=== PATIENT | female | born 1945 | race Caucasian/White ===

== ENCOUNTER 2017-03-02 08:45 | Outpatient (POV) | payer MEDICARE, SELFPAY | END 2017-03-02 11:23 | disposition home or self-care (01) | PROVIDERS: Family Provider Family Medicine; PCP Family Medicine; Visit Provider Podiatrist | DX: M19.072 Primary osteoarthritis, left ankle and foot (principal); M20.12 Hallux valgus (acquired), left foot; M20.11 Hallux valgus (acquired), right foot; M19.071 Primary osteoarthritis, right ankle and foot | CPT/HCPCS: 20600; 99212; J1100; J3301 ==

== ENCOUNTER → 2017-07-03 09:56 | Outpatient (CLI) | payer MEDICARE, SELFPAY ==
--- NOTE | 2017-07-03 10:00 | MR_ITS ---
MR lumbar spine wo con COMPARISON: None HISTORY: Low back pain with sciatica TECHNIQUE: Standard sagittal and axial sequences were performed along with a myelogram sequence. FINDINGS: There is normal curvature and alignment. The marrow signal is normal in all lumbar vertebrae except for prominent type II endplate changes at the L3-4 disc space. The spinal canal is normal size throughout. There is a focal left paracentral disc protrusion at L1 to causing mild neural foraminal narrowing on the left side at this level and a focal extradural defect at this level on the myelogram sequence. The L2-3 disc appears normal. There is a small left paracentral and foraminal disc protrusion L-3-4 definitely narrowing the left neuroforamen at this level. The L4-5 disc is normal.. There is a broad-based central and left paracentral disc protrusion L5-S1 which combined with hypertrophic facet changes at this level results in mild neural foraminal narrowing on the left side at this level. There are hypertrophic facet changes at the L 45 level as well. The myelogram sequence shows no significant extradural defect other than that already mentioned at the L1-2 level. The conus appears normal. IMPRESSION: Multilevel changes as described above, most prominent at the L1-2 and L3-4 levels.
== END ==
PROVIDERS: Family Provider Family Medicine; PCP Family Medicine; Visit Provider Family Medicine
DX: M51.36 Other intervertebral disc degeneration, lumbar region (principal); M54.41 Lumbago with sciatica, right side; M46.96 Unspecified inflammatory spondylopathy, lumbar region
CPT/HCPCS: 72148; 76376

== ENCOUNTER → 2017-10-02 14:45 | Outpatient (CLI) | payer MEDICARE, SELFPAY ==
--- NOTE | 2017-10-02 14:46 | US_ITS ---
US transvaginal Ordering Physician: Jacobo Canchola MD Patient Age: 72 years: Female HISTORY: ITS.REASON: US T/V postmenopausal bleeding. One year. 9-year-old TECHNIQUE: Transvaginal pelvic ultrasound. COMPARISON :No recent relevant studies. Only CT abdomen pelvis and 2013 available -----FINDINGS ------ Uterus. Small postmenopausal uterus measuring 5.6 cm length x 2.6 cm AP x 4.1 cm wide. Thin hyperechoic Endometrial stripe measuring 2.8 mm APNear the fundus. . Slight hypoechoic margin flanking this thin endometrial stripe measures up to 6.6 mm AP Nabothian cyst at upper cervical canal measuring 4 mm Another more posterior cervical now measuring up to 1.2 cm length and another measuring 5 mm Right ovary 2.3 is x 1.2 x 1.8 cm. Small cyst at the right ovary measures up to 1.8 cm x 1.2 x 0.7 cm cm. Left ovary 1.4 x 0.6 x 1.3 cm-- Right ovary 2.25 x 1.2 cm X 1.8 cm . No fluid in cul-de-sac --------IMPRESSION uterus normal in size.- . Nabothian cysts Thin hyperechoic endometrial stripe, Ovaries appear normal in size Right ovary contains a cyst 1.2 cm length maximally
== END ==
PROVIDERS: Family Provider Family Medicine; PCP Family Medicine; Visit Provider Nurse Practitioner Obstetrics & Gynecology
DX: N95.0 Postmenopausal bleeding (principal); N83.201 Unspecified ovarian cyst, right side
CPT/HCPCS: 76830

== ENCOUNTER → 2018-04-15 09:41 | Outpatient (CLI) | payer MEDICARE, SELFPAY ==
--- NOTE | 2018-04-15 09:47 | XR_ITS ---
XR knee LT 3V HISTORY: Left knee pain ITS.REASON: BILAT KNEE PAIN ORDERING PHYSICIAN: Bossman Davison MD PATIENT AGE: 72 years COMPARISON: 01/21/2007 FINDINGS: There are mild osteoarthritic changes of the medial compartment and patellofemoral joint. Small osteophytes are present at the lateral tibial spine and intercondylar region of the femur as well as the medial aspect of the knee joint and patellofemoral joint. No fracture or dislocation. No lytic or blastic change. Ununited ossification center noted at the tibial tuberosity IMPRESSION: Mild osteoarthritis of the left knee which has progressed since the previous exam
--- NOTE | 2018-04-15 09:47 | XR_ITS ---
XR knee RT 3V HISTORY: Right knee pain ITS.REASON: BILAT KNEE PAIN ORDERING PHYSICIAN: Bossman Davison MD PATIENT AGE: 72 years COMPARISON: None FINDINGS: No fracture or dislocation. No lytic or blastic change. Normal mineralization. There are minimal osteoarthritic changes of the medial compartment and patellofemoral joint. No lytic or blastic change evident. IMPRESSION: Minimal osteoarthritis of the right knee
== END ==
PROVIDERS: PCP Family Medicine; Visit Provider Family Medicine
DX: M25.561 Pain in right knee (principal); M25.562 Pain in left knee
CPT/HCPCS: 73562

== ENCOUNTER → 2018-04-20 08:36 | Outpatient (CLI) | payer MEDICARE, SELFPAY ==
--- NOTE | 2018-04-20 09:00 | MM_ITS ---
MM Dig screening mamm BI w/CAD CAD Screening COMPARISON: Digital mammograms with CAD 11/10/2016 and 11/07/2015 INDICATION: There is a history of breast cancer in patient's sister diagnosed at age 77 TECHNIQUE: Standard CC and MLO images were obtained. R2 CAD reviewed. FINDINGS: The breasts are composed primarily of fat with minimal scattered fibroglandular densities in each breast. There is a stable small asymmetric density lower outer quadrant right breast. There is faint arterial calcification in each breast and there are a few scattered benign-appearing microcalcifications in the subareolar regions of each breast. There is no suspicious lesion and there are no suspicious microcalcifications. IMPRESSION: Fatty type breast parenchyma with no suspicious lesion seen BI-RADS Category: 2 Benign Finding(s) RECOMMENDED FOLLOW-UP: 1YR - 1 YEAR FOLLOW-UP (A letter has been sent to the patient regarding results of the study.)
== END ==
PROVIDERS: PCP Family Medicine; Visit Provider Family Medicine
DX: Z12.31 Encounter for screening mammogram for malignant neoplasm of breast (principal)
CPT/HCPCS: 77067

== ENCOUNTER → 2019-05-24 09:55 | Outpatient (CLI) | payer MEDICARE, SELFPAY ==
--- NOTE | 2019-05-24 10:00 | MM_ITS ---
PROCEDURE: MM DIG SCREENING MAMM BI W/CAD BILATERAL DIGITAL BREAST TOMOSYNTHESIS INCLUDED Patient Age:73Y CLINICAL INDICATION: SCREENING 73-year-old. No hormones. No new complaints. Family history. Sister with breast cancer age 77 COMPARISON: DIGMAMMS MAMMOGRAM SCREEN-EXECUTIVE RELATIONS SPECIALIST N/C from 08/15/2008 DIGMAMMS MAMMOGRAM SCREEN-EXECUTIVE RELATIONS SPECIALIST N/C from 08/17/2009 D[facility] DIGITAL MAMM-SCREEN BILATERAL from 09/09/2010 [facility] DIGITAL MAMM-SCREEN BILATERAL from 10/08/2011 D[facility] DIG MAMM-SCREEN SANDRA from 10/19/2012 D[facility]B DIG MAMM-SCREEN SANDRA from 10/26/2013 [id number] DIG MAMM-DX UNI ADD VIEWS-LT from 11/03/2013 DMDXUL DIG MAMM-DX UNI-LT from 05/09/2014 [facility] DIG MAMM-SCREEN SANDRA from 11/07/2015 D[facility]B DIG MAMM-SCREEN SANDRA W/CAD from 11/10/2016 [facility] MM Dig screening mamm BI w/CAD from 04/20/2018 TECHNIQUE: Standard CC and MLO images were obtained. R2 CAD reviewed. Bilateral digital breast tomosynthesis included FINDINGS: Low-density breast with generalized fatty replacement and minimal residual fibroglandular elements Minimal benign vascular calcifications bilaterally. No suspicious calcifications. No suspicious new densities and no dominant mass Right breast. Small a 7 mm density, far lateral right breast CC view and inferior breast MLO view. It has been present and seen on on multiple studies dating even as far back [id number] and appears overall fairly stable., however it is slight more evident some of on today's views, including new cc tomosynthesis it is appearance (cc image 20) and because of its slight variable margins would suggest follow-up in 6-8 months at this juncture at our facility during this particular time in this age patient is suggested; merely to be cautious and confirm stability. Although again strongly favors a benign feature merely which is more clearly imaged on today's today's projection and with the additional of tomosynthesis Left breast: Stable with no areas of concern. Follow-up 1 year on left. IMPRESSION: Right breast.. Small longstanding density lateral inferior right breast has been seen multiple previous studies-and appears fairly stable but is slightly more apparent on some of today's images including the new cc luma synthesis image set. Most likely stable benign feature but I would suggest follow-up right mammogram study in 6-8 months to confirm stability here in this age patient at our facility at the current time. Left breast appear stable. Follow-up 1 year on left BI-RAD Category: 3 Probably Benign Finding Short Term Follow-up FOLLOW-UP: 6M-8 Month Follow-up right breast (A letter has been sent to the patient regarding results of the study.) Dictated by: Terence Michael MD 06/01/2019 08:52 Electronically signed by Terence Michael MD in [place] 06/01/2019 08:52
== END ==
PROVIDERS: PCP Family Medicine; Visit Provider Family Medicine
DX: Z12.31 Encounter for screening mammogram for malignant neoplasm of breast (principal)
CPT/HCPCS: 77063; 77067

== ENCOUNTER → 2019-11-14 09:45 | Outpatient (CLI) | payer MEDICARE, SELFPAY ==
--- NOTE | 2019-11-14 | XR_ITS ---
PROCEDURE: XR KNEE RT 3V CLINICAL INDICATION: RT KNEE PAIN COMPARISON: CR [id number] XR knee RT 3V from 04/15/2018 CR [id number] XR knee LT 3V from 04/15/2018 FINDINGS: No fracture or dislocation. No lytic or blastic change. There is normal mineralization. There is only minimal decrease in the joint space medially. No fracture or dislocation. No lytic or blastic change. Other findings:None. IMPRESSION: Minimal osteoarthritic change medial compartment not significantly changed otherwise negative Dictated by: Jerod Berman MD 11/14/2019 10:49 Jerod Berman MD in [place] 11/14/2019 10:49
--- NOTE | 2019-11-14 | XR_ITS ---
PROCEDURE: XR KNEE LT 3V CLINICAL INDICATION: LT KNEE PAIN COMPARISON: CR [id number] XR knee RT 3V from 04/15/2018 CR [id number] XR knee LT 3V from 04/15/2018 FINDINGS: No fracture or dislocation. No lytic or blastic change. There is normal mineralization. There are mild osteoarthritic changes involving all 3 compartments overall not significantly changed. Accessory ossification center noted at the tibial tuberosity Other findings:None. IMPRESSION: Mild osteoarthritis not significantly changed Dictated by: Jerod Berman MD 11/14/2019 10:57 Jerod Berman MD in [place] 11/14/2019 10:57
== END ==
PROVIDERS: PCP Family Medicine; Visit Provider Family Medicine
DX: M25.561 Pain in right knee (principal); M25.562 Pain in left knee
CPT/HCPCS: 73562

== ENCOUNTER → 2019-11-25 12:55 | Outpatient (CLI) | payer MEDICARE, SELFPAY ==
--- NOTE | 2019-11-25 12:57 | MM_ITS ---
PROCEDURE: MM DIG MAMM DX UNILAT RT CAD Digital Breast Tomosynthesis Included CLINICAL INDICATION: ABN MAMM COMPARISON: MG DMSB DIG MAMM-SCREEN SANDRA W/CAD from 11/10/2016 MG [facility] MM Dig screening mamm BI w/CAD from 04/20/2018 MG MM DIG SCREENING MAMM BI W/CAD from 05/24/2019 TECHNIQUE: Standard CC and MLO images and 3D Tomosynthesis was obtained. R2 CAD reviewed. FINDINGS: The small irregular density outer quadrant again noted and actually appears slightly smaller than the previous exam on luma images. It shows no suspicious characteristics on the luma images. Possibly this represents an old posttraumatic scar. Again noted is faint arterial calcification. IMPRESSION: Stable six-month follow-up exam BI-RAD Category: 2 Benign Finding(s) FOLLOW-UP: 6M 6Month Follow-up to return to normal yearly screening schedule (A letter has been sent to the patient regarding results of the study.) Dictated by: Dr. Omar Niño MD 11/25/2019 13:27 Dr. Omar Niño MD in [place] 11/25/2019 13:27
== END ==
PROVIDERS: PCP Family Medicine; Visit Provider Family Medicine
DX: R92.8 Other abnormal and inconclusive findings on diagnostic imaging of breast (principal)
CPT/HCPCS: 77061; 77065; G0279

== ENCOUNTER → 2019-12-05 09:01 | Outpatient (CLI) | payer MEDICARE, SELFPAY ==
--- NOTE | 2019-12-05 09:05 | XR_ITS ---
PROCEDURE: XR KNEE LT 4V CLINICAL INDICATION: bilateral knee pain COMPARISON: CR [id number] XR knee RT 3V from 04/15/2018 CR [id number] XR knee LT 3V from 04/15/2018 CR XR KNEE LT 3V from 11/14/2019 CR XR KNEE RT 3V from 11/14/2019 FINDINGS: No fracture or dislocation. No lytic or blastic change. There is normal mineralization. There are mild osteoarthritic changes of the medial compartment and patellofemoral joint Ununited ossification center at the tibial tuberosity unchanged IMPRESSION: No change mild osteoarthritis of the left knee Dictated by: Jerod Berman MD 12/05/2019 14:10 Jerod Berman MD in [place] 12/05/2019 14:10
--- NOTE | 2019-12-05 09:05 | XR_ITS ---
PROCEDURE: XR KNEE RT 4V CLINICAL INDICATION: bilateral knee pain COMPARISON: CR [id number] XR knee RT 3V from 04/15/2018 CR [id number] XR knee LT 3V from 04/15/2018 CR XR KNEE LT 3V from 11/14/2019 CR XR KNEE RT 3V from 11/14/2019 FINDINGS: No fracture or dislocation. No lytic or blastic change. There is normal mineralization. Mild osteoarthritic changes are present at the medial lateral compartment not significantly changed Other findings:None. IMPRESSION: No change mild osteoarthritis Dictated by: Jerod Berman MD 12/05/2019 14:08 Jerod Berman MD in [place] 12/05/2019 14:08
== END ==
PROVIDERS: PCP Family Medicine; Visit Provider Orthopaedic Surgery
DX: M25.562 Pain in left knee (principal); M25.561 Pain in right knee
CPT/HCPCS: 73564

== ENCOUNTER → 2020-08-10 11:54 | Outpatient (CLI) | payer MEDICARE, SELFPAY | PROVIDERS: Visit Provider Internal Medicine Gastroenterology | DX: Z01.812 Encounter for preprocedural laboratory examination (principal); Z11.52 Encounter for screening for COVID-19; Z12.11 Encounter for screening for malignant neoplasm of colon | CPT/HCPCS: U0003 ==

== ENCOUNTER 2020-08-13 10:55 | Day surgery (SDC) | payer MEDICARE, SELFPAY ==
[2020-08-07 10:38] VITALS: BMI 42.3
[2020-08-13 11:45] VITALS: BP 136/70; PULSE 61; RESP 18; TEMP 36.2; O2SAT 96
--- NOTE | 2020-08-13 12:10 | P.PN_ITS ---
[facility] Anesthesia Checklist - Patient Identification Patient Identification: Arm Band - Structural Data Admitted From: Home Planned Operative Procedure/s: Colonoscopy Consent for Planned Operative Procedure(s) Verified: Yes - NPO Status Verified Time NPO: 00:00 - Airway Assessment C-Spine Mobility Assessed: Yes TMJ Mobility Assessed: Yes Dentition: Dentures-good fit - Neurological Assessment Level of Consciousness: Awake Hx Seizures: No Numbness or tingling in extremities: No - Anesthesia Plan Anesthesia Risk discussed: Yes Anesthesia Plan: Verified ASA Class: III Anesthesia Type: MAC [facility] History I have reviewed the patient's past medical history: Yes Medical History: Reports:: Anxiety, Depression, Hyperlipidemia, Hypertension Denies:: Cancer, Diabetes Mellitus Type 1, Diabetes Mellitus Type 2, Internal Pacemaker, MRSA, Seizures *Have you ever received a pneumonia vaccine?: Yes *Have you received a flu vaccine this season?: Yes Other Medical History: Reports: Arthritis, Hypothyroidism, Thyroid Disease Anesthesia experience/problems:: None Other Surgeries: Yes: Cholecystectomy, Colonoscopy, , Tubal Ligation. No: Pacemaker Amputation: No Fractures: No - *Social History Last grade of school completed: GED Smoking Status: Never smoker Alcohol Intake: never Substance Use Type: denies use *Occupational Status:: retired Housing: house Household Members: spouse *Travel in the last 8 weeks: None - Psychiatric History Pschychiatric History:: Reports:: Anxiety, Depression Family Hx:: Cancer
--- NOTE | 2020-08-13 12:50 | P.PCN_ITS ---
[facility] Procedure Note Procedure Note:: Colonoscopy Procedure Report: Colonoscopy with cold snare polypectomy Endoscopist: Stefan Lucas II, MD Referring physician: Bossman Davison MD Date of Procedure: August 13, 2020 Equipment: Olympus 190 variable stiffness pediatric colonoscope Sedation: MAC sedation Indication: Mrs. Schmitz is a 75-year-old female who is here for follow-up screening/surveillance colonoscopy secondary to a personal history of adenomatous colon polyps. The patient did have a normal colonoscopy 17 years ago. Her last colonoscopy in August 2014 revealed 2 polyps (serrated adenomas x2) which were removed. She reports no abdominal pain, weight loss, change in her bowel habits or rectal bleeding. She reports no family history of colon cancer. Procedure: Prior to the procedure, a history and physical exam was performed, and patient's medications and allergies were reviewed. The risks, benefits and alternatives of the sedation and procedure were discussed with the patient. All questions were answered and informed consent was obtained. The patient was brought to the procedure room. Patient identification and proposed procedure were verified by the physician and the nurse. The patient was placed in a left lateral decubitus position and the scope was passed under direct vision. Throughout the procedure, the patient's blood pressure, pulse, and oxygen saturations were monitored continuously. The colonoscopy was accomplished without difficulty. The patient tolerated the procedure well. Findings: On digital rectal examination there was normal rectal tone. There were no external hemorrhoids. The colonoscope was introduced through the anal canal to the rectum and advanced to the cecum. The ileocecal valve and appendiceal orifice were identified. The scope was advanced a short distance into the ileum which appeared grossly normal. The scope was then withdrawn into the colon. There were 5 colon polyps (cecum x2 (4 and 4 mm), ascending x1 (5 mm), descending x1 (4 mm) and sigmoid x1 (14 to 15 mm)) which were all removed via cold snare polypectomy. There were extensive scattered diverticuli throughout the descending and sigmoid colon (LEFT colon). The rectum itself was normal. Upon retroflexion within the rectum there were grade 2 internal hemorrhoids. The preparation was excellent throughout with [place] Preparation Score of 9. The cecal time was 16 minutes. Impression: 1. Colonic polyps x5 2. Extensive left-sided diverticulosis 3. Grade 2 internal hemorrhoids Plan: Based upon the size and number of adenomatous polyps, I would recommend repeat screening/surveillance colonoscopy again in 3 years based upon the histology/pathology. I would encourage a fiber bowel regimen on a long-term daily maintenance basis.
[2020-08-13 12:52] VITALS: BP 134/64; PULSE 67; RESP 12; TEMP 37.1; O2SAT 93
[2020-08-13 13:02] VITALS: BP 128/67; PULSE 60; RESP 16; O2SAT 94
[2020-08-13 13:12] VITALS: BP 135/86; PULSE 60; RESP 16; O2SAT 95
[2020-08-13 13:22] VITALS: BP 143/74; PULSE 55; RESP 16; TEMP 37.1; O2SAT 97
[2020-08-13 13:36] VITALS: O2SAT 97
== END 2020-08-13 13:24 | disposition home or self-care (01) ==
LOC: OUTP 10:59
PROVIDERS: PCP Family Medicine; Visit Provider Internal Medicine Gastroenterology
PROC: 0DJD8ZZ Inspection of Lower Intestinal Tract, Via Natural or Artificial Opening Endoscopic (ICD-10-PCS; CPT 45378; principal; 2020-08-13 12:00)
DX: Z12.11 Encounter for screening for malignant neoplasm of colon (principal); Z86.010 Personal history of colon polyps; K63.5 Polyp of colon; K57.30 Diverticulosis of large intestine without perforation or abscess without bleeding; K64.1 Second degree hemorrhoids; F41.9 Anxiety disorder, unspecified; F32.9 Major depressive disorder, single episode, unspecified; E78.5 Hyperlipidemia, unspecified; I10 Essential (primary) hypertension; M19.90 Unspecified osteoarthritis, unspecified site; E03.9 Hypothyroidism, unspecified; Z90.49 Acquired absence of other specified parts of digestive tract
CPT/HCPCS: 45385; 88305

== ENCOUNTER → 2020-09-28 08:59 | Outpatient (CLI) | payer MEDICARE, SELFPAY ==
--- NOTE | 2020-09-28 09:04 | XR_ITS ---
PROCEDURE: XR KNEE LT 4V CLINICAL INDICATION: BL knee pain Injury with pain COMPARISON: CR XR KNEE RT 3V from 11/14/2019 CR XR KNEE LT 3V from 11/14/2019 CR XR KNEE LT 4V from 12/05/2019 CR XR KNEE RT 4V from 12/05/2019 FINDINGS: No fracture or dislocation. No lytic or blastic change. There is normal mineralization. Moderate osteoarthritic changes involve the medial compartment and patellofemoral joint. Lucency is present at the base of an enthesophyte at the tibial tuberosity unchanged Other findings:None. IMPRESSION: Osteoarthritis, no acute fracture Dictated by: Jerod Berman MD 09/28/2020 09:38 Jerod Berman MD in [place] 09/28/2020 09:38
--- NOTE | 2020-09-28 09:04 | XR_ITS ---
PROCEDURE: XR HIP RT 2-3V W/PELVIS CLINICAL INDICATION: BL knee pain Bilateral hip pain COMPARISON: CR [id number] HIP RT 2-3V W/PELVIS IF PERFOR from 10/13/2016 CR XR HIP LT 2-3V W/PELVIS from 09/28/2020 FINDINGS: Mild osteoarthritic changes are present involving both hips. No fracture or dislocation. No lytic or blastic change. IMPRESSION: No acute findings. Dictated by: Jerod Berman MD 09/28/2020 09:40 Jerod Berman MD in [place] 09/28/2020 09:40
--- NOTE | 2020-09-28 09:04 | XR_ITS ---
PROCEDURE: XR ELBOW LT MIN 3V CLINICAL INDICATION: left elbow pain COMPARISON: No exams were available for comparison FINDINGS: No fracture or dislocation. No lytic or blastic change. There is normal mineralization. The joint spaces are well-preserved. No significant degenerative/arthritic changes. No erosive changes evident. Other findings:None. IMPRESSION: No acute findings. Dictated by: Jerod Berman MD 09/28/2020 09:35 Jerod Berman MD in [place] 09/28/2020 09:35
--- NOTE | 2020-09-28 09:04 | XR_ITS ---
PROCEDURE: XR KNEE RT 4V CLINICAL INDICATION: BL knee Pain after a fall COMPARISON: CR XR KNEE RT 3V from 11/14/2019 CR XR KNEE LT 3V from 11/14/2019 CR XR KNEE LT 4V from 12/05/2019 CR XR KNEE RT 4V from 12/05/2019 FINDINGS: No fracture or dislocation. No lytic or blastic change. There is normal mineralization. Mild osteoarthritic change of the medial compartment and patellofemoral joint Other findings:None. IMPRESSION: Mild osteoarthritis, no acute finding Dictated by: Jerod Berman MD 09/28/2020 09:37 Jerod Berman MD in [place] 09/28/2020 09:37
--- NOTE | 2020-09-28 09:04 | XR_ITS ---
PROCEDURE: XR HIP RT 2-3V W/PELVIS CLINICAL INDICATION: BL knee pain Bilateral hip pain COMPARISON: CR [id number] HIP RT 2-3V W/PELVIS IF PERFOR from 10/13/2016 CR XR HIP LT 2-3V W/PELVIS from 09/28/2020 FINDINGS: Mild osteoarthritic changes are present involving both hips. No fracture or dislocation. No lytic or blastic change. IMPRESSION: No acute findings. Dictated by: Jerod Berman MD 09/28/2020 09:40 Jerod Berman MD in [place] 09/28/2020 09:40
== END ==
PROVIDERS: PCP Family Medicine; Visit Provider Orthopaedic Surgery
DX: M25.561 Pain in right knee (principal); M25.562 Pain in left knee; M25.522 Pain in left elbow; M17.11 Unilateral primary osteoarthritis, right knee; M17.12 Unilateral primary osteoarthritis, left knee
CPT/HCPCS: 73080; 73502; 73564

== ENCOUNTER → 2021-04-03 09:11 | Outpatient (CLI) | payer MEDICARE, SELFPAY | PROVIDERS: Visit Provider Nurse Practitioner | DX: Z20.822 Contact with and (suspected) exposure to COVID-19 (principal) | CPT/HCPCS: C9803; U0003; U0005 ==

== ENCOUNTER → 2021-04-18 11:51 | Outpatient (CLI) | payer MEDICARE, SELFPAY ==
[2021-04-19 13:27] LABS: Covid-19 Nasal PCR Sendout Lex POSITIVE
== END ==
PROVIDERS: Visit Provider Nurse Practitioner
DX: U07.1 COVID-19 (principal)
CPT/HCPCS: C9803; U0004; U0005

== ENCOUNTER → 2021-05-17 10:15 | Outpatient (CLI) | payer MEDICARE, SELFPAY ==
--- NOTE | 2021-05-17 10:22 | XR_ITS ---
FINAL REPORT CLINICAL HISTORY: knee pain COMPARISON: September 28, 2020 FINDINGS: 4 views of the left knee were obtained. There is no acute fracture or dislocation. There is moderate narrowing of the medial compartment and patellofemoral joint spaces. There are osteophytes along the medial joint and along the undersurface of the patella. IMPRESSION: Moderate osteoarthritis. Reviewed, Interpreted and Dictated by Art Gallegos MD Transcribed by Noe Mendez Authenticated by Art Gallegos MD on 05/17/2021 11:57:44 AM [facility]
--- NOTE | 2021-05-17 10:22 | XR_ITS ---
FINAL REPORT CLINICAL HISTORY: knee pain COMPARISON: September 28, 2020 FINDINGS: 4 weight-bearing views of the right knee were obtained. There is no acute fracture or dislocation. There is mild narrowing of the medial compartment joint space. The soft tissues are unremarkable. IMPRESSION: Mild narrowing of the medial compartment joint space. Reviewed, Interpreted and Dictated by Art Gallegos MD Transcribed by Noe Mendez Authenticated by Art Gallegos MD on 05/17/2021 11:57:45 AM [facility]
--- NOTE | 2021-05-17 10:22 | XR_ITS ---
FINAL REPORT CLINICAL HISTORY: foot pain FINDINGS: 3 simulated weight-bearing views of the right foot were obtained. There is no acute fracture or dislocation. There is mild hallux valgus deformity. There is an accessory navicular. The soft tissues are unremarkable. IMPRESSION: Mild hallux valgus deformity. Reviewed, Interpreted and Dictated by Art Gallegos MD Transcribed by Noe Mendez Authenticated by Art Gallegos MD on 05/17/2021 11:57:[address] [facility]
--- NOTE | 2021-05-17 10:22 | XR_ITS ---
FINAL REPORT CLINICAL HISTORY: foot pain FINDINGS: 3 simulated weight-bearing views of the left foot were obtained. There is no acute fracture or dislocation. There is moderate hallux valgus deformity. There are mild hypertrophic changes involving the TMT joints. There is an accessory navicular. The soft tissues are unremarkable. IMPRESSION: Mild hypertrophic change involving the TMT joints with moderate hallux valgus deformity. Reviewed, Interpreted and Dictated by Art Gallegos MD Transcribed by Noe Mendez Authenticated by Art Gallegos MD on 05/17/2021 11:57:47 AM [facility]
== END ==
LOC: RAD 10:17
PROVIDERS: PCP Family Medicine; Visit Provider Orthopaedic Surgery
DX: M79.671 Pain in right foot; M79.672 Pain in left foot; M25.562 Pain in left knee; M25.561 Pain in right knee
CPT/HCPCS: 73564; 73630

== ENCOUNTER → 2021-05-27 10:18 | Outpatient (CLI) | payer MEDICARE, SELFPAY ==
--- NOTE | 2021-05-27 10:29 | XR_ITS ---
FINAL REPORT CLINICAL HISTORY: 2ND DIGIT FINGER PAIN..no trauma FINDINGS: RIGHT HAND: 3 views of the right hand were obtained. There is no acute fracture or dislocation. There is severe degenerative change at the 1st CMC joint. There is mild degenerative change elsewhere in the hand. Soft tissues are unremarkable. IMPRESSION: Mild and severe degenerative changes, greatest at the 1st CMC joint. Reviewed, Interpreted and Dictated by John Hong III, MD Transcribed by Noe Mendez Authenticated by John Hong III, MD on 05/27/2021 12:20:33 PM [facility]
== END ==
LOC: RAD 10:19
PROVIDERS: PCP Family Medicine; Visit Provider Family Medicine
DX: M79.644 Pain in right finger(s) (principal)
CPT/HCPCS: 73130

== ENCOUNTER → 2021-08-22 10:00 | Outpatient (CLI) | payer MEDICARE, SELFPAY ==
--- NOTE | 2021-08-22 10:07 | MM_ITS ---
PROCEDURE INFORMATION: Exam: MG Bilateral Screening 3D Mammography Exam date and time: 08/22/2021 10:15 AM Age: 76 years old Clinical indication: Screening examination. Her sister had breast cancer at age 77. TECHNIQUE: Imaging protocol: Bilateral Screening tomosynthesis and 2D mammography including computer-aided detection (CAD) when performed. COMPARISON: 1. MG MM DIG MAMM DX UNILAT RT CAD 11/25/2019 1:02 PM 2. MG MM DIG SCREENING MAMM BI W/CAD 05/24/2019 10:45 AM 3. MG [facility] MM Dig screening mamm BI w/CAD 04/20/2018 9:04 AM 4. MG DMSB DIG MAMM-SCREEN SANDRA W/CAD 11/10/2016 8:14 AM FINDINGS: MAMMOGRAPHY: Breast composition: The breasts are almost entirely fatty. Mass: No suspicious mass. Architectural distortion: None. Calcifications: No suspicious calcifications. Asymmetric density: None. Skin thickening: None. Axillary adenopathy: None. IMPRESSION: No mammographic evidence of malignancy. Annual screening is recommended unless otherwise clinically indicated. ASSESSMENT: BI-RADS Category 1: Negative
== END ==
PROVIDERS: PCP Family Medicine; Visit Provider Family Medicine
DX: Z12.31 Encounter for screening mammogram for malignant neoplasm of breast (principal)
CPT/HCPCS: 77063; 77067

== ENCOUNTER → 2021-09-02 08:48 | Outpatient (POV) | payer MEDICARE, SELFPAY ==
[2021-09-02 10:34] VITALS: BP 118/53; PULSE 57; RESP 18; TEMP 36.5; O2SAT 98; BMI 40.7
--- NOTE | 2021-09-02 11:10 | HMH.PMCON ---
Assessment and Plan (1) Chronic low back pain Status: Acute Category: Medical Code(s): M54.50 - Low back pain, unspecified; G89.29 - Other chronic pain (2) Sacroiliitis Status: Acute Category: Medical Code(s): M46.1 - Sacroiliitis, not elsewhere classified (3) Bilateral knee pain Status: Acute Category: Medical Code(s): M25.561 - Pain in right knee; M25.562 - Pain in left knee - Assessment and plan all Dx Assessment and Plan for all problems:: Patient presents today with worsening LBP that radiates to BLE. She cannot tolerate any prolonged activity such as sitting, standing, and walking. She has an extreme point of tenderness on bilateral SI joints. SI exam is positive. We will schedule the pt for a bilateral SI injection. Risks and benefits of the procedure have been explained to the patient. Patient would like to proceed with the procedure. Patient has not had any updated lumbar imaging. We will order a lumbar MRI without contrast. I will also refer the patient to physical therapy for further evaluation and treatment. She says that her son goes to [place] 3 times a week for dialysis. She wants to schedule her physical therapy at the same time when her son is in dialysis. Patient has been instructed to contact the clinic with any concerns before the next appointment. Dr. Lozano has reviewed this note and agrees with this plan of care. This note was dictated using voice recognition software and make contain errors or omissions. HPI - Data of Consult Patient: new to practice Consult date: 09/02/21 Requesting Physician: MIAH Nichols - Consult Narrative Reason for consult: LBP History of present illness: Ms. Schmitz is a 76 year old female who presents today as a new patient. Patient is referred by Dr. Goncalves. Thank you for the referral. Patient presents with worsening low back pain that radiates to BLE. She has a medical history of chronic bilateral knee pain from a torn meniscus several years ago. This is being followed by orthopedics and she's had multiple intraarticular knee injections, more recently -- monovisc injections on 05/17/21. For her LBP, this has been going on for several months now, denies any precipitating factors such as fall or traumas. She states that she cannot tolerate any prolonged activities such as sitting, standing, and walking. She has pain when getting up from a sitting position. She does home exercises that provides minimal relief. She does take care of her son who is in dialysis three times a week. She's never had any lumbar imaging. For pain, she takes advil and aleve. Rates pain today as 9/10. She is not on any scheduled medications and is not interested in taking any opiates. CC: MIAH Nichols [facility] History I have reviewed the patient's past medical history: Yes Medical History: Reports:: Anxiety, Depression, Hyperlipidemia, Hypertension Denies:: Cancer, Diabetes Mellitus Type 1, Diabetes Mellitus Type 2, Internal Pacemaker, MRSA, Seizures *Have you ever received a pneumonia vaccine?: Yes *Have you received a flu vaccine this season?: Yes Other Medical History: Reports: Arthritis, Hypothyroidism, Thyroid Disease Laterality Cases: Bilateral: Arthroscopy Knee Other Surgeries: Yes: Cholecystectomy, Colonoscopy, , Tubal Ligation. No: Pacemaker Amputation: No Fractures: No - *Social History Smoking Status: Never smoker Alcohol Intake: never Substance Use Type: denies use *Occupational Status:: other Housing: house Household Members: spouse *Travel in the last 8 weeks: None - Psychiatric History Pschychiatric History:: Reports:: Anxiety, Depression Family Hx:: Cancer Review of Systems - Review of Systems Review of Systems: General: No recent weight changes, no fever, no sleep disturbances Respiratory: No cough, no shortness of air, no recurring pulmonary infections Cardiovascular/peripheral vascular: No chest pain, no palpitations, no edema, no shortness of
== END ==
PROVIDERS: Visit Provider Student in an Organized Health Care Education/Training Program
DX: M54.50 Low back pain, unspecified (principal); G89.29 Other chronic pain; M46.1 Sacroiliitis, not elsewhere classified; M25.561 Pain in right knee; M25.562 Pain in left knee
CPT/HCPCS: 99202; G0463

== ENCOUNTER → 2021-09-04 14:13 | Outpatient (CLI) | payer MEDICARE, SELFPAY ==
--- NOTE | 2021-09-04 14:15 | MR_ITS ---
FINAL REPORT CLINICAL HISTORY: BACK AND LEG PAIN. UNABLE TO STAND FOR LONG PERIODS. BILATERAL LBP. LEFT SIDED GROIN PAIN. BILATERAL LEG TINGLING AND PAIN [id number]. COMPARISON: 07/03/2017 FINDINGS: Multiplanar MR imaging of the lumbar spine was performed without contrast. On the sagittal T2-weighted images, disc degeneration is seen throughout with endplate changes at multiple levels. Note is made of several hemangiomas. There is leftward curvature. The vertebral alignment is normal. There is no evidence of fracture. The conus has an unremarkable appearance. T11-12: No significant canal stenosis or neural foraminal narrowing. T12-L1: An annular bulge is present. There is no significant canal stenosis or neural foraminal narrowing. L1-2: Annular bulge and osteophytes are present. There is mild bilateral neural foraminal narrowing. L2-3: An annular bulge is present. Facet arthropathy and osteophytes are present. There is mild bilateral neural foraminal narrowing. L3-4: An annular bulge is present. Facet arthropathy and osteophytes are present. There is moderate bilateral neural foraminal narrowing. L4-5: An annular bulge is present. There is moderate right and mild left neural foraminal narrowing. L5-S1: An annular bulge and facet arthropathy are present. There is a small central disc protrusion. There is no significant canal stenosis or foraminal narrowing. IMPRESSION: Multilevel degenerative disc disease and spondylosis, similar to previous. Small central disc protrusion at L5-S1. Reviewed, Interpreted and Dictated by John Hong III, MD Transcribed by Santa Ballard Authenticated and [facility]
== END ==
LOC: RAD 14:13
PROVIDERS: PCP Family Medicine; Visit Provider Student in an Organized Health Care Education/Training Program
DX: M54.50 Low back pain, unspecified (principal); M79.604 Pain in right leg; M79.605 Pain in left leg
CPT/HCPCS: 72148; 76376

== ENCOUNTER → 2021-09-09 15:05 | Outpatient (POV) | payer MEDICARE, SELFPAY ==
[2021-09-09 15:18] VITALS: BP 127/78; PULSE 77; RESP 20; TEMP 37.1; O2SAT 97; BMI 40.7
--- NOTE | 2021-09-09 15:41 | HMH.PAINSOAP ---
[facility] Pain Management SOAP Note Subjective:: Patient is a pleasant 76-year-old female who presents today for follow-up. Patient is current being treated for degenerative disc disease of the lumbar spine, bilateral knee pain, sacroiliitis. Patient recently established with us and she was complaining of low back pain, bilateral knee pain and bilateral hip pain. I scheduled her for a bilateral SI injections and this is scheduled for this Thursday. She is being followed by orthopedics for bilateral knee pain and had a monovisc injections. She does not want to move forward with any surgical intervention at this time since she cannot be off for a long time. I also ordered an updated Lumbar MRI since she was saying that she has LBP that radiates to BLE. She is here today to discuss her MRI. Lumbar MRI shows multilevel DDD and spondylosis. Small central disc protrusion at L5-S1. She takes OTC meds for pain. She does not like any scheduled meds. She continues to do Physical Therapy while her son is in dialysis. She has seen some benefit after her PT sessions. Pain is 8/10 today. Review of Systems: General: No recent weight changes, no fever, no sleep disturbances Respiratory: No cough, no shortness of air, no recurring pulmonary infections Cardiovascular/peripheral vascular: No chest pain, no palpitations, no edema, no shortness of breath Gastrointestinal: No new onset incontinence, normal bowel movements reported Genitourinary: No new onset incontinence Musculoskeletal: Low back pain, bilateral hip pain, bilateral knee pain Psychiatric: [Normal mood/affect] Neurological: [Denies weakness in extremities], [denies balance issues] Objective:: Physical Exam: General: Alert and oriented x3, no acute distress, pleasant and cooperative Lungs: Respirations even and unlabored, symmetrical chest expansion Eyes: PERRL Musculoskeletal: Flexion and extension of lumbar [spine] somewhat guarded secondary to pain, [antalgic gait noted]; limited range of motion of bilateral lower knees secondary to pain. Bilateral SI are tender to palpation. Neurological: Speech clear, no gross sensory deficit Assessment:: Sacroiliitis, low back pain, bilateral knee pain Plan:: Imaging: Ordering Physician: Dennis Szymanski Date of Service: 09/04/21 Procedure(s): MR lumbar spine wo con Accession Number(s): [id number] cc: John Hong MD; Bossman Davison MD~ FINAL REPORT CLINICAL HISTORY: BACK AND LEG PAIN. UNABLE TO STAND FOR LONG PERIODS. BILATERAL LBP. LEFT SIDED GROIN PAIN. BILATERAL LEG TINGLING AND PAIN [id number]. COMPARISON: 07/03/2017 FINDINGS: Multiplanar MR imaging of the lumbar spine was performed without contrast. On the sagittal T2-weighted images, disc degeneration is seen throughout with endplate changes at multiple levels. Note is made of several hemangiomas. There is leftward curvature. The vertebral alignment is normal. There is no evidence of fracture. The conus has an unremarkable appearance. T11-12: No significant canal stenosis or neural foraminal narrowing. T12-L1: An annular bulge is present. There is no significant canal stenosis or neural foraminal narrowing. L1-2: Annular bulge and osteophytes are present. There is mild bilateral neural foraminal narrowing. L2-3: An annular bulge is present. Facet arthropathy and osteophytes are present. There is mild bilateral neural foraminal narrowing. L3-4: An annular bulge is present. Facet arthropathy and osteophytes are present. There is moderate bilateral neural foraminal narrowing. L4-5: An annular bulge is present. There is moderate right and mild left neural foraminal narrowing. L5-S1: An annular bulge and facet arthropathy are present. There is a small central disc protrusion. There is no significant canal stenosis or foraminal narrowing. IMPRESSION: Multilevel degenerative disc disease and spondylosis, similar to previous. Small central disc protrusion at L5-S1.
== END ==
PROVIDERS: Visit Provider Student in an Organized Health Care Education/Training Program
DX: M46.1 Sacroiliitis, not elsewhere classified (principal); M54.50 Low back pain, unspecified; M25.561 Pain in right knee; M25.562 Pain in left knee
CPT/HCPCS: 99212; G0463

== ENCOUNTER 2021-09-27 08:29 | Day surgery (SDC) | payer MEDICARE, SELFPAY ==
[2021-09-27 08:38] VITALS: BP 110/48; PULSE 70; RESP 18; TEMP 36.5; O2SAT 96; BMI 40.8
--- NOTE | 2021-09-27 08:50 | P.PCN_ITS ---
- Procedure Date: 09/27/21 Time: 08:50 Anesthesiologist:: Conrad Ordonez CRNA Complications:: None Pre-procedure Diagnosis:: Bilateral sacroiliitis Post-procedure Diagnosis:: Same Indications for Procedure:: This patient is a pleasant 76-year-old female that comes our injection clinic today for bilateral SI joint injections. Her pain is across the lumbar spine. She rates pain 7/10. Procedure Details:: Procedure: Bilateral sacroiliac joint injections under fluoroscopy Informed consent was obtained and the risks and benefits of the procedure were explained to the patient.~ The patient was taken to the procedure room and noninvasive monitors were placed including a noninvasive blood pressure cuff and pulse oximeter.~ The patient was placed prone on the procedure table. Both hips were cleansed using Betadine as a cleansing solution. C-arm fluoroscopy was used to view the right sacroiliac joint.~ The skin and subcutaneous tissues were anesthetized using lidocaine 1.5% and a 25-gauge needle.~ After this, a 22-gauge spinal needle was inserted under fluoroscopic guidance into the inferior aspect of the right sacroiliac joint.~ Omnipaque dye was injected and good spread was seen throughout the joint.~ After this, approximately 5 mL of bupivacaine, 0.25% and Depo-Medrol, 40 mg was incrementally injected into the right sacroiliac joint. We then moved to the left sacroiliac joint.~ The skin and subcutaneous tissues were anesthetized using lidocaine 1.5% and a 25-gauge needle.~ After this, a 22- gauge spinal needle was inserted under fluoroscopic guidance into the inferior aspect of the left sacroiliac joint.~ Omnipaque dye was injected and good spread was seen throughout the joint. After this, approximately 5 mL of bupivacaine, 0.25% and Depo-Medrol, 40 mg was incrementally injected into the left sacroiliac joint.~ The patient tolerated the procedure well with no complications. The patient was observed in the Pain Clinic and then was discharged home neurologically intact. Plan and Disposition:: Patient was discharged with essentially no lumbar back pain. No posterior hip pain.
[2021-09-27 08:53] VITALS: BP 110/48; PULSE 70; RESP 20; O2SAT 95
[2021-09-27 09:08] VITALS: BP 140/70; PULSE 60; RESP 20; O2SAT 95
== END 2021-09-27 09:10 | disposition home or self-care (01) ==
LOC: SC.PAINP 08:30
PROVIDERS: PCP Family Medicine; Visit Provider Nurse Anesthetist, Certified Registered
DX: M46.1 Sacroiliitis, not elsewhere classified (principal)
CPT/HCPCS: 27096; G0260; J1040

== ENCOUNTER → 2021-10-14 10:00 | Outpatient (POV) | payer MEDICARE, SELFPAY ==
[2021-10-14 11:52] VITALS: BP 142/69; PULSE 65; RESP 20; TEMP 36.4; O2SAT 95; BMI 41.0
--- NOTE | 2021-10-14 13:20 | HMH.PAINSOAP ---
[facility] Pain Management SOAP Note Subjective:: Patient is a pleasant 76-year-old female who presents today for follow-up. Patient is current being treated for degenerative disc disease of the lumbar spine, bilateral knee pain, sacroiliitis. We have been managing this patient with injective therapy. She had bilateral SI injection recently that provided 90 to 100% relief. She is mainly complaining of pain on her knees today. She states that she used to get Monovisc injections that were done by Dr. Goncalves. She has not gone back to him recently for repeat injections. She has been busy with taking care of her son who goes to dialysis 2-3 times a week in [place]. Rates her pain today as 6 out of 10. She takes OTC medications for pain and she is not on any scheduled medications. [facility] [phone]. Review of Systems: General: No recent weight changes, no fever, no sleep disturbances Respiratory: No cough, no shortness of air, no recurring pulmonary infections Cardiovascular/peripheral vascular: No chest pain, no palpitations, no edema, no shortness of breath Gastrointestinal: No new onset incontinence, normal bowel movements reported Genitourinary: No new onset incontinence Musculoskeletal: Low back pain, hip pain, bilateral knee pain Psychiatric: [Normal mood/affect] Neurological: [Denies weakness in extremities], [denies balance issues] Objective:: Physical Exam: General: Alert and oriented x3, no acute distress, pleasant and cooperative Lungs: Respirations even and unlabored, symmetrical chest expansion Eyes: PERRL Musculoskeletal: Flexion and extension of lumbar limited range of motion of bilateral knees secondary to pain [spine] somewhat guarded secondary to pain, [antalgic gait noted]; Neurological: Speech clear, no gross sensory deficit Assessment:: Osteoarthritis of bilateral knees, degenerative disc disease of the lumbar spine, sacroiliitis Plan:: Patient continues to have significant relief after the bilateral SI injections. She is mainly complaining of pain on her bilateral knees, left worse than the right. She previously had Monovisc injections that were done by Dr. Goncalves. Monovisc injections helped significantly. Since she goes to [place] 2-3 times a week for her son's dialysis, we will refer the pt to Dr. Encarnacion for possible monovisc injections. In the interim, we will schedule this patient for L intraarticular steroid injection. I will also start this patient on a compounding cream. Patient has been instructed to contact the clinic with any concerns before the next appointment. Dr. Lozano has reviewed this note and agrees with this plan of care. This note was dictated using voice recognition software and make contain errors or omissions. [facility] History Medical History: Reports:: Anxiety, Depression, Hyperlipidemia, Hypertension Denies:: Cancer, Diabetes Mellitus Type 1, Diabetes Mellitus Type 2, Internal Pacemaker, MRSA, Seizures *Have you ever received a pneumonia vaccine?: Yes *Have you received a flu vaccine this season?: Yes Other Medical History: Reports: Arthritis, Hypothyroidism, Thyroid Disease Laterality Cases: Bilateral: Arthroscopy Knee Other Surgeries: Yes: Cholecystectomy, Colonoscopy, , Tubal Ligation. No: Pacemaker Amputation: No Fractures: No - *Social History Smoking Status: Never smoker Alcohol Intake: never Substance Use Type: denies use *Occupational Status:: other Housing: house Household Members: spouse *Travel in the last 8 weeks: None - Psychiatric History Pschychiatric History:: Reports:: Anxiety, Depression Family Hx:: No significant family history
== END ==
PROVIDERS: PCP Family Medicine; Visit Provider Student in an Organized Health Care Education/Training Program
DX: M51.36 Other intervertebral disc degeneration, lumbar region (principal); M46.1 Sacroiliitis, not elsewhere classified; M17.0 Bilateral primary osteoarthritis of knee
CPT/HCPCS: 99212; G0463

== ENCOUNTER 2021-11-01 13:54 | Day surgery (SDC) | payer MEDICARE, SELFPAY ==
[2021-11-01 14:08] VITALS: BP 140/77; PULSE 69; TEMP 36.5; O2SAT 94; BMI 40.6
[2021-11-01 14:19] VITALS: BP 114/47; PULSE 56; RESP 20; O2SAT 96
--- NOTE | 2021-11-01 14:21 | P.PCN_ITS ---
- Procedure Date: 11/01/21 Time: 14:21 Anesthesiologist:: Conrad Ordonez CRNA Complications:: None Pre-procedure Diagnosis:: Osteoarthritis of bilateral knees, degenerative disc disease of lumbar spine, sacroiliitis Post-procedure Diagnosis:: Same Indications for Procedure:: Patient is a pleasant 76-year-old female who presents today for left intra- articular knee steroid injection. We are currently treating the patient for degenerative disc disease of lumbar spine, osteoarthritis of bilateral knees and sacroiliitis. Today she rates her pain a 6 out of 10. She states she does have pain in bilateral knees however her left knee is worse than her right. Patient denies any new trauma or change to the location or type of pain she experiences. Procedure Details:: Informed consent and risk and benefits of the procedure were explained to the patient. The patient was seen in the preoperative area. Noninvasive monitoring such as a noninvasive blood pressure cuff and pulse oximeter were placed on the patient. Patient's left knee was prepped with ChloraPrep as a cleansing solution. A 25-gauge needle was used to laterally inject 8 mL's of bupivacaine 0.25% and Depo-Medrol 40 mg. The needle was removed and a bandage was placed over injection site. The patient tolerated the procedure well with no complications. Plan and Disposition:: Patient will follow-up in clinic in 2 weeks for reevaluation of symptoms. She has been instructed to contact the clinic with any concerns before her next appointment. Dr. Lozano has reviewed this note and agrees with this plan of care. The note was dictated using voice recognition software and may contain errors or omissions.
== END 2021-11-01 14:20 | disposition home or self-care (01) ==
LOC: SC.PAINP 13:55
PROVIDERS: PCP Family Medicine; Visit Provider Nurse Anesthetist, Certified Registered
DX: M51.36 Other intervertebral disc degeneration, lumbar region (principal); M17.0 Bilateral primary osteoarthritis of knee; M46.1 Sacroiliitis, not elsewhere classified
CPT/HCPCS: 20610; J1040

== ENCOUNTER → 2021-11-21 13:02 | Outpatient (POV) | payer MEDICARE, SELFPAY ==
[2021-11-21 13:08] VITALS: BP 131/70; PULSE 64; RESP 20; BMI 41.9
--- NOTE | 2021-11-21 13:21 | EXP.PAIN.SOA ---
[facility] Pain Management SOAP Note Subjective:: Patient is a pleasant 76-year-old female who presents today for follow-up of intra-articular left knee injection on 11/01/2021. We are currently treating the patient for degenerative disc disease of lumbar spine, osteoarthritis bilateral knees, sacroiliitis. Patient states that she got minimal to no relief from this last injection. Today the patient rates her pain a 7 out of 10. She states it is primarily in her left knee but has extensive pain in her right as well. Patient describes this as a achy throbbing sensation that is worse with increased activity. Patient states she feels like her knees are unstable. Patient states she did have a fall years ago that resulted in bilateral meniscus tears. 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 Patient has been seen Dr. Goncalves who has referred her to Dr. Abel Tee for possible knee replacement. She is scheduled on December [address] Tee. Patient has tried oral medications such as Tylenol and ibuprofen with minimal improvement of her symptoms. She has also used [id number] creams including prescription compounding cream which she states does help some however does not provide long-term relief. Patient has had physical therapy in the past however it aggravated her pain and made it worse. Patient does home exercise and stretching for longer than 6 weeks with minimal improvement. Patient's Michi is [phone]. Its been reviewed and appropriate. Review of Systems: General: No recent weight changes, no fever, no sleep disturbances Respiratory: No cough, no shortness of air, no recurring pulmonary infections Cardiovascular/peripheral vascular: No chest pain, no palpitations, no edema, no shortness of breath Gastrointestinal: No new onset incontinence, normal bowel movements reported Genitourinary: No new onset incontinence Musculoskeletal: [bilateral knee pain] Psychiatric: [Normal mood/affect] Neurological: [Denies weakness in extremities], [denies balance issues] Objective:: Physical Exam: General: Alert and oriented x3, no acute distress, pleasant and cooperative Lungs: Respirations even and unlabored, symmetrical chest expansion Eyes: PERRL Musculoskeletal: Flexion and extension of bilateral knees somewhat guarded secondary to pain, [antalgic gait noted] Neurological: Speech clear, no gross sensory deficit Assessment:: Degenerative disc disease of lumbar spine, osteoarthritis bilateral knees, sacroiliitis Plan:: Patient continues to have significant pain in her bilateral knees. I have discussed with the patient regarding a genicular nerve block. Risk and benefits were discussed with the patient. She would like to proceed forward with this injection. I will schedule the patient for a left genicular nerve block at today's visit. Patient has been instructed to contact the clinic with any concerns before the next appointment. Dr. Lozano has reviewed this note and agrees with this plan of care. This note was dictated using voice recognition software and make contain errors or omissions. PFSH PFS Medical History (Updated 11/15/21 @ 09:22 by Wyatt Goncalves JR, MD) Anxiety Depression HLD (hyperlipidemia) HTN (hypertension), benign Surgical History (Updated 11/15/21 @ 08:51 by Dahiana Shay CMA) H/O arthroscopy of knee Family History (Updated 11/15/21 @ 08:52 by Dahiana Shay CMA) Other Cancer Social History (Updated 11/15/21 @ 09:23 by Wyatt Goncalves JR, MD) Smoking Status: Never smoker second hand exposure: No alcohol intake: never substance use type: denies use current occupational status: retired Travel in the last 8 weeks: None household members: spouse housing: house current occupational exposures/hazards: No caffeine: Yes
== END ==
PROVIDERS: PCP Family Medicine; Visit Provider Nurse Practitioner Family
DX: M51.36 Other intervertebral disc degeneration, lumbar region (principal); M46.1 Sacroiliitis, not elsewhere classified; M17.0 Bilateral primary osteoarthritis of knee
CPT/HCPCS: 99212; G0463

== ENCOUNTER → 2021-12-11 13:03 | Outpatient (CLI) | payer MEDICARE, SELFPAY ==
--- NOTE | 2021-12-11 13:08 | XR_ITS ---
FINAL REPORT CLINICAL HISTORY: knee pain COMPARISON: May 17, 2021 FINDINGS: 4 views of the left knee were obtained. There is no acute fracture or dislocation. There is moderate narrowing of the medial compartment joint space. There are small osteophytes along the medial joint and along the undersurface of the patella. The soft tissues are unremarkable. IMPRESSION: Mild to moderate osteoarthritis. Reviewed, Interpreted and Dictated by Art Gallegos MD Transcribed by Noe Mendez Authenticated and [facility]
--- NOTE | 2021-12-11 13:08 | XR_ITS ---
FINAL REPORT CLINICAL HISTORY: knee pain COMPARISON: May 17, 2021 FINDINGS: 4 views of the right knee were obtained. There is no acute fracture or dislocation. There is moderate narrowing of the medial compartment joint space. The soft tissues are unremarkable. IMPRESSION: Moderate medial compartment narrowing. Reviewed, Interpreted and Dictated by Art Gallegos MD Transcribed by Noe Mendez Authenticated and [facility]
== END ==
PROVIDERS: PCP Family Medicine; Visit Provider Orthopaedic Surgery
DX: M25.561 Pain in right knee (principal); M25.562 Pain in left knee; M17.11 Unilateral primary osteoarthritis, right knee
CPT/HCPCS: 73564

== ENCOUNTER 2022-01-24 12:08 | Day surgery (SDC) | payer MEDICARE, SELFPAY ==
[2022-01-24 12:46] VITALS: BP 132/50; PULSE 64; RESP 18; TEMP 36.3; O2SAT 96; BMI 42.9
[2022-01-24 13:33] VITALS: BP 113/95; PULSE 65; RESP 18
[2022-01-24 13:35] VITALS: BP 113/95; PULSE 65; RESP 18; O2SAT 98
--- NOTE | 2022-01-24 13:42 | EXP.PAIN.PRO ---
Procedure Date: 01/24/22 Time: 13:42 Anesthesiologist:: Italo Lozano MD Complications:: None Pre-procedure Diagnosis:: Right knee degenerative osteoarthritis with chronic right knee pain Post-procedure Diagnosis:: Same Indications for Procedure:: Patient is a pleasant 76-year-old white female who we are treating for right knee pain with chronic degenerative osteoarthritis and right knee pain. She has been evaluated for total knee replacement however it was suggested by the surgeon to try genicular blocks and RF first to see if this helps alleviate her pain symptoms. We will do a right knee genicular nerve block today. This will be diagnostic block 1. Procedure Details:: Right knee genicular block diagnostic #1 Informed consent was obtained and the risk and benefits of the procedure was explained to the patient. The patient was taken to the procedure room. The left knee was prepped using ChloraPrep. I placed 22-gauge needles into the area of the right superior medial genicular nerve, right superior lateral genicular nerve and right inferior medial genicular nerve. Needle placement was confirmed in AP and lateral views with dye. We then injected bupivacaine 0.25% 3 mL's and Depo-Medrol 25 mg into each area of the right superior medial genicular nerve, right superior lateral genicular nerve and right inferior medial genicular nerve. Patient tolerated the procedure well with no complications. Plan and Disposition:: We will follow-up with her in 2 weeks. Will reevaluate symptoms at that time. If this block is successful we will plan on diagnostic block #2 right knee genicular block followed by RF ablation if needed.
[2022-01-24 13:44] VITALS: BP 135/56; PULSE 60; RESP 18; O2SAT 97
== END 2022-01-24 13:45 | disposition home or self-care (01) ==
PROVIDERS: PCP Family Medicine; Visit Provider Anesthesiology
DX: M17.12 Unilateral primary osteoarthritis, left knee (principal)
CPT/HCPCS: 64454; J1040

== ENCOUNTER → 2022-02-10 11:15 | Outpatient (POV) | payer MEDICARE, SELFPAY ==
[2022-02-10 11:33] VITALS: BP 103/56; PULSE 74; RESP 18; O2SAT 97; BMI 40.7
--- NOTE | 2022-02-10 11:39 | EXP.PAIN.SOA ---
[facility] Pain Management SOAP Note Subjective:: Patient is a pleasant 76-year-old female who presents today for follow-up of right knee genicular nerve block #1. We are currently treating the patient for degenerative disc disease of lumbar spine, osteoarthritis bilateral knees, sacroiliitis. Today the patient states she has had at least 90% relief in her right knee and it continues to provide significant improvement. Today she rates her pain a 8 out of 10 in the left knee. Patient denies any new trauma or injury. Patient denies any change in location or type of pain she experiences. We were previously scheduled to do the left knee initially however her right knee was causing so much problems that she needed to do it first. Patient has been prescribed compounding cream however she states she did not notice significant improvement. Patient does continue to describe the pain in her left knee as a achy, throbbing sensation that is worse with increased activity. 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 Patient has been to see Dr. Goncalves who referred her to Dr. Tee for possible knee replacement. Patient does take [id number] Tylenol and ibuprofen as needed for some additional improvement. Patient's Michi is [id number]. It has been reviewed and appropriate. Review of Systems: General: No recent weight changes, no fever, no sleep disturbances Respiratory: No cough, no shortness of air, no recurring pulmonary infections Cardiovascular/peripheral vascular: No chest pain, no palpitations, no edema, no shortness of breath Gastrointestinal: No new onset incontinence, normal bowel movements reported Genitourinary: No new onset incontinence Musculoskeletal: Left knee pain Psychiatric: [Normal mood/affect] Neurological: [Denies weakness in extremities], [denies balance issues] Objective:: Physical Exam: General: Alert and oriented x3, no acute distress, pleasant and cooperative Lungs: Respirations even and unlabored, symmetrical chest expansion Eyes: PERRL Musculoskeletal: Flexion and extension of left knee somewhat guarded secondary to pain, [antalgic gait noted] Neurological: Speech clear, no gross sensory deficit Assessment:: Degenerative disc disease of lumbar spine, osteoarthritis bilateral knees, sacroiliitis Plan:: Patient is experiencing significant pain in her left knee during today's visit. Patient has had significant improvement from her right knee genicular nerve block which is continuing to provide relief. I have discussed with the patient that she may benefit from a diagnostic left genicular nerve block. Risk and benefits were discussed with the patient. She would like to proceed forward with this plan of care. I have counseled the patient that we will continue to monitor her right knee pain with the plan to do a second genicular nerve block once she is experiencing worsening pain. We will schedule her for a diagnostic left genicular nerve block #1. Patient has been instructed to contact the clinic with any concerns before the next appointment. Dr. Lozano has reviewed this note and agrees with this plan of care. This note was dictated using voice recognition software and make contain errors or omissions. [facility] Medical History (Updated 01/24/22 @ 13:05 by Yelena Castro RN) Anxiety Depression HLD (hyperlipidemia) HTN (hypertension), benign Hypothyroidism Surgical History H/O arthroscopy of knee Family History Other Cancer Social History Smoking Status: Never smoker second hand exposure: No alcohol intake: never substance use type: denies use current occupational status: retired Travel in the last 8 weeks: None household members: spouse housing: [place]
== END ==
PROVIDERS: PCP Family Medicine; Visit Provider Nurse Practitioner Family
DX: M51.36 Other intervertebral disc degeneration, lumbar region (principal); M17.0 Bilateral primary osteoarthritis of knee; M46.1 Sacroiliitis, not elsewhere classified
CPT/HCPCS: 99212; G0463

== ENCOUNTER 2022-02-18 14:15 | Day surgery (SDC) | payer MEDICARE, SELFPAY ==
[2022-02-18 14:29] VITALS: BP 146/78; PULSE 83; RESP 18; TEMP 36.8; O2SAT 95; BMI 41.0
[2022-02-18 14:39] VITALS: BP 130/98; PULSE 78; RESP 19; O2SAT 97
[2022-02-18 14:40] VITALS: BP 130/98; PULSE 78; RESP 19; O2SAT 97
[2022-02-18 14:51] VITALS: BP 112/60; PULSE 78; RESP 20
--- NOTE | 2022-03-11 14:16 | EXP.PAIN.PRO ---
Procedure Date: 02/18/22 Time: 13:00 Anesthesiologist:: Conrad Ordonez CRNA Complications:: None Pre-procedure Diagnosis:: Chronic left knee pain. Post-procedure Diagnosis:: Same. Indications for Procedure:: Very pleasant 76-year-old female comes our clinic today for left genicular nerve block. Patient describes left knee pain is constant, dull, aching. She rates the pain 8/10. Procedure Details:: Left knee genicular block Informed consent was obtained and the risk and benefits of the procedure was explained to the patient. The patient was taken to the procedure room. The left knee was prepped using ChloraPrep. I placed 22-gauge needles into the area of the left superior medial genicular nerve, left superior lateral genicular nerve and left inferior medial genicular nerve. Needle placement was confirmed in AP and lateral views with dye. We then injected bupivacaine 0.25% 3 mL's and Depo-Medrol 25 mg into each area of the left superior medial genicular nerve, left superior lateral genicular nerve and left inferior medial genicular nerve. Patient tolerated the procedure well with no complications. Plan and Disposition:: Patient was discharged without incident.
== END 2022-02-18 14:52 | disposition home or self-care (01) ==
LOC: SC.PAINP 14:16
PROVIDERS: PCP Family Medicine; Visit Provider Nurse Anesthetist, Certified Registered
DX: M17.0 Bilateral primary osteoarthritis of knee (principal); M46.1 Sacroiliitis, not elsewhere classified; M51.36 Other intervertebral disc degeneration, lumbar region
CPT/HCPCS: 64454; J1040

== ENCOUNTER → 2022-03-10 11:28 | Outpatient (POV) | payer MEDICARE, SELFPAY ==
[2022-03-10 12:15] VITALS: BP 122/56; PULSE 66; RESP 18; O2SAT 96; BMI 40.8
--- NOTE | 2022-03-10 14:45 | EXP.PAIN.SOA ---
[facility] Pain Management SOAP Note Subjective:: Patient is a pleasant 76-year-old female who presents today for follow-up. Patient is currently being treated for degenerative disc disease of lumbar spine, osteoarthritis of bilateral knees, sacroiliitis. Patient has had bilateral genicular nerve block that provided significant relief of 90 to 100%. She rates her pain a 0 out of 10. She continues to do well with these genicular nerve blocks. She has no other complaints today. Injection history: 01/24/2022: Right genicular block #1, 90-100% relief 02/18/2022: Left genicular block #1, 90-100% relief Review of Systems: General: No recent weight changes, no fever, no sleep disturbances Respiratory: No cough, no shortness of air, no recurring pulmonary infections Cardiovascular/peripheral vascular: No chest pain, no palpitations, no edema, no shortness of breath Gastrointestinal: No new onset incontinence, normal bowel movements reported Genitourinary: No new onset incontinence Musculoskeletal: Improving knee pain Psychiatric: [Normal mood/affect] Neurological: [Denies weakness in extremities], [denies balance issues] Objective:: Physical Exam: General: Alert and oriented x3, no acute distress, pleasant and cooperative Lungs: Respirations even and unlabored, symmetrical chest expansion Eyes: PERRL Musculoskeletal: Flexion and extension of lumbar [spine] somewhat guarded secondary to pain, [antalgic gait noted]; increased range of motion of bilateral knees Neurological: Speech clear, no gross sensory deficit Assessment:: Osteoarthritis bilateral knees, degenerative disc disease of lumbar spine with lumbar radiculopathy symptoms Plan:: Patient continues to do significantly well with her genicular nerve blocks. We will follow-up with the patient in 3 months. In the past, patient has been referred to Dr. Tee for possible knee replacements. Pt wants to hold off on this for now. Patient has been instructed to contact the clinic with any concerns before the next appointment. Dr. Lozano has reviewed this note and agrees with this plan of care. This note was dictated using voice recognition software and make contain errors or omissions. [facility] Disclaimer: The information contained in this section may have been updated after the patient was seen, as this information can be updated by other users. Medical History Anxiety Depression HLD (hyperlipidemia) HTN (hypertension), benign Hypothyroidism Surgical History H/O arthroscopy of knee Family History Other Cancer Social History Smoking Status: Never smoker second hand exposure: No alcohol intake: never substance use type: denies use current occupational status: retired Travel in the last 8 weeks: None household members: spouse housing: house current occupational exposures/hazards: No caffeine: Yes
== END ==
PROVIDERS: PCP Family Medicine; Visit Provider Student in an Organized Health Care Education/Training Program
DX: M51.16 Intervertebral disc disorders with radiculopathy, lumbar region (principal); M17.0 Bilateral primary osteoarthritis of knee
CPT/HCPCS: 99212; G0463

== ENCOUNTER 2022-04-03 16:01 | Emergency (ER) | payer MEDICARE, SELFPAY ==
[2022-04-03 16:22] VITALS: RESP 14; TEMP 36.7; O2SAT 95; BMI 41.9
--- NOTE | 2022-04-03 16:57 | CT_ITS ---
PROCEDURE INFORMATION: Exam: CT Neck With Contrast Exam date and time: 04/03/2022 6:00 PM Age: 76 years old Clinical indication: Mass, lump, or swelling in neck; Right; Additional info: Concern for thyroid vs laryngeal mass TECHNIQUE: Imaging protocol: Computed tomography of the neck with contrast. Radiation optimization: All CT scans at this facility use at least one of these dose optimization techniques: automated exposure control; mA and/or kV adjustment per patient size (includes targeted exams where dose is matched to clinical indication); or iterative reconstruction. Contrast material: ISOVUE; Contrast volume: 75 ml; Contrast route: IV; COMPARISON: LDCTLCAS LDCT FOR LUNG CA SCREEN 10/03/2016 1:01 PM FINDINGS: Pharynx: Unremarkable. No significant tonsillar enlargement. Larynx: Unremarkable. Epiglottis is normal. Prevertebral and retropharyngeal spaces: Unremarkable. Salivary glands: Normal. Glands are normal in size. Thyroid: Normal. No enlarged or calcified nodules. Lymph nodes: Unremarkable. No lymphadenopathy. Trachea: Visualized trachea is unremarkable. Lungs: Unremarkable as visualized. Bones/joints: Unremarkable. No acute fracture. Soft tissues: Unremarkable. No significant soft tissue swelling. IMPRESSION: No acute findings. Specifically the larynx is normal. There is no thyroid mass.
--- NOTE | 2022-04-03 16:57 | HMH.EDGENADL ---
Discharge Plan Disposition Patient Disposition: Home, Self-Care Condition: Good Prescriptions Prescriptions: New azithromycin 500 mg tablet 500 mg PO DAILY 3 Days Qty: 3 0RF No Action cholecalciferol (vitamin D3) 4,000 unit capsule 4,000 unit PO DAILY sertraline 100 mg tablet 200 mg PO DAILY losartan 50 mg tablet 50 mg PO ONCE levothyroxine 150 mcg tablet 150 mcg PO DAILY atorvastatin 10 mg tablet 10 mg PO DAILY Referrals Follow up/Referrals: Henrik Kenney MD [Primary Care Provider] - See instructions Clinical Impressions Clinical Impression: Atypical pneumonia Discharge ED Provider: Dennis Mitchell General Adult HPI General Chief complaint: Dental/Oral Stated complaint: cough,r side of neck Time Seen by Provider: 04/03/22 16:19 Mode of Arrival: Ambulatory Source of Information: Patient Limitations: No Limitations Description of Symptoms (Recalled from ER Triage Doc. by RN): Pt c/o cough x 3 days, and right lower gum ondontic pain radiating to submandibular region versus cervical chain, NAD, denies sputum, fever or other concerning symptoms History of Present Illness HPI narrative: This is a 76-year-old female with history of likely undiagnosed COPD presenting with cough and dysphagia. Patient states that she has had cough for approximately 2 weeks and it is worsening slowly. Nonproductive and not associate with shortness of breath, fevers, chills, recent contact with sick people, chest pain, nausea, vomiting, or any other concerns. Patient also has auxiliary concern of submental/peritracheal nodule on the right side. She states that for the past few months, she has been swallowing and noticing that when she swallows it feels like it gets stuck right there. Denies changes in voice, difficulty or pain with range of motion of neck, elevation of tongue, difficulty breathing, stridor, or any other concerning history. Related Data Home Medications Medication Instructions Recorded Confirmed cholecalciferol (vitamin D3) 100 4,000 unit PO DAILY Supplement 09/29/17 03/10/22 mcg (4,000 unit) capsule losartan 50 mg tablet 50 mg PO ONCE bp 09/29/17 03/10/22 sertraline 100 mg tablet 200 mg PO DAILY Anxiety 09/29/17 03/10/22 atorvastatin 10 mg tablet 10 mg PO DAILY hld 11/15/21 03/10/22 levothyroxine 150 mcg tablet 150 mcg PO DAILY hypothyroid 11/15/21 03/10/22 Previous Rx's Medication Instructions Recorded azithromycin 500 mg tablet 500 mg PO DAILY 3 days #3 tabs 04/03/22 Allergies Allergy/AdvReac Type Severity Reaction Status Date / Time cefaclor [From CECLOR] Allergy Mild Verified 02/18/22 14:29 penicillin G [PENICILLIN G] Allergy Mild Verified 02/18/22 14:29 [facility] Disclaimer: The information contained in this section may have been updated after the patient was seen, as this information can be updated by other users. Medical History (Updated 04/03/22 @ 19:14 by Dennis Mitchell MD) Anxiety Depression HLD (hyperlipidemia) HTN (hypertension), benign Hypothyroidism Surgical History H/O arthroscopy of knee Family History Other Cancer Social History Smoking Status: Never smoker second hand exposure: No alcohol intake: never substance use type: denies use current occupational status: retired Travel in the last 8 weeks: None household members: spouse housing: house current occupational exposures/hazards: No caffeine: Yes ROS Obtained: Yes All systems reviewed & no additional complaints except as documented Physical Exam General General appearance: alert, in no apparent distress and obese Head Head exam: atraumatic, normocephalic and normal inspection Eye Eye exam: Present normal appearance, PERRL and EOMI ENT ENT exam: Present normal exa
--- NOTE | 2022-04-03 16:59 | XR_ITS ---
PROCEDURE INFORMATION: Exam: XR Chest Exam date and time: 04/03/2022 6:24 PM Age: 76 years old Clinical indication: Cough; Additional info: Cough, wheezing TECHNIQUE: Imaging protocol: Radiologic exam of the chest. Views: 1 view. COMPARISON: LDCTLCAS LDCT FOR LUNG CA SCREEN 10/03/2016 1:01 PM FINDINGS: Lungs: Moderate interstitial haziness could reflect interstitial pneumonia. No consolidation. Pleural spaces: Unremarkable. No pleural effusion. No pneumothorax. Heart/Mediastinum: Unremarkable. No cardiomegaly. Bones/joints: Unremarkable. IMPRESSION: Moderate interstitial haziness could reflect interstitial pneumonia.
[2022-04-03 17:29] LABS: Basophils # 0.1 K/mm3 (0-0.2); Basophils % 1.4 % (0.1-2.0); Eosinophils # 0.4 K/mm3 (0.0-0.4); Hematocrit 37.1 % (37.0-47.0); Hemoglobin 11.9 g/dL (12.2-16.2); Lymphocytes # 2.1 K/mm3 (0.7-4.5); Lymphocytes % 30.1 % (10-50); Mean Corpuscular HGB Conc 31.9 g/dL (31.8-35.4); Mean Corpuscular Hemoglobin 33.9 pg (27.0-31.2); Mean Platelet Volume 8.2 fl (7.4-10.4); Monocytes # 0.4 K/mm3 (0.1-1.0); Monocytes % 5.4 % (1.7-9.3); Neutrophils # 4.1 K/mm3 (1.8-7.8); Neutrophils % 58.2 % (37.0-80.0); Platelet Count 187 K/mm3 (142-424); Red Cell Distribution Width 14.1 % (11.5-17.5); White Blood Count 7.1 K/mm3 (4.8-10.8)
[2022-04-03 17:37] LABS: Anion Gap 8.9 mEq/L (5-15); Blood Urea Nitrogen 13 mg/dl (7-17); Calcium 9.4 mg/dl (8.4-10.2); Carbon Dioxide 28 mmol/L (22.0-30.0); Chloride 109 mmol/L (98-107); Creatinine Clearance Estimated 46 mL/min (50-200); Estimated Glomerular Filt Rate 70 ml/min (>60); GFR (African American) 85 ML/MIN (>60); Glucose 126 mg/dl (74-100); Potassium 3.9 mmoL/L (3.5-5.1); Sodium 142 mmol/L (136-145)
[2022-04-03 17:55] LABS: T4 (Thyroxine) 7.2 ug/dl (5.53-11.0)
[2022-04-03 19:32] VITALS: BP 136/84; PULSE 77; RESP 16; TEMP 37.1
== END 2022-04-03 19:34 | disposition home or self-care (01) ==
PROVIDERS: Emergency Provider Emergency Medicine; PCP Family Medicine
DX: J18.9 Pneumonia, unspecified organism (principal); F41.9 Anxiety disorder, unspecified; E78.5 Hyperlipidemia, unspecified; I10 Essential (primary) hypertension; E03.9 Hypothyroidism, unspecified; Z80.9 Family history of malignant neoplasm, unspecified
CPT/HCPCS: 70491; 71045; 80048; 84436; 84443; 85025; 96374; 99285; Q9967

== ENCOUNTER 2022-04-23 04:41 | Emergency (ER) | payer MEDICARE, SELFPAY ==
[2022-04-23 04:41] VITALS: BP 109/56; PULSE 69; RESP 18; TEMP 36.8; O2SAT 99; BMI 41.3
[2022-04-23 04:43] VITALS: BMI 44.9
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
--- NOTE | 2022-04-23 04:46 | PC.NURSE ---
Dr. Khan at BS speaking with pt
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
--- NOTE | 2022-04-23 04:55 | HMH.EDGENADL ---
Discharge Plan Disposition Patient Disposition: Home, Self-Care Chief Complaint: PAIN Prescriptions Prescriptions: No Action cholecalciferol (vitamin D3) 4,000 unit capsule 4,000 unit PO DAILY sertraline 100 mg tablet 200 mg PO DAILY losartan 50 mg tablet 50 mg PO ONCE levothyroxine 150 mcg tablet 150 mcg PO DAILY atorvastatin 10 mg tablet 10 mg PO DAILY azithromycin 500 mg tablet 500 mg PO DAILY 3 Days Qty: 3 0RF Clinical Impressions Clinical Impression: Contusion of rib on right side Instructions Patient Instructions: DI for Rib Contusion Discharge ED Provider: Bill (ED)Rohan General Adult HPI General Chief complaint: PAIN Stated complaint: Right Side Pain Time Seen by Provider: 04/23/22 04:55 Mode of Arrival: EMS Source of Information: Patient, EMS and Medical Record Limitations: No Limitations Description of Symptoms (Recalled from ER Triage Doc. by RN): pt states that she fell thursday and has was unable to deal with the pain until her scheduled xrays later this date. the pt states her pain is 9/10. pt reports she is having trouble breathing because of the pain in her ribs History of Present Illness HPI narrative: pt with recent fall and has assoc rt rib pain - no other c/o Onset (ago): day(s) Location: chest Severity: moderate Consistency: intermittent Associated symptoms: denies other symptoms Related Data Home Medications Medication Instructions Recorded Confirmed cholecalciferol (vitamin D3) 100 4,000 unit PO DAILY Supplement 09/29/17 03/10/22 mcg (4,000 unit) capsule losartan 50 mg tablet 50 mg PO ONCE bp 09/29/17 03/10/22 sertraline 100 mg tablet 200 mg PO DAILY Anxiety 09/29/17 03/10/22 atorvastatin 10 mg tablet 10 mg PO DAILY hld 11/15/21 03/10/22 levothyroxine 150 mcg tablet 150 mcg PO DAILY hypothyroid 11/15/21 03/10/22 Previous Rx's Medication Instructions Recorded azithromycin 500 mg tablet 500 mg PO DAILY 3 days #3 tabs 04/03/22 Allergies Allergy/AdvReac Type Severity Reaction Status Date / Time cefaclor [From CECLOR] Allergy Mild Verified 02/18/22 14:29 penicillin G [PENICILLIN G] Allergy Mild Verified 02/18/22 14:29 [facility] Disclaimer: The information contained in this section may have been updated after the patient was seen, as this information can be updated by other users. Medical History (Updated 04/23/22 @ 07:14 by Rohan SPANGLER)MD) Anxiety Depression HLD (hyperlipidemia) HTN (hypertension), benign Hypothyroidism Surgical History H/O arthroscopy of knee Family History Other Cancer Social History Smoking Status: Never smoker second hand exposure: No alcohol intake: never substance use type: denies use current occupational status: retired Travel in the last 8 weeks: None household members: spouse housing: house current occupational exposures/hazards: No caffeine: Yes ROS Obtained: Yes All systems reviewed & no additional complaints except as documented Physical Exam General General appearance: alert Head Head exam: normocephalic Eye Eye exam: Present PERRL and EOMI ENT ENT exam: Present mucous membranes moist Neck Neck exam: Present trachea midline Chest Chest inspection: Present normal inspection and tenderness Respiratory Respiratory exam: Present normal lung sounds bilaterally; Absent respiratory distress Cardiovascular Cardiovascular exam: Present regular rate and systolic murmur Abdominal Exam Abdominal exam: Present soft and tenderness; Absent guarding, rebound or rigidity Extremities Exam Extremities exam: Present full ROM Back Exam Back exam: Absent CVA tenderness (R) Neurological Exam Neurological exam: Present alert, oriented X3 and CN II-XII intact; Absent motor sen
[2022-04-23 05:01] LABS: Basophils # 0.1 K/mm3 (0-0.2); Basophils % 0.8 % (0.1-2.0); Eosinophils # 0.4 K/mm3 (0.0-0.4); Eosinophils % 4.7 % (0.1-12.0); Hematocrit 38.9 % (37.0-47.0); Hemoglobin 12.6 g/dL (12.2-16.2); Lymphocytes # 2.1 K/mm3 (0.7-4.5); Lymphocytes % 24.2 % (10-50); Mean Corpuscular HGB Conc 32.4 g/dL (31.8-35.4); Mean Corpuscular Hemoglobin 33.4 pg (27.0-31.2); Mean Corpuscular Volume 103.2 fl (81-99); Mean Platelet Volume 8.1 fl (7.4-10.4); Monocytes # 0.4 K/mm3 (0.1-1.0); Neutrophils # 5.7 K/mm3 (1.8-7.8); Neutrophils % 66.3 % (37.0-80.0); Platelet Count 229 K/mm3 (142-424); Red Blood Count 3.77 M/mm3 (4.20-5.40); Red Cell Distribution Width 13.8 % (11.5-17.5); White Blood Count 8.6 K/mm3 (4.8-10.8)
[2022-04-23 05:12] LABS: Alanine Aminotransferase 25 U/L (12-78); Albumin Level 3.9 g/dl (3.5-5.0); Alkaline Phosphatase 107 U/L (38-126); Anion Gap 7.5 mEq/L (5-15); Aspartate Amino Transferase 32 U/L (14-36); Bilirubin,Direct 0.2 mg/dl (0.0-0.4); Bilirubin,Indirect 0.4 mg/dL (0.0-0.9); Bilirubin,Total 0.6 mg/dl (0.2-1.3); Bilirubin,Unconjugated 0.4 mg/dL (0.0-1.1); Blood Urea Nitrogen 13 mg/dl (7-17); Calcium 9.6 mg/dl (8.4-10.2); Carbon Dioxide 29 mmol/L (22.0-30.0); Chloride 108 mmol/L (98-107); Creatinine Clearance Estimated 44 mL/min (50-200); Estimated Glomerular Filt Rate 70 ml/min (>60); GFR (African American) 85 ML/MIN (>60); Glucose 117 mg/dl (74-100); Lipase 119 U/L (23-300); Potassium 4.5 mmoL/L (3.5-5.1); Sodium 140 mmol/L (136-145); Total Protein,Serum 7.4 g/dl (6.3-8.2)
--- NOTE | 2022-04-23 05:32 | PC.NURSE ---
Pt gone to RAD
--- NOTE | 2022-04-23 05:57 | PC.NURSE ---
Pt back from RAD
[2022-04-23 06:01] VITALS: BP 136/72; PULSE 60; RESP 20; O2SAT 98
[2022-04-23 06:31] VITALS: BP 94/76; PULSE 63; O2SAT 99
--- NOTE | 2022-04-23 06:35 | PC.NURSE ---
Pt readjusted in bed for comfort
[2022-04-23 08:00] VITALS: BP 105/53; PULSE 60; RESP 18; TEMP 36.7; O2SAT 98
== END 2022-04-23 08:00 | disposition home or self-care (01) ==
PROVIDERS: Emergency Provider Emergency Medicine; PCP Family Medicine
DX: S20.211A Contusion of right front wall of thorax, initial encounter (principal); W19.XXXA Unspecified fall, initial encounter; F41.9 Anxiety disorder, unspecified; E78.5 Hyperlipidemia, unspecified; I10 Essential (primary) hypertension; E03.9 Hypothyroidism, unspecified; Z80.9 Family history of malignant neoplasm, unspecified
CPT/HCPCS: 71045; 71250; 72170; 74177; 80048; 80076; 83690; 85025; 96374; 99285; Q9967

== ENCOUNTER 2022-05-01 15:46 | Emergency (ER) | payer MEDICARE, SELFPAY ==
[2022-05-01] VITALS (7 sets, daily range): BP systolic 115–140; BP diastolic 61–74; PULSE 60–73; RESP 18–22; TEMP 36.4–36.8; O2SAT 94–97; BMI 43.0
--- NOTE | 2022-05-01 15:44 | ECG_ITS ---
APPROVED REPORT Exam: Resting ECG HR:71 bpm ECG Measurements Heart Rate 71 AXES RI 167 P 19 QRSd 93 QRS -29 QT 418 T 23 QTc 440 Conclusion SINUS RHYTHM LOW QRS VOLTAGE IN PRECORDIAL LEADS [QRS DEFLECTION < 1.0 mV IN CHEST LEADS] MINIMAL VOLTAGE CRITERIA FOR LVH, CONSIDER NORMAL VARIANT [MEETS CRITERIA IN ONE OF: R(aVL), S(V1), R(V5), R(V5/V6)+S(V1)] POSSIBLE ANTERIOR MYOCARDIAL INFARCTION , PROBABLY OLD [30 ms Q WAVE IN V3/V4, OR R < 0.2 mV IN V4] BORDERLINE ECG UNCONFIRMED REPORT Electronically signed by : Cuauhtemoc Tobin MD 05/01/2022 17:26:14
--- NOTE | 2022-05-01 15:58 | XR_ITS ---
FINAL REPORT CLINICAL HISTORY: Chest pain, increased w inspiration/cough COMPARISON: 04/23/2022 FINDINGS: PORTABLE CHEST The heart is normal in size. The mediastinum is unremarkable. There are mild chronic changes at the lung bases. There is no pneumothorax. IMPRESSION: No acute process. Reviewed, Interpreted and Dictated by Art Gallegos MD Transcribed by Khushbu Rachel Authenticated and [facility]
[2022-05-01 16:16] LABS: Basophils # 0.1 K/mm3 (0-0.2); Basophils % 0.9 % (0.1-2.0); Eosinophils # 0.5 K/mm3 (0.0-0.4); Eosinophils % 4.6 % (0.1-12.0); Hematocrit 37.7 % (37.0-47.0); Hemoglobin 12.5 g/dL (12.2-16.2); Lymphocytes # 2.5 K/mm3 (0.7-4.5); Lymphocytes % 24.4 % (10-50); Mean Corpuscular HGB Conc 33.1 g/dL (31.8-35.4); Mean Corpuscular Hemoglobin 33.1 pg (27.0-31.2); Mean Corpuscular Volume 100.1 fl (81-99); Mean Platelet Volume 8.1 fl (7.4-10.4); Monocytes # 0.5 K/mm3 (0.1-1.0); Monocytes % 4.8 % (1.7-9.3); Neutrophils # 6.7 K/mm3 (1.8-7.8); Neutrophils % 65.3 % (37.0-80.0); Platelet Count 266 K/mm3 (142-424); Red Blood Count 3.77 M/mm3 (4.20-5.40); Red Cell Distribution Width 13.6 % (11.5-17.5); White Blood Count 10.3 K/mm3 (4.8-10.8)
[2022-05-01 16:17] LABS: Alanine Aminotransferase 25 U/L (12-78); Albumin Level 4.2 g/dl (3.5-5.0); Albumin/Globulin Ratio 1.1 (1.1-1.8); Alkaline Phosphatase 125 U/L (38-126); Anion Gap 10.1 mEq/L (5-15); Aspartate Amino Transferase 37 U/L (14-36); Bilirubin,Total 0.6 mg/dl (0.2-1.3); Blood Urea Nitrogen 9 mg/dl (7-17); Calcium 9.9 mg/dl (8.4-10.2); Carbon Dioxide 26 mmol/L (22.0-30.0); Chloride 108 mmol/L (98-107); Creatinine Clearance Estimated 46 mL/min (50-200); Estimated Glomerular Filt Rate 54 ml/min (>60); GFR (African American) 66 ML/MIN (>60); Globulin 3.7 g/dL (1.3-3.2); Glucose 126 mg/dl (74-100); Potassium 4.1 mmoL/L (3.5-5.1); Sodium 140 mmol/L (136-145); Total Protein,Serum 7.9 g/dl (6.3-8.2)
[2022-05-01 16:36] LABS: Troponin I < 0.01 ng/ml (0.00-0.034)
--- NOTE | 2022-05-01 17:09 | HMH.EDGENADL ---
Discharge Plan Disposition Patient Disposition: Home, Self-Care Condition: Good Prescriptions Prescriptions: New acetaminophen-codeine 300-30 mg tablet 1 tab PO Q6H PRN (Reason: moderate pain ) Qty: 20 0RF No Action cholecalciferol (vitamin D3) 4,000 unit capsule 4,000 unit PO DAILY sertraline 100 mg tablet 200 mg PO DAILY losartan 50 mg tablet 50 mg PO ONCE levothyroxine 150 mcg tablet 150 mcg PO DAILY atorvastatin 10 mg tablet 10 mg PO DAILY azithromycin 500 mg tablet 500 mg PO DAILY 3 Days Qty: 3 0RF Referrals Follow up/Referrals: Provider,Referral, MD [Primary Care Provider] - See instructions Activity Restrictions/Add. Instructions Additional Instructions/Restrictions: Tylenol 3 as needed for pain. Additional instructions for CHEST PAIN: See your physician as soon as possible for further evaluation. Return immediately if worsening chest pain, vomiting, shortness of breath, fever, coughing of blood. Clinical Impressions Clinical Impression: Chest wall contusion Discharge ED Provider: Gilles Persaud General Adult HPI General Chief complaint: Chest Pain Stated complaint: chest pain Time Seen by Provider: 05/01/22 17:11 Mode of Arrival: Ambulatory Source of Information: Patient and Relative Limitations: No Limitations Description of Symptoms (Recalled from ER Triage Doc. by RN): Pt c/o ongoing chest pain similiar to previous recent ED evaluation dx w walking pneumonia, exacerbated with cough, deep inspiration, and forward flexion History of Present Illness HPI narrative: Patient states that she fell face forward onto a hardwood floor on 04/20/2022Thursday. Since then she has pain in her sternal area of her chest which worsens with movement, coughing, position change. It does not hurt when she breathes because she says she breathes shallow. She was seen in this emergency department on 04/23/2022 and had a work-up including a CT scan of her chest and CT scan of her abdomen in addition to x-rays. No fractures were found. She was given a take-home pack of Tylenol with codeine which she says helped. She followed up with her primary care provider, Dr. Davison, and says she was prescribed ibuprofen which has not helped at all. No other new symptoms. Denies any significant cough or fever. She has chronic swelling of her feet and ankles which is unchanged. Related Data Home Medications Medication Instructions Recorded Confirmed cholecalciferol (vitamin D3) 100 4,000 unit PO DAILY Supplement 09/29/17 03/10/22 mcg (4,000 unit) capsule losartan 50 mg tablet 50 mg PO ONCE bp 09/29/17 03/10/22 sertraline 100 mg tablet 200 mg PO DAILY Anxiety 09/29/17 03/10/22 atorvastatin 10 mg tablet 10 mg PO DAILY hld 11/15/21 03/10/22 levothyroxine 150 mcg tablet 150 mcg PO DAILY hypothyroid 11/15/21 03/10/22 Previous Rx's Medication Instructions Recorded azithromycin 500 mg tablet 500 mg PO DAILY 3 days #3 tabs 04/03/22 acetaminophen 300 mg-codeine 30 mg 1 tab PO Q6H PRN moderate pain 05/01/22 tablet #20 tabs Allergies Allergy/AdvReac Type Severity Reaction Status Date / Time cefaclor [From CECLOR] Allergy Mild Verified 02/18/22 14:29 penicillin G [PENICILLIN G] Allergy Mild Verified 02/18/22 14:29 [facility] Disclaimer: The information contained in this section may have been updated after the patient was seen, as this information can be updated by other users. Medical History (Updated 05/01/22 @ 17:33 by Gilles Persaud MD) Anxiety Depression HLD (hyperlipidemia) HTN (hypertension), benign Hypothyroidism Surgical History H/O arthroscopy of knee Family History Other Cancer Social History Smoking Status: Never smoker second hand exposure: No alcohol intake: ne
== END 2022-05-01 17:59 | disposition home or self-care (01) ==
PROVIDERS: Emergency Provider Emergency Medicine
DX: S20.219A Contusion of unspecified front wall of thorax, initial encounter (principal); R07.89 Other chest pain; W19.XXXA Unspecified fall, initial encounter; F41.9 Anxiety disorder, unspecified; I10 Essential (primary) hypertension; E78.5 Hyperlipidemia, unspecified; E03.9 Hypothyroidism, unspecified; Z80.9 Family history of malignant neoplasm, unspecified
CPT/HCPCS: 71045; 80053; 84484; 85025; 93005; 99285

== ENCOUNTER 2023-01-12 15:25 | Emergency (ER) | payer MEDICARE, SELFPAY ==
[2023-01-12 15:46] VITALS: BP 122/72; PULSE 82; RESP 18; TEMP 37.1; O2SAT 100; BMI 34.6
--- NOTE | 2023-01-12 15:54 | CT_ITS ---
FINAL REPORT TECHNIQUE: Axial CT images were performed from the lung apices through the upper abdomen. Coronal reformats were submitted. This study was performed with techniques to keep radiation doses as low as reasonably achievable (ALARA). Individualized dose reduction techniques using automated exposure control or adjustment of mA and/or kV according to the patient's size were employed. CLINICAL HISTORY: left thoracic trauma COMPARISON: 04/23/2022 FINDINGS: Mild changes of emphysema and mild scarring is noted in the lung pedroza bilaterally. There is no axillary adenopathy. There is no hilar or mediastinal mass or adenopathy. There is a severe T6 compression fracture, significantly worse since the prior MR of April 2022. There is resulting kyphosis at the T6 level. Heart size is normal. There is no pericardial or pleural effusion. There is scarring in the left kidney, with a small nonobstructing stone in the upper pole. No suspicious infiltrate or nodule is identified on lung window images. IMPRESSION: Severe T6 compression fracture, significantly worse since the prior exam of April 2022 with resulting kyphosis at the T6 level. MRI would be helpful for further evaluation if clinically indicated. Mild changes of emphysema and mild scarring. Scarring in the left kidney with a small nonobstructing stone. Reviewed, Interpreted and Dictated by John Hong III, MD Transcribed by Cary Bradley Authenticated and [facility]
--- NOTE | 2023-01-12 15:54 | XR_ITS ---
FINAL REPORT CLINICAL HISTORY: fall COMPARISON: None FINDINGS: AP, oblique, and lateral views of the left elbow were obtained. There is no prior exam for comparison. There is no acute fracture or dislocation. Mild degenerative changes present. There is no joint effusion or other soft tissue abnormality. IMPRESSION: No acute osseous abnormality of the right elbow. Reviewed, Interpreted and Dictated by John Hong III, MD Transcribed by Cary Bradley Authenticated and [facility]
--- NOTE | 2023-01-12 17:11 | HMH.EDGENADL ---
Discharge Plan Disposition Patient Disposition: Home, Self-Care Prescriptions Prescriptions: New oxycodone 5 mg tablet 5 mg PO Q12H PRN (Reason: severe pain) Qty: 7 0RF Rx Instructions: Do not combine with other opiates No Action cholecalciferol (vitamin D3) 4,000 unit capsule 4,000 unit PO DAILY sertraline 100 mg tablet 200 mg PO DAILY losartan 50 mg tablet 50 mg PO ONCE levothyroxine 150 mcg tablet 150 mcg PO DAILY atorvastatin 10 mg tablet 10 mg PO DAILY acetaminophen-codeine 300-30 mg tablet 1 tab PO Q6H PRN (Reason: moderate pain ) Qty: 20 0RF azithromycin 500 mg tablet 500 mg PO DAILY 3 Days Qty: 3 0RF Referrals Follow up/Referrals: Bossman Davison MD [Primary Care Provider] - See instructions Activity Restrictions/Add. Instructions Additional Instructions/Restrictions: At this time it was felt you are safe to be discharged home. If new or worsening symptoms please do not hesitate to return the emergency department. Please take your medications as prescribed. Please follow-up with Dr. Davison as soon as you are able for possible spine referral. Clinical Impressions Clinical Impression: Fall, Pain in rib, Compression fracture of T6 vertebra Discharge ED Provider: Sam Medina General Adult HPI General Chief complaint: PAIN Stated complaint: AO fall 01/12, left elbow and rib pain Time Seen by Provider: 01/12/23 16:00 Mode of Arrival: Wheelchair Source of Information: Patient and Relative Limitations: No Limitations Description of Symptoms (Recalled from ER Triage Doc. by RN): Pt states that at approx 1300 today she was stepping up into her truck when she slipped off of the step and fell onto the ground. Denies any loc. Denies any blood thinner usage. Pt c/o left sided rib pain. States that she feels short of breath following the incident. History of Present Illness HPI narrative: Patient is 77-year-old female with no pertinent past medical history not on blood thinners who presents emergency department for evaluation of traumatic injury sustained in a fall. Patient was getting out of a truck when she fell striking the side of the vehicle on her left inferior thoracic cage causing significant pain. Denies head trauma, other traumatic injuries at this time. Related Data Home Medications Medication Instructions Recorded Confirmed cholecalciferol (vitamin D3) 100 4,000 unit PO DAILY Supplement 09/29/17 03/10/22 mcg (4,000 unit) capsule losartan 50 mg tablet 50 mg PO ONCE bp 09/29/17 03/10/22 sertraline 100 mg tablet 200 mg PO DAILY Anxiety 09/29/17 03/10/22 atorvastatin 10 mg tablet 10 mg PO DAILY hld 11/15/21 03/10/22 levothyroxine 150 mcg tablet 150 mcg PO DAILY hypothyroid 11/15/21 03/10/22 Previous Rx's Medication Instructions Recorded azithromycin 500 mg tablet 500 mg PO DAILY 3 days #3 tabs 04/03/22 acetaminophen 300 mg-codeine 30 mg 1 tab PO Q6H PRN moderate pain 05/01/22 tablet #20 tabs oxycodone 5 mg tablet 5 mg PO Q12H PRN severe pain #7 01/12/23 tabs Allergies Allergy/AdvReac Type Severity Reaction Status Date / Time cefaclor [From CECLOR] Allergy Mild Verified 02/18/22 14:29 penicillin G [PENICILLIN G] Allergy Mild Verified 02/18/22 14:29 [facility] Disclaimer: The information contained in this section may have been updated after the patient was seen, as this information can be updated by other users. Medical History (Updated 01/12/23 @ 19:44 by Sam Medina MD) Anxiety Depression HLD (hyperlipidemia) HTN (hypertension), benign Hypothyroidism Surgical History H/O arthroscopy of knee Family History Other Cancer Social History Smoking Status: Never smoker second hand exposure: No alcohol intake: never substance
--- NOTE | 2023-01-12 19:34 | PC.NURSE ---
Dr. Medina in room with update
[2023-01-12 19:55] VITALS: BP 122/78; PULSE 77; RESP 16; TEMP 36.6; O2SAT 98
== END 2023-01-12 19:57 | disposition home or self-care (01) ==
PROVIDERS: Emergency Provider Emergency Medicine; PCP Family Medicine
DX: S22.050A Wedge compression fracture of T5-T6 vertebra, initial encounter for closed fracture (principal); R07.81 Pleurodynia; I10 Essential (primary) hypertension; E78.5 Hyperlipidemia, unspecified; E03.9 Hypothyroidism, unspecified; W19.XXXA Unspecified fall, initial encounter
CPT/HCPCS: 71250; 73080; 99284

== ENCOUNTER 2023-03-20 10:55 | Emergency (ER) | payer MEDICARE, SELFPAY ==
[2023-03-20 10:57] VITALS: BP 130/62; PULSE 85; RESP 17; TEMP 36.9; O2SAT 95; BMI 39.5
--- NOTE | 2023-03-20 11:05 | ED_ITS ---
Discharge Plan Disposition Patient Disposition: Home, Self-Care Condition: Fair Prescriptions Prescriptions: New ondansetron 4 mg tablet,disintegrating 4 mg PO Q8H PRN (Reason: nausea and vomiting) 5 Days Qty: 10 0RF Discontinued azithromycin 500 mg tablet 500 mg PO DAILY 3 Days Qty: 3 0RF No Action cholecalciferol (vitamin D3) 4,000 unit capsule 4,000 unit PO DAILY sertraline 100 mg tablet 200 mg PO DAILY losartan 50 mg tablet 50 mg PO ONCE levothyroxine 150 mcg tablet 150 mcg PO DAILY atorvastatin 10 mg tablet 10 mg PO DAILY acetaminophen-codeine 300-30 mg tablet 1 tab PO Q6H PRN (Reason: moderate pain ) Qty: 20 0RF oxycodone 5 mg tablet 5 mg PO Q12H PRN (Reason: severe pain) Qty: 7 0RF Rx Instructions: Do not combine with other opiates Referrals Follow up/Referrals: Bossman Davison MD [Primary Care Provider] - See instructions Bao Tee DO [Staff Physician] - See instructions (Right shoulder pain after traumatic injury) Activity Restrictions/Add. Instructions Additional Instructions/Restrictions: You have been diagnosed with COVID-19. Please take Tylenol and ibuprofen as needed for your pain. Please return with any new or worsening symptoms. Clinical Impressions Clinical Impression: COVID-19 Stand Alone Forms Stand Alone Forms: Work/School Release Discharge ED Provider: Donny Barnhart Adult HPI General Chief complaint: Weakness Stated complaint: cough, body aches Time Seen by Provider: 03/20/23 11:05 History of Present Illness HPI narrative: Patient presents with multiple complaints, they include myalgias, generalized weakness, decreased p.o. intake, nausea, denies any known sick contacts with recent symptoms, does describe associated mild frontal headache. No previous therapies, no dysuria or frequency. Denies any chest pain. Denies any palpitations. Denies any fevers or chills. Describes recent fall, and a ssociated shoulder pain, has not been evaluated yet for the symptoms. Related Data Home Medications Medication Instructions Recorded Confirmed cholecalciferol (vitamin D3) 100 4,000 unit PO DAILY Supplement 09/29/17 03/10/22 mcg (4,000 unit) capsule losartan 50 mg tablet 50 mg PO ONCE bp 09/29/17 03/10/22 sertraline 100 mg tablet 200 mg PO DAILY Anxiety 09/29/17 03/10/22 atorvastatin 10 mg tablet 10 mg PO DAILY hld 11/15/21 03/10/22 levothyroxine 150 mcg tablet 150 mcg PO DAILY hypothyroid 11/15/21 03/10/22 Previous Rx's Medication Instructions Recorded acetaminophen 300 mg-codeine 30 mg 1 tab PO Q6H PRN moderate pain 05/01/22 tablet #20 tabs oxycodone 5 mg tablet 5 mg PO Q12H PRN severe pain #7 01/12/23 tabs ondansetron 4 mg disintegrating 4 mg PO Q8H PRN nausea and 03/20/23 tablet vomiting 5 days #10 tabs Allergies Allergy/AdvReac Type Severity Reaction Status Date / Time cefaclor [From CECLOR] Allergy Mild Verified 02/18/22 14:29 penicillin G [PENICILLIN G] Allergy Mild Verified 02/18/22 14:29 PFSH PFSH Disclaimer: The information contained in this section may have been updated after the patient was seen, as this information can be updated by other users. Medical History (Updated 03/20/23 @ 14:00 by Donny Barnhart MD) Anxiety Depression HLD (hyperlipidemia) HTN (hypertension), benign Hypothyroidism Surgical History H/O arthroscopy of knee Family History Other Cancer Social History Smoking Status: Former smoker second hand exposure: No alcohol intake: never substance use type: denies use current occupational status: retired Travel in the last 8 weeks: None household members: spouse housing: house current occupational exposures/hazards: No caffeine: Yes ROS Obtained: Yes Systems reviewed as appropriate & no additional complaints except as documented As per HPI Physical Exam General General appearance: alert and in no apparent distress Head Head exam: atraumatic and normocephalic Eye Eye exam: Present normal appearance Neck Neck exam: Present normal inspection Chest Chest inspection: Present normal inspection and symmetric chest wall rise Respiratory Respiratory exam: Present normal lung sounds bilaterally; Absent respiratory distress Cardiovascular Cardiovascular exam: Present regular rate and normal rhythm Abdominal Exam Abdominal exam: Present soft Extremities Exam Extremities exam: Present other (Right shoulder tenderness to palpation, closed injury, distally neurovascularly intact) Neurological Exam Neurological exam: Present alert and oriented X3 Psychiatric Psychiatric exam: Present normal affect and normal mood Skin Skin exam: Present warm and dry Medical Decision Making Medical Records Medical records reviewed: Yes I reviewed the patient's medical records. Michi Inquiry Pt receiving controlled substance: No Vital Signs: 03/20/23 10:57 03/20/23 11:30 03/20/23 12:30 Temperature 98.4 F Temperature Source Oral Pulse Rate 71 67 Pulse Rate [Left Radial] 85 Respiratory Rate 17 Blood Pressure 124/69 Blood Pressure [Right Arm] 130/62 Blood Pressure Mean 81 Blood Pressure Mean [Right Arm] 84 Blood Pressure Source Blood Pressure Position 02 Sat by Pulse Oximetry 95 96 96 Oxygen Delivery Method Room Air Room Air Room Air 03/20/23 13:00 03/20/23 14:10 Temperature 98.0 F Temperature Source Oral Pulse Rate 66 64 Pulse Rate [Left Radial] Respiratory Rate 18 Blood Pressure 132/71 134/74 Blood Pressure [Right Arm] Blood Pressure Mean 84 Blood Pressure Mean [Right Arm] Blood Pressure Source Automatic Cuff Blood Pressure Position Sitting 02 Sat by Pulse Oximetry 96 Oxygen Delivery Method Room Air Room Air Lab Data Lab Results 03/20/23 11:03: SARS-CoV-2 (PCR) Detected A, Influenza A Untype (PCR) Not detected, Influenza Type B (PCR) Not detected 03/20/23 11:32: WBC 5.8, RBC 3.53 L, Hgb 11.6 L, Hct 35.5 L, MCV 100.5 H, MCH 32.9 H, MCHC 32.7, RDW 13.9, Plt Count 144, MPV 8.3, Neut % (Auto) 78.5, Lymph % (Auto) 12.9, Menard % (Auto) 5.6, Eos % (Auto) 2.7, Baso % (Auto) 0.3, Neut # (Auto) 4.6, Lymph # (Auto) 0.8, Menard # (Auto) 0.3, Eos # (Auto) 0.2, Baso # (Auto) 0.0, Sodium 140, Potassium 4.0, Chloride 107, Carbon Dioxide 26, Anion Gap 11.0, BUN 14, Creatinine 0.80, Estimated Creat Clear 85, Estimated GFR 70, Est GFR ( Amer) 85, Glucose 103 H, Calcium 9.6, Total Bilirubin 0.8, AST 43 H, ALT 31, Alkaline Phosphatase 109, NT-Pro-B Natriuret Pep 241, Total Protein 7.5, Albumin 3.7, Globulin 3.8 H, Albumin/Globulin Ratio 1.0 L 03/20/23 11:32 03/20/23 11:32 Orders (Tests/Meds): ORDERS Category Date Time Status Clavicle XR right [XR clavicle RT] Stat Exams 03/20/23 11:20 Completed Shoulder XR right miminum 2 views [XR shoulder RT min Exams 03/20/23 11:20 Completed 2V] Stat XR chest 2V Stat Exams 03/20/23 11:20 Completed XR sternum min 2V Stat Exams 03/20/23 11:20 Completed BNP [Brain Natriuretic Peptide] Stat Lab 03/20/23 11:32 Completed CBC w/Auto Diff [Complete Blood Count Auto Diff] Stat Lab 03/20/23 11:32 Completed CMP [Comprehensive Metabolic Panel] Stat Lab 03/20/23 11:32 Completed Rapid PCR Covid and Flu A/B Stat Lab 03/20/23 11:03 Completed Medical Decision Narrative: Patient with history and exam per above presenting for evaluation of multiple complaints, including shoulder pain, malaise, myalgias Diagnoses considered include pneumonia, fracture, electrolyte abnormality, acute kidney injury ED workup and treatment included: ORDERS Category Date Time Status Clavicle XR right [XR clavicle RT] Stat Exams 03/20/23 11:20 Completed Shoulder XR right miminum 2 views [XR shoulder RT min Exams 03/20/23 11:20 Completed 2V] Stat XR chest 2V Stat Exams 03/20/23 11:20 Completed XR sternum min 2V Stat Exams 03/20/23 11:20 Completed BNP [Brain Natriuretic Peptide] Stat Lab 03/20/23 11:32 Completed CBC w/Auto Diff [Complete Blood Count Auto Diff] Stat Lab 03/20/23 11:32 Completed CMP [Comprehensive Metabolic Panel] Stat Lab 03/20/23 11:32 Completed Rapid PCR Covid and Flu A/B Stat Lab 03/20/23 11:03 Completed Labs were independently interpreted by me, significant for COVID detected, no leukocytosis, creatinine within normal limits, Imaging was independently visualized and interpreted by me, significant for no acute findings Symptoms at this time are thought to be most consistent with COVID-19, soft tissue injury Overall, patient is without oxygen requirement, chronically ill but appears at baseline, no increased work of breathing, tolerating p.o. I discussed my clinical impression with patient and answered all questions. At this time, given reassuring workup and exam, I discussed that I have a low index of suspicion for any acute pathology necessitating inpatient management. Specific return precautions were given, with understanding and agreement. Patient will follow up with primary care provider as needed. Critical Care Critical Care Time Critical Care Time: No
[2023-03-20 11:19] LABS: Influenza A, PCR Not Detected (NotDetected); Influenza B, PCR Not Detected (NotDetected)
--- NOTE | 2023-03-20 11:20 | XR_ITS ---
FINAL REPORT CLINICAL HISTORY: Sternal pain after fall best images possible COMPARISON: None FINDINGS: Two views of the sternum were obtained. The sternum is not well-seen. There is no definite fracture identified. The visualized lungs are clear. IMPRESSION: No definite fracture identified. Reviewed, Interpreted and Dictated by Art Gallegos MD Transcribed by Anni Ladd Authenticated and [facility]
--- NOTE | 2023-03-20 11:20 | XR_ITS ---
FINAL REPORT TECHNIQUE: Chest PA & Lateral CLINICAL HISTORY: Shortness of breath, cough Best images possible COMPARISON: 05/01/2022 FINDINGS: 2 views of the chest were performed. The heart size is normal. The mediastinum is within normal limits. The lungs are underinflated. There are chronic changes in both lungs. There are no pleural effusions. There is no pneumothorax. On the lateral view, the sternum is not well identified. IMPRESSION: Underinflated lungs with chronic changes. Reviewed, Interpreted and Dictated by Art Gallegos MD Transcribed by Anni Ladd Authenticated and [facility]
--- NOTE | 2023-03-20 11:20 | XR_ITS ---
FINAL REPORT CLINICAL HISTORY: Right shoulder pain after fall COMPARISON: None FINDINGS: RIGHT SHOULDER Three views demonstrate no acute fracture or dislocation. There are mild hypertrophic changes of the AC joint. The soft tissues are unremarkable. IMPRESSION: No acute process. Reviewed, Interpreted and Dictated by Art Gallegos MD Transcribed by Anni Ladd Authenticated and [facility]
--- NOTE | 2023-03-20 11:20 | XR_ITS ---
FINAL REPORT CLINICAL HISTORY: Right shoulder pain after fall best images possible COMPARISON: None FINDINGS: 2 views of the right clavicle were obtained. There is no acute fracture. The joint spaces are intact. There is no soft tissue abnormality. IMPRESSION: No acute process. Reviewed, Interpreted and Dictated by Art Gallegos MD Transcribed by Anni Ladd Authenticated and . [facility]
[2023-03-20 11:30] VITALS: PULSE 71; O2SAT 96
[2023-03-20 11:49] LABS: Chloride 107 mmol/L (98-107); Sodium 140 mmol/L (136-145)
[2023-03-20 11:52] LABS: Alanine Aminotransferase 31 U/L (12-78); Albumin Level 3.7 g/dl (3.5-5.0); Alkaline Phosphatase 109 U/L (38-126); Aspartate Amino Transferase 43 U/L (14-36); Bilirubin,Total 0.8 mg/dl (0.2-1.3); Blood Urea Nitrogen 14 mg/dl (7-17); Carbon Dioxide 26 mmol/L (22.0-30.0); Creatinine Clearance Estimated 85 mL/min (50-200); Estimated Glomerular Filt Rate 70 ml/min (>60); GFR (African American) 85 ML/MIN (>60); Globulin 3.8 g/dL (1.3-3.2); Total Protein,Serum 7.5 g/dl (6.3-8.2)
[2023-03-20 11:53] LABS: Calcium 9.6 mg/dl (8.4-10.2); Glucose 103 mg/dl (74-100)
[2023-03-20 11:56] LABS: Basophils % 0.3 % (0.1-2.0); Eosinophils # 0.2 K/mm3 (0.0-0.4); Eosinophils % 2.7 % (0.1-12.0); Hematocrit 35.5 % (37.0-47.0); Hemoglobin 11.6 g/dL (12.2-16.2); Lymphocytes # 0.8 K/mm3 (0.7-4.5); Lymphocytes % 12.9 % (10-50); Mean Corpuscular HGB Conc 32.7 g/dL (31.8-35.4); Mean Corpuscular Hemoglobin 32.9 pg (27.0-31.2); Mean Corpuscular Volume 100.5 fl (81-99); Mean Platelet Volume 8.3 fl (7.4-10.4); Monocytes # 0.3 K/mm3 (0.1-1.0); Monocytes % 5.6 % (1.7-9.3); Neutrophils # 4.6 K/mm3 (1.8-7.8); Neutrophils % 78.5 % (37.0-80.0); Platelet Count 144 K/mm3 (142-424); Red Blood Count 3.53 M/mm3 (4.20-5.40); Red Cell Distribution Width 13.9 % (11.5-17.5); White Blood Count 5.8 K/mm3 (4.8-10.8)
[2023-03-20 12:01] LABS: Coronavirus 19, PCR Detected (NotDetected)
[2023-03-20 12:23] LABS: NT Pro Brain Natriuretic Pep. 241 pg/mL (0-450)
[2023-03-20 12:30] VITALS: BP 124/69; PULSE 67; O2SAT 96
[2023-03-20 13:00] VITALS: BP 132/71; PULSE 66; O2SAT 96
[2023-03-20 14:10] VITALS: BP 134/74; PULSE 64; RESP 18; TEMP 36.7; O2SAT 96
== END 2023-03-20 14:14 | disposition home or self-care (01) ==
PROVIDERS: Emergency Provider Emergency Medicine; PCP Family Medicine
DX: U07.1 COVID-19 (principal); R53.1 Weakness; R11.0 Nausea; R51.9 Headache, unspecified; I10 Essential (primary) hypertension; E78.5 Hyperlipidemia, unspecified; E03.9 Hypothyroidism, unspecified; Z87.891 Personal history of nicotine dependence
CPT/HCPCS: 71046; 71120; 73000; 73030; 80053; 83880; 85025; 87636; 99285

== ENCOUNTER 2023-04-24 08:49 | Outpatient (CLI) | payer MEDICARE, SELFPAY ==
--- NOTE | 2023-04-24 08:53 | XR_ITS ---
FINAL REPORT TECHNIQUE: Bone densitometry calculations of the lumbar spine and left hip were obtained. CLINICAL HISTORY: POST MENOPAUSAL COMPARISON: None FINDINGS: Using L1-4, the bone mineral density of the spine is 0.974 g/cm2, corresponding to T-score of -0.7 and a Z score of 1.8. This is within the range of normal. Using the left hip, the bone mineral density of the femoral neck is 0.57 g/cm2, corresponding to a T-score of -2.5 and a Z-score of -0.4. This is within the range of osteopenia. NOTE: T-score: Standard deviation compared with peak bone mass of young adult mean. *Following the recommendations of the International Society of Bone densitometry, classification of hip BMD is based on the lower of two T-scores; total hip or femoral neck. IMPRESSION: Bone mineral density of the lumbar spine within the range of normal. Bone mineral density of the left femoral neck within the range of osteopenia. Reviewed, Interpreted and Dictated by Henrik Asher MD Transcribed by Cary Bradley Authenticated and . [facility]
== END 2023-04-24 23:59 ==
LOC: RAD 08:50
PROVIDERS: PCP Family Medicine; Visit Provider Family Medicine
DX: Z78.0 Asymptomatic menopausal state (principal)
CPT/HCPCS: 77080

== ENCOUNTER 2023-07-31 11:40 | Outpatient (CLI) | payer MEDICARE, SELFPAY ==
--- NOTE | 2023-07-31 11:45 | XR_ITS ---
FINAL REPORT CLINICAL HISTORY: RT KNEE PAIN,RT KNEE EFFUSION COMPARISON: None FINDINGS: Three views of the right knee reveal no evidence of fracture or dislocation. The bony alignment is normal. There is mild degenerative change. A small joint effusion is noted. No localized soft tissue abnormality is identified. IMPRESSION: Small joint effusion without acute abnormality identified. Reviewed, Interpreted and Dictated by John Hong III, MD Transcribed by Anni Ladd Authenticated and [facility]
== END 2023-07-31 23:59 | disposition home or self-care (01) ==
LOC: RAD 11:42
PROVIDERS: PCP Family Medicine; Visit Provider Family Medicine
DX: M25.561 Pain in right knee (principal); M25.461 Effusion, right knee
CPT/HCPCS: 73562

== ENCOUNTER 2023-08-24 08:53 | Outpatient (CLI) | payer MEDICARE, SELFPAY ==
--- NOTE | 2023-08-24 08:58 | MR_ITS ---
FINAL REPORT CLINICAL HISTORY: ACUTE PAIN IN RIGHT KNEE around patella COMPARISON: None FINDINGS: Multiplanar MR imaging of the right knee was performed without contrast. There is diffuse medial meniscal degeneration, with a tear of the posterior horn of the medial meniscus, and medial subluxation of the body of the medial meniscus. There is a tear of the anterior horn of the lateral meniscus, as well as a partial tear of the posterior root of the lateral meniscus. The anterior cruciate ligament has an abnormal appearance, favor a partial tear. The posterior cruciate ligament is intact. The medial collateral ligament and lateral ligamentous complex are intact. The patellar and quadriceps tendons are intact. There is no evidence of fracture. There is moderate to severe degenerative change, with severe medial and lateral compartment chondromalacia and multiple osteochondral lesions. Subchondral cysts are present in the medial tibial plateau, and there is bone marrow edema in the distal femur and proximal tibia. There is mild lateral subluxation of the proximal tibia on the distal femur. There is moderate patellar chondromalacia as well, with an osteochondral lesion in the medial patellar facet. A large joint effusion is seen. The musculature is intact. A moderate-sized popliteal cyst is present. 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 Diffuse medial meniscal degeneration with a tear of the posterior horn and medial subluxation of the body of the medial meniscus. Tear of the anterior horn of the lateral meniscus with a partial tear of the posterior root. Anterior cruciate ligament is abnormal in appearance, favor a partial tear. Reviewed, Interpreted and Dictated by John Hong III, MD Transcribed by Cary Bradley Authenticated and [facility]
== END 2023-08-24 23:59 | disposition home or self-care (01) ==
LOC: RAD 08:54
PROVIDERS: PCP Family Medicine; Visit Provider Family Medicine
DX: M25.561 Pain in right knee (principal); M25.461 Effusion, right knee
CPT/HCPCS: 73721

== ENCOUNTER 2023-11-24 13:45 | Outpatient (CLI) | payer MEDICARE, SELFPAY ==
--- NOTE | 2023-11-24 14:33 | ECG_ITS ---
APPROVED REPORT Exam: Resting ECG HR:59 bpm ECG Measurements Heart Rate 59 AXES MT 177 P 12 QRSd 98 QRS -31 QT 433 T 11 QTc 433 Conclusion SINUS BRADYCARDIA LEFT AXIS DEVIATION [QRS AXIS < -30] LOW QRS VOLTAGE IN PRECORDIAL LEADS [QRS DEFLECTION < 1.0 mV IN CHEST LEADS] PATTERN CONSISTENT WITH PULMONARY DISEASE MODERATE VOLTAGE CRITERIA FOR LVH, CONSIDER NORMAL VARIANT [MEETS CRITERIA IN ONE OF: R(aVL), S(V1), R(V5), R(V5/V6)+S(V1)] ABNORMAL ECG UNCONFIRMED REPORT Electronically signed by : Cuauhtemoc Tobin MD 11/25/2023 08:10:16
[2023-11-24 14:36] LABS: Basophils # 0.1 K/mm3 (0-0.2); Basophils % 0.7 % (0.1-2.0); Eosinophils # 0.2 K/mm3 (0.0-0.4); Hematocrit 35.8 % (37.0-47.0); Hemoglobin 11.5 g/dL (12.2-16.2); Lymphocytes # 1.8 K/mm3 (0.7-4.5); Lymphocytes % 24.3 % (10-50); Mean Corpuscular Hemoglobin 33.6 pg (27.0-31.2); Mean Corpuscular Volume 104.8 fl (81-99); Mean Platelet Volume 8.8 fl (7.4-10.4); Monocytes # 0.3 K/mm3 (0.1-1.0); Monocytes % 4.5 % (1.7-9.3); Neutrophils # 5.1 K/mm3 (1.8-7.8); Neutrophils % 67.5 % (37.0-80.0); Platelet Count 204 K/mm3 (142-424); Red Blood Count 3.42 M/mm3 (4.20-5.40); Red Cell Distribution Width 14.4 % (11.5-17.5); White Blood Count 7.6 K/mm3 (4.8-10.8)
[2023-11-24 14:45] LABS: Anion Gap 5.4 mEq/L (5-15); Blood Urea Nitrogen 18 mg/dl (7-17); Carbon Dioxide 28 mmol/L (22.0-30.0); Chloride 108 mmol/L (98-107); Creatinine Clearance Estimated 80 mL/min (50-200); Estimated Glomerular Filt Rate 81 ml/min (>60); GFR (African American) 98 ML/MIN (>60); Glucose 95 mg/dl (74-100); Potassium 4.4 mmoL/L (3.5-5.1); Sodium 137 mmol/L (136-145)
== END 2023-11-24 23:59 | disposition home or self-care (01) ==
LOC: PREOP 13:46
PROVIDERS: Nurse Anesthetist, Certified Registered; PCP Family Medicine; Visit Provider Orthopaedic Surgery
DX: Z01.818 Encounter for other preprocedural examination (principal); S83.271A Complex tear of lateral meniscus, current injury, right knee, initial encounter
CPT/HCPCS: 80048; 85025; 93005

== ENCOUNTER 2023-11-30 10:13 | Day surgery (SDC) | payer MEDICARE, SELFPAY ==
[2023-11-24 14:18] VITALS: BMI 36.6
[2023-11-30] VITALS (9 sets, daily range): BP systolic 126–157; BP diastolic 55–94; PULSE 55–83; RESP 14–18; TEMP 36.3–36.8; O2SAT 93–98
[2023-11-30] MEDS: LACTATED RINGERS 1000ML 1,000 ML 100 ML IV (10:54)
--- NOTE | 2023-11-30 12:11 | EXP.ANES.CKL ---
[facility] Disclaimer: The information contained in this section may have been updated after the patient was seen, as this information can be updated by other users. Medical History JANET on CPAP Hypothyroidism HTN (hypertension), benign HLD (hyperlipidemia) Depression Anxiety Surgical History History of cholecystectomy History of excision of lesion History of H/O arthroscopy of knee Family History Other Cancer Social History (Updated 11/30/23 @ 10:41 by Natacha Mario RN) Smoking Status: Former smoker second hand exposure: No alcohol intake: never substance use type: denies use current occupational status: retired Travel in the last 8 weeks: None household members: spouse housing: house current occupational exposures/hazards: No caffeine: Yes [facility] Anesthesia Checklist Patient Identification Patient Identification: Verbal (Name & ) Structural Data Admitted From: Home Planned Operative Procedure/s: r knee arthroscopy Consent for Planned Operative Procedure(s) Verified: Yes NPO Status Verified Time NPO: 00:00 Additional verifications Anesthesia Reactions: Yes (PT STATES SHE FELT LIKE SHE WAS HAVING TROUBLE BREATHING AFTER ANESTHESIA) Hx Blood Transfusions: Yes Blood Transfusion Reaction: No Airway Assessment Mallampati Score:: Class II C-Spine Mobility Assessed: Yes TMJ Mobility Assessed: Yes Dentition: Dentures-good fit Neurological Assessment Level of Consciousness: Awake, Alert and Appropriate Anesthesia Plan Anesthesia Risk discussed: Yes Anesthesia Plan: Verified ASA Class: II Anesthesia Type: General
[2023-11-30] MEDS: CLINDAMYCIN PHOSPHATE/D5W 900 MG/50 ML PIGGYBACK 100 MG IV (13:17)
[2023-11-30] MEDS: RINGERS SOLUTION,LACTATED 6,000 ML 25 ML IR (13:52)
[2023-11-30] MEDS: BUPIVACAINE 0.25% 30ML VIAL 75 MG (13:52)
--- NOTE | 2023-11-30 14:24 | P.OP_ITS ---
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 Right knee complex tear posterior horn and body anterior horn lateral meniscus Right knee grade IV chondromalacia of the lateral femoral condyle lateral tibial Procedure performed:: Right knee arthroscopy with partial medial and lateral meniscectomies Surgeon:: Bao Tee DO JEWISH THOUGHT PROFESSOR:: Sarahi Lucero Anesthesia: GETA Estimated blood loss (mL): 0 Operative findings:: Severe macerated tear body posterior horn and anterior horn lateral meniscus complex tear body posterior horn medial meniscus with grade IV chondromalacia tibia Grade IV chondromalacia diffuse lateral joint line Operative note:: Patient is identified preoperatively. Right knee marked with yes my initials. Transported operative suite placed supine operating bed. General anesthesia was administered. Right lower extremity was prepped and draped within the knee olmos. Once prepped and draped final operative timeout performed to identify proper patient procedure and extremity. Everyone involved the case agreed. There were no counter indications to beginning. Did receive preoperative antibiotics Marking pen was used to glo the bony landmarks of the knee and standard portal sites. Esmarch was used to exsanguinate the extremity and pneumatic tourniquet was inflated to 300 mmHg. Skin knife is used to incise standard anterior lateral portal blunt with trocar was placed in the patellofemoral joint and exchanged with a camera. I swept into the medial joint line within the medial gutter there was a large amount of synovitis and intra-articular loose bodies assumed to be cartilage. A nterior medial portal was obtained. Then sucker shaver was placed in the medial gutter medial joint line to remove intra-articular loose bodies and synovitis. Within the medial joint line there is complex tear of the body and posterior horn of the medial meniscus using combination of straight biter and sucker shaver partial medial meniscectomy was performed back to [facility]. There was also unfortunately a kissing lesion and full-thickness chondromalacia of the medial tibia adjacent to the meniscus tear. Tensions brought into the intercondylar notch. Within the intercondylar notch it was significant amount of synovitis. Some fraying and tearing of the ACL present. Attention was then brought to the lateral joint line within the lateral joint line there was significant tearing complex of the posterior horn body and anterior horn of the lateral meniscus there is diffuse cartilage loss with grade IV chondromalacia of the lateral tibia and lateral femoral condyle. Using a straight biter and sucker shaver partial lateral meniscectomy was performed to obtain stable rim. Attention is brought to the medial and lateral gutters structures was placed to remove intra-articular loose bodies cartilage back in the patellofemoral joint camera was then removed the joint was drained. Local anesthesia filtrated the portal sites skin closed with nylon stitch sterile dressing placed from toe to thigh patient waken anesthesia taken recovery in stable condition. Condition: stable Disposition: PACU Complications:: None apparent
--- NOTE | 2023-11-30 14:31 | P.PNANES_ITS ---
[facility] Anesthesia Record Part I Anesthesia Record I Intake, IV Amount: 600 Hydration: Adequate Estimated blood loss (mL): 10 Urine output (mL): 0 Blood Products used (#): none Blood Pressure: 138/83 SaO2: 93 Pulse Rate: 83 Airway Patency: Patent Respiratory Rate: 16 Temperature: 98.2 F Patient is:: Awake (Talking) and Stable Stable to PACU at:: 14:35
[2023-11-30] MEDS: MORPHINE 2MG/ML SYRINGE 1 MG IV (14:50)
--- NOTE | 2023-12-01 13:55 | P.PNANES_ITS ---
[facility] Anesthesia Record Part II Anesthesia Record Part II Discharge Time: 15:00 Destination: Surgical Day Care (OP Surgery) PACU nurse assessment reviewed?: Yes Patient Condition:: Good Anesthesia Complications:: None Swallowing reflex intact?: Yes Airway Patency: Patent Cyanosis?: No Blood Pressure: 149/79 SaO2: 94 Respiratory Rate: 14 Pulse Rate: 73 Temperature: 98.2 F Mental Status: Alert & Oriented Pain level:: 0 Nausea and/or vomitting:: None Intake, IV Amount: 600 Hydration: Adequate
[2023-12-01 13:58] VITALS: BP 149/79; PULSE 73; RESP 14; TEMP 36.8; O2SAT 94
== END 2023-11-30 15:36 | disposition home or self-care (01) ==
PROVIDERS: PCP Family Medicine; Visit Provider Orthopaedic Surgery
PROC: (CPT 29870; principal; 2023-11-30 12:00)
DX: S83.231A Complex tear of medial meniscus, current injury, right knee, initial encounter (principal); S83.271A Complex tear of lateral meniscus, current injury, right knee, initial encounter; M94.261 Chondromalacia, right knee; M17.11 Unilateral primary osteoarthritis, right knee; R29.6 Repeated falls
CPT/HCPCS: 29881; 80048; 85025; 96374; J1100; J2270; J2405; J3010; J7120

== ENCOUNTER 2024-05-02 05:09 | Observation (INO) | payer MEDICARE, SELFPAY ==
[2024-05-02] VITALS (12 sets, daily range): BP systolic 95–169; BP diastolic 47–82; PULSE 70–90; RESP 16–20; TEMP 36.6–36.8; O2SAT 93–96; BMI 34.6
--- NOTE | 2024-05-02 04:59 | CT_ITS ---
PROCEDURE INFORMATION: Exam: CTA Abdomen and Pelvis With Contrast Exam date and time: 05/02/2024 6:03 AM Age: 78 years old Clinical indication: Hypotension; Abdominal pain; Acute; Additional info: Abd pain vomiting hypotension TECHNIQUE: Imaging protocol: Computed tomographic angiography of the abdomen and pelvis with contrast. Exam focused on the arteries. 3D rendering (Not supervised by radiologist): MIP and/or 3D reconstructed images were created by the technologist. Radiation optimization: All CT scans at this facility use at least one of these dose optimization techniques: automated exposure control; mA and/or kV adjustment per patient size (includes targeted exams where dose is matched to clinical indication); or iterative reconstruction. Contrast material: ISOUVE 370; Contrast volume: 80 ml; Contrast route: INTRAVENOUS (IV); COMPARISON: CT ABDOMEN PELVIS W CON 04/23/2022 5:50 AM FINDINGS: Heart: Coronary atherosclerosis and moderate cardiomegaly. Aorta: No aortic aneurysm. No aortic dissection. Celiac trunk and mesenteric arteries: No occlusion or significant stenosis. Renal arteries: No occlusion or significant stenosis. Right iliac arteries: No occlusion or significant stenosis. Left iliac arteries: No occlusion or significant stenosis. Liver: No mass. Nodular appearance. Gallbladder and biliary ducts: Cholecystectomy. Pancreas: Unremarkable. No mass. No ductal dilation. Spleen: Unremarkable. No splenomegaly. Adrenal glands: Unremarkable. No mass. Kidneys and ureters: Unremarkable. No solid mass. No hydronephrosis. Stomach and bowel: Unremarkable. No obstruction. No mucosal thickening. Appendix: No evidence of appendicitis. Intraperitoneal space: Unremarkable. No free air. No significant fluid collection. Lymph nodes: Unremarkable. No enlarged lymph nodes. Urinary bladder: Unremarkable. No mass. Reproductive: Unremarkable as visualized. Bones/joints: Stable degenerative changes of the lumbar spine. Soft tissues: Unremarkable. IMPRESSION: 1. No acute process to explain the patient's abdominal pain. 2. Cholecystectomy. 3. Nodular appearing liver may represent early fibrosis or cirrhosis.
--- NOTE | 2024-05-02 04:59 | XR_ITS ---
PROCEDURE INFORMATION: Exam: XR Chest Exam date and time: 05/02/2024 6:08 AM Age: 78 years old Clinical indication: Other: Vomiting, hypotension TECHNIQUE: Imaging protocol: Radiologic exam of the chest. Views: 1 view. COMPARISON: CT CHEST W CON 05/02/2024 5:56 AM FINDINGS: Lungs: Right upper lobe dense infiltrate. Unchanged from prior examination. Pleural spaces: Unremarkable. No pleural effusion. No pneumothorax. Heart/Mediastinum: Unremarkable. No cardiomegaly. Bones/joints: Unremarkable. IMPRESSION: Right upper lobe dense infiltrate.
--- NOTE | 2024-05-02 05:06 | CT_ITS ---
PROCEDURE INFORMATION: Exam: CT Cervical Spine Without Contrast Exam date and time: 05/02/2024 5:52 AM Age: 78 years old Clinical indication: Injury or trauma; Fall; Blunt trauma TECHNIQUE: Imaging protocol: Computed tomography of the cervical spine without contrast. Radiation optimization: All CT scans at this facility use at least one of these dose optimization techniques: automated exposure control; mA and/or kV adjustment per patient size (includes targeted exams where dose is matched to clinical indication); or iterative reconstruction. COMPARISON: CT SOFT TISSUE NECK W CON 04/03/2022 6:00 PM FINDINGS: Bones: Diffuse cervical spondylosis is noted. Hypertrophic changes of the facet present bilaterally. Discs/Spinal canal/Neural foramina: Narrowing of multiple intervertebral disc spaces are seen. Moderate neural foraminal narrowing is also noted. Lungs: Lung apices are normal. Vasculature: No obvious traumatic injury is seen. Soft tissues: Right upper lobe airspace disease. IMPRESSION: 1. No evidence of acute traumatic injury. 2. Diffuse cervical spondylosis. 3. Right upper lobe airspace disease
--- NOTE | 2024-05-02 05:06 | CT_ITS ---
PROCEDURE INFORMATION: Exam: CT Lumbar Spine Without Contrast Exam date and time: 05/02/2024 5:54 AM Age: 78 years old Clinical indication: Injury or trauma; Fall; Blunt trauma (contusions or hematomas); Additional info: Chronic low back pain exacerbation, fall TECHNIQUE: Imaging protocol: Computed tomography of the lumbar spine without contrast. Radiation optimization: All CT scans at this facility use at least one of these dose optimization techniques: automated exposure control; mA and/or kV adjustment per patient size (includes targeted exams where dose is matched to clinical indication); or iterative reconstruction. COMPARISON: MR LUMBAR SPINE WO CON 09/04/2021 2:39 PM FINDINGS: Bones/joints: Degenerative disc disease with multilevel vacuum disc phenomena and disc space narrowing, this is most prominent at L1-L2 L2-L3 L3-L4 and L4-L5. There is good alignment. The patient is mildly osteopenic.. Inferior endplate irregularity of L2 likely represents a fracture this is indeterminate. Soft tissues: Unremarkable. IMPRESSION: Inferior endplate fracture of L2, age indeterminate but new since prior study of 09/04/2021. No evidence of canal compromise. No significant adjacent edema to suspect acute fracture.
--- NOTE | 2024-05-02 05:06 | CT_ITS ---
PROCEDURE INFORMATION: Exam: CT Head Without Contrast Exam date and time: 05/02/2024 5:30 AM Age: 78 years old Clinical indication: Injury or trauma; Fall; Blunt trauma (contusions or hematomas) TECHNIQUE: Imaging protocol: Computed tomography of the head without contrast. Radiation optimization: All CT scans at this facility use at least one of these dose optimization techniques: automated exposure control; mA and/or kV adjustment per patient size (includes targeted exams where dose is matched to clinical indication); or iterative reconstruction. COMPARISON: CT SOFT TISSUE NECK W CON 04/03/2022 6:00 PM FINDINGS: Brain: There is diffuse prominence of the cerebral sulci, cisterns, and ventricles consistent with atrophy. No intra or extra-axial fluid collections are noted. No mass or mass effect is seen. Periventricular white matter hypoattenuation is seen consistent with chronic small vessel disease. Cerebral ventricles: No ventriculomegaly. Paranasal sinuses: Visualized sinuses are unremarkable. No fluid levels. Mastoid air cells: Visualized mastoid air cells are well aerated. Bones: Unremarkable. No acute fracture. Soft tissues: Unremarkable. IMPRESSION: No acute process noted.
--- NOTE | 2024-05-02 05:09 | HMH.EDGENADL ---
Discharge Plan Disposition Patient Disposition: Admitted Chief Complaint: Weakness Prescriptions Prescriptions: No Action celecoxib 200 mg capsule 200 mg PO BID Qty: 60 2RF Rx Instructions: take BID for next month. cholecalciferol (vitamin D3) 4,000 unit capsule 4,000 unit PO DAILY sertraline 100 mg tablet 200 mg PO DAILY levothyroxine 150 mcg tablet 150 mcg PO DAILY atorvastatin 10 mg tablet 10 mg PO DAILY methocarbamol 500 mg tablet 500 mg PO Q8H PRN (Reason: muscle spasm) Qty: 60 0RF ondansetron 4 mg tablet,disintegrating 4 mg PO Q8H PRN (Reason: nausea and vomiting) 5 Days Qty: 10 0RF celecoxib [Celebrex] 100 mg capsule 100 mg PO DAILY hydrocodone-acetaminophen 5-325 mg tablet 1 tab PO Q6H PRN (Reason: Postop pain) Qty: 28 0RF Referrals Follow up/Referrals: Bossman Davison MD [Primary Care Provider] - See instructions Clinical Impressions Clinical Impression: Pneumonia, Fall, Hyperbilirubinemia, Transaminitis Print Language Print Language: Turkmen Discharge ED Provider: Lorri Kay General Adult HPI General Chief complaint: Weakness Stated complaint: weakness Time Seen by Provider: 05/02/24 05:15 History of Present Illness HPI narrative: 78-year-old female presents to the ER via EMS after a fall. Reportedly patient has had some nausea and vomiting in the last few days, generalized weakness. She also had recent steroid injection and is on Robaxin for knee pain with a history of complex medial meniscus tear on the right. Reportedly patient has been sick the last few days with generalized illness, mainly nausea and vomiting. She is complaining of mid abdominal pain. She also reports right sided chest wall pain and tenderness but this has been going on for weeks. It is unchanged. She reports she has low back pain and thought she was having a sciatica flare tonight, she was walking through the house when she slipped on dog cable on the floor and fell. She is unsure if she struck her head or loss consciousness. Patient does not take blood thinners. Patient is a poor historian and does not describe specific acute complaints except that she was unable to get herself up after the fall. She states she feels generally weak and that she does not think any of her pains are specifically worse since the fall. She does report falling frequently. EMS reports IV fluids administered in route. Related Data Home Medications ?Medication ?Instructions ?Recorded ?Confirmed cholecalciferol (vitamin D3) 100 4,000 unit PO DAILY Supplement 09/29/17 05/02/24 mcg (4,000 unit) capsule sertraline 100 mg tablet 200 mg PO DAILY Anxiety 09/29/17 05/02/24 atorvastatin 10 mg tablet 10 mg PO DAILY hld 11/15/21 05/02/24 levothyroxine 150 mcg tablet 150 mcg PO DAILY hypothyroid 11/15/21 05/02/24 celecoxib 100 mg capsule (Celebrex) 100 mg PO DAILY 11/30/23 05/02/24 Previous Rx's ?Medication ?Instructions ?Recorded ondansetron 4 mg disintegrating 4 mg PO Q8H PRN nausea and 03/20/23 tablet vomiting 5 days #10 tabs hydrocodone 5 mg-acetaminophen 325 1 tab PO Q6H PRN Postop pain #28 11/30/23 mg tablet tabs celecoxib 200 mg capsule 200 mg PO BID #60 caps 12/15/23 methocarbamol 500 mg tablet 500 mg PO Q8H PRN muscle spasm #60 04/21/24 tabs Allergies Allergy/AdvReac Type Severity Reaction Status Date / Time cefaclor (From [facility]) Allergy Mild SLEEP Verified 04/21/24 13:41 WALKING penicillin G (PENICILLIN G) Allergy Mild Hives Verified 04/21/24 13:41 PFS PFSH Disclaimer: The information contained in this section may have been updated after the patient was seen, as this information can be updated by other users. Medical History JANET on CPAP Hypothyroidism HTN (hypertension), benign HLD (hyperlipidemia) Depression Anxiety Surgical History History of cholecystectomy History of excision of lesion History of H/O arthroscopy of knee Family History Other Cancer Social History Smoking Status: Never smoker second hand exposure: No alcohol intake: never substance use type: denies use current occupational status: retired Travel in the last 8 weeks: None household members: spouse housing: house current occupational exposures/hazards: No caffeine: Yes Other Medical History Have you received the Flu Vaccine for this season: Yes Have you received the Pneumonia Vaccine: Yes ROS Obtained: Yes Systems reviewed as appropriate & no additional complaints except as documented Physical Exam General General appearance: alert and obese Head Head exam: atraumatic and normocephalic Eye Eye exam: Present PERRL and EOMI ENT ENT exam: Present mucous membranes dry Neck Neck exam: Present normal inspection and full ROM; Absent tenderness Chest Chest inspection: Present symmetric chest wall rise and tenderness (Right mid anterior chest wall pain to palpation without traumatic findings, no crepitus, bruising, or deformity) Respiratory Respiratory exam: Present normal lung sounds bilaterally; Absent respiratory distress, wheezes or stridor Cardiovascular Cardiovascular exam: Present regular rate and normal rhythm Abdominal Exam Abdominal exam: Present soft and tenderness (Mid abdominal); Absent distention, guarding or rebound Extremities Exam Extremities exam: Present full ROM; Absent edema Back Exam Back exam: Present tenderness (Lumbar spinal tenderness without deformity or step-off); Absent CVA tenderness (R) or CVA tenderness (L) Neurological Exam Neurological exam: Present alert and oriented X3 (Patient is oriented to self, location, current president, she initially incorrectly answered the year but quickly self corrected this); Absent motor sensory deficit Psychiatric Psychiatric exam: Present normal affect and normal mood Skin Skin exam: Present warm and dry Medical Decision Making Medical Records Medical records reviewed: Yes I reviewed the patient's medical records. Screening: Per USPSTF and CDC recommendations, given the prevalence of disease in our region, it is our hospital?s policy to screen for HIV and viral Hepatitis for all patients aged 18 and over and those with ongoing risk factors. MR Comment: Most recent orthopedic office note demonstrates patient received steroid injection in the knee and was started on Robaxin. She had been having difficulty ambulating secondary to back pain and knee pain. Reportedly Celebrex has been helping. Michi Inquiry Pt receiving controlled substance: No Vital Signs: 05/02/24 05:10 05/02/24 06:15 05/02/24 06:32 Temperature 97.9 F Temperature Source Oral Pulse Rate 82 84 Pulse Rate [Right Radial] 90 Respiratory Rate 16 Blood Pressure 158/72 H 169/82 H Blood Pressure [Right Arm] 115/47 L Blood Pressure Mean [Right Arm] 69 Blood Pressure Source [Right Arm] Automatic Cuff 02 Sat by Pulse Oximetry 94 L 95 96 Oxygen Delivery Method Room Air Lab Data Lab Results 05/02/24 05:04: WBC 15.2 H, RBC 3.58 L, Hgb 11.8 L, Hct 34.8 L, MCV 97.2, MCH 33.0 H, MCHC 33.9, RDW 12.6, Plt Count 163, MPV 10.8 H, Neut % (Auto) 79.1, Lymph % (Auto) 3.9 L, [place] % (Auto) 5.7, Eos % (Auto) 0.7, Baso % (Auto) 0.4, Neut # (Auto) 12.0 H, Lymph # (Auto) 0.6 L, [place] # (Auto) 0.9, Eos # (Auto) 0.1, Baso # (Auto) 0.1, Total Counted 100, Neutrophils % (Manual) 91 H, Lymphocytes % (Manual) 6 L, Monocytes % (Manual) 3, Platelet Estimate Normal, RBC Morphology Normal, PT 10.9, INR 0.99, Sodium 133 L, Potassium 3.8, Chloride 100, Carbon Dioxide 26, Anion Gap 10.8, BUN 19 H, Creatinine 0.80, Estimated Creat Clear 76, Estimated GFR 70, Est GFR ( Amer) 84, Glucose 83, Calcium 9.8, Total Bilirubin 2.2 H, AST 57 H, ALT 42, Alkaline Phosphatase 166 H, Troponin I < 0.01, Total Protein 6.7, Albumin 3.3 L, Globulin 3.4 H, Albumin/Globulin Ratio 1.0 L, Lipase 61 05/02/24 05:31: Lactate 1.2 05/02/24 05:04 05/02/24 05:04 Orders (Tests/Meds): ED MEDICATIONS Generic Name Dose Route Start Last Admin Trade Name Freq PRN Reason Stop Dose Admin Sodium Chloride 10 ml 05/02/24 06:18 05/02/24 06:18 Sodium Chloride 0.9% 10ml Syr (Rad Only) IV 06/01/24 06:17 10 ml NEEDED PRN Administration Maintain IV Site Discontinued Medications Generic Name Dose Route Start Last Admin Trade Name Freq PRN Reason Stop Dose Admin Lactated Ringer's 1,000 mls @ 999 mls/hr 05/02/24 04:59 05/02/24 05:24 Lactated Ringer's 1000 Ml Bag IV 05/02/24 05:59 999 mls/hr .Q1H1M ONE Administration Lactated Ringer's 1,000 mls @ 999 mls/hr 05/02/24 05:06 05/02/24 05:24 Lactated Ringer's 1000 Ml Bag IV 05/02/24 06:06 999 mls/hr .Q1H1M ONE Administration Iopamidol 155 ml 05/02/24 06:18 05/02/24 06:19 Iopamidol-370 (76%);100ml Bottle IV 05/02/24 06:19 155 ml ONCE ONE Administration Sodium Chloride 40 ml 05/02/24 06:18 05/02/24 06:18 0.9 % Sodium Chloride 50 Ml Vial IV 05/02/24 06:19 40 ml ONCE ONE Administration ORDERS Category Date Time Status CT angio abdomen pelvis Stat Cat Scan 05/02/24 04:[address] cervical spine wo con Stat Cat Scan 05/02/24 05:[address] chest w con Stat Cat Scan 05/02/24 05:[address] head/brain wo con Stat Cat Scan 05/02/24 05:[address] lumbar spine wo con Stat Cat Scan 05/02/24 05:06 Completed CXR --portable [XR chest portable] Stat Exams 05/02/24 04:59 Completed Bilirubin,Direct Stat Lab 05/02/24 05:32 Ordered CBC w/Auto Diff [Complete Blood Count Auto Diff] Stat Lab 05/02/24 05:04 Completed CMP [Comprehensive Metabolic Panel] Stat Lab 05/02/24 05:04 Completed Lactic Acid Stat Lab 05/02/24 05:31 Completed Lipase Stat Lab 05/02/24 05:04 Completed PT INR [Prothrombin Time INR] Stat Lab 05/02/24 05:04 Completed Trop I [Troponin I] Stat Lab 05/02/24 05:04 Completed Troponin I Q3H Lab 05/02/24 08:00 Ordered Troponin I Q3H Lab 05/02/24 11:00 Ordered Urinalysis and Microscopic Stat Lab 05/02/24 05:25 Ordered Medical Decision Narrative: In summary, this 78-year-old female with comorbidities described in the HPI presents to the emergency department today with concerns of generalized weakness, fall. On initial evaluation patient is hemodynamically stable, afebrile, saturating well on room air, GCS 15, NIH 0, no localizing neurologic deficits, patient has generalized weakness, tenderness to palpation of the abdomen, anterior right chest wall without traumatic findings, low back without deformity or step-off, no saddle anesthesia, bowel or bladder incontinence, or other red flag symptoms for cauda equina though this was considered. Differential diagnosis includes but is not limited to viral syndrome, electrolyte abnormality, dehydration, ACS, costochondritis, rib fracture, I have lower concern for intracranial bleed or C-spine injury though these cannot be ruled out based on the patient's age so will evaluate for these with CT, also considered lumbar spine injury, intra-abdominal pathology such as bowel obstruction, mesenteric ischemia, colitis, UTI, among others. Based on these concerns, I ordered serum labs, CT imaging, cardiac workup. ECG personally interpreted demonstrates normal sinus rhythm, rate 79, left axis deviation, normal WA and QTc, no STEMI. Patient received IV fluid bolus initially for treatment since clinically she is dehydrated with dry mucous membranes. Labs personally reviewed demonstrate leukocytosis with WBC 15.2 with neutrophil predominance, normal platelets, patient does have stable anemia with hemoglobin 11.8, previously 11.5, CMP notable for trace hyponatremia, prerenal azotemia, patient does have elevated bilirubin, AST, alkaline phosphatase, these are nonspecific but do increase concern for possible biliary obstruction, direct bili pending. Patient's family presented later in the encounter and states patient has been having a problem with constipation despite taking milk of magnesia. She states since the constipation worsened, patient then had the episodes of emesis and has had decreased appetite. She also states patient has had decreased urine output and that her urine is very dark. This is consistent with patient's clinical findings of dehydration. She reports patient has had decreased appetite for the last 3 to 4 days. Increase suspicion for constipation causing obstruction/ileus XR personally interpreted demonstrates obvious right upper lobe infiltrate. Patient receiving rocephin, azithromycin. See radiology read for final interpretation. CT imaging personally interpreted demonstrate no acute intracranial injury, no skull fracture, no acute cervical spine fracture or malalignment, patient has obvious right upper lobe infiltrate, no bowel obstruction or obvious mesenteric ischemic lesion. Radiology read notable for stable T6 compression fracture, inferior endplate fracture of L2. With less than 50% height loss and no focal tenderness I do not believe patient requires acute spine surgery consult or intervention. Patient remains diffusely weak, unable to ambulate at this time, I believe patient should be admitted for continued antibiotics, IV fluids, possible GI evaluation for transaminitis and elevated bilirubin. Patient will be admitted. Critical Care Critical Care Time Critical Care Time: No
[2024-05-02 05:22] LABS: Basophils # 0.1 K/mm3 (0-0.2); Basophils % 0.4 % (0.1-2.0); Eosinophils # 0.1 K/mm3 (0.0-0.4); Eosinophils % 0.7 % (0.1-12.0); Hematocrit 34.8 % (37.0-47.0); Hemoglobin 11.8 g/dL (12.2-16.2); Lymphocytes # 0.6 K/mm3 (0.7-4.5); Lymphocytes % 3.9 % (10-50); Mean Corpuscular HGB Conc 33.9 g/dL (31.8-35.4); Mean Corpuscular Volume 97.2 fl (81-99); Mean Platelet Volume 10.8 fl (7.4-10.4); Monocytes # 0.9 K/mm3 (0.1-1.0); Monocytes % 5.7 % (1.7-9.3); Neutrophils % 79.1 % (37.0-80.0); Platelet Count 163 K/mm3 (142-424); Red Blood Count 3.58 M/mm3 (4.20-5.40); Red Cell Distribution Width 12.6 % (11.5-17.5); White Blood Count 15.2 K/mm3 (4.8-10.8)
--- NOTE | 2024-05-02 05:22 | ECG_ITS ---
APPROVED REPORT Exam: Resting ECG HR:79 bpm ECG Measurements Heart Rate 79 AXES WA 159 P 49 QRSd 110 QRS -31 QT 389 T 48 QTc 423 Conclusion SINUS RHYTHM LEFT AXIS DEVIATION [QRS AXIS < -30] LOW QRS VOLTAGE IN PRECORDIAL LEADS [QRS DEFLECTION < 1.0 mV IN CHEST LEADS] PATTERN CONSISTENT WITH PULMONARY DISEASE Non-STEMI Electronically signed by : ELTON ALEXANDER, 05/03/2024 06:55:41
[2024-05-02 05:24] LABS: MANUAL DIFFERENTIAL MANUAL DIFFERENTIAL (MANUAL DIFF)
[2024-05-02] MEDS: LACTATED RINGERS 1000ML 1,000 ML 999 ML IV ×2 (05:24)
--- NOTE | 2024-05-02 05:24 | CT_ITS ---
PROCEDURE INFORMATION: Exam: CT Chest With Contrast; Diagnostic Exam date and time: 05/02/2024 5:56 AM Age: 78 years old Clinical indication: Injury or trauma; Fall; Blunt trauma (contusions or hematomas); Additional info: Fall R anterior chest wall pain TECHNIQUE: Imaging protocol: Diagnostic computed tomography of the chest with contrast. Radiation optimization: All CT scans at this facility use at least one of these dose optimization techniques: automated exposure control; mA and/or kV adjustment per patient size (includes targeted exams where dose is matched to clinical indication); or iterative reconstruction. Contrast material: ISOVUE; Contrast volume: 75 ml; Contrast route: IV; COMPARISON: CT CHEST WO CON 01/12/2023 4:16 PM FINDINGS: Lungs: Dense right upper lobe infiltrate. Pleural spaces: No pneumothorax. Heart: Unremarkable. No cardiomegaly. No pericardial effusion. Lymph nodes: Right hilar and right paratracheal lymphadenopathy. Vasculature: Unremarkable. No aortic aneurysm. Bones/joints: Stable T6 compression fracture. Soft tissues: Unremarkable. IMPRESSION: 1. No acute traumatic injury noted. Stable severe T6 compression fracture as noted on prior studies. 2. Right upper lobe infiltrate.Associated right hilar and right tracheal lymphadenopathy. 3. Coronary atherosclerosis.
[2024-05-02 05:27] LABS: Albumin Level 3.3 g/dl (3.5-5.0); Chloride 100 mmol/L (98-107); Potassium 3.8 mmoL/L (3.5-5.1); Sodium 133 mmol/L (136-145)
[2024-05-02 05:29] LABS: INR 0.99 (0.9-1.1); Prothrombin Time 10.9 seconds (9.2-12.1)
[2024-05-02 05:30] LABS: Alanine Aminotransferase 42 U/L (12-78); Alkaline Phosphatase 166 U/L (38-126); Anion Gap 10.8 mEq/L (5-15); Aspartate Amino Transferase 57 U/L (14-36); Bilirubin,Total 2.2 mg/dl (0.2-1.3); Blood Urea Nitrogen 19 mg/dl (7-17); Carbon Dioxide 26 mmol/L (22.0-30.0); Creatinine Clearance Estimated 76 mL/min (50-200); Estimated Glomerular Filt Rate 70 ml/min (>60); GFR (African American) 84 ML/MIN (>60); Globulin 3.4 g/dL (1.3-3.2); Lipase 61 U/L (23-300); Total Protein,Serum 6.7 g/dl (6.3-8.2)
[2024-05-02 05:31] LABS: Calcium 9.8 mg/dl (8.4-10.2); Glucose 83 mg/dl (74-100)
--- NOTE | 2024-05-02 05:33 | PC.NURSE ---
Resting with family at bedside
[2024-05-02 05:44] LABS: Troponin I < 0.01 ng/ml (0.00-0.034)
[2024-05-02 05:48] LABS: Lactic Acid 1.2 mmol/L (0.7-2.1)
[2024-05-02] MEDS: 0.9 % SODIUM CHLORIDE 50 ML VIAL 40 ML IV (06:18)
[2024-05-02] MEDS: SODIUM CHLORIDE 0.9% 10ML SYR (RAD ONLY) 10 ML IV (06:18)
[2024-05-02] MEDS: IOPAMIDOL-370 (76%);100ML BOTTLE 155 ML IV (06:19)
[2024-05-02 06:36] LABS: Lymphocytes % 6 % (10-50); Monocytes % 3 % (2-9); Neutrophils % 91 % (42-76); Platelet Estimate Normal; RBC Morphology Normal; Total Cells Counted 100
--- NOTE | 2024-05-02 06:37 | PC.NURSE ---
Patient resting; pure wick applied. Patients granddaughter at bedside with patient.
[2024-05-02] MEDS: AZITHROMYCIN 250MG TABLET 500 MG PO (07:00)
[2024-05-02] MEDS: CEFTRIAXONE 1 GM 1 GM in 0.9 % SODIUM CHLORIDE 50 ML IV (07:00)
[2024-05-02 07:04] LABS: Bilirubin,Direct 1.2 mg/dl (0.0-0.4)
--- NOTE | 2024-05-02 07:42 | PC.NURSE ---
ROUNDED ON THE PT. THE PT VOICES THAT SHE DOES NOT NEED ANYTHING AT THIS TIME. CALL LIGHT IS WITHIN REACH OF THE PT. FAMILY MEMBER IS PRESENT AT THE BEDSIDE.
--- NOTE | 2024-05-02 08:01 | PC.NURSE ---
2nd trop sent to lab, family and pt updated on poc
--- NOTE | 2024-05-02 08:31 | PC.NURSE ---
arrived by w/c from ED
[2024-05-02 08:34] LABS: Troponin I < 0.01 ng/ml (0.00-0.034)
--- NOTE | 2024-05-02 09:11 | P.HP_ITS ---
History of Present Illness *Admission Date: 05/02/24 *Reason for visit:: Fall *History of present illness: Ms. Schmitz is a 78-year-old female with a history of hypertension, GERD, restless leg syndrome, depression and anxiety, degenerative disc disease, compression fracture of T6, and sleep apnea who presented to the [facility] emergency room for evaluation after a fall about 4 AM today. Her granddaughter who stays with her found her and was unable to get her up so they called EMS who brought her to the ER for evaluation. Her granddaughter who cares for her states she has been sick for the last few days with fever greater than 101 cough and some diarrhea. She has had a decrease in her p.o. intake with a decrease in her urinary output as well. The granddaughter also notes that her son has been sick as well with vomiting and diarrhea. She was evaluated in the emergency room and given IV fluids. She had complete radiology studies to include:. CT of the chest showed no acute traumatic injury; stable severe T6 compression fracture as noted on prior studies; right upper lobe infiltrate associated right hilar and right tracheal lymphadenopathy and coronary atherosclerosis CT of the head showed nothing acute. CT of the lumbar spine revealed inferior endplate fracture of L2 age undetermined CT of the cervical spine showed no evidence of acute traumatic injury and diffuse cervical spondylosis abdominal/pelvis CTA showed no acute process and a nodular appearing liver. Laboratory data showed slightly low sodium at 133 with a potassium of 3.8. Total bilirubin was elevated at 2.2. AST was high at 57 and alkaline phosphatase was 166.White blood cell count is noted to be elevated at 15.2 with a hemoglobin of 11.8 and hematocrit of 34.8. Patient has just arrived to the room from the emergency room. She is assisted back to the bed from her bathroom and is very unsteady on her feet. She has ongoing abdominal pain which she says she has had for a long time.. She does not feel that she has any new pain. She feels her breath is somewhat short and she has had a cough. [facility] Disclaimer: The information contained in this section may have been updated after the patient was seen, as this information can be updated by other users. Medical History JANET on CPAP Hypothyroidism HTN (hypertension), benign HLD (hyperlipidemia) Depression Anxiety Surgical History History of cholecystectomy History of excision of lesion History of H/O arthroscopy of knee Family History Other Cancer Social History Smoking Status: Never smoker second hand exposure: No alcohol intake: never substance use type: denies use current occupational status: retired Travel in the last 8 weeks: None household members: spouse housing: house current occupational exposures/hazards: No caffeine: Yes Other Medical History Have you received the Flu Vaccine for this season: No Have you received the Pneumonia Vaccine: No Review of Systems Constitutional Constitutional: Reports frequent falls, Denies headache(s), Reports poor appetite, Reports snoring and Reports weakness Eyes Eyes: Denies change in vision ENT Ears, Nose, Mouth, and Throat: Denies dizziness, Denies otalgia, Denies headache(s) and Denies sore throat *Cardiovascular Cardiovascular: Denies chest pain and Reports dyspnea *Respiratory Respiratory: Denies chest congestion, Reports cough, Reports dyspnea and Reports snoring *Gastrointestinal Gastrointestinal: Reports constipation, Reports diarrhea, Reports dyspepsia, Reports heartburn, Denies hematemesis, Denies hematochezia, Denies melena and Denies vomiting *Genitourinary Genitourinary: Denies dysuria *Musculoskeletal Musculoskeletal: Reports arthralgias (Right knee. Back.) and Reports back pain *Neurologic Neurologic: Denies dizziness, Reports frequent falls, Denies headache(s) and Reports weakness Meds Home Medications and Allergies Home Medications ?Medication ?Instructions ?Recorded ?Confirmed ?Type sertraline 100 mg tablet 200 mg PO DAILY 09/29/17 05/02/24 History atorvastatin 10 mg tablet 10 mg PO DAILY 11/15/21 05/02/24 History levothyroxine 150 mcg tablet 150 mcg PO DAILY 11/15/21 05/02/24 History celecoxib 100 mg capsule (Celebrex) 100 mg PO DAILY 11/30/23 05/02/24 History methocarbamol 500 mg tablet 500 mg PO Q8H PRN muscle spasm #60 04/21/24 05/02/24 Rx tabs potassium chloride 10 mEq 10 meq PO DAILY 05/02/24 05/02/24 History tablet,extended release(part/cryst) New Prescriptions to Start Prescriptions: Allergies Allergy/AdvReac Type Severity Reaction Status Date / Time cefaclor (From [facility]) Allergy Mild SLEEP Verified 04/21/24 13:41 WALKING penicillin G (PENICILLIN G) Allergy Mild Hives Verified 04/21/24 13:41 Exam Data for Last 24 hours Vital signs and Labs for Last 24 Hours: Temp Pulse Resp BP Pulse Ox O2 Del Method 97.9 F 74 18 104/56 L 96 Room Air 05/02/24 07:58 05/02/24 07:58 05/02/24 07:58 05/02/24 07:58 05/02/24 07:31 05/02/24 07:58 Laboratory Results - last 24 hr 05/02/24 05:04: WBC 15.2 H, RBC 3.58 L, Hgb 11.8 L, Hct 34.8 L, MCV 97.2, MCH 33.0 H, MCHC 33.9, RDW 12.6, Plt Count 163, MPV 10.8 H, Neut % (Auto) 79.1, Lymph % (Auto) 3.9 L, [place] % (Auto) 5.7, Eos % (Auto) 0.7, Baso % (Auto) 0.4, Neut # (Auto) 12.0 H, Lymph # (Auto) 0.6 L, [place] # (Auto) 0.9, Eos # (Auto) 0.1, Baso # (Auto) 0.1, Total Counted 100, Neutrophils % (Manual) 91 H, Lymphocytes % (Manual) 6 L, Monocytes % (Manual) 3, Platelet Estimate Normal, RBC Morphology Normal, PT 10.9, INR 0.99, Sodium 133 L, Potassium 3.8, Chloride 100, Carbon Dioxide 26, Anion Gap 10.8, BUN 19 H, Creatinine 0.80, Estimated Creat Clear 76, Estimated GFR 70, Est GFR ( Amer) 84, Glucose 83, Calcium 9.8, Total Bilirubin 2.2 H, Direct Bilirubin 1.2 H, AST 57 H, ALT 42, Alkaline Phosphatase 166 H, Troponin I < 0.01, Total Protein 6.7, Albumin 3.3 L, Globulin 3.4 H, Albumin/Globulin Ratio 1.0 L, Lipase 61 05/02/24 05:31: Lactate 1.2 05/02/24 08:00: Troponin I < 0.01 I & O for Last 24 hours: Intake & Output 04/29/24 04/30/24 05/01/24 05/02/24 11:59 11:59 11:59 11:59 Weight 221 lb Constitutional Constitutional: no acute distress Comments: Assisted back to bed from the bathroom. Very unstable on her feet. *Routine HEENT Exam Head: Present normocephalic and atraumatic Eye: Present PERRL; Absent conjunctival icterus, scleral injection or conjunctivae pink ENT: Present mucous membranes moist and oropharynx clear *Routine Neck Exam Neck: Present supple; Absent carotid bruit or lymphadenopathy Routine Chest/Breast/Axilla Exam Chest wall: Present tenderness (Right upper chest) *Routine Respiratory Exam Respiratory: Present crackles (Right upper lobe to mid lobe posteriorly) and able to speak in complete sentences *Routine Cardiovascular Exam Cardiovascular: Present RRR *Routine Abdominal Exam Abdominal: Present soft, normoactive bowel sounds, tenderness (Diffusely tender in all lower quadrants) and obese; Absent distended, guarding or rigid *Routine Rectal Exam Rectal:: deferred *Routine Genitalia Exam Genitalia:: deferred *Routine Extremities Exam Extremities: Absent edema or calf tenderness *Routine Neurological Exam Neurological: Present alert, oriented X3 and normal speech Assessment and Plan *Assessment and plan (1) Pneumonia: Status: Acute Category: Medical Code(s): J18.9 - Pneumonia, unspecified organism (2) Transaminitis: Status: Acute Category: Medical Code(s): R74.01 - Elevation of levels of liver transaminase levels (3) Hyperbilirubinemia: Status: Acute Category: Medical Code(s): E80.6 - Other disorders of bilirubin metabolism (4) Fall: Status: Acute Category: Medical Code(s): W19.XXXA - Unspecified fall, initial encounter (5) Complex tear of lateral meniscus of right knee: Status: Acute Qualifiers: Encounter type: subsequent encounter Tear current or old: current Qualified Code(s): S83.271D - Complex tear of lateral meniscus, current injury, right knee, subsequent encounter Category: Medical Code(s): S83.271A - Complex tear of lateral meniscus, current injury, right knee, initial encounter (6) Nausea vomiting and diarrhea: Status: Acute Category: Medical Code(s): R11.2 - Nausea with vomiting, unspecified; R19.7 - Diarrhea, unspecified (7) Acute on chronic low back pain: Status: Acute Category: Medical Code(s): M54.50 - Low back pain, unspecified; G89.29 - Other chronic pain Plan Cannot see that COVID and flu test have been ordered and will do so. Also obtain a urinalysis. Continue with treatment for pneumonia as per current orders Dr. Davison entry - Saw patient, agree with above note.
--- NOTE | 2024-05-02 09:48 | PC.NURSE ---
spoke with granddaughter about pain medication/ management. she expressed that the pt wishes to not be given morphine or other strong pain meds due to having 2 siblings that struggled with addiction. assured pt that she will not be given any medication without being made aware of what she is being given first.
--- NOTE | 2024-05-02 10:00 | SW/DCPLANNER ---
Patient's family (granddaughter/POA) requested to speak w/ me this AM regarding paid caregiver services. After discussion w/ patient and granddaughter I have asked Anisha to come speak w/ patient and family this afternoon regarding Medicaid services. I have also directed granddaughter to contact [employer] regarding LOCO Waiver services.
[2024-05-02] MEDS: ENOXAPARIN 40MG/0.4ML SYRINGE 40 MG SUBCUT (10:55)
[2024-05-02] MEDS: AZITHROMYCIN 500 MG in 0.9 % SODIUM CHLORIDE 250 ML 250 MG IV (10:56)
[2024-05-02] MEDS: HYDROCODONE/APAP 5/325 MG TABLET 1 TAB PO ×2 (10:56→20:28)
[2024-05-02 11:06] LABS: Coronavirus 19, PCR Not Detected (NotDetected); Influenza A, PCR Not Detected (NotDetected); Influenza B, PCR Not Detected (NotDetected)
[2024-05-02 12:23] LABS: Microscopic, Urine URINE MICROSCOPIC (MICROSCOPIC)
[2024-05-02 12:26] LABS: Appearance,Urine CLEAR (Clear); Blood, Urine TRACE-I (Negative); Color,Urine YELLOW (Yellow); Glucose,Urine (UA) Negative (Negative); Ketones,Urine Negative (Negative); Leukocyte Esterase,Urine TRACE (Negative); Nitrate,Urine Negative (Negative); PH,Urine 7.5 (5.0-8.5); Protein,Urine TRACE (Negative)
[2024-05-02 12:34] LABS: Bilirubin,Urine 1+ (Negative); RBC,Urine Occasional #/hpf (0-3); WBC,Urine Occasional #/hpf (0-3)
[2024-05-02 12:35] LABS: Bacteria,Urine Trace /lpf
[2024-05-02] MEDS: IPRATROPIUM/ALBUTEROL 3 ML NEB IH ×3 (13:50→23:56)
--- NOTE | 2024-05-02 17:53 | PC.NURSE ---
pt resting supine in bed at this time. pt ambulates to bathroom with x2 assistance. pt verbalizes generalized pain, especially in the knees. treated per may. pt has had a good appetite. no needs at this time. call light within reach.
[2024-05-02] MEDS: PANTOPRAZOLE 40MG TABLET 40 MG PO (20:28)
[2024-05-02] MEDS: 0.9 % SODIUM CHLORIDE 1000ML 1,000 ML 100 ML IV (20:29)
[2024-05-03] VITALS (12 sets, daily range): BP systolic 83–122; BP diastolic 38–63; PULSE 74–88; RESP 17–20; TEMP 36.3–36.9; O2SAT 91–96; BMI 38.3
--- NOTE | 2024-05-03 00:34 | PC.NURSE ---
Addendum entered by Ale Lora RN 05/03/24 04:03: notified physician safety professional about pt's bp 92/44 after completing the 1 l ns @ 125 ml's/hr. physician ordered for pt to continue ivf's @ 125 ml's/hr for now. Addendum entered by Ale Lora RN 05/03/24 01:46: after 200 ml ivf bolus pt's manual bp is 92/50 Original Note: 0000 manual bp 88/38. notified physician safety professional and he ordered for pt to have 200 ml ivf bolus and increase ivf rate to 125 ml's/hr. pt is alert and oriented x4 and stated she was on bp meds in the past and had to be taken off of them due to low bp.
--- NOTE | 2024-05-03 03:34 | PC.NURSE ---
PT IS RESTING IN BED. ALERT AND ORIENTED X4. 1 ASSIST TO AMBULATE TO THE BATHROOM. BP HAS BEEN LOW T/O THE SHIFT. LUNG SOUNDS DIMINISHED WITH FINE RT SIDED CRACKLES. ABDOMEN SOFT/NON TENDER WITH ACTIVE BOWEL SOUNDS. WILL CONTINUE TO MONITOR.
[2024-05-03] MEDS: 0.9 % SODIUM CHLORIDE 1000ML 1,000 ML 125 ML IV (04:11)
[2024-05-03] MEDS: IPRATROPIUM/ALBUTEROL 3 ML NEB IH ×4 (06:15→23:10)
[2024-05-03 06:32] LABS: Chloride 106 mmol/L (98-107); Potassium 3.9 mmoL/L (3.5-5.1); Sodium 133 mmol/L (136-145)
[2024-05-03 06:35] LABS: Anion Gap 8.9 mEq/L (5-15); Blood Urea Nitrogen 16 mg/dl (7-17); Calcium 9.2 mg/dl (8.4-10.2); Carbon Dioxide 22 mmol/L (22.0-30.0); Creatinine Clearance Estimated 84 mL/min (50-200); Estimated Glomerular Filt Rate 81 ml/min (>60); GFR (African American) 98 ML/MIN (>60); Glucose 99 mg/dl (74-100)
--- NOTE | 2024-05-03 08:22 | P.PN_ITS ---
Subjective *Date: 05/03/24 *Time: 08:54 Interval history: Patient thinks she is better today. She will had difficulty with sleeping due to the bed. She does better sitting up in the recliner. She thinks her breathing is better with less cough. She is voiding QS. Bowels have not moved. She has been able to eat and drink. Her biggest complaint is her right lower back pain which she says is ongoing from the past. She can ambulate with assistance. Blood pressure has been low ranging from 83/39 to 95/49. O2 sats are good on room air at 93% this morning. Medical Exam Vital signs and Labs for Last 24 Hours: Vital Signs Temp Pulse Pulse Resp BP BP Pulse Ox 05/03/24 06:36 05/03/24 06:16 76 05/03/24 06:16 81 05/03/24 06:16 93 L 05/03/24 05:00 05/03/24 03:48 97.8 F 86 20 92/44 L 92 L 05/03/24 03:00 05/03/24 00:58 05/03/24 00:30 78 88/38 L 05/03/24 00:00 98.5 F 78 20 83/39 L 96 05/03/24 00:00 74 05/02/24 23:57 73 05/02/24 23:00 05/02/24 20:00 05/02/24 19:46 05/02/24 19:35 97.8 F 70 20 95/48 L 95 05/02/24 18:38 05/02/24 18:10 71 05/02/24 18:10 73 05/02/24 17:00 05/02/24 16:00 98.2 F 72 18 95/49 L 93 L 05/02/24 15:00 05/02/24 13:51 78 05/02/24 13:51 80 05/02/24 13:00 05/02/24 11:47 97.9 F 70 18 98/56 L 95 05/02/24 11:00 05/02/24 09:00 O2 Del Method 05/03/24 06:36 Room Air 05/03/24 06:16 05/03/24 06:16 05/03/24 06:16 Room Air 05/03/24 05:00 Room Air 05/03/24 03:48 Room Air 05/03/24 03:00 Room Air 05/03/24 00:58 Room Air 05/03/24 00:30 05/03/24 00:00 Room Air 05/03/24 00:00 05/02/24 23:57 05/02/24 23:00 Room Air 05/02/24 20:00 Room Air 05/02/24 19:46 Room Air 05/02/24 19:35 Room Air 05/02/24 18:38 Room Air 05/02/24 18:10 05/02/24 18:10 05/02/24 17:00 Room Air 05/02/24 16:00 Room Air 05/02/24 15:00 Room Air 05/02/24 13:51 05/02/24 13:51 05/02/24 13:00 Room Air 05/02/24 11:47 Room Air 05/02/24 11:00 Room Air 05/02/24 09:00 Room Air Intake and Output 05/02/24 05/03/24 05/03/24 19:59 03:59 11:59 Intake Total 480 / 480 Output Total 0 / 0 0 / 0 0 / 0 Balance 480 / 480 0 / 480 0 / 480 Intake: Intake, Oral Amount 480 / 480 Output: Output, Urine Amount 0 / 0 0 / 0 0 / 0 Other: Number of Unmeasured Voids 1 Number of Bowel Movements 1 Weight 244 lb 8 oz Patient Weight 05/03/24 11:59 Weight 244 lb 8 oz Laboratory Results - last 24 hr 05/02/24 08:00: Troponin I < 0.01 05/02/24 10:55: SARS-CoV-2 (PCR) Not detected, Influenza A Untype (PCR) Not detected, Influenza Type B (PCR) Not detected 05/02/24 12:20: Urine Color Yellow, Urine Appearance Clear, Urine pH 7.5, Ur Specific [place] 1.010, Urine Protein Trace, Urine Glucose (UA) Negative, Urine Ketones Negative, Urine Blood Trace-i, Urine Nitrate Negative, Urine Bilirubin 1+ A, Urine Urobilinogen 1.0, Ur Leukocyte Esterase Trace, Urine RBC Occasional, Urine WBC Occasional, Ur Squamous Epith Cells 3-5, Urine Bacteria Trace 05/03/24 05:49: Sodium 133 L, Potassium 3.9, Chloride 106, Carbon Dioxide 22, Anion Gap 8.9, BUN 16, Creatinine 0.70, Estimated Creat Clear 84, Estimated GFR 81, Est GFR ( Amer) 98, Glucose 99, Calcium 9.2 I & O for Labs for Last 24 Hours: Intake & Output 04/30/24 05/01/24 05/02/24 05/03/24 11:59 11:59 11:59 11:59 Intake Total 480 / 480 Output Total 0 / 0 Balance 480 / 480 Weight 221 lb 244 lb 8 oz Microbiology Reports for the Last 24 Hours: Microbiology 05/02/24 11:30 Sputum - Expectorated Sputum Gram Stain - Final Constitutional: Present no acute distress Comment:: Sitting in recliner at bedside. Complaining of back pain. Respiratory: Present crackles (Fine crackles in the right middle and upper lobes which are less than yesterday) Cardiac: Present Reg Rate and Rhythm GI: Present soft and normal bowel sounds; Absent distention, tenderness or guarding Extremities: Present normal inspection; Absent tenderness, edema or calf tenderness Neuro: Present alert, awake, oriented x 3 and moves all extremities Assessment and Plan *Assessment and plan (1) Pneumonia: Status: Acute Category: Medical Code(s): J18.9 - Pneumonia, unspecified organism (2) Transaminitis: Status: Acute Category: Medical Code(s): R74.01 - Elevation of levels of liver transaminase levels (3) Hyperbilirubinemia: Status: Acute Category: Medical Code(s): E80.6 - Other disorders of bilirubin metabolism (4) Fall: Status: Acute Category: Medical Code(s): W19.XXXA - Unspecified fall, initial encounter (5) Complex tear of lateral meniscus of right knee: Status: Acute Qualifiers: Encounter type: subsequent encounter Tear current or old: current Qualified Code(s): S83.271D - Complex tear of lateral meniscus, current injury, right knee, subsequent encounter Category: Medical Code(s): S83.271A - Complex tear of lateral meniscus, current injury, right knee, initial encounter (6) Nausea vomiting and diarrhea: Status: Acute Category: Medical Code(s): R11.2 - Nausea with vomiting, unspecified; R19.7 - Diarrhea, unspecified (7) Acute on chronic low back pain: Status: Acute Category: Medical Code(s): M54.50 - Low back pain, unspecified; G89.29 - Other chronic pain Plan Continue with pneumonia care with antibiotics and neb treatments. Some of home meds have been ordered. Dr. Davison entry - Saw patient, agree with above note. Plan PT evaluation today, continue current treatment.
[2024-05-03] MEDS: ENOXAPARIN 40MG/0.4ML SYRINGE 40 MG SUBCUT (09:02)
[2024-05-03] MEDS: CEFTRIAXONE 1 GM 1 GM in 0.9 % SODIUM CHLORIDE 50 ML IV (09:02)
[2024-05-03] MEDS: LEVOTHYROXINE 150MCG (0.15MG)TAB 150 MCG PO (09:03)
[2024-05-03] MEDS: SERTRALINE 100MG TABLET 200 MG PO (09:03)
[2024-05-03] MEDS: CELECOXIB 100 MG PO (09:03)
[2024-05-03] MEDS: HYDROCODONE/APAP 5/325 MG TABLET 1 TAB PO ×2 (09:11→20:49)
[2024-05-03] MEDS: AZITHROMYCIN 500 MG in 0.9 % SODIUM CHLORIDE 250 ML 250 MG IV (09:45)
[2024-05-03 09:58] LABS: Basophils % 0.4 % (0.1-2.0); Eosinophils # 0.1 K/mm3 (0.0-0.4); Eosinophils % 1.4 % (0.1-12.0); Hematocrit 28.4 % (37.0-47.0); Hemoglobin 9.4 g/dL (12.2-16.2); Lymphocytes # 0.9 K/mm3 (0.7-4.5); Lymphocytes % 9.3 % (10-50); Mean Corpuscular HGB Conc 33.1 g/dL (31.8-35.4); Mean Corpuscular Hemoglobin 32.6 pg (27.0-31.2); Mean Corpuscular Volume 98.6 fl (81-99); Mean Platelet Volume 11.5 fl (7.4-10.4); Monocytes # 0.5 K/mm3 (0.1-1.0); Monocytes % 5.1 % (1.7-9.3); Neutrophils # 7.8 K/mm3 (1.8-7.8); Neutrophils % 82.4 % (37.0-80.0); Platelet Count 152 K/mm3 (142-424); Red Blood Count 2.88 M/mm3 (4.20-5.40); Red Cell Distribution Width 13.1 % (11.5-17.5); White Blood Count 9.5 K/mm3 (4.8-10.8)
--- NOTE | 2024-05-03 10:36 | SW/DCPLANNER ---
Addendum entered by Alyson Le 05/04/24 13:36: Patient information/order faxed to Frandy rashid/ [facility]. Per Fr[facility] patient has been accepted for services. Original Note: I spoke w/ this patient and her granddaughter regarding plans once medically stable for discharge. PT/OT evaluated patient and recommended home health services. Patient is agreeable to home health services and does not have an agency preference. I will set up home health services at time of discharge. Discharge date is unknown at this time.
--- NOTE | 2024-05-03 10:57 | HMH.PTEV ---
Physical Therapy Evaluation Rehab PT IP Evaluation Start: 05/03/24 08:53 Freq: ONCE Status: Active Protocol: Document 05/03/24 10:51 MONA (Rec: 05/03/24 10:57 MONA [id number]) Subjective/History History History 78-year-old female with a history of hypertension, GERD, restless leg syndrome, depression and anxiety, degenerative disc disease, compression fracture of T6, and sleep apnea who presented to the [facility] emergency room for evaluation after a fall. CT lumbar spine show L2 comp fx of indeterminate age. Pt reports she has a ramp to enter the home, is generally able to ambulate independently without AD, but has recently begun to use a RW for stability. She lives with family who provide assistance for most of her ADLs at baseline. Subjective Subjective Currently she reports feeling stiff and weak in general. SHe agrees to mobility assessment . Rehab PT IP Eval Objective Appearance Patient Behavior Appropriate Patient Orientation Person,Place,Time Difficulty following instructions none Speech Pattern Clear Ambulation Patient Able to Ambulate Yes Ambulation Observation IP General Gait Pattern Observation Wide Based Gait Ambulation Distance (feet) 30 Ambulation Assistive Device Rolling Walker Ambulation Ability Contact Guard/Hand Hold Balance Ability to Arise Able, uses arms to help Sitting Balance Steady, safe Standing Balance Steady, wide stance Dynamic Sitting Balance Ability Good Dynamic Standing Balance Ability Fair Transfers Chair Transfer Ability Contact Guard/Hand Hold Sit to Stand Bed Transfer Ability Contact Guard/Hand Hold Sit to Stand Chair Transfer Ability Contact Guard/Hand Hold Rehab PT IP prob,goals,plan Problems Date of Evaluation: 05/03/24 PT IP Problems Bed Mobility,Transfers,Gait Rehab Potential Rehab Potential Good Plan PT Intervention Plan Bed Mobility,Transfers,Gait, Therapeutic Exercise PT Plan Frequency Daily Duration LOS Discharge Goals Bed Transfer Ability Contact Guard/Hand Hold Sit to Stand Chair Transfer Ability Supervision/Stand by Ambulation Assistive Device Rolling Walker Ambulation Distance (feet) 50 Discharge Plan PT Discharge Plan Pt is currently appropriate to return home with family assistance once medically stable for d/c. Recommend Home health therapy once medically stable for d/c. Skilled therapy is indicated to improve transfers and strength in general in order to aid pt return to PLOF. Eval Complexity Eval Charge Codes 19546 - High Complexity PHYSICIAN CERTIFICATION: I certify the specified therapy services for Madina S Ainsley are required, authorized, and reviewed every 30 days.
--- NOTE | 2024-05-03 11:09 | HMH.OTEV ---
OT Inpatient Evaluation Rehab OT IP Evaluation Start: 05/03/24 09:40 Freq: ONCE Status: Active Protocol: Document 05/03/24 11:02 [facility] [place] (Rec: 05/03/24 11:09 [facility] [place] [id number]) Rehab OT IP Assessment Subjective History Pt oriented x 3 on arrival. Pt agreeable to engage in therapy evaluation. Pt's granddaughter is present and provides care for pt 13/10. Pt was admitted on 05/02/24 due to fall and PNA. History and physical: Ms. Schmitz is a 78-year-old female with a history of hypertension, GERD, restless leg syndrome, depression and anxiety, degenerative disc disease, compression fracture of T6, and sleep apnea who presented to the [facility] emergency room for evaluation after a fall about 4 AM today. Her granddaughter who stays with her found her and was unable to get her up so they called EMS who brought her to the ER for evaluation. Her granddaughter who cares for her states she has been sick for the last few days with fever greater than 101 cough and some diarrhea. She has had a decrease in her p.o. intake with a decrease in her urinary output as well. The granddaughter also notes that her son has been sick as well with vomiting and diarrhea. She was evaluated in the emergency room and given IV fluids. She had complete radiology studies to include:. CT of the chest showed no acute traumatic injury; stable severe T6 compression fracture as noted on prior studies; right upper lobe infiltrate associated right hilar and right tracheal lymphadenopathy and coronary atherosclerosis CT of the head showed nothing acute. CT of the lumbar spine revealed inferior endplate fracture of L2 age undetermined CT of the cervical spine showed no evidence of acute traumatic injury and diffuse cervical spondylosis abdominal/pelvis CTA showed no acute process and a nodular appearing liver. Laboratory data showed slightly low sodium at 133 with a potassium of 3.8. Total bilirubin was elevated at 2.2. AST was high at 57 and alkaline phosphatase was 166.White blood cell count is noted to be elevated at 15.2 with a hemoglobin of 11.8 and hematocrit of 34.8. Patient has just arrived to the room from the emergency room. She is assisted back to the bed from her bathroom and is very unsteady on her feet. She has ongoing abdominal pain which she says she has had for a long time.. She does not feel that she has any new pain. She feels her breath is somewhat short and she has had a cough. Subjective Prior to being in the hospital , pt's granddaughter lived with her. Pt is normally able to complete functional transfers independently, but recently has begun using rolling walker. Pt is also normally independent with ADLs , but recently her granddaughter has been having to assist her with all ADLs. Pt is dependent upon family for completion of all IADLs. Pt does have 4 steps to enter home, however they do have a wheelchair ramp if needed. Objective Patient Orientation Person,Place,Birthday Transfer Training Sit/Stand Transfer Assist Level Contact Guard/Hand Hold Chair Transfer Ability Contact Guard/Hand Hold Chair Transfer Technique Sit to/from Ambulatory Chair Transfer Assistive Devices Rolling Walker Lower Body Dressing Ability Moderate Assistance Performing Toilet Hygiene Ability Moderate Assistance Overall Commode/Toilet Transfer Ability Contact Guard Commode/Toilet Transfer Technique Sit to/from Ambulatory Rehab OT IP prob,goals,plan Problems Date of Evaluation: 05/03/24 OT IP Problems Bed Mobility,Transfers,Balance ,Self care,Safety Rehab Potential Rehab Potential Good Equipment Needs Assistive Devices Rolling / Wheeled Walker Plan OT intervention Plan Bed Mobility,Transfers,Balance ,Self care,Safety,Therapeutic Exercise OT Plan Frequency Daily Duration LOS Discharge Goals Bed Mobility Ability Standby Assistance Sit to Stand Chair Transfer Ability Supervision/Stand by Chair Transfer Ability Supervision/Stand by Chair Transfer Technique Sit to/from Ambulatory Chair Transfer Assistive Devices Rolling Walker Lower Body Dressing Ability Moderate Assistance Upper Body Dressing Ability Minimal Assistance Bathing Ability Moderate Assistance Performing Toilet Hygiene Ability Moderate Assistance Overall Commode/Toilet Transfer Ability Standby Assistance Commode/Toilet Transfer Technique Sit to/from Ambulatory Decrease in Endurance Yes Discharge Plan OT Discharge Plan Pt will continue to be seen for OT services while at [facility]. Pt can return home with family assistance once she is medically stable per physician . Therapist does recommend OT evaluation upon returning home for continued skilled therapy. Continued skilled therapy is important in order for patient to improve strength, safety, endurance, ADL independence, and functional transfers to reach PLOF. Eval Complexity Eval Charge Codes 36851 - Moderate Complexity PHYSICIAN CERTIFICATION: I certify the specified therapy services for Madina S Ainsley are required, authorized, and reviewed every 30 days.
[2024-05-03] MEDS: NYSTATIN OINT 100,000 UNITS/GM 15GM 15 GM TP ×2 (14:31→20:49)
--- NOTE | 2024-05-03 16:45 | PC.NURSE ---
Pt is alert and oriented x3. She remains on RA with O2 sats measuring >93%. Shes been up to the chair most of the shift and tolerated well. Excoriation noted to left breast and in folds. Nystatin applied per order. She is a 1-2 assist. Bilateral IVs were removed due to infiltration and us guided IV placed in LFA. She denies any complaints and has no questions or concerns at this time.
[2024-05-03] MEDS: ATORVASTATIN 10MG TABLET 10 MG PO (20:49)
[2024-05-03] MEDS: PANTOPRAZOLE 40MG TABLET 40 MG PO (20:49)
[2024-05-03] MEDS: GUAIFENESIN/DEXTROMETHORPHAN 200MG/20MG 10ML UDC 10 ML PO (20:51)
[2024-05-04] VITALS: BP 116/72; PULSE 87; RESP 18; TEMP 36.8; O2SAT 96
[2024-05-04] MEDS: 0.9 % SODIUM CHLORIDE 1000ML 1,000 ML 125 ML IV (01:44)
--- NOTE | 2024-05-04 02:14 | PC.NURSE ---
PT IS RESTING IN BED. TOLERATED SITTING UP IN THE CHAIR AT THE BEGINNING OF THE SHIFT. MEDICATED PER MAR FOR BACK DISCOMFORT. AMBULATES TO THE BATHROOM WITH 1 ASSIST. LUNG SOUNDS DIMINISHED. ABDOMEN SOFT/NON TENDER WITH HYPOACTIVE BOWEL SOUNDS. PT HAD A SMALL BOWEL MOVEMENT THIS SHIFT. WILL CONTINUE TO MONITOR.
[2024-05-04 04:00] VITALS: BP 132/62; PULSE 91; RESP 16; TEMP 37.1; O2SAT 91; BMI 37.8
[2024-05-04] MEDS: IPRATROPIUM/ALBUTEROL 3 ML NEB IH ×2 (06:11→11:09)
[2024-05-04 06:12] VITALS: PULSE 80; PULSE 86; O2SAT 93
[2024-05-04 08:00] VITALS: BP 105/63; PULSE 85; RESP 20; TEMP 36.7; O2SAT 90
--- NOTE | 2024-05-04 08:08 | P.PN_ITS ---
Subjective *Date: 05/04/24 *Time: 09:05 Interval history: Patient states she is shaky this am and has had trouble eating. She just had a neb treatment and they make her shake. She is still wheezing but has not needed any oxygen. She denies any pain but states she is weak when she gets up. Medical Exam Vital signs and Labs for Last 24 Hours: Vital Signs Temp Pulse Pulse Resp BP Pulse Ox O2 Del Method 05/04/24 06:48 Room Air 05/04/24 06:12 80 05/04/24 06:12 86 05/04/24 06:12 93 L Room Air 05/04/24 04:56 Room Air 05/04/24 04:00 98.7 F 91 H 16 132/62 91 L Room Air 05/04/24 02:29 Room Air 05/04/24 00:38 Room Air 05/04/24 00:00 98.2 F 87 18 116/72 96 Room Air 05/03/24 23:10 85 05/03/24 23:10 87 05/03/24 22:48 Room Air 05/03/24 21:00 Room Air 05/03/24 20:00 Room Air 05/03/24 20:00 98.5 F 88 17 109/58 L 91 L Room Air 05/03/24 18:42 Room Air 05/03/24 18:36 94 L Room Air 05/03/24 18:32 76 05/03/24 18:32 77 05/03/24 16:40 Room Air 05/03/24 15:49 98.3 F 82 20 114/63 95 Room Air 05/03/24 15:00 Room Air 05/03/24 12:38 Room Air 05/03/24 11:59 98.4 F 19 122/41 L 94 L Room Air 05/03/24 11:12 74 05/03/24 11:12 77 05/03/24 11:00 Room Air 05/03/24 09:00 Room Air Intake and Output 05/03/24 05/04/24 05/04/24 19:59 03:59 11:59 Intake Total 720 / 3043 2323 / 3043 Output Total 0 / 0 0 / 0 0 / 0 Balance 720 / 3043 2323 / 3043 0 / 3043 Intake: Intake, Oral Amount 720 / 720 Intake, Total IV Amount 2323 / 2323 0.9 % Sodium Chloride 1000ML 1, 3 / 232 000 ml @ 125 mls/hr IV .Q8H [facility] Rx#:[id number] Output: Output, Urine Amount 0 / 0 0 / 0 0 / 0 Other: Number of Voids 0 Number of Bowel Movements 1 Weight 240 lb 11.916 oz Patient Weight 05/04/24 11:59 Weight 240 lb 11.916 oz Laboratory Results - last 24 hr 05/03/24 05:49: WBC 9.5 D, RBC 2.88 L, Hgb 9.4 L, Hct 28.4 L, MCV 98.6, MCH 32.6 H, MCHC 33.1, RDW 13.1, Plt Count 152, MPV 11.5 H, Neut % (Auto) 82.4 H, Lymph % (Auto) 9.3 L, [place] % (Auto) 5.1, Eos % (Auto) 1.4, Baso % (Auto) 0.4, Neut # (Auto) 7.8, Lymph # (Auto) 0.9, [place] # (Auto) 0.5, Eos # (Auto) 0.1, Baso # (Auto) 0.0 I & O for Labs for Last 24 Hours: Intake & Output 05/01/24 05/02/24 05/03/24 05/04/24 11:59 11:59 11:59 11:59 Intake Total 840 / 840 3043 / 3043 Output Total 0 / 0 0 / 0 Balance 840 / 840 3043 / 3043 Weight 221 lb 244 lb 8 oz 240 lb 11.916 oz Microbiology Reports for the Last 24 Hours: Microbiology 05/02/24 11:30 Sputum - Expectorated Sputum Gram Stain - Final 05/02/24 11:30 Sputum - Expectorated Sputum Sputum Culture - Preliminary Constitutional: Present no acute distress Comment:: Sitting in recliner trying to eat Respiratory: Present wheezes and crackles Cardiac: Present Reg Rate and Rhythm GI: Present soft and normal bowel sounds; Absent distention, tenderness or guarding Extremities: Present normal inspection; Absent tenderness, edema or calf tenderness Skin: Present intact Neuro: Present alert, awake, oriented x 3 and moves all extremities Assessment and Plan *Assessment and plan (1) Pneumonia: Status: Acute Category: Medical Code(s): J18.9 - Pneumonia, unspecified organism (2) Transaminitis: Status: Acute Category: Medical Code(s): R74.01 - Elevation of levels of liver transaminase levels (3) Hyperbilirubinemia: Status: Acute Category: Medical Code(s): E80.6 - Other disorders of bilirubin metabolism (4) Fall: Status: Acute Category: Medical Code(s): W19.XXXA - Unspecified fall, initial encounter (5) Complex tear of lateral meniscus of right knee: Status: Acute Qualifiers: Encounter type: subsequent encounter Tear current or old: current Qualified Code(s): S83.271D - Complex tear of lateral meniscus, current injury, right knee, subsequent encounter Category: Medical Code(s): S83.271A - Complex tear of lateral meniscus, current injury, right knee, initial encounter (6) Nausea vomiting and diarrhea: Status: Acute Category: Medical Code(s): R11.2 - Nausea with vomiting, unspecified; R19.7 - Diarrhea, unspecified (7) Acute on chronic low back pain: Status: Acute Category: Medical Code(s): M54.50 - Low back pain, unspecified; G89.29 - Other chronic pain Plan Patient worked with PT and they feel she can return home with home health. Possible discharge today. Will discuss with Dr. Davison. Dr. Davison entry - Saw patient, agree with above note.
[2024-05-04] MEDS: CEFTRIAXONE 1 GM 1 GM in 0.9 % SODIUM CHLORIDE 50 ML IV (08:28)
[2024-05-04] MEDS: CELECOXIB 100MG CAPSULE 200 MG PO (08:29)
[2024-05-04] MEDS: NYSTATIN OINT 100,000 UNITS/GM 15GM 15 GM TP (08:30)
[2024-05-04] MEDS: ENOXAPARIN 40MG/0.4ML SYRINGE 40 MG SUBCUT (08:32)
[2024-05-04] MEDS: SERTRALINE 100MG TABLET 200 MG PO (08:32)
[2024-05-04] MEDS: ONDANSETRON 4MG/2ML VIAL 4 MG IV (08:50)
[2024-05-04] MEDS: AZITHROMYCIN 500 MG in 0.9 % SODIUM CHLORIDE 250 ML 250 MG IV (09:03)
[2024-05-04] MEDS: LEVOTHYROXINE 150MCG (0.15MG)TAB 150 MCG PO (09:23)
[2024-05-04 11:52] VITALS: BP 95/53; PULSE 83; RESP 20; TEMP 36.6; O2SAT 90
[2024-05-04] MEDS: ACETAMINOPHEN 325MG TAB 650 MG PO (14:02)
--- NOTE | 2024-05-05 08:43 | EXP.DC.SUM ---
General Admission date:: 05/02/24 Discharge date: 05/04/24 HPI HPI HPI: Ms. Schmitz is a 78-year-old female with a history of hypertension, GERD, restless leg syndrome, depression and anxiety, degenerative disc disease, compression fracture of T6, and sleep apnea who presented to the [facility] emergency room for evaluation after a fall about 4 AM today. Her granddaughter who stays with her found her and was unable to get her up so they called EMS who brought her to the ER for evaluation. Her granddaughter who cares for her states she has been sick for the last few days with fever greater than 101 cough and some diarrhea. She has had a decrease in her p.o. intake with a decrease in her urinary output as well. The granddaughter also notes that her son has been sick as well with vomiting and diarrhea. She was evaluated in the emergency room and given IV fluids. She had complete radiology studies to include:. CT of the chest showed no acute traumatic injury; stable severe T6 compression fracture as noted on prior studies; right upper lobe infiltrate associated right hilar and right tracheal lymphadenopathy and coronary atherosclerosis CT of the head showed nothing acute. CT of the lumbar spine revealed inferior endplate fracture of L2 age undetermined CT of the cervical spine showed no evidence of acute traumatic injury and diffuse cervical spondylosis abdominal/pelvis CTA showed no acute process and a nodular appearing liver. Laboratory data showed slightly low sodium at 133 with a potassium of 3.8. Total bilirubin was elevated at 2.2. AST was high at 57 and alkaline phosphatase was 166.White blood cell count is noted to be elevated at 15.2 with a hemoglobin of 11.8 and hematocrit of 34.8. Patient has just arrived to the room from the emergency room. She is assisted back to the bed from her bathroom and is very unsteady on her feet. She has ongoing abdominal pain which she says she has had for a long time.. She does not feel that she has any new pain. She feels her breath is somewhat short and she has had a cough. Hospital Course Hospital Course Hospital Course: She was continued on antibiotics and nebs for pneumonia. COVID and flu tests were negative. She did begin improving. She had difficulty sleeping in the bed and sat up in the recliner. Her shortness of breath did improve. She was able to ambulate with assistance and was eating and drinking. Her oxygen sats on room air improved into the 90s. Some of her home medications were ordered and PT was consulted. By 05/04/2024, she was still wheezing, but the neb treatments were helping. She felt weak when she had to get up, but was able to ambulate. Physical therapy felt she could return home with home health. She was stable to be discharged home on Zithromax and cefdinir as well as cough medicine and will follow-up in the office of [facility]. Exam Data for Last 24 hours Vital signs and Labs for Last 24 Hours: Temp Pulse Resp BP Pulse Ox O2 Del Method 97.9 F 83 20 95/53 L 90 L Room Air 05/04/24 11:52 05/04/24 11:52 05/04/24 11:52 05/04/24 11:52 05/04/24 11:52 05/04/24 13:00 I & O for Last 24 hours: Intake & Output 05/02/24 05/03/24 05/04/24 05/05/24 11:59 11:59 11:59 11:59 Intake Total 840 / 840 3403 / 3403 420 / 420 Output Total 0 / 0 1 / 1 0 / 0 Balance 840 / 840 3402 / 3402 420 / 420 Weight 221 lb 244 lb 8 oz 240 lb 11.916 oz Microbiology Reports for the Last 24 Hours: Microbiology 05/02/24 11:30 Sputum - Expectorated Sputum Gram Stain - Final 05/02/24 11:30 Sputum - Expectorated Sputum Sputum Culture - Preliminary Narrative: Constitutional Constitutional: no acute distress Comments: Assisted back to bed from the bathroom. Very unstable on her feet. *Routine HEENT Exam Head: Present normocephalic and atraumatic Eye: Present PERRL; Absent conjunctival icterus, scleral injection or conjunctivae pink ENT: Present mucous membranes moist and oropharynx clear *Routine Neck Exam Neck: Present supple; Absent carotid bruit or lymphadenopathy Routine Chest/Breast/Axilla Exam Chest wall: Present tenderness (Right upper chest) *Routine Respiratory Exam Respiratory: Present crackles (Right upper lobe to mid lobe posteriorly) and able to speak in complete sentences *Routine Cardiovascular Exam Cardiovascular: Present RRR *Routine Abdominal Exam Abdominal: Present soft, normoactive bowel sounds, tenderness (Diffusely tender in all lower quadrants) and obese; Absent distended, guarding or rigid *Routine Rectal Exam Rectal:: deferred *Routine Genitalia Exam Genitalia:: deferred *Routine Extremities Exam Extremities: Absent edema or calf tenderness *Routine Neurological Exam Neurological: Present alert, oriented X3 and normal speech Results Data Completed and Pending Labs on day of discharge: Preliminary micro results at discharge 05/02/24 11:30 Sputum Culture - Preliminary Sputum - Expectorated Sputum DS: Diagnosis Discharge Diagnosis (1) Pneumonia: Status: Acute Code(s): J18.9 - Pneumonia, unspecified organism (2) Transaminitis: Status: Acute Code(s): R74.01 - Elevation of levels of liver transaminase levels (3) Hyperbilirubinemia: Status: Acute Code(s): E80.6 - Other disorders of bilirubin metabolism (4) Fall: Status: Acute Code(s): W19.XXXA - Unspecified fall, initial encounter (5) Complex tear of lateral meniscus of right knee: Status: Acute Code(s): S83.271A - Complex tear of lateral meniscus, current injury, right knee, initial encounter Qualifiers: Tear current or old: current Encounter type: subsequent encounter Qualified Code(s): S83.271D - Complex tear of lateral meniscus, current injury, right knee, subsequent encounter (6) Nausea vomiting and diarrhea: Status: Acute Code(s): R11.2 - Nausea with vomiting, unspecified; R19.7 - Diarrhea, unspecified (7) Acute on chronic low back pain: Status: Acute Code(s): M54.50 - Low back pain, unspecified; G89.29 - Other chronic pain Meds Home Medications and Allergies Home Medications ?Medication ?Instructions ?Recorded ?Confirmed ?Type sertraline 100 mg tablet 200 mg PO DAILY 09/29/17 05/02/24 History atorvastatin 10 mg tablet 10 mg PO DAILY 11/15/21 05/02/24 History levothyroxine 150 mcg tablet 150 mcg PO DAILY 11/15/21 05/02/24 History celecoxib 100 mg capsule (Celebrex) 100 mg PO DAILY 11/30/23 05/02/24 History methocarbamol 500 mg tablet 500 mg PO Q8H PRN muscle spasm #60 04/21/24 05/02/24 Rx tabs potassium chloride 10 mEq 10 meq PO DAILY 05/02/24 05/02/24 History tablet,extended release(part/cryst) azithromycin 500 mg tablet 500 mg PO DAILY 3 days #3 tabs 05/04/24 Rx (Zithromax TRI-TAMIKO) cefdinir 300 mg capsule 300 mg PO Q12H 5 days #10 caps 05/04/24 Rx promethazine-DM 6.25 mg-15 mg/5 mL 5 ml PO Q6H PRN cough #473 mL 05/04/24 Rx oral syrup New Prescriptions to Start Prescriptions: azithromycin [Zithromax TRI-TAMIKO] Bossman Davison cefdinir Bossman Davison promethazine-DM Bossman Davison Allergies Allergy/AdvReac Type Severity Reaction Status Date / Time cefaclor (From [facility]) Allergy Mild SLEEP Verified 04/21/24 13:41 WALKING penicillin G (PENICILLIN G) Allergy Mild Hives Verified 04/21/24 13:41 Discharge Plan Disposition Patient Disposition: Home Health Service Condition: Fair Discharge Order Discharge Orders: Discharge Order (Routine); Ordered 05/04/24 Ordered By: Bossman Davison Follow up Plan Follow up with: Bossman Davison MD [Primary Care Provider] - 05/17/24 10:15 am Prescriptions/Medication Reconciliation: New azithromycin [Zithromax TRI-TAMIKO] 500 mg tablet 500 mg PO DAILY 3 Days Qty: 3 0RF cefdinir 300 mg capsule 300 mg PO Q12H 5 Days Qty: 10 0RF promethazine-DM 6.25-15 mg/5 mL syrup 5 ml PO Q6H PRN (Reason: cough) Qty: 473 0RF Continued sertraline 100 mg tablet 200 mg PO DAILY levothyroxine 150 mcg tablet 150 mcg PO DAILY atorvastatin 10 mg tablet 10 mg PO DAILY methocarbamol 500 mg tablet 500 mg PO Q8H PRN (Reason: muscle spasm) Qty: 60 0RF celecoxib [Celebrex] 100 mg capsule 100 mg PO DAILY potassium chloride 10 mEq tablet,ER particles/crystals 10 meq PO DAILY Problem Reconciliation Problems Reviewed?: Yes Patient Discharge Instructions ACTIVITY: Limited activity DIET: continue same diet Patient Instructions: Pneumonia--Adult, DI for Pneumonia -- Adult, How to Prevent Falls Print Language: Khmer Providers Primary Care Provider: Bossman Davison Admit Provider: Bossman Davison Attending Provider: Bossman Davsion
--- NOTE | 2024-05-05 10:10 | SW/DCPLANNER ---
Spoke with patient's grand daughter. Patient's granddaughter stated that it was a rough night and that her grandmother is hallucinating and her head feels swimming. Transferred her to Rebecca RN and she suggested that granddaughter calls her grandmothers primary care provider and see if they can see her before her follow up appointment. Patient's granddaughter stated she has no other concerns or questions at this time. Joe Nguyen
== END 2024-05-04 14:08 | disposition home health service (06) ==
LOC: ER 07:15 → 2ND 07:50
PROVIDERS: Nurse Practitioner Family; Admitting Provider Family Medicine; Emergency Provider Emergency Medicine; PCP Family Medicine; Visit Provider Family Medicine
DX: J18.9 Pneumonia, unspecified organism (principal); R19.7 Diarrhea, unspecified; R74.01 Elevation of levels of liver transaminase levels; E80.6 Other disorders of bilirubin metabolism; S83.271D Complex tear of lateral meniscus, current injury, right knee, subsequent encounter; E66.9 Obesity, unspecified; Z68.37 Body mass index [BMI] 37.0-37.9, adult; W18.30XA Fall on same level, unspecified, initial encounter; I10 Essential (primary) hypertension; G25.81 Restless legs syndrome; K21.9 Gastro-esophageal reflux disease without esophagitis; F32.A Depression, unspecified; F41.9 Anxiety disorder, unspecified; M51.34 Other intervertebral disc degeneration, thoracic region; M48.54XS Collapsed vertebra, not elsewhere classified, thoracic region, sequela of fracture; M47.892 Other spondylosis, cervical region; M48.56XA Collapsed vertebra, not elsewhere classified, lumbar region, initial encounter for fracture; E03.9 Hypothyroidism, unspecified; E78.5 Hyperlipidemia, unspecified; R59.0 Localized enlarged lymph nodes; G47.33 Obstructive sleep apnea (adult) (pediatric); Z74.1 Need for assistance with personal care; Z91.81 History of falling; Z79.02 Long term (current) use of antithrombotics/antiplatelets; Z79.899 Other long term (current) drug therapy; Z79.890 Hormone replacement therapy
CPT/HCPCS: 70450; 71045; 71260; 72125; 72131; 74174; 80048; 80053; 81001; 82248; 83605; 83690; 84484; 85007; 85025; 85610; 87070; 87205; 87636; 93005; 94640; 97116; 97163; 97166; 97530; 99285; G0378; J0456; J0696; J1650; J2405; J7030; J7050; J7120; J7620; Q9967

== ENCOUNTER 2024-08-01 11:35 | Outpatient (CLI) | payer MEDICARE, SELFPAY ==
--- NOTE | 2024-08-01 11:39 | XR_ITS ---
FINAL REPORT TECHNIQUE: 5 views CLINICAL HISTORY: chronic lower back pain, best images possible due to pt condition COMPARISON: None FINDINGS: LUMBAR SPINE: AP, oblique and lateral views of the lumbar spine were obtained. There is no prior exam for comparison. There is no acute fracture or malalignment. There is indentation of the inferior endplate of L2, also seen on the prior exam of 05/02/2024. There is also loss of height of the superior endplate of L5, which was not described on the previous exam, of indeterminate age. There is moderate disc space narrowing present at the L5-S1 level. No acute paraspinal abnormality. There is 20 degrees of scoliosis to the left. IMPRESSION: Indentation of the inferior endplate of L2, described on the report from the previous exam of 05/02/2024. There is also mild loss of height of the superior endplate of L5, not described on the previous exam, of indeterminate age. Correlation with CT or MRI might be helpful as clinically indicated. Reviewed, Interpreted and Dictated by Art Gallegos MD Transcribed by Cary Bradley Authenticated and . [facility]
== END 2024-08-01 23:59 | disposition home or self-care (01) ==
LOC: RAD 11:35
PROVIDERS: PCP Family Medicine; Visit Provider Family Medicine
DX: M51.87 Other intervertebral disc disorders, lumbosacral region (principal); M41.9 Scoliosis, unspecified
CPT/HCPCS: 72110

== ENCOUNTER 2024-08-25 09:41 | Outpatient (CLI) | payer MEDICARE, SELFPAY ==
--- NOTE | 2024-08-25 09:48 | MR_ITS ---
FINAL REPORT TECHNIQUE: Multiplanar and multisequence imaging of the lumbar spine was obtained without contrast. CLINICAL HISTORY: LUMBAGO W SCIATICA LT SIDE COMPARISON: 09/04/2021 MRI, CT of the lumbar spine 05/02/2024 FINDINGS: There is normal alignment of the lumbar vertebral bodies. There is an L2 vertebral body fracture with 25 to 50% loss of height centrally, and with associated bone marrow edema, more pronounced than seen on the prior CT of 05/02/2024. There is also a new superior endplate fracture of L5, with 25% loss of vertebral body height. There is retropulsion at that level, with the L5 fracture producing mild to moderate central canal stenosis. The spinal cord ends at the level of L 2. There is normal signal intensity within the substance of the distal spinal cord. No acute paraspinal abnormality is identified. L1-2: An annular bulge is present with endplate degenerative change and facet osteoarthropathy. There is mild canal stenosis and mild left neural foraminal narrowing. L2-3: An annular bulge is present with endplate degenerative change and facet osteoarthropathy. There is mild to moderate canal stenosis and moderate bilateral neural foraminal narrowing. L3-4: An annular bulge is present with endplate degenerative change and facet osteoarthropathy. There is mild canal stenosis and moderate bilateral neural foraminal narrowing. L4-5: An annular bulge is present with moderate canal stenosis, in part secondary to the L5 superior endplate fracture. There is moderate right and severe left neural foraminal narrowing. L5-S1: An annular bulge is present with moderate canal stenosis and facet osteoarthropathy. There is mild canal stenosis and moderate left neural foraminal narrowing. IMPRESSION: L2 compression fracture with 25 to 50% loss of vertebral body height centrally, with associated bone marrow edema, more pronounced than seen on the prior CT of 05/02/2024. There is a new superior endplate fracture of L5, with 25% loss of vertebral body height and mild retropulsion producing mild to moderate central canal stenosis. Multilevel lumbar degenerative changes present, most prominent at the L4-5 level as described. Reviewed, Interpreted and Dictated by Leticia Aguilar MD Transcribed by Cary Bradley Authenticated and [facility]
== END 2024-08-25 23:59 | disposition home or self-care (01) ==
LOC: RAD 09:42
PROVIDERS: PCP Family Medicine; Visit Provider Family Medicine
DX: M48.56XA Collapsed vertebra, not elsewhere classified, lumbar region, initial encounter for fracture (principal); M51.16 Intervertebral disc disorders with radiculopathy, lumbar region; M47.26 Other spondylosis with radiculopathy, lumbar region; M48.061 Spinal stenosis, lumbar region without neurogenic claudication
CPT/HCPCS: 72148

== ENCOUNTER 2024-11-15 10:59 | Outpatient (CLI) | payer MEDICARE, SELFPAY ==
--- OUTSIDE RECORDS SUMMARY | 2024-05-25 06:30 | XMS_ITS ---
Author Organization [facility] Address [address] [facility] [address] [place] [phone] Care Team Providers Care Lpn Name Role Phone Smaan Bossman Primary Care Provider Allergies Allergen (clinical [...] Externally Once a day 01/26/2023 Active Nystatin 384796 UNIT/GM 1 application Externally Twice a day [...] once daily; Duration: 7 days Active Nystatin 733361 UNIT/GM 1 application Externally Three times a [...] 05/25/2024 Encounters Encounter Location Date Provider Diagnosis [facility] [address] [place] [id number] 05/25/2024 Bossman Davison Essential hypertensi on I10 [...] Follow Up: 6 Months, Reason: Provider Name:Bossman Riggins ry, 11/23/2024 10:00:00 AM, [address], [address], [place], [id number], Progress Notes * VANI AC GómezOB:1945 (79 yo F)Acc No.[id number]:05/25/2024 Progress Notes Patient: VANI HANSEN Provider: Isaac Davison M.D. :1945 A ge:78 Y S ex:Female Date:05/25/2024 Address:[address] [place] [address] [place], [id number] Subjective: * Chief Complaints: * 1 . [...] at Work- ER 12/11/2006, Chest Pulled Muscle- [facility] ER 08/2015. * Family History: F ather: [...] TABLETS ONE TIME DAILY , Taking Nystatin 243189 UNIT/GM Powder 1 application Externally Twice a [...] Orally Once a day , Not-Taking Nystatin 913601 UNIT/GM Cream 1 application Externally Three times [...] * Images: Billing Information: * Visit Code: 05107 Office Visit, Est Pt., Level 3. * Procedure Codes: G2211 Complex e/m visit add on. 3075F SYST BP GE 130 - 139MM HG. 3078F DIAST BP < 80 MM HG. * Electronic signature of Martina Davison MD on 11/15/2024 at 11:08 AM EDT Sign off status: Pending * Provider: Isaac Davison M.D. Date: 0 05/25/2024 Generated for Adrianna peck/Haseeb/Hung on: 0 11/15/2024 11:08 AM EDT History and Physical Notes * [...]
--- OUTSIDE RECORDS SUMMARY | 2024-06-14 06:15 | XMS_ITS ---
Author Organization [facility] Address [address] [facility] [address] [facility] [address] [place], [place] [id number] Care Team Providers Care Dairy Tester Name Role Phone Bossman Davison Primary Care Provider REASON FOR VISIT 4 week f/u Encounters Encounter Location Date Provider Diagnosis [facility] [address] [place] [id number] 06/14/2024 Bossman Davison Plan Of Treatment Next Appt Details Provider Name:Bossman Riggins ry, 11/23/2024 10:00:00 AM, [address], [address], [place], [place], [id number], Progress Notes * VANI ACeDOB:1945 (79 yo F)Acc No.[id number]:06/14/2024 Progress Notes Patient: VANI HANSEN Provider: Isaac Davison M.D. :1945 A ge:78 Y S ex:Female Date:06/14/2024 Address:[address] [place], [place] [address] GRANDEBETSY [place], [id number] Subjective: * Chief Complaints: * 1 . 4 week f/u. * Medical History: Objective: * Vitals: Assessment: Plan: * Treatment: * Images: Billing Information: * Visit Code: * Procedure Codes: * Electronic signature of Martina Davison MD on 11/15/2024 at 11:09 AM EDT Sign off status: Pending * Provider: Isaac Davison M.D. Date: 0 06/14/2024 Generated for Adrianna peck/Haseeb/Hung on: 0 11/15/2024 11:09 AM EDT
--- OUTSIDE RECORDS SUMMARY | 2024-08-01 07:00 | XMS_ITS ---
[facility] Address [address] [facility] [address] [place] [phone] Care Team Providers Care Residential Sales Consultant Name Role Phone Bossman Davison Primary Care [...] day; Duration: 30 day(s) 05/23/2024 Active Nystatin 166690 UNIT/GM APPLY TO THE AFF ECTED AREA(S) [...] once daily; Duration: 7 days Active Nystatin 504063 UNIT/GM 1 application Externally Twice a day [...] Status W/U Status Risk Notes Problem Sciatica (50027384) Lumbago with sciatica, left side (M54.42) Active confirmed Problem Obese class II (8056005202867 ) BMI 35.0-35.9,lexie lt (Z68.35) Active confirmed Vital Signs Blood pressure systolic 120 mm Hg 08/02/19 25 Blood pressure diastolic 62 mm Hg 025 Heart Rate 76 /min 08/01/2024 Height 66 in 08/01/2024 Weight 219.2 lbs 08/01/2024 BMI 35.38 kg/m2 08/01/2024 Encounters Encounter Location Date [facility] [address] [phone] 08/01/2024 Bossman [place] Lumbago with sciatic a, right side M54.41 [...] test results, Reason: Provider Name:Bossman Riggins , 11/23/2024 10:00:00 AM, [address] [facility] [address], [address] , [place], [place], [phone], Progress Notes * VANI ACeDOB:1945 (79 yo F)Acc No.[id number]:08/01/2024 Progress Notes Patient: VANI HANSEN Provider: Isaac Davison M.D. :1945 A ge:78 Y S ex:Female Date:08/01/2024 Address:[address] [place], [place] [id number] Subjective: * Chief Complaints: * 1 . Severe lower back pain. * HPI: L ower back: 78 year old female presents with c/o Low Back Pain P t presents today with c/o pain across her lower back. Pts granddaughter is with her today and she sts that since fracturing her hip in April she has been doing PT. Pt was leaning down to picker and sorter load and unload her dog to sit it in the [...] at Work- ER 12/11/2006, Chest Pulled Muscle- [facility] ER 08/2015. * Family History: F ather: [...] 1 TABLET EVERY DAY , Taking Nystatin 688852 UNIT/GM Powder 1 application Externally Twice a [...] Orally Once a day , Taking Nystatin 866131 UNIT/GM Cream APPLY TO THE AFFECTED AREA(S) [...] A cquired hypothyroidism - E03.9 ?4. B [place] 35.0-35.9,adult - Z68.35 5 . D epression [...] * Images: Billing Information: * Visit Code: 47745 Office Visit, Est Pt., Level 3. * Procedure Codes: G2211 Complex e/m visit add on. 3074F SYST BP LT 130 MM HG. 3078F DIAST BP < 80 MM HG. * Electronic signature of Martina Davison MD on 11/15/2024 at 11:09 AM EDT Sign off status: Pending * Provider: Isaac Davison M.D. Date: 0 08/01/2024 Generated for Adrianna peck/Haseeb/Talismitting on: 0 11/15/2024 11:09 AM EDT History and Physical Notes * HPI (History of Present Illness) Category Sub-Category Detail Notes Category Not es Lower back Low Back Pain Pt presents toda y with c/o pain across her lower back. Pts granddaughter is with her today and she sts that since fracturing her hip in April she has been doing PT. Pt was leaning down to picker and sorter load and unload her dog to sit it in the [...]
--- OUTSIDE RECORDS SUMMARY | 2024-10-31 20:00 | XMS_ITS | Clinical Summary ---
Author Organization Unknown Care Team Providers Care Finished Carpet Inspector Name Role Phone MONIQUE RUBALCAVA, LOUIE Unavailable Unavailable ORQUIDEA PT, KUNAL Unavailable Unavailable RIC DROP WIRE BUILDER, MEGAN Unavailable Unavailable Payers Payer Name Policy Type Policy Number Effective Date Expira tion Date SHAYY.PPO.C.AUTH [id number] Problems Condition Name Condition Details Condition Category Status Onset Date Resolution Date Last Treatment Date Treating Clinician Comments OTHER CHRONIC PAIN Active 07-25 00:00: 00 LOW BACK PAIN, UNSPECIFIED Active 07-25 00:00: 00 COMPLEX TEAR OF LAT MENSC, CURRENT INJURY, RIGHT KNEE, SUBS Active 07-25 00:00: 00 ESSENTIAL (PRIMARY) HYPERTENSION Active 03-23 00:00: 00 OBSTRUCTIVE SLEEP APNEA (ADULT) (PEDIATRIC) Active 03-23 00:00: 00 HYPOTHYROIDI SM, UNSPECIFIED Active 03-23 00:00: 00 HYPERLIPIDEM IA, UNSPECIFIED Active 03-23 00:00: 00 DEPRESSION, UNSPECIFIED Active 03-23 00:00: 00 ANXIETY DISORDER, UNSPECIFIED Active 03-23 00:00: 00 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 Ordering Clinician Indication Dosage Frequency Signature (SIG) Comments Components azithromyci n 500 mg tablet 2-12 00:00: 00 05-12 00:00 :00 No [id number] Per instruc tions Per instructio ns (route: oral) Med Classific ation: Anti-Infe ctive Agents cefdinir 300 mg capsule 2-12 00:00: 00 05-12 00:00 :00 No [id number] Per instruc tions Per instructio ns (route: oral) Med Classific ation: Anti-Infe ctive Agents atorvastati n 10 mg tablet 2-04 00:00: 00 Yes [id number] CHOLESTEROL 1 tablet DAILY 1 tablet DAILY (route: oral) Med Classific ation: Cardiovas cular Therapy Agents methocarbam ol 500 mg tablet 1-30 00:00: 00 Yes [id number] MUSCLE SPASMS 1 tablet EVERY 8 HOURS 1 tablet EVERY 8 HOURS (route: oral) Med Classific ation: Locomotor System nystatin 100,000 unit/gram topical cream 1-15 00:00: 00 05-12 00:00 :00 No [id number] Unavailable Per instruc tions THREE TIMES DAILY Per instructio ns THREE TIMES DAILY (route: topical) Med Classific ation: Dermatolo gical celecoxib 200 mg capsule 05-12 00:00: 00 07-25 00:00 :00 No [id number] NSAID 1 capsule DAILY 1 capsule DAILY (route: oral) Med Classific ation: Analgesic , Anti-infl ammatory or Antipyret ic levothyroxi ne 150 mcg tablet 05-12 00:00: 00 Yes [id number] THYROID 1 tablet DAILY 1 tablet DAILY (route: oral) Med Classific ation: Endocrine ondansetron 4 mg disintegrat ing tablet 05-12 00:00: 00 07-25 00:00 :00 No [id number] NAUSEA 1 tablet EVERY 8 HOURS 1 tablet EVERY 8 HOURS (route: oral) Med Classific ation: Gastroint estinal Therapy Agents sertraline 100 mg tablet 05-12 00:00: 00 Yes [id number] MOOD 2 tablet DAILY 2 tablet DAILY (route: oral) Med Classific ation: Central Nervous System Agents celecoxib 100 mg capsule 07-25 00:00: 00 Yes [id number] NSAID 1 capsule DAILY 1 capsule DAILY (route: oral) Med Classific ation: Analgesic , Anti-infl ammatory or Antipyret ic Arthritis Pain Relief (acetaminop hen) ER 650 mg tablet,exte nd release 07-25 00:00: 00 Yes [id number] PAIN 1 tablet EVERY 8 HOURS 1 tablet EVERY 8 HOURS (route: oral) Med Classific ation: Analgesic , Anti-infl ammatory or Antipyret ic Vital Signs Vital Name Observation Time Observation Value Commen ts Temperature 2024-11-01 14:02:00.000 97.3 [degF] Temperature 2024-10-25 10:07:00.000 97.8 [degF] Temperature 2024-10-14 14:24:00.000 97.3 [degF] Temperature 2024-09-29 12:24:00.000 98.6 [degF] Pulse 2024-11-01 14:02:00.000 82 /min Pulse 2024-10-25 10:07:00.000 79 /min Pulse 2024-10-14 14:24:00.000 74 /min Pulse 2024-09-29 12:24:00.000 70 /min O2 Saturation (%) 2024-10-25 10:07:00.000 95 % O2 Saturation (%) 2024-10-14 14:24:00.000 97 % Respirations 2024-11-01 14:02:00.000 18 /min Respirations 2024-10-25 10:07:00.000 18 /min Respirations 2024-10-14 14:24:00.000 18 /min Respirations 2024-09-29 12:24:00.000 18 /min Systolic Blood Pressure 2024-11-01 14:02:00.000 136 mm [Hg] Systolic Blood Pressure 2024-10-25 10:07:00.000 140 mm [Hg] Systolic Blood Pressure 2024-10-14 14:24:00.000 112 mm [Hg] Systolic Blood Pressure 2024-09-29 12:24:00.000 106 mm [Hg] Diastolic Blood Pressure 2024-11-01 14:02:00.000 76 mm [Hg] Diastolic Blood Pressure 2024-10-25 10:07:00.000 76 mm [Hg] Diastolic Blood Pressure 2024-10-14 14:24:00.000 64 mm [Hg] Diastolic Blood Pressure 2024-09-29 12:24:00.000 63 mm [Hg] Plan of Treatment Planned Activity Planned Date Details Comments Future Scheduled Test AGENCY MAY PERFORM A RESUMPTION OF CARE VISIT FOLLOWING ANY HOSPITAL ADMISSION. PT TO EVALUATE, OBSERVE / ASSESS, AND MONITOR, DROP WIRE BUILDER TO OBSERVE AND MONITOR, PROVIDE SKILLED THERAPEUTIC INTERVENTION, ACTIVITY, EDUCATION, AND TRAINING TO ADDRESS; [code = AGENCY MAY PERFORM A RESUMPTION OF CARE VISIT FOLLOWING ANY HOSPITAL ADMISSION. PT TO EVALUATE, OBSERVE / ASSESS, AND MONITOR, DROP WIRE BUILDER TO OBSERVE AND MONITOR, PROVIDE SKILLED THERAPEUTIC INTERVENTION, ACTIVITY, EDUCATION, AND TRAINING TO ADDRESS;] Future Scheduled Test PT/DROP WIRE BUILDER TO PROVIDE GAIT TRAINING FOR IMPROVED MOBILITY AND /OR TO NORMALIZE GAIT PATTERN [code = PT/DROP WIRE BUILDER TO PROVIDE GAIT TRAINING FOR IMPROVED MOBILITY AND /OR TO NORMALIZE GAIT PATTERN] Future Scheduled Test SIT TO/FRO M STAND TRANSFERS (PT/DROP WIRE BUILDER) [code = SIT TO/FROM STAND TRANSFERS (PT/DROP WIRE BUILDER)] Future Scheduled Test PT/DROP WIRE BUILDER TO PROVIDE STAIR TRAINING [code = PT/DROP WIRE BUILDER TO PROVIDE STAIR TRAINING] Future Scheduled Test THERAPEUTI C EXERCISES AND ESTABLISHING A HOME EXERCISE PROGRAM (PT/DROP WIRE BUILDER) [code = THERAPEUTIC EXERCISES AND ESTABLISHING A HOME EXERCISE PROGRAM (PT/DROP WIRE BUILDER)] Goal 2024-09-19 Patient Goal - I NDEPENDENCE WITH FUNCTIONAL ACTIVITIES, DECREASE BACK PAIN Goal 2024-11-01 Patient Goal - I NDEPENDENCE WITH FUNCTIONAL ACTIVITIES, DECREASE BACK PAIN Goal Provider Goal - Goal Provider Goal - PT STG: PATIENT WILL DEMONSTRATE REDUCED GAIT DEVIATIONS TO REDUCE THE RISK FOR FALLING AND MINIMIZE STRAIN ON KNEES/HIPS AND BACK EVIDENCED BY IMPROVED HEEL STRIKE / STANCE PHASE / SWING PHASE USING FWW TO WALK WITHIN HOME FROM ROOM TO ROOM , WITH SB/CGA WITHIN 4 WEEKS PT LTG: PATIENT WILL DEMONSTRATE REDUCED GAIT DEVIATIONS TO REDUCE THE RISK FOR FALLING AND MINIMIZE STRAIN ON KNEES/HIPS AND BACK EVIDENCED BY IMPROVED HEEL STRIKE / STANCE PHASE / SWING PHASE USING FWW/SPC TO WALK WITHIN HOME AND TO/FROM VEHICLE , INDEPENDENT/SUPERVISION ONLY WITHIN 8 WEEKS Goal Provider Goal - PT STG: PATIENT WILL DEMONSTRATE IMPROVED ABILITY TO PERFORM SIT TO/FROM STAND TRANSFERS TO REDUCE THE RISK OF SKIN BREAKDOWN AND REDUCE FALL RISK FROM MIN TO SBA WITHIN 4 WEEKS PTLTG: PATIENT WILL DEMONSTRATE IMPROVED ABILITY TO PERFORM SIT TO/FROM STAND TRANSFERS TO REDUCE THE RISK OF SKIN BREAKDOWN AND REDUCE FALL RISK FROM MIN TO IND/SUPERVISION ONLY WITHIN 8 WEEKS Goal Provider Goal - PT LTG: PATIENT WILL DEMONSTRATE IMPROVED ABILITY TO SAFELY NEGOTIATE STAIRS FROM MOD A TO SB/CGA WITH LRAD WITHIN 8 WEEKS Goal Provider Goal - PT STG: PATIENT WILL DEMONSTRATE IMPROVED FUNCTIONAL STRENGTH EVIDENCED BY FIVE TIMES SIT TO STAND TEST (CUT SCORE >12 SECONDS INDICATES AN INCREASED FALL RISK) IMPROVING FROM 93 TO 60 WITHIN 4 WEEKS IN ORDER TO PERFORM STS/CHAIR TRANSFERS SAFELY PT LTG: PATIENT WILL DEMONSTRATE IMPROVED FUNCTIONAL STRENGTH EVIDENCED BY FIVE TIMES SIT TO STAND TEST (CUT SCORE >12 SECONDS INDICATES AN INCREASED FALL RISK) IMPROVING FROM 93 TO 45 WITHIN 8 WEEKS IN ORDER TO PERFORM STS/CHAIR TRANSFERS SAFELY Reason for Visit INDEPENDENT WITH USE OF ASSISTIVE DEVICE Encounters Start Date/Time End Date/Time Encounter Type Admission Type Attending [facility] Care Department Encounter ID Discharge Date Discharge Status Discharge Condition Discharge Reason Percent Goals Met 2024-09-23 00:00:00 2024-11-01 00:00:00 Outpatient RECERTIFIC ATION KUNAL HEARD [facility] [id number] 2024-11-01 00:00:00 DISCHARGE TO HOME OR SELF CARE INDEPENDEN T WITH USE OF ASSISTIVE DEVICE HH - OTHER (PROVIDE DETAILS IN COORD NOTE) 100.00
--- OUTSIDE RECORDS SUMMARY | 2024-10-31 20:00 | XMS_ITS | Clinical Summary ---
Author Organization Unknown Care Team Providers Care Devops Name Role Phone MONIQUE RUBALCAVA, LOUIE Unavailable Unavailable ORQUIDEA PT, KUNAL Unavailable Unavailable RIC CERTIFIED EMERGENCY VEHICLE TECHNICIAN, MEGAN Unavailable Unavailable Payers Payer Name Policy Type Policy Number Effective Date Expira tion Date SHAYY.PPO.C.AUTH [id number] Problems Condition Name Condition Details Condition Category [...] HISTORY OF FALLING Active 03-23 00:00: 00 [facility] (CURRENT) USE OF NON-STEROIDA L NON-INFLAM (NSAID) [...] 2-12 00:00: 00 05-12 00:00 :00 No [id number] Per instruc tions Per instructio ns (route: oral) Med Classific ation: Anti-Infe ctive Agents cefdinir 300 mg capsule 2-12 00:00: 00 05-12 00:00 :00 No [id number] Per instruc tions Per instructio ns (route: oral) Med Classific ation: Anti-Infe ctive Agents atorvastati n 10 mg tablet 2-04 00:00: 00 Yes [id number] CHOLESTEROL 1 tablet DAILY 1 tablet DAILY (route: oral) Med Classific ation: Cardiovas cular Therapy Agents methocarbam ol 500 mg tablet 1-30 00:00: 00 Yes [id number] MUSCLE SPASMS 1 tablet EVERY 8 HOURS 1 tablet EVERY 8 HOURS (route: oral) Med Classific ation: Locomotor System nystatin 100,000 unit/gram topical cream 1-15 00:00: 00 05-12 00:00 :00 No [id number] Unavailable Per instruc tions THREE TIMES DAILY Per instructio ns THREE TIMES DAILY (route: topical) Med Classific ation: Dermatolo gical celecoxib 200 mg capsule 05-12 00:00: 00 07-25 00:00 :00 No [id number] NSAID 1 capsule DAILY 1 capsule DAILY (route: oral) Med Classific ation: Analgesic , Anti-infl ammatory or Antipyret ic levothyroxi ne 150 mcg tablet 05-12 00:00: 00 Yes [id number] THYROID 1 tablet DAILY 1 tablet DAILY (route: oral) Med Classific ation: Endocrine ondansetron 4 mg disintegrat ing tablet 05-12 00:00: 00 07-25 00:00 :00 No [id number] NAUSEA 1 tablet EVERY 8 HOURS 1 tablet EVERY 8 HOURS (route: oral) Med Classific ation: Gastroint estinal Therapy Agents sertraline 100 mg tablet 05-12 00:00: 00 Yes [id number] MOOD 2 tablet DAILY 2 tablet DAILY (route: oral) Med Classific ation: Central Nervous System Agents celecoxib 100 mg capsule 07-25 00:00: 00 Yes [id number] NSAID 1 capsule DAILY 1 capsule DAILY (route: oral) Med Classific ation: Analgesic , Anti-infl ammatory or Antipyret ic Arthritis Pain Relief (acetaminop hen) ER 650 mg tablet,exte nd release 07-25 00:00: 00 Yes [id number] PAIN 1 tablet EVERY 8 HOURS 1 [...] TO EVALUATE, OBSERVE / ASSESS, AND MONITOR, CERTIFIED EMERGENCY VEHICLE TECHNICIAN TO OBSERVE AND MONITOR, PROVIDE SKILLED THERAPEUTIC INTERVENTION, ACTIVITY, EDUCATION, AND TRAINING TO ADDRESS; [code = AGENCY MAY PERFORM A RESUMPTION OF CARE VISIT FOLLOWING ANY HOSPITAL ADMISSION. PT TO EVALUATE, OBSERVE / ASSESS, AND MONITOR, CERTIFIED EMERGENCY VEHICLE TECHNICIAN TO OBSERVE AND MONITOR, PROVIDE SKILLED THERAPEUTIC INTERVENTION, ACTIVITY, EDUCATION, AND TRAINING TO ADDRESS;] Future Scheduled Test PT/CERTIFIED EMERGENCY VEHICLE TECHNICIAN TO PROVIDE GAIT TRAINING FOR IMPROVED MOBILITY AND /OR TO NORMALIZE GAIT PATTERN [code = PT/CERTIFIED EMERGENCY VEHICLE TECHNICIAN TO PROVIDE GAIT TRAINING FOR IMPROVED MOBILITY AND /OR TO NORMALIZE GAIT PATTERN] Future Scheduled Test SIT TO/FRO M STAND TRANSFERS (PT/CERTIFIED EMERGENCY VEHICLE TECHNICIAN) [code = SIT TO/FROM STAND TRANSFERS (PT/CERTIFIED EMERGENCY VEHICLE TECHNICIAN)] Future Scheduled Test PT/CERTIFIED EMERGENCY VEHICLE TECHNICIAN TO PROVIDE STAIR TRAINING [code = PT/CERTIFIED EMERGENCY VEHICLE TECHNICIAN TO PROVIDE STAIR TRAINING] Future Scheduled Test THERAPEUTI C EXERCISES AND ESTABLISHING A HOME EXERCISE PROGRAM (PT/CERTIFIED EMERGENCY VEHICLE TECHNICIAN) [code = THERAPEUTIC EXERCISES AND ESTABLISHING A HOME EXERCISE PROGRAM (PT/CERTIFIED EMERGENCY VEHICLE TECHNICIAN)] Goal 2024-09-19 Patient Goal - I NDEPENDENCE [...] End Date/Time Encounter Type Admission Type Attending [facility] Care Department Encounter ID Discharge Date Discharge Status Discharge Condition Discharge Reason Percent Goals Met 2024-09-23 00:00:00 2024-11-01 00:00:00 Outpatient RECERTIFIC ATION KUNAL HEARD [facility] [id number] 2024-11-01 00:00:00 DISCHARGE TO HOME OR SELF CARE INDEPENDEN T WITH USE OF ASSISTIVE DEVICE HH - OTHER (PROVIDE DETAILS IN COORD NOTE) 100.00
--- NOTE | 2024-11-15 11:00 | CT_ITS ---
FINAL REPORT TECHNIQUE: Thin section axial images were obtained through the right hip and knee. Reconstruction images were obtained from the axial data. Exam was obtained per preoperative protocol. Exam was performed using dose reduction technique. CLINICAL HISTORY: evaluate and treat. My knee protocol. chronic right knee pain FINDINGS: HIP: No acute fracture or dislocation. There is mild degenerative disease. There is mild atrophy of the gluteus medius and minimus muscles. No acute soft tissue abnormality is identified. KNEE: There is tricompartment degenerative joint disease. Deformity of the lateral tibial plateau could be related to old fracture or osteochondral injury. No acute fracture/dislocation is identified. There is moderate to large joint effusion. Popliteal cyst is identified. IMPRESSION: Advanced degenerative changes of the right knee. No acute osseous abnormality. Reviewed, Interpreted and Dictated by Leticia Aguilar MD Transcribed by Santa Ballard Authenticated and [facility]
--- OUTSIDE RECORDS SUMMARY | 2024-11-15 11:10 | XMS_ITS | Patient Health Record ---
Author Organization [facility] Address [address] [place] [id number] Care Team Providers [employer] Team Member Name Role Phone Bossman Davison Primary Care Provider Nila Verde Unavailable [phone] Allergies Allergen (clinical drug ingredient) Drug/Non Drug Allergy documented on EMR Reaction Allergy Type Onset Date Status cefaclor Cefaclor Unknown Drug Allergy Active Penicillin Unknown Drug Allergy Active Results Component Value Reference Range Notes P-Vitamin D 25-Hydroxy Reviewed date:05/20/2024 08:07:48 AM Interpretation:114 Performing Lab: Notes/Report: Test performed by [facility] [address] [place], [place] [email or web address] [place] , [facility], [place] [address] Wilton Montejo MD, Carpentry Professional CLIA: [id number] Vitamin D 25-Hydroxy 114.0 30.0-100.0 ng/mL Interpretation of Vitamin D 25 OH: < 20 ng/mL - Deficiency 20 - 29 ng/mL - Insufficiency 30 - 100 ng/mL - Sufficiency > 100 ng/mL - Super-therapeutic- toxicity may occur above this level. Clinical correlation required. P-TSH reflex to FT4 Reviewed date:05/20/2024 08:07:48 AM Interpretation:6.94 Performing Lab: Notes/Report: Test performed by [facility] [address] [place], [place] [email or web address] [place] [address], [place] [address] Wilton Montejo MD, Carpentry Professional CLIA: [id number] TSH reflex to FT4 6.94 0.43-5.25 mU/L P-Phosphorus Reviewed date:05/20/2024 08:07:48 AM Interpretation:Normal Performing Lab: Notes/Report: Test performed by [facility] [address] , [address], [place] [address] Wilton Montejo MD, Carpentry Professional CLIA: [id number] Phosphorus 3.4 2.5-4.5 mg/dL MRI : Spine, Lumbosacral, wi thout contrast Reviewed date:08/26/2024 11:33:37 AM Interpretation: Performing Lab: Notes/Report: P-Magnesium Reviewed date:05/20/2024 08:07:48 AM Interpretation:Normal Performing Lab: Notes/Report: Test performed by [facility] [address] , [address], [place] [address] Wilton Montejo MD, Carpentry Professional CLIA: [id number] Magnesium 2.1 1.6-2.4 mg/dL P-T4 Free (thyroxine) Reviewed date:05/20/2024 08:07:48 AM Interpretation:Normal Performing Lab: Notes/Report: Test performed by [facility] [address] , [address], [place] [address] Wilton Montejo MD, Carpentry Professional CLIA: [id number] Thyroxine Free (free T4) 1.21 0.86-1.76 ng/dL P-Comprehensive Metabolic Pa briseyda (CMP) Reviewed date:05/20/2024 08:07:48 AM Interpretation:Tremaine 10.8, Alk Phos 164, AST 54, A/G Ratio 0.9 Performing Lab: Notes/Report: Test performed by [facility] [address] , [address], [place] [id number] Wilton Montejo MD, Carpentry Professional CLIA: [id number] Sodium 137 135-145 mmol/L Potassium 5.1 3.5-5.3 [...] 0.5 <0.2-1.2 mg/dL A/G Ratio 0.9 1.1-2.5 P-Vitamin B12 Reviewed date:05/20/2024 08:07:48 AM Interpretation:Normal Performing Lab: Notes/Report: Test performed by [facility] [address] [place] [address] , [place] [address] Wilton Montejo MD, Carpentry Professional CLIA: [id number] Vitamin B12 104 254-4926 pg/mL CBC Venipuncture (in house) Reviewed date:05/19/2024 10:08:21 [...] - 38 platlet 456 100 - 400 TEN-UTI panel Reviewed date:11/30/2023 03:24:39 PM Interpretation:Abnormal Performing Lab: Notes/Report: Abnormal B-Type Natriuretic Peptide Reviewed date:01/29/2024 08:45:17 AM Interpretation: Performing Lab: Notes/Report: Test performed by [facility] [address] [place] [address] , [address], [place] [address] Wilton Montejo MD, Carpentry Professional CLIA: [id number] B-Type Natriuretic Peptide 42.0 <2.0-100.0 pg/mL P-Magnesium Reviewed date:01/29/2024 08:45:17 AM Interpretation: Performing Lab: Notes/Report: Test performed by [facility] [address] [place] [address] , [place] [address] Wilton Montejo MD, Carpentry Professional CLIA: [id number] Magnesium 2.0 1.6-2.4 mg/dL P-Culture, Urine Reviewed date:02/11/2024 01:25:32 PM Interpretation:Sensitivity not routinely done Performing Lab: Notes/Report: Test performed by [facility] [address] [place] [address] [place] [address] Wilton Montejo MD, Carpentry Professional CLIA: [id number] Specimen Source Urine - Void Culture, Urine See Below See Microbiol ogy Report Streptococcus agalactiae (Strep. group B) 10,000-15,000 CFU/ml Streptococcus agalactiae (Strep. group B) Sensitivity not routinely done. P-Culture, Urine Reviewed date:02/03/2024 12:24:03 PM Interpretation:Sensitivity not available Performing Lab: Notes/Report: Test performed by [facility] [address] , [place] [address] Wilton Montejo MD, Carpentry Professional CLIA: [id number] Specimen Source Urine - Void Culture, Urine See Below See Microbiol ogy Report Corynebacterium striatum group 25,000-50,000 CFU/ml Corynebacterium striatum group Sensitivity not available P-Comprehensive Metabolic Pa briseyda (CMP) Reviewed date:01/29/2024 08:45:17 AM Interpretation: Performing Lab: Notes/Report: Test performed by [facility] [address] , [place] [address] Wilton Montejo MD, Carpentry Professional CLIA: [id number] Sodium 139 135-145 mmol/L Potassium 4.2 3.5-5.3 mmol/L Chloride 105 97-108 mmol/L CO2 27 22-32 mmol/L Glucose 97 65-99 mg/dL BUN 20 8-23 mg/dL Creatinine 0.79 0.50-1.00 mg/dL Calcium 9.9 8.6-10.4 mg/dL eGFR by Creatinine 77 >59 mL/min/1.73m2 Protein 6.7 6.0-8.3 g/dL Albumin 3.8 3.5-5.3 g/dL Alkaline Phosphatase 116 35-121 IU/L ALT (SGPT) 19 <5-47 IU/L AST (SGOT) 25 <5-40 IU/L Bilirubin, Total 0.5 <0.2-1.2 mg/dL A/G Ratio 1.3 1.1-2.5 P-BNP (Brain Natriuretic Pep tide) Reviewed date:07/14/2024 01:23:37 PM Interpretation:see duplicate order Performing Lab: Notes/Report: see duplicate order CBC Venipuncture (in house) Reviewed date:01/28/2024 04:41:00 PM Interpretation: Performing Lab: Notes/Report: wbc 8.3 3.5 - 10 lymph 22.8 15 - 50 mid 6.1 2 - 15 gran 71.1 35 - 80 rbc 3.36 3.5 - 5.5 hgb 11.3 11.5 - 16.5 hct 33.5 35 - 55 mcv 99.6 75 - 100 mch 33.7 25 - 35 mchc 33.8 31 - 38 platlet 171 100 - 400 Urinalysis - Inhouse Reviewed date:01/28/2024 04:40:52 PM Interpretation: Performing Lab: Notes/Report: Color/Clarity dark yellow/orange Leuk 1+ Nitrite neg Urobili 1.6 Protein 1+ pH 6.5 Blood neg Sp. Gr. 1.025 Ketone neg Bili neg Gluc neg X ray : Spine, lumbosacral Reviewed date:08/04/2024 12:30:41 PM Interpretation: Performing Lab: Notes/Report: H-UA Reviewed date:05/02/2024 07:02:08 PM Interpretation: Performing Lab: Notes/Report: Method to collect specimen clean catch UCOL YELLOW Yellow UAPP CLEAR Clear UPH 7.5 5.0-8.5 USG 1.010 1.005-1.030 UPRO TRACE Negative UGLU Negative Negative UKET Negative Negative UBLD TRACE-I Negative UNIT Negative Negative UBIL 1+ Negative CONFIRM BILIRUB IN RESULT WITH ICTOTEST: NEGATIVE UURO 1.0 0.2 EU/dl ULEU TRACE Negative UMICU URINE MICROSCOPIC MICROSCOPIC URBC Occasional 0-3 #/hpf UWBC Occasional 0-3 #/hpf USQEPI 3-5 0-5 #/hpf UBACT Trace NONE /lpf H-Covid, Flu A, Flu B PCR Reviewed date:05/02/2024 07:02:31 PM Interpretation: Performing Lab: Notes/Report: No Is this the 1st COVID test for the patient? Unknown Does the patient have COVID symptoms? Unknown Is the patient employed in healthcare? No Is patient an [facility] employee? N Is patient currently hospitalized? Yes Is patient currently in ICU? No Date of Symptom onset Is patient a resident in a congregate care setting? Yes COVPCR Not Detected NotDetected Effective 11/13/20, Positive covid results will no longer be called to the ordering physician. Infection control and the physician?s office will continue to report positive covid results to the local Health Department as required. This assay is for in vitro diagnostic use under FDA Emergency Use Authorization only. Negative results do not preclude infection with SARS CoV 2 virus and should not be the sole basis of a patient treatment/management or public health decision. Follow up testing should be performed according to the current CDC recommendations. FLUAPCR Not Detected NotDetected FLUBPCR Not Detected NotDetected H-Sputum Culture with Gram Sung darrelleleni Reviewed date:05/05/2024 09:25:41 AM Interpretation: Performing Lab: Notes/Report: GS Gram Stain: GS Moderate Gram Positi ve Cocci In Pairs CUSPU YEAST ISOLATED AND W ILL BE HELD FOR 5 DAYS. CONTACT LAB IF CUSPU FURHTER ID NEEDED. H-CBC Reviewed date:05/03/2024 11:22:49 AM Interpretation: Performing Lab: Notes/Report: WBC 9.5 4.8-10.8 K/mm3 Delta: 15.2 o n 05/02/24-0504 RBC 2.88 4.20-5.40 M/mm3 HGB 9.4 12.2-16.2 g/dL HCT 28.4 37.0-47.0 % MCV 98.6 81-99 fl MCH 32.6 27.0-31.2 pg MCHC 33.1 31.8-35.4 g/dL RDW 13.1 11.5-17.5 % PLT 152 142-424 K/mm3 MPV 11.5 7.4-10.4 fl NE% 82.4 37.0-80.0 % LY% 9.3 10-50 % MO% 5.1 1.7-9.3 % EO% 1.4 0.1-12.0 % BA% 0.4 0.1-2.0 % NE# 7.8 1.8-7.8 K/mm3 LY# 0.9 0.7-4.5 K/mm3 MO# 0.5 0.1-1.0 K/mm3 EO# 0.1 0.0-0.4 K/mm3 BA# 0.0 0-0.2 K/mm3 H-BMP Reviewed date:05/03/2024 09:00:21 AM Interpretation: Performing Lab: Notes/Report: NA 133 136-145 mmol/L K 3.9 3.5-5.1 mmoL/L CL 106 98-107 mmol/L CO2 22 22.0-30.0 mmol/L GAP 8.9 5-15 mEq/L BUN 16 7-17 mg/dl CREATT 0.70 0.52-1.04 mg/dl CRCLE 84 50-200 mL/min GFRAA 98 >60 ML/MIN EGFR 81 >60 ml/min GLU 99 74-100 mg/dl CA 9.2 8.4-10.2 mg/dl Urinalysis - Inhouse Reviewed date:11/26/2023 12:16:12 PM Interpretation: Performing Lab: Notes/Report: Color/Clarity yellow/clear Leuk 1+ Nitrite neg Urobili 3.2 Protein neg pH 7.5 Blood neg Sp. Gr. 1.020 Ketone neg Bili neg Gluc neg P-Comprehensive Metabolic Pa briseyda (CMP) Reviewed date:11/26/2023 12:16:12 PM Interpretation:Ca 10.7 Performing Lab: Notes/Report: Test performed by [facility] [address] [place] [address] , [address], [place] [address] Wilton Montejo MD, Carpentry Professional CLIA: [id number] Sodium 141 135-145 mmol/L Potassium 4.7 3.5-5.3 mmol/L Chloride 105 97-108 mmol/L CO2 28 22-32 mmol/L Glucose 95 65-99 mg/dL BUN 13 8-23 mg/dL Creatinine 0.81 0.50-1.00 mg/dL Calcium 10.7 8.6-10.4 mg/dL eGFR by Creatinine 75 >59 mL/min/1.73m2 Protein 7.1 6.0-8.3 g/dL Albumin 3.8 3.5-5.3 g/dL Alkaline Phosphatase 119 35-121 IU/L ALT (SGPT) 25 <5-47 IU/L AST (SGOT) 33 <5-40 IU/L Bilirubin, Total 0.7 <0.2-1.2 mg/dL A/G Ratio 1.2 1.1-2.5 P-T4 Free (thyroxine) Reviewed date:11/26/2023 12:16:12 PM Interpretation:Normal Performing Lab: Notes/Report: Test performed by [facility] [address] [place] [address] [place] [address] Wilton Montejo MD, Carpentry Professional CLIA: [id number] Thyroxine Free (free T4) 1.22 0.86-1.76 ng/dL P-Lipid Panel Reviewed date:11/26/2023 12:16:12 PM Interpretation:Normal Performing Lab: Notes/Report: Test performed by [facility] [address] , [place] [address] Wilton Montejo MD, Carpentry Professional CLIA: [id number] Cholesterol 124 <200 mg/dL Triglycerides 71 <150 mg/dL HDL Cholesterol 49 >39 mg/dL Cholesterol / HDL Ratio 2.53 0.00-4.44 Ratio Non-HDL Cholesterol 75 <130 mg/dL LDL Cholesterol (Calculation) 61 <130 mg/dL LDL Cholesterol Levels* Less than 100 mg/dL Optimal 100 to 129 mg/dL Near Optimal/ Above Optimal 130 to 159 mg/dL Borderline High 160 to 189 mg/dL High 190 mg/dL and above Very High * Categories as recommended by the 2004 ATPIII guidelines LDL/HDL Ratio 1.2 <3.3 Ratio LDL Cholesterol Patient History Test Date: 11/25/2023 LDL Results: 61 Units: mg/dL % Change: - P-TSH Reviewed date:11/26/2023 12:16:12 PM Interpretation:Normal Performing Lab: Notes/Report: Test performed by [facility] [address] [place] [address] , [address], [place] [address] Wilton Montejo MD, Carpentry Professional CLIA: [id number] TSH 1.46 0.43-5.25 mU/L P-Vitamin D 25-Hydroxy Reviewed date:11/26/2023 12:16:12 PM Interpretation:83.1 Performing Lab: Notes/Report: Test performed by [facility] [address] [place] [address] [address], [place] [address] Wilton Montejo MD, Carpentry Professional CLIA: [id number] Vitamin D 25-Hydroxy 83.1 30.0-100.0 ng/mL Interpretation of Vitamin D 25 OH: < 20 ng/mL - Deficiency 20 - 29 ng/mL - Insufficiency 30 - 100 ng/mL - Sufficiency > 100 ng/mL - Super-therapeutic- toxicity may occur above this level. Clinical correlation required. Medications Medication SIG (Take, Route, Frequency, Duration) Notes Start Date End Date Status Celecoxib 100 MG 1 capsule with food Orally Once a day; Duration: 90 days Active Fluconazole 100 MG 1 tablet Orally once daily; Duration: 7 days Active Furosemide 40 MG 1 tablet Orally Once a day, prn Active Gabapentin 300 MG 1 capsule Orally Two times a day; Duration: 30 days 08/01/2024 Active Levothyroxine Sodium 175 MCG 1 tablet in the morning on an empty stomach Orally Once a day; Duration: 90 days Active CPAP Mask as directed nightly 10/21/2024 Active Nystatin 057233 UNIT/GM 1 application Externally Twice a day 01/26/2023 Active Atorvastatin Calcium 10 MG TAKE 1 TABLET AT BEDTIME; Duration: 90 Active Ketoconazole 2 % 1 application Externally Once a day 01/26/2023 Active CPAP Supplies 1 Set Use supplies as directed 05/29/2023 Active Potassium Chloride ER 10 MEQ TAKE 1 TABLET EVERY DAY; Duration: 90 Active Nystatin 874428 UNIT/GM APPLY TO THE AFF ECTED AREA(S) THREE TIMES DAILY; Duration: 30 Active Albuterol Sulfate (2.5 MG/3ML) 0.083% 3 mL as needed Inhalation every 6 hrs 05/05/2024 Active Calcium 500 MG 1 tablet with meals Orally Twice a day; Duration: 30 day(s) Active Sertraline HCl 100 MG TAKE 2 TABLETS ONE TIME DAILY; Duration: 90 Active Nebulizer - as directed J18.9 and R06.2 05/05/2024 Active Nebulizer Mask Adult/Tubing - as directed J18.9 and R06.2 05/05/2024 Active Immunizations Vaccine Route Administration Date Status Comme nts xFlu shot-36 months and older IM Intramuscular 02/08/2005 Administered Tetanus Tdap-Adacel (over 7yrs) IM Intramuscular 07/29/2007 Administered Prevnar (PCV13) IM Intramuscular 12/28/2012 Administered H1N1 flu vaccine IM Intramuscular 02/12/2009 Administered Fluzone High Dose (65yr and older) IM Intramuscular 12/28/2012 Administered Fluzone High Dose (65yr and older) IM Intramuscular 01/11/2016 Administered Fluzone High Dose (65yr and older) IM Intramuscular 12/15/2016 Administered Fluzone High Dose (65yr and older) IM Intramuscular 12/28/2017 Administered Fluzone High Dose (65yr and older) IM Intramuscular 01/05/2019 Administered Fluzone High Dose (65yr and older) IM Intramuscular 11/25/2019 Administered Fluzone High Dose (65yr and older) IM Intramuscular 11/30/2020 Administered Fluzone High Dose (65yr and older) Unknown 12/31/2021 Administered Fluzone High Dose (65yr and older) IM Intramuscular 11/25/2023 Administered COVID 19 Moderna Unknown 05/02/2020 Administered COVID 19 Moderna Unknown 05/30/2020 Administered COVID 19 Moderna Unknown 02/07/2021 Administered Problems Problem Type SNOMED Code ICD Code Onset Dates Problem Status W/U Status Risk Notes Problem Vitamin D deficiency (09420046) Vitamin D deficiency (E55.9) Active confirmed Problem Essential hypertension (78456131) Essential hypertension (I10) Active confirmed Problem Morbid obesity (059528376) Morbid obesity (E66.01) Active confirmed Problem Hypertriglyceridemia (901666902) Hypertriglyceridemia (E78.1) Active confirmed Problem Vitamin B12 deficiency (909541820) History of non anemic vitamin B12 deficiency (Z86.39) Active confirmed Problem Osteopenia (476000033) Osteopenia (M85.80) Active confirmed Problem Mixed anxiety and depressive disorder (968813807) Depression with anxiety (F41.8) Active confirmed Problem Sciatica (31687236) Lumbago with sciatica, right side (M54.41) Active confirmed Problem Pure hypercholesterolemia (884300700) Pure hypercholesterolemia (E78.0) Active confirmed Problem Mixed hyperlipidemia (959564577) Mixed hyperlipidemia (E78.2) Active confirmed Problem Adjustment disorder with depressed mood (56787277) Adjustment disorder with depressed mood (F43.21) Active confirmed Problem Adjustment disorder with mixed anxiety and depressed mood (808384380) Adjustment disorder with mixed anxiety and depressed mood (F43.23) Active confirmed Problem Chronic pain (61847681) Other chronic pain (G89.29) Active confirmed Problem Sciatica (21434189) Lumbago with sciatica, left side (M54.42) Active confirmed Problem Abnormal vaginal bleeding (526464291) DUB (dysfunctional uterine bleeding) (N93.8) Active confirmed Problem Postmenopausal state (19444092) Post-menopausal (Z78.0) Active confirmed Problem Obese class II (021100517993097) BMI 35.0-35.9,adult (Z68.35) Active confirmed Problem Acquired hypothyroidism (032861447) Acquired hypothyroidism (E03.9) Active confirmed Problem Arthropathy of lumba r facet joint (260277452) Lumbar facet arthropathy (M46.96) Active confirmed Problem Chronic vaginitis (89411195) Chronic vaginitis (N76.1) Active confirmed Problem Sleep apnea (20471836) Sleep apnea, unspecified type (G47.30) Active confirmed Problem History of nutritional deficiency (47162251478171) History of vitamin D deficiency (Z86.39) Active confirmed Problem Ex-tobacco user (finding) (402015324) History of tobacco use (Z87.891) Active confirmed Problem Persistent cough (160631273) Persistent cough (R05) Active confirmed Problem Hypersomnia (72267617) Hypersomnia (G47.10) Active confirmed Problem Mammography abnormal (076606018) Abnormal mammogram of right breast (R92.8) Active confirmed Problem Degenerative disc disease (02043508) DDD (degenerative disc disease), lumbar (M51.36) Active confirmed Problem Chronic rhinitis (81646229) Rhinitis, unspecified type (J31.0) Active confirmed Problem Fibrocystic breast changes (13586298) Fibrocystic breast changes, unspecified laterality (N60.19) Active confirmed Problem Arthritis of knee (120833730) Arthritis of knee (M17.10) Active confirmed Problem Chronic kidney disease stage 2 (disorder) (759319028) CKD (chronic kidney disease) stage 2, GFR 60-89 ml/min (N18.2) Active confirmed Problem Bilirubinemia (42836039) Bilirubinemia (E80.6) Active confirmed Vital Signs Heart Rate 76 /min 08/01/2024 Blood pressure diastolic 62 mm Hg 08/01/2024 Height 66 in 08/01/2024 Blood pressure systolic 120 mm Hg 08/01/2024 Weight 219.2 lbs 08/01/2024 BMI 35.38 kg/m2 08/01/2024 Encounters Encounter Location Date Provider Diagnosis [facility] [address] [facility] [address] [place] [id number] 11/25/2023 Bossman Rushford Acquired hypothyroid ism E03.9 ; Hypertriglyceridemia E78.1 ; Vitamin D deficiency E55.9 and Chronic vaginitis N76.1 [facility] [address] [place] [id number] 01/28/2024 Nila Crowdy Yeast infection B37. 9 ; Upper back pain M54.9 ; Lower extremity edema R60.0 ; Rash R21 and Dysuria R30.0 [facility] [address] [facility] [address] [place] [id number] 02/02/2024 Nila Crowdy Dysuria R30.0 [facility] [address] [place] [id number] 02/03/2024 Nila Crowdy Yeast infection B37. 9 ; Upper back pain M54.9 ; Lower extremity edema R60.0 ; Rash R21 and Dysuria R30.0 [facility] [address] [place], [place] [id number] 05/17/2024 Bossman Rushford Community acquired pneumonia, unspecified laterality J18.9 ; Fatigue, unspecified type R53.83 ; Vitamin D deficiency E55.9 and Vitamin B12 deficiency E53.8 [facility] [address] [place], [place] [id number] 05/25/2024 Bossman Rushford Essential hypertensi on I10 and Mixed hyperlipidemia E78.2 [facility] [address] [place], [place] [id number] 08/01/2024 Bossman Rushford Lumbago with sciatic a, right side M54.41 ; Lumbago with sciatica, left side M54.42 ; Acquired hypothyroidism E03.9 ; BMI 35.0-35.9,adult Z68.35 ; Depression with anxiety F41.8 and Morbid obesity E66.01 [facility] [address] [place], [place] [id number] 11/26/2023 Bossman Rushford [facility] [address] [place] [id number] 11/30/2023 Bossman Rushford [facility] [address] [place] [id number] 01/26/2024 Bossman Rushford Tinea cruris B35.6 [facility] [address] [place], [place] [id number] 01/29/2024 Nila Crowdy [facility] [address] [place] [id number] 02/10/2024 Nila Crowdy [facility] [address] [place] [id number] 04/26/2024 Bossman Rushford [facility] [address] [place] [id number] 04/27/2024 Bossman Rushford Yeast infection B37. 9 [facility] [address] [place] [id number] 05/04/2024 Bossman Rushford [facility] [address] [place] [id number] 05/04/2024 Bossman Rushford [facility] [address] [place] [id number] 05/20/2024 Bossman Rushford [facility] [address] [place] [id number] 06/13/2024 Bossman Rushford [facility] [address] [place] [id number] 08/04/2024 Bossman Rushford [facility] [address] [place] [id number] 08/26/2024 Bossman Rushford [facility] [address] [place] [id number] 10/21/2024 Bossamn Rushford Assessments Encounter Date Diagnosis (ICD Code) Assessment Notes Treatment Notes Treatment Clinical Notes Section Notes 04/27/2024 Yeast infection (ICD -10 - B37.9) 05/17/2024 Fatigue, unspecified type (ICD-10 - R53.83) 05/17/2024 Community acquired pneumonia, unspecified laterality (ICD-10 - J18.9) Clinically resolved 05/25/2024 Essential hypertensi on (ICD-10 - I10) Off of medication at this time 05/25/2024 Mixed hyperlipidemia (ICD-10 - E78.2) 08/01/2024 Lumbago with sciatic a, right side (ICD-10 - M54.41) 08/01/2024 Lumbago with sciatic a, left side (ICD-10 - M54.42) 11/25/2023 Hypertriglyceridemia (ICD-10 - E78.1) 11/25/2023 Acquired hypothyroid ism (ICD-10 - E03.9) 01/26/2024 Tinea cruris (ICD-10 - B35.6) 01/28/2024 Yeast infection (ICD -10 - B37.9) The nystatin powder and the ketoconazole cream did not help. Will try some fluconazole and nystatin cream. Will keep the area clean and dry. 01/28/2024 Upper back pain (ICD -10 - M54.9) Patient does not want to take muscle relaxants as she is afraid she will get tired and fall. Will start on some steroids for both her neck and upper back muscle pain as well as the rash on her legs. 02/03/2024 Yeast infection (ICD -10 - B37.9) Improving. Will do another week fo fluconazole. 02/03/2024 Lower extremity dexter a (ICD-10 - R60.0) Can stop the lasix and only use prn. 02/03/2024 Upper back pain (ICD -10 - M54.9) Resolved. 02/02/2024 Dysuria (ICD-10 - R30.0) 01/28/2024 Lower extremity dexter a (ICD-10 - R60.0) Has lasix at home and will take a 40mg every other day and f/u in 1 week. Will get labs today. 11/25/2023 Vitamin D deficiency (ICD-10 - E55.9) 08/01/2024 Acquired hypothyroid ism (ICD-10 - E03.9) 05/17/2024 Vitamin D deficiency (ICD-10 - E55.9) 05/17/2024 Vitamin B12 deficien cy (ICD-10 - E53.8) 08/01/2024 BMI 35.0-35.9,adult (ICD-10 - Z68.35) 11/25/2023 Chronic vaginitis (ICD-10 - N76.1) 01/28/2024 Rash (ICD-10 - R21) Will sto p the diet pills as this could be causing her rash and swelling. Will f/u in 1 week. 02/03/2024 Rash (ICD-10 - R21) Resolved. 02/03/2024 Dysuria (ICD-10 - R30.0) Awaiting urine culture results. 01/28/2024 Dysuria (ICD-10 - R30.0) 08/01/2024 Depression with anxi ety (ICD-10 - F41.8) 08/01/2024 Morbid obesity (ICD- 10 - E66.01) 05/17/2024 Other Discharge summary with available lab/diagnostic imaging results obtained and reviewed. Discharge medication list reconciled. Appropriate counseling provided. Moderate Complexity Plan Of Treatment Next Appt Details Provider Name:Bossman Jimenestaylor ry, 11/23/2024 10:00:00 AM, [address], [place], [phone], Insurance Providers Payer Name Payer Address Payer Phone Subscriber Number Group Number Insured Name Patient Relationship to Insured Coverage Start Date Coverage End Date [employer] (MEDICAR E) [address] [address] [place] [address] [phone] [id number] [id number] AC Self - patient is the insured 3 6 Medical (General) History Medical History History ICD Code Hypertension with Microalbuminuria (07/22 008) Esophageal Reflux Restless Leg Syndrome Anxiety Menopausal Sinusitis Vitamin D Deficiency Vitamin B12 Deficiency Degenerative Disc Disease, L3-L4 disc he rniation Hypertriglyceridemia Colon Polyps 35 Year Smoking History, quit at age 52 Sleep Apnea Compression fracture, T6, see CT scan Oc t. 2022 Surgical History Surgery Date(Month/Year) Cholecystectomy Neck Lymphnode Removal RT Knee Meniscotomy 09/19/2005 D & C LT Knee Meniscotomy 03/19/2007 Tubal Ligation LT Eye Cataract Surgery 03/04/2011 Hospitalization History Reason Date(Month/Year) Kidney Infecton Fell at Work- ER 12/11/2006 Chest Pulled Muscle- [facility] ER 08/2015
== END 2024-11-15 23:59 | disposition home or self-care (01) ==
LOC: RAD 11:00
PROVIDERS: PCP Family Medicine; Visit Provider Orthopaedic Surgery
DX: M17.11 Unilateral primary osteoarthritis, right knee (principal)
CPT/HCPCS: 73700

== ENCOUNTER 2024-12-02 11:20 | Emergency (ER) | payer MEDICARE, SELFPAY ==
--- OUTSIDE RECORDS SUMMARY | 2024-05-17 06:15 | XMS_ITS ---
Author Organization [facility] Address [address] [place] [id number] Care Team Providers Care Manager Business Systems Name Role Phone Bossman Davison Primary Care Provider Allergies Allergen (clinical drug ingredient) Drug/Non Drug [...] Interpretation:Normal Performing Lab: Notes/Report: Test performed by [facility] [address] [place] [address] , [address], [place] [address] Wilton Montejo MD, Disc Pad Grinder CLIA: [id number] Vitamin B12 545 378-5037 pg/mL P-Comprehensive Metabolic Pa briseyda (CMP) Reviewed date:05/20/2024 08:07:48 AM Interpretation:Tremaine 10.8, Alk Phos 164, AST 54, A/G Ratio 0.9 Performing Lab: Notes/Report: Test performed by [facility] [address] [place] [address] , [address], [place] [address] Wilton Montejo MD, Disc Pad Grinder CLIA: [id number] Sodium 137 135-145 mmol/L Potassium 5.1 3.5-5.3 [...] Interpretation:Normal Performing Lab: Notes/Report: Test performed by [facility] [address] [place] [address] , [place] [address] Wilton Montejo MD, Disc Pad Grinder CLIA: [id number] Thyroxine Free (free T4) 1.21 0.86-1.76 ng/dL P-Magnesium Reviewed date:05/20/2024 08:07:48 AM Interpretation:Normal Performing Lab: Notes/Report: Test performed by [facility] [address] [place] [address] , [address], [place] [id number] Wilton Montejo MD, Disc Pad Grinder CLIA: [id number] Magnesium 2.1 1.6-2.4 mg/dL P-Phosphorus Reviewed date:05/20/2024 08:07:48 AM Interpretation:Normal Performing Lab: Notes/Report: Test performed by [facility] [address] [place] [address] , [address], [place] [address] Wilton Montejo MD, Disc Pad Grinder CLIA: [id number] Phosphorus 3.4 2.5-4.5 mg/dL P-TSH reflex to FT4 Reviewed date:05/20/2024 08:07:48 AM Interpretation:6.94 Performing Lab: Notes/Report: Test performed by [facility] [address] [place] [address] [address] , [place] [address] Wilton Montejo MD, Disc Pad Grinder CLIA: [id number] TSH reflex to FT4 6.94 0.43-5.25 mU/L P-Vitamin D 25-Hydroxy Reviewed date:05/20/2024 08:07:48 AM Interpretation:114 Performing Lab: Notes/Report: Test performed by [facility] [address] [place] [address] [place] [address] Wilton Montejo MD, Disc Pad Grinder CLIA: [id number] Vitamin D 25-Hydroxy 114.0 30.0-100.0 ng/mL Interpretation of Vitamin D 25 OH: < 20 ng/mL - Deficiency 20 - 29 ng/mL - Insufficiency 30 - 100 ng/mL - Sufficiency > 100 ng/mL - Super-therapeutic- toxicity may occur above this level. Clinical correlation required. REASON FOR VISIT [facility] d/c f/u Medications Medication SIG (Take, Route, Frequency, Duration) Notes Start Date End Date Status Nebulizer - as directed J18.9 and R06.2 05/05/2024 Active Celecoxib 100 MG 1 capsule with food Orally Once a day; Duration: 90 days 05/04/2024 Active Nystatin 478616 UNIT/GM 1 application Externally Three times a [...] AN EMPTY STOMACH; Duration: 90 Active Nystatin 817674 UNIT/GM 1 application Externally Twice a day [...] Blood pressure systolic 134 mm Hg 05/17/19 Blood pressure diastolic 70 mm Hg 025 Heart Rate 92 /min 05/17/2024 Height 66 in 05/17/2024 Weight 222.8 lbs 05/17/2024 BMI 35.96 kg/m2 05/17/2024 Encounters Encounter Location Date Provider Diagnosis [facility] [address] [place] [id number] 05/17/2024 Bossman Davison Community acquired pneumonia, unspecified [...] unspecified laterality Clinically resolved Other Discharge summary wi available lab/diagnostic imaging results obtained and reviewed. Discharge medication list reconciled. Appropriate counseling provided. Moderate Complexity Next Appt Details Follow Up: 4 Weeks, Reason: Provider Name:Bossman kim, 05/23/2025 09:45:00 AM, [address], [address], [place], [id number], Progress Notes * VANI ACOB:1945 (79 yo F)Acc No.[id number]:05/17/2024 Patient: Cristóbal CARENVANI Brannon Provider: Isaac Davison M.D. :1945 A ge:78 Y S ex:Female Date:05/17/2024 Address:[address] [place], [place] [address], [id number] Subjective: * Chief Complaints: * 1 . [facility] d/c f/u. * HPI: H PI: Patient is here today for a Transition of Care Visit. Discharge from the following Facility: [facility] , Discharge date: 0 05/04/2024 ,Date of [...] Surgery 03/04/2011. * Hospitalization/Major Diagno stic Procedure: K cl Infecton , Fell at Work- ER 12/11/2006, Chest Pulled Muscle- [facility] ER 08/2015. * Family History: F [...] TABLETS ONE TIME DAILY , Taking Nystatin 731249 UNIT/GM Powder 1 application Externally Twice a day , Taking Ketoconazole 2 % Cream 1 application Externally Once a day , Taking Fluconazole 100 MG Tablet 1 tablet Orally once daily , Taking Furosemide 40 MG Tablet 1 tablet Orally Once a day, prn , Taking Atorvastatin Calcium 10 MG Tablet 1 tablet Orally Once a day , Taking Nystatin 974591 UNIT/GM Cream 1 application Externally Three times a day , Taking Celecoxib 100 MG Capsule 1 capsule with food Orally Once a day , Taking Nebulizer - Miscellaneous as directed , Notes to Pharmacist: Terry.Gina and R06.2, Taking Nebulizer Mask Adult/Tubing - Miscellaneous as directed , Notes to Pharmacist: Terry.Gina and R06.2, Taking Albuterol Sulfate (2.5 MG/3ML) 0.083% Nebulization [...] P hosphorus 3.4 2.5-4.5 - mg/dL * Alnea Butts 05/20/2024 8:07 :37 AM > see phone encounter ?LAB: P-TSH reflex to FT4 (Collection Date & Time - 05/17/2024 10:20 AM)? 6.94* Value Reference Range T SH reflex to FT4 6.94 H 0.43-5.25 - mU/L * BenjamínAlena 05/20/2024 8:07 :37 AM > see phone encounter 3.?Vitamin D deficiency?LAB: P-Vitamin D 25-Hydroxy (Collection Date & Time - 05/17/2024 10:20 AM)? 114* Value Reference Range V itamin D 25-Hydroxy 114.0 H 30.0-100.0 - ng/mL * BenjamínAlena 05/20/2024 8:07 :37 AM > see phone encounter 4.?Vitamin B12 deficiency?LAB: P-Vitamin B12 (Collection Date & Time - 05/17/2024 10:20 AM)?Normal* Value Reference Range V itamin B12 473 133-7926 - pg/mL * Benjamín,Alena 05/20/2024 8:07 :37 AM > see phone encounter 5.?Others? Notes: Discharge summary with available lab/diagnostic imaging results obtained and reviewed. Discharge medication list reconciled. Appropriate counseling provided. Moderate Complexity?? * Labs: * L ab: P-T4 Free (thyroxine) (Collection Date & Time - 05/17/2024 10:20 AM) N ormal Value Reference Range T hyroxine Free (free T4) 1.21 0.86-1.76 - ng/d L * [facility], IT support 05/20/2024 04:00:39 : This order was created by the Interface. BenjamínAlena teresa 05/20/2024 8:07:37 AM > see phone encounter * Procedure Codes: G 2211 Complex e/[place], [address] TRANS CARE MGMT 14 DAY DISCH, 1111F DSCHR MED/CURENT MED MERGE, 52820 CBC WITH AUTO DIFF, 94673 PULSE OX, 3075F SYST BP GE 130 - 139MM HG, 3078F DIAST BP < 80 MM HG * Follow Up: 4 Weeks * Images: Billing Information: * Visit Code: 80758 Office Visit, Est Pt., Level 4. * Procedure Codes: G2211 Complex e/[place]. [address] TRANS CARE MGMT 14 DAY DISCH. 1111F DSCHR MED/CURENT MED MERGE. 35372 CBC WITH AUTO DIFF. 32091 PULSE OX. 3075F SYST BP GE 130 - 139MM HG. 3078F DIAST BP < 80 MM HG. * Electronic signature of Martina Davison MD on 12/02/2024 at 11:31 AM EDT Sign off status: Pending * Provider: Isaac Davison M.D. Date: 0 05/17/2024 Generated for Adrianna peck/Haseeb/Robertoitting on: 0 12/02/2024 11:31 AM EDT History and Physical Notes * HPI (History of Present Illness) Category Sub-Category Detail Notes Category Not es HPI Patient is here today for a [facility] sition of Care Visit. Discharge from the following Facility: [facility] ,Discharge date: 05/04/2024 ,Date of phone contact [...]
--- OUTSIDE RECORDS SUMMARY | 2024-05-25 06:30 | XMS_ITS ---
Author Organization [facility] Address [address] [facility] [address] [place] [id number] Care Team Providers Care Veneer Layer Name Role Phone Saman Bossman Primary Care Provider [phone] Allergies Allergen (clinical drug ingredient) Drug/Non Drug [...] Externally Once a day 01/26/2023 Active Nystatin 238626 UNIT/GM 1 application Externally Twice a day [...] once daily; Duration: 7 days Active Nystatin 641687 UNIT/GM 1 application Externally Three times a [...] 05/25/2024 Encounters Encounter Location Date Provider Diagnosis [facility] [address] [place] [id number] 05/25/2024 Bossman Davison Essential hypertensi on I10 [...] 6 Months, Reason: Provider Name:Bossman Riggins ry, 05/23/2025 09:45:00 AM, [address], [address], [place], [id number], Progress Notes * VANI AC GómezOB:1945 (79 yo F)Acc No.[id number]:05/25/2024 Progress Notes Patient: VANI HANSEN Provider: Isaac Davison M.D. :1945 A ge:78 Y S ex:Female Date:05/25/2024 Address:[address] [place] [address] [place], [id number] Subjective: * Chief Complaints: * 1 . [...] at Work- ER 12/11/2006, Chest Pulled Muscle- [facility] ER 08/2015. * Family History: F [...] TABLETS ONE TIME DAILY , Taking Nystatin 078967 UNIT/GM Powder 1 application Externally Twice a [...] Orally Once a day , Not-Taking Nystatin 939126 UNIT/GM Cream 1 application Externally Three times [...] * Images: Billing Information: * Visit Code: 09237 Office Visit, Est Pt., Level 3. * Procedure Codes: G2211 Complex e/m visit add on. 3075F SYST BP GE 130 - 139MM HG. 3078F DIAST BP < 80 MM HG. * Electronic signature of Martina Davison MD on 12/02/2024 at 11:30 AM EDT Sign off status: Pending * Provider: Isaac Davison M.D. Date: 0 05/25/2024 Generated for Adrianna peck/Haseeb/Hung on: 0 12/02/2024 11:30 AM EDT History and Physical Notes * [...]
--- OUTSIDE RECORDS SUMMARY | 2024-06-14 06:15 | XMS_ITS ---
Author Organization [facility] Address [address] [facility] [address] [facility] [address] [place], [place] [id number] Care Team Providers Care Medical Receptionist Biller Name Role Phone Bossman Davison Primary Care Provider REASON FOR VISIT 4 week f/u Encounters Encounter Location Date Provider Diagnosis [facility] [address] [place] [id number] 06/14/2024 Bossman Davison Plan Of Treatment Next Appt Details Provider Name:Bossman Riggins ry, 05/23/2025 09:45:00 AM, [address], [address], [place], [place], [phone], Progress Notes * VANI ACeDOB:1945 (79 yo F)Acc No.[id number]:06/14/2024 Progress Notes Patient: VANI HANSEN Provider: Isaac Davison M.D. :1945 A ge:78 Y S ex:Female Date:06/14/2024 Address:[address] [place] [address] [place], [id number] Subjective: * Chief Complaints: * 1 . 4 week f/u. * Medical History: Objective: * Vitals: Assessment: Plan: * Treatment: * Images: Billing Information: * Visit Code: * Procedure Codes: * Electronic signature of Martina Davison MD on 12/02/2024 at 11:31 AM EDT Sign off status: Pending * Provider: Isaac Davison M.D. Date: 0 06/14/2024 Generated for Adrianna peck/Haseeb/Hung on: 0 12/02/2024 11:31 AM EDT
--- OUTSIDE RECORDS SUMMARY | 2024-08-01 07:00 | XMS_ITS ---
Author Organization [facility] Address [address] [facility] [address] [place] [phone] Care Team Providers Care Woodworking Bench Carpenter Name Role Phone Saman Bossman Primary Care [...] day; Duration: 30 day(s) 05/23/2024 Active Nystatin 145081 UNIT/GM APPLY TO THE AFF ECTED AREA(S) [...] once daily; Duration: 7 days Active Nystatin 949415 UNIT/GM 1 application Externally Twice a day [...] Status W/U Status Risk Notes Problem Sciatica (44982209) Lumbago with sciatica, left side (M54.42) Active confirmed Problem Obese class II (6908608666119 ) BMI 35.0-35.9,lexie lt (Z68.35) Active confirmed Vital Signs Blood pressure systolic 120 mm Hg 08/02/19 25 Blood pressure diastolic 62 mm Hg 025 Heart Rate 76 /min 08/01/2024 Height 66 in 08/01/2024 Weight 219.2 lbs 08/01/2024 BMI 35.38 kg/m2 08/01/2024 Encounters Encounter Location Date Provider [facility] [address] [phone] 08/01/2024 Bossman [place] Lumbago with sciatic a, right side M54.41 [...] rt test results, Reason: Provider Name:Bossman Riggins , 05/23/2025 09:45:00 AM, [address] , [place], [place], [phone], Progress Notes * VANI ACeDOB:1945 (79 yo F)Acc No.[id number]:08/01/2024 Progress Notes Patient: VANI HANSEN Provider: Isaac Davison M.D. :1945 A ge:78 Y S ex:Female Date:08/01/2024 Address:[address] [place], [place] [address] Subjective: * Chief Complaints: * 1 . Severe lower back pain. * HPI: L ower back: 78 year old female presents with c/o Low Back Pain P t presents today with c/o pain across her lower back. Pts granddaughter is with her today and she sts that since fracturing her hip in April she has been doing PT. Pt was leaning down to filler picker her dog to sit it in [...] at Work- ER 12/11/2006, Chest Pulled Muscle- [facility] ER 08/2015. * Family History: F ather: [...] 1 TABLET EVERY DAY , Taking Nystatin 446257 UNIT/GM Powder 1 application Externally Twice a [...] Miscellaneous as directed , Notes to Pharmacist: J18.9 and R06.2, Taking Nebulizer Mask Adult/Tubing - [...] Orally Once a day , Taking Nystatin 047758 UNIT/GM Cream APPLY TO THE AFFECTED AREA(S) [...] A cquired hypothyroidism - E03.9 ?4. B [place] 35.0-35.9,adult - Z68.35 5 . D epression [...] * Images: Billing Information: * Visit Code: 67654 Office Visit, Est Pt., Level 3. * Procedure Codes: G2211 Complex e/m visit add on. 3074F SYST BP LT 130 MM HG. 3078F DIAST BP < 80 MM HG. * Electronic signature of Martina Davison MD on 12/02/2024 at 11:32 AM EDT Sign off status: Pending * Provider: Isaac Davison M.D. Date: 0 08/01/2024 Generated for Adrianna peck/Haseeb/Talismitting on: 0 12/02/2024 11:32 AM EDT History and Physical Notes * HPI (History of Present Illness) Category Sub-Category Detail Notes Category Not es Lower back Low Back Pain Pt presents toda y with c/o pain across her lower back. Pts granddaughter is with her today and she sts that since fracturing her hip in April she has been doing PT. Pt was leaning down to filler picker her dog to sit it in [...]
--- OUTSIDE RECORDS SUMMARY | 2024-11-23 06:00 | XMS_ITS ---
Author Organization [facility] Address [address] [place] [id number] Care Team Providers Care Surgery Consultant Name Role Phone Bossman Davison Primary Care Provider Allergies Allergen (clinical drug ingredient) Drug/Non Drug Allergy documented on EMR Reaction Allergy Type Onset Date Status cefaclor Cefaclor Unknown Drug Allergy Active Penicillin Unknown Drug Allergy Active Results Component Value Reference Range Notes P-Comprehensive Metabolic Pa briseyda (CMP) Reviewed date:11/24/2024 11:45:52 AM Interpretation:Tremaine 10.6, Alk Phos 125 Performing Lab: Notes/Report: Test performed by [facility] [address] [place] [address] , [address], [place] [address] Wilton Montejo MD, Woodworking Craftsman CLIA: [id number] Sodium 142 135-145 mmol/L Potassium 4.4 3.5-5.3 [...] Interpretation:0.86 Performing Lab: Notes/Report: Test performed by [facility] [address] [place] [address] , [address], [place] [address] Wilton Montejo MD, Woodworking Craftsman CLIA: [id number] Thyroxine Free (free T4) 0.86 0.86-1.76 ng/dL P-TSH Reviewed date:11/24/2024 11:45:52 AM Interpretation:Normal Performing Lab: Notes/Report: Test performed by [facility] [address] , [address], [place] [address] Wilton Montejo MD, Woodworking Craftsman CLIA: [id number] TSH 2.02 0.43-5.25 mU/L REASON FOR VISIT [...] Orally Once a day, prn Active Nystatin 221305 UNIT/GM APPLY TO THE AFF ECTED AREA(S) THREE TIMES DAILY; Duration: 30 Active Albuterol Sulfate (2.5 MG/3ML) 0.083% 3 mL as needed Inhalation every 6 hrs 05/05/2024 Active Nebulizer Mask Adult/Tubing - as directed J18.9 and R06.2 05/05/2024 Active Fluconazole 100 MG 1 tablet Orally once daily; Duration: 7 days Active Ketoconazole 2 % 1 application Externally Once a day 01/26/2023 Active Nystatin 125914 UNIT/GM 1 application Externally Twice a day [...] 11/23/2024 Encounters Encounter Location Date Provider Diagnosis [facility] [address] [place], [place] [id number] 11/23/2024 Bossman Davison Essential hypertensi on I10 [...] [address], [address], [place], [id number], Progress Notes * VANI ACOB:1945 (79 yo F)Acc No.[id number]:11/23/2024 Progress Notes Patient: Cristóbal FABIANHARVEYCHLOE Guaman Provider: Isaac Davison M.D. :1945 A ge:79 Y S ex:Female Date:11/23/2024 Address:[address] [place], [place] [address], [id number] Subjective: * Chief Complaints: * 1 . [...] at Work- ER 12/11/2006, Chest Pulled Muscle- [facility] ER 08/2015. * Family History: F [...] 1 TABLET EVERY DAY , Taking Nystatin 844637 UNIT/GM Powder 1 application Externally Twice a [...] Miscellaneous as directed , Notes to Pharmacist: J18.Gina and R06.2, Taking Albuterol Sulfate (2.5 MG/3ML) 0.083% Nebulization Solution 3 mL as needed Inhalation every 6 hrs , Taking Nystatin 932207 UNIT/GM Cream APPLY TO THE AFFECTED AREA(S) [...] Codes: G 2211 Complex e/m visit add on * Follow Up: 6 Months * Images: Billing Information: * Visit Code: 35343 Office Visit, Est Pt., Level 4. * Procedure Codes: G2211 Complex e/m visit add on. * Electronic signature of Martina Davison MD on 12/02/2024 at 11:31 AM EDT Sign off status: Pending * Provider: Isaac Davison M.D. Date: 0 11/23/2024 Generated for Adrianna peck/Haseeb/Hung on: 0 12/02/2024 11:31 AM EDT History [...]
[2024-12-02] VITALS (11 sets, daily range): BP systolic 90–123; BP diastolic 42–75; PULSE 49–75; RESP 15; TEMP 36.7–36.9; O2SAT 94–99; BMI 34.9
--- NOTE | 2024-12-02 11:32 | ECG_ITS ---
APPROVED REPORT Exam: Resting ECG HR:71 bpm ECG Measurements Heart Rate 71 AXES NH 178 P 48 QRSd 106 QRS -28 QT 392 T 48 QTc 414 Conclusion SINUS RHYTHM BORDERLINE LEFT AXIS DEVIATION [QRS AXIS < -20] LOW QRS VOLTAGE IN PRECORDIAL LEADS [QRS DEFLECTION < 1.0 mV IN CHEST LEADS] PATTERN CONSISTENT WITH PULMONARY DISEASE ABNORMAL ECG UNCONFIRMED REPORT Normal sinus rhythm. No ST elevation or depression. QTc 414 Electronically signed by : KEVIN SNEED, 12/03/2024 15:26:49
--- OUTSIDE RECORDS SUMMARY | 2024-12-02 11:32 | XMS_ITS | Patient Health Record ---
Author Organization [facility] Address [address] [place] [id number] Care Team Providers Care Pre Billing Specialist Name Role Phone Bossman Davison Primary Care Provider Nila Verde Unavailable [phone] Allergies Allergen (clinical drug ingredient) Drug/Non Drug Allergy documented on EMR Reaction Allergy Type Onset Date Status cefaclor Cefaclor Unknown Drug Allergy Active Penicillin Unknown Drug Allergy Active Results Component Value Reference Range Notes P-T4 Free (thyroxine) Reviewed date:05/20/2024 08:07:48 AM Interpretation:Normal Performing Lab: Notes/Report: Test performed by [employer] [address] [place], [place] [address] , [place] [address] Wilton Montejo MD, [employer] CLIA: [id number] Thyroxine Free (free T4) 1.21 0.86-1.76 ng/dL P-Comprehensive Metabolic Pa briseyda (CMP) Reviewed date:11/24/2024 11:45:52 AM Interpretation:Tremaine 10.6, Alk Phos 125 Performing Lab: Notes/Report: Test performed by [employer] [address] [place], [place] [address] [place] , [address], [place] [address] Wilton Montejo MD, [employer] CLIA: [id number] Sodium 142 135-145 mmol/L Potassium 4.4 3.5-5.3 [...] Interpretation:0.86 Performing Lab: Notes/Report: Test performed by [employer] [address] [place] [address] , [address], [place] [address] Wilton Montejo MD, [employer] CLIA: [id number] Thyroxine Free (free T4) 0.86 0.86-1.76 ng/dL P-TSH Reviewed date:11/24/2024 11:45:52 AM Interpretation:Normal Performing Lab: Notes/Report: Test performed by [employer] [address] [place] [address] , [address], [place] [address] Wilton Montejo MD, [employer] CLIA: [id number] TSH 2.02 0.43-5.25 mU/L MRI : Spine, Lumbosacral, wi thout contrast Reviewed date:08/26/2024 11:33:37 AM Interpretation: Performing Lab: Notes/Report: X ray : Spine, lumbosacral Reviewed date:08/04/2024 12:30:41 PM Interpretation: Performing Lab: Notes/Report: P-Culture, Urine Reviewed date:02/11/2024 01:25:32 PM Interpretation:Sensitivity not routinely done Performing Lab: Notes/Report: Test performed by [employer] [address] [place] [address] , [address], [place] [address] Wilton Montejo MD, [employer] CLIA: [id number] Specimen Source Urine - Void Culture, Urine See Below See Microbiol ogy Report Streptococcus agalactiae (Strep. group B) 10,000-15,000 CFU/ml Streptococcus agalactiae (Strep. group B) Sensitivity not routinely done. B-Type Natriuretic Peptide Reviewed date:01/29/2024 08:45:17 AM Interpretation: Performing Lab: Notes/Report: Test performed by [employer] [address] [place] [address] , [address], [place] [address] Wilton Montejo MD, [employer] CLIA: [id number] B-Type Natriuretic Peptide 42.0 <2.0-100.0 pg/mL P-Magnesium Reviewed date:01/29/2024 08:45:17 AM Interpretation: Performing Lab: Notes/Report: Test performed by [employer] [address] , [address], [place] [address] Wilton Montejo MD, [employer] CLIA: [id number] Magnesium 2.0 1.6-2.4 mg/dL P-Culture, Urine Reviewed date:02/03/2024 12:24:03 PM Interpretation:Sensitivity not available Performing Lab: Notes/Report: Test performed by [employer] [address] , [address], [place] [id number] Wilton Montejo MD, [employer] CLIA: [id number] Specimen Source Urine - Void Culture, Urine See Below See Microbiol ogy Report Corynebacterium striatum group 25,000-50,000 CFU/ml Corynebacterium striatum group Sensitivity not available P-Comprehensive Metabolic Pa briseyda (CMP) Reviewed date:01/29/2024 08:45:17 AM Interpretation: Performing Lab: Notes/Report: Test performed by [employer] [address] [place] [address] , [address], [place] [address] Wilton Montejo MD, [employer] CLIA: [id number] Sodium 139 135-145 mmol/L Potassium 4.2 3.5-5.3 [...] 1.025 Ketone neg Bili neg Gluc neg CBC Venipuncture (in house) Reviewed date:05/19/2024 10:08:21 [...] Interpretation:Normal Performing Lab: Notes/Report: Test performed by [employer] [address] [place] [address] , [address], [place] [address] Wliton Montejo MD, [employer] CLIA: [id number] Vitamin B12 097 156-9101 pg/mL P-Comprehensive Metabolic Pa briseyda (CMP) Reviewed date:05/20/2024 08:07:48 AM Interpretation:Tremaine 10.8, Alk Phos 164, AST 54, A/G Ratio 0.9 Performing Lab: Notes/Report: Test performed by [employer] [address] [place] [address] , [address], [place] [address] Wilton Montejo MD, [employer] CLIA: [id number] Sodium 137 135-145 mmol/L Potassium 5.1 3.5-5.3 [...] 0.5 <0.2-1.2 mg/dL A/G Ratio 0.9 1.1-2.5 P-Magnesium Reviewed date:05/20/2024 08:07:48 AM Interpretation:Normal Performing Lab: Notes/Report: Test performed by [employer] [address] [place] [address] , [address], [place] [address] Wilton Montejo MD, [employer] CLIA: [id number] Magnesium 2.1 1.6-2.4 mg/dL P-Phosphorus Reviewed date:05/20/2024 08:07:48 AM Interpretation:Normal Performing Lab: Notes/Report: Test performed by [employer] [address] [place] [address] , [address], [place] [address] Wilton Montejo MD, [employer] CLIA: [id number] Phosphorus 3.4 2.5-4.5 mg/dL P-TSH reflex to FT4 Reviewed date:05/20/2024 08:07:48 AM Interpretation:6.94 Performing Lab: Notes/Report: Test performed by [employer] [address] [place] [address] , [address], [place] [address] Wilton Montejo MD, [employer] CLIA: [id number] TSH reflex to FT4 6.94 0.43-5.25 mU/L P-Vitamin D 25-Hydroxy Reviewed date:05/20/2024 08:07:48 AM Interpretation:114 Performing Lab: Notes/Report: Test performed by [employer] [address] [place] [address] , [address], [place] [address] Wilton Montejo MD, [employer] CLIA: [id number] Vitamin D 25-Hydroxy 114.0 30.0-100.0 ng/mL Interpretation of Vitamin D 25 [place]: < 20 ng/mL - Deficiency 20 - 29 ng/mL - Insufficiency 30 - 100 ng/mL - Sufficiency > 100 ng/mL - Super-therapeutic- toxicity may occur above this level. Clinical correlation required. H-UA Reviewed date:05/02/2024 07:02:08 PM Interpretation: Performing [...] employed in healthcare? No Is patient an [facility] employee? N Is patient currently hospitalized? Yes [...] 99 74-100 mg/dl CA 9.2 8.4-10.2 mg/dl Medications Medication SIG (Take, Route, Frequency, Duration) Notes Start Date End Date Status Fluconazole 100 MG 1 tablet Orally once daily; Duration: 7 days Active Calcium 500 MG 1 tablet with meals Orally Twice a day; Duration: 30 day(s) Active Atorvastatin Calcium 10 MG TAKE 1 TABLET AT BEDTIME; Duration: 90 Active Nystatin 227029 UNIT/GM APPLY TO THE AFF ECTED AREA(S) THREE TIMES DAILY; Duration: 30 Active Albuterol Sulfate (2.5 MG/3ML) 0.083% 3 mL as needed Inhalation every 6 hrs 05/05/2024 Active Nebulizer Mask Adult/Tubing - as directed J18.9 and R06.2 05/05/2024 Active Ketoconazole 2 % 1 application Externally Once a day 01/26/2023 Active CPAP Mask as directed nightly 10/21/2024 Active Nystatin 787359 UNIT/GM 1 application Externally Twice a day 01/26/2023 Active Potassium Chloride ER 10 MEQ TAKE 1 TABLET EVERY DAY; Duration: 90 Active Celecoxib 100 MG 1 capsule with food Orally Once a day; Duration: 90 days Active CPAP Supplies 1 Set Use supplies as directed 05/29/2023 Active Levothyroxine Sodium 200 MCG 1 tablet in the morning on an empty stomach Orally Once a day; Duration: 90 days 11/24/2024 Active Nebulizer - as directed J18.9 and R06.2 05/05/2024 Active Gabapentin 300 MG 1 capsule Orally Two times a day; Duration: 30 days 11/23/2024 Active Furosemide 40 MG 1 tablet Orally Once a day, prn Active Sertraline HCl 100 MG TAKE 2 TABLETS ONE TIME DAILY; Duration: 90 Active Immunizations Vaccine Route Administration Date Status Comme nts COVID 19 Moderna Unknown 05/02/2020 Administered COVID 19 Moderna Unknown 05/30/2020 Administered COVID 19 Moderna Unknown 02/07/2021 Administered Fluzone High Dose (65yr and older) [...] (65yr and older) IM Intramuscular 11/25/2023 Administered H1N1 flu vaccine IM Intramuscular 02/12/2009 Administered Prevnar (PCV13) IM Intramuscular 12/28/2012 Administered Tetanus Tdap-Adacel (over 7yrs) IM Intramuscular 07/29/2007 Administered xFlu shot-36 months and older IM Intramuscular 02/08/2005 Administered Problems Problem Type SNOMED Code ICD Code Onset Dates Problem Status W/U Status Risk Notes Problem Vitamin D deficiency (82964045) Vitamin D deficiency (E55.9) Active confirmed Problem Essential hypertension (48953636) Essential hypertension (I10) Active confirmed Problem Morbid obesity (875575387) Morbid obesity (E66.01) Active confirmed Problem Hypertriglyceridemia (650129402) Hypertriglyceridemia (E78.1) Active confirmed Problem Vitamin B12 deficiency (429532781) History of non anemic vitamin B12 deficiency (Z86.39) Active confirmed Problem Osteopenia (939323891) Osteopenia (M85.80) Active confirmed Problem Mixed anxiety and depressive disorder (657197016) Depression with anxiety (F41.8) Active confirmed Problem Sciatica (77281297) Lumbago with sciatica, right side (M54.41) Active confirmed Problem Pure hypercholesterolemia (305924860) Pure hypercholesterolemia (E78.0) Active confirmed Problem Mixed hyperlipidemia (634378502) Mixed hyperlipidemia (E78.2) Active confirmed Problem Adjustment disorder with depressed mood (91482486) Adjustment disorder with depressed mood (F43.21) Active confirmed Problem Adjustment disorder with mixed anxiety and depressed mood (634932450) Adjustment disorder with mixed anxiety and depressed mood (F43.23) Active confirmed Problem Chronic pain (83447138) Other chronic pain (G89.29) Active confirmed Problem Sciatica (52111190) Lumbago with sciatica, left side (M54.42) Active confirmed Problem Abnormal vaginal bleeding (286758934) DUB (dysfunctional uterine bleeding) (N93.8) Active confirmed Problem Postmenopausal state (11185471) Post-menopausal (Z78.0) Active confirmed Problem Obese class II (358074867694930) BMI 35.0-35.9,adult (Z68.35) Active confirmed Problem Acquired hypothyroidism (924299380) Acquired hypothyroidism (E03.9) Active confirmed Problem Arthropathy of lumba r facet joint (031913374) Lumbar facet arthropathy (M46.96) Active confirmed Problem Chronic vaginitis (92896829) Chronic vaginitis (N76.1) Active confirmed Problem Sleep apnea (09785756) Sleep apnea, unspecified type (G47.30) Active confirmed Problem History of nutritional deficiency (50348708301605) History of vitamin D deficiency (Z86.39) Active confirmed Problem Ex-tobacco user (finding) (473187675) History of tobacco use (Z87.891) Active confirmed Problem Persistent cough (034282206) Persistent cough (R05) Active confirmed Problem Hypersomnia (90268050) Hypersomnia (G47.10) Active confirmed Problem Mammography abnormal (942787806) Abnormal mammogram of right breast (R92.8) Active confirmed Problem Degenerative disc disease (72856110) DDD (degenerative disc disease), lumbar (M51.36) Active confirmed Problem Chronic rhinitis (42700716) Rhinitis, unspecified type (J31.0) Active confirmed Problem Fibrocystic breast changes (09276596) Fibrocystic breast changes, unspecified laterality (N60.19) Active confirmed Problem Arthritis of knee (379230621) Arthritis of knee (M17.10) Active confirmed Problem Chronic kidney disease stage 2 (disorder) (745726151) CKD (chronic kidney disease) stage 2, GFR 60-89 ml/min (N18.2) Active confirmed Problem Bilirubinemia (44185871) Bilirubinemia (E80.6) Active confirmed Vital Signs Heart Rate 62 /min 11/23/2024 Blood pressure diastolic 72 mm Hg 11/23/2024 Height 66 in 11/23/2024 Blood pressure systolic 136 mm Hg 11/23/2024 Weight 234.6 lbs 11/23/2024 BMI 37.86 kg/m2 11/23/2024 Encounters Encounter Location Date Provider Diagnosis [facility] [address] [place] [id number] 01/28/2024 Nila Crowdy Yeast infection B37. 9 ; Upper back pain M54.9 ; Lower extremity edema R60.0 ; Rash R21 and Dysuria R30.0 [facility] [address] [place] [id number] 02/02/2024 Nila Crowdy Dysuria R30.0 [facility] [address] [place] [id number] 02/03/2024 Nila Crowdy Yeast infection B37. 9 ; Upper back pain M54.9 ; Lower extremity edema R60.0 ; Rash R21 and Dysuria R30.0 [facility] [address] [place] [id number] 05/17/2024 Bossman Benwood Community acquired pneumonia, unspecified laterality J18.9 ; Fatigue, unspecified type R53.83 ; Vitamin D deficiency E55.9 and Vitamin B12 deficiency E53.8 [facility] [address] [place] [id number] 05/25/2024 Bossman Benwood Essential hypertensi on I10 and Mixed hyperlipidemia E78.2 [facility] [address] [place] [id number] 08/01/2024 Bossman Benwood Lumbago with sciatic a, right side M54.41 ; Lumbago with sciatica, left side M54.42 ; Acquired hypothyroidism E03.9 ; BMI 35.0-35.9,adult Z68.35 ; Depression with anxiety F41.8 and Morbid obesity E66.01 [facility] [address] [place], [place] [id number] 11/23/2024 Bossman Benwood Essential hypertensi on I10 ; Acquired hypothyroidism E03.9 ; Elevated alkaline phosphatase level R74.8 ; Elevated LFTs R79.89 ; Other chronic pain G89.29 and Osteoporosis screening Z13.820 [facility] [address] [place], [place] [id number] 01/26/2024 Bossman Benwood Tinea cruris B35.6 [facility] [address] [place], [place] [id number] 01/29/2024 Nila Crowdy [facility] [address] [place] [id number] 02/10/2024 Nila Crowdy [facility] [address] [place], [place] [id number] 04/26/2024 Bossman Benwood [facility] [address] [place], [place] [id number] 04/27/2024 Bossman Benwood Yeast infection B37. 9 [facility] [address] [place], [place] [id number] 05/04/2024 Bossman Benwood [facility] [address] [place] [id number] 05/04/2024 Bossman Benwood [facility] [address] [place] [id number] 05/20/2024 Bossman Benwood [facility] [address] [place] [id number] 06/13/2024 Bossman Benwood [facility] [address] [place] [id number] 08/04/2024 Bossman Benwood [facility] [address] [place], [place] [id number] 08/26/2024 Bossman Benwood [facility] [address] [place] [id number] 10/21/2024 Bossman Benwood [facility] [address] [place], [place] [id number] 11/24/2024 Bossman Davison Assessments Encounter Date Diagnosis (ICD Code) Assessment Notes Treatment Notes Treatment Clinical Notes Section Notes 11/23/2024 Essential hypertension (ICD-10 - I10) 11/23/2024 Acquired hypothyroidism (ICD-10 - E03.9) 04/27/2024 Yeast infection (ICD-10 - B37.9) 05/17/2024 Fatigue, unspecified type (ICD-10 - R53.83) 05/17/2024 Community acquired pneumonia, unspecified laterality (ICD-10 - J18.9) Clinically resolved 05/25/2024 Essential hypertension (ICD-10 - I10) Off of medication at this time 05/25/2024 Mixed hyperlipidemia (ICD-10 - E78.2) 01/28/2024 Yeast infection (ICD-10 - B37.9) The nystatin powder and the ketoconazole cream did not help. Will try some fluconazole and nystatin cream. Will keep the area clean and dry. 08/01/2024 Lumbago with sciatica, right side (ICD-10 - M54.41) 08/01/2024 Lumbago with sciatica, left side (ICD-10 - M54.42) 01/26/2024 Tinea cruris (ICD-10 - B35.6) 01/28/2024 Upper back pain (ICD-10 - M54.9) Patient does not want to take muscle relaxants as she is afraid she will get tired and fall. Will start on some steroids for both her neck and upper back muscle pain as well as the rash on her legs. 02/03/2024 Yeast infection (ICD-10 - B37.9) Improving. Will do another week fo fluconazole. 02/03/2024 Lower extremity edema (ICD-10 - R60.0) Can stop the lasix and only use prn. 02/03/2024 Upper back pain (ICD-10 - M54.9) Resolved. 05/17/2024 Vitamin D deficiency (ICD-10 - E55.9) 02/02/2024 Dysuria (ICD-10 - R30.0) 08/01/2024 Acquired hypothyroidism (ICD-10 - E03.9) 01/28/2024 Lower extremity edema (ICD-10 - R60.0) Has lasix at home and will take a 40mg every other day and f/u in 1 week. Will get labs today. 11/23/2024 Elevated alkaline phosphatase level (ICD-10 - R74.8) 11/23/2024 Elevated LFTs (ICD-10 - R79.89) 08/01/2024 BMI 35.0-35.9,adult (ICD-10 - Z68.35) 01/28/2024 Rash (ICD-10 - R21) Will stop the diet pills as this could be causing her rash and swelling. Will f/u in 1 week. 02/03/2024 Rash (ICD-10 - R21) Resolved. 05/17/2024 Vitamin B12 deficiency (ICD-10 - E53.8) 02/03/2024 Dysuria (ICD-10 - R30.0) Awaiting urine culture results. 01/28/2024 Dysuria (ICD-10 - R30.0) 08/01/2024 Depression with anxiety (ICD-10 - F41.8) 11/23/2024 Other chronic pain (ICD-10 - G89.29) 11/23/2024 Osteoporosis screening (ICD-10 - Z13.820) 08/01/2024 Morbid obesity (ICD-10 - E66.01) 05/17/2024 Other Discharge summary with available lab/diagnostic imaging results obtained and reviewed. Discharge medication list reconciled. Appropriate counseling provided. Moderate Complexity Plan Of Treatment Pending Test Test Name Order Date DEXA Hip and Spine 11/23/2024 Next Appt Details Provider Name:Bossman Riggins ry, 05/23/2025 09:45:00 AM, [address], [place], [place], [id number], Insurance Providers Payer Name Payer Address Payer Phone Subscriber Number Group Number Insured Name Patient Relationship to Insured Coverage Start Date Coverage End Date [employer] (MEDICAR E) [address] [address] [place] [address] [phone] [id number] [id number] AC Self - patient is the [...] Cataract Surgery 03/04/2011 Hospitalization History Reason Date(Month/Year) Chest Pulled Muscle- [facility] ER 08/2015 Fell at Work- ER 12/11/2006 [facility] Infect[facility]
--- NOTE | 2024-12-02 11:41 | PC.NURSE ---
Dr. Degroot [facility].
--- NOTE | 2024-12-02 11:44 | CT_ITS ---
FINAL REPORT TECHNIQUE: Thin section axial images are obtained through the abdomen and pelvis after intravenous contrast. Reconstruction images were obtained from the axial data. This study was performed with techniques to keep radiation doses as low as reasonably achievable, (ALARA). Individualized dose reduction techniques using automated exposure control or adjustment of mA and/or kV according to the patient's size were employed. CLINICAL HISTORY: abd pain, constipation, obstruction? COMPARISON: MRI lumbar spine dated 09/04/2021 FINDINGS: LUNG BASES: There is left greater than right basilar atelectasis. Heart size is normal. LIVER: The liver is nodular in contour most consistent with cirrhosis. No focal liver lesion. GALLBLADDER/BILIARY SYSTEM: Gallbladder is absent. SPLEEN: Mildly enlarged measuring approximately 14 cm. PANCREAS: Unremarkable. ADRENALS: Unremarkable. KIDNEYS/URETERS/BLADDER: There is left cortical renal scar possibly related to prior infection or prior reflux. There is a nonobstructing left renal stone. There is no hydronephrosis or renal mass. GI TRACT: No small bowel obstruction or dilatation. Normal appendix. There is a large amount of retained stool in the proximal colon. There is diverticulosis of the more distal colon without diverticulitis. PELVIC ORGANS: The uterus is unremarkable for age. LYMPH NODES/RETROPERITONEUM/MESENTERY: There is no abdominal or pelvic lymphadenopathy. No abdominal aortic aneurysm. ABDOMINAL WALL: The abdominal wall is intact. FREE FLUID: No ascites. BONES: No acute osseous abnormality. There are changes from L2 and L5 kyphoplasty. There is a superior endplate fracture at L3, which is new from the MRI in 2021. IMPRESSION: No CT evidence of acute abnormality in the abdomen or pelvis. Cirrhosis and mild splenomegaly. Constipation. New superior endplate fracture at L3 since 2021. Consider MRI. Reviewed, Interpreted and Dictated by Leticia Aguilar MD Transcribed by Loren Power [employer]hentic[employer] and [facility]
--- NOTE | 2024-12-02 11:45 | HMH.EDGENADL ---
Discharge Plan Disposition Patient Disposition: Home, Self-Care Prescriptions Prescriptions: New senna 8.6 mg capsule 8.6 mg PO DAILY Qty: 7 0RF No Action sertraline 100 mg tablet 200 mg PO DAILY levothyroxine 150 mcg tablet 150 mcg PO DAILY atorvastatin 10 mg tablet 10 mg PO DAILY methocarbamol 500 mg tablet 500 mg PO Q8H PRN (Reason: muscle spasm) Qty: 60 0RF celecoxib [Celebrex] 100 mg capsule 100 mg PO DAILY Referrals Follow up/Referrals: Italo Lozano MD [Nurse Practitioner, Pain Management] - See instructions Bossman Davison MD [Primary Care Provider, Medical] - See instructions Activity Restrictions/Add. Instructions Additional Instructions/Restrictions: You were found to have constipation on your CT scan today. Follow the bowel cleanout form provided to you. Recommend 1 dose of senna followed by 10 capfuls of MiraLAX in water or Gatorade. 2 hours after this, give another dose of senna. Continue to hydrate well by drinking plenty of fluids, including water, sugar-free Gatorade and Pedialyte. Follow-up with Dr. Lozano with pain management for the fractures in your spine. If you develop any new or worsening symptoms, such as worsening abdominal pain, vomiting, inability to have a bowel movement even after the medications described above, return to the emergency department for evaluation. Clinical Impressions Clinical Impression: Constipation, Closed L3 vertebral fracture Instructions Patient Instructions: DI for Acute Abdominal Pain Print Language Print Language: Armenian Discharge ED Provider: Oumar Degroot Adult [facility] General Chief complaint: Abdominal Pain Stated complaint: abd pain Time Seen by Provider: 12/02/24 11:36 Mode of Arrival: Wheelchair Source of Information: Patient Description of Symptoms (Recalled from ER Triage Doc. by RN): patient states she hasnt had a bm for 5 days. is having lower back and abdominal pain for several days. History of Present Illness HPI narrative: Madina Schmitz is a 79y female male with a past medical history of constipation, anxiety, depression, hyperlipidemia, hypertension, obstructive sleep apnea, cholecystectomy, , who presents to the emergency department granddaughter for complaints of abdominal pain and constipation. Patient and daughter states that she normally has a bowel movement every couple of days and will take laxatives as needed. She states that she has not had a bowel movement in 5 days and they have tried multiple laxatives at home without relief. Patient states that she is still passing gas but not as much is normal. Daughter has not noted any flatulence. Patient is complaining mostly of left-sided abdominal pain that is severe. She feels like her abdomen is distended. She denies any vomiting. She denies any history of bowel obstruction. She denies any chest pain or shortness of breath but states that the pain is on the left side near the ribs. Related Data Home Medications ?Medication ?Instructions ?Recorded ?Confirmed sertraline 100 mg tablet 200 mg PO DAILY 09/29/17 10/31/24 atorvastatin 10 mg tablet 10 mg PO DAILY 11/15/21 10/31/24 levothyroxine 150 mcg tablet 150 mcg PO DAILY 11/15/21 10/31/24 celecoxib 100 mg capsule (Celebrex) 100 mg PO DAILY 11/30/23 10/31/24 Previous Rx's ?Medication ?Instructions ?Recorded methocarbamol 500 mg tablet 500 mg PO Q8H PRN muscle spasm #60 04/21/24 tabs sennosides 8.6 mg capsule (senna) 8.6 mg PO DAILY #7 caps 12/02/24 Allergies Allergy/AdvReac Type Severity Reaction Status Date / Time cefaclor (From [facility]) Allergy Mild SLEEP Verified 10/31/24 13:21 WALKING penicillin G (PENICILLIN G) Allergy Mild Hives Verified 10/31/24 13:21 [facility] Disclaimer: The information contained in this section may have been updated after the patient was seen, as this information can be updated by other users. Medical History JANET on CPAP Hypothyroidism HTN (hypertension), benign HLD (hyperlipidemia) Depression Anxiety Surgical History History of cholecystectomy History of excision of lesion History of H/O arthroscopy of knee Family History Other Cancer Social History Smoking Status: Never smoker second hand exposure: No alcohol intake: never substance use type: denies use current occupational status: retired Travel in the last 8 weeks?: None household members: spouse housing: house current occupational exposures/hazards: No caffeine: Yes Have you lived/traveled outside [place] in past 30 days?: No Contact w/someone who lives/traveled outside US past 30 days?: No Exposure to someone with infectious disease in past 14 days?: No Do you have a fever (greater than 100.4 F or 38 C)?: No Have you tested positive for COVID-19?: No Exposed to someone with COVID-19 in past 14 days?: No Do you have a sore throat?: No Do you have a cough?: No Do you have any weakness?: No Do you have any diarrhea?: No Are you experiencing any unusual bleeding?: No Do you have any muscle aches/pain?: No Do you have any abdominal pain?: No Are you experiencing loss of taste or smell?: No Other Medical History Have you received the Flu Vaccine for this season: No Have you received the Pneumonia Vaccine: Yes ROS Obtained: Yes Systems reviewed as appropriate & no additional complaints except as documented Physical Exam General General appearance: alert, in no apparent distress and anxious Comment: Uncomfortable appearing Head Head exam: atraumatic Eye Eye exam: Present normal appearance ENT ENT exam: Present normal external ear exam Neck Neck exam: Present full ROM Chest Chest inspection: Present symmetric chest wall rise Respiratory Respiratory exam: Present normal lung sounds bilaterally; Absent respiratory distress, wheezes or stridor Cardiovascular Cardiovascular exam: Present regular rate and normal rhythm Abdominal Exam Abdominal exam: Present soft, distention, tenderness (Generalized abdominal tenderness, more focally in the left upper quadrant.) and guarding; Absent rigidity Extremities Exam Extremities exam: Present normal inspection Back Exam Back exam: Present normal inspection Neurological Exam Neurological exam: Present alert and oriented X3 Psychiatric Psychiatric exam: Present normal affect Skin Skin exam: Present warm and dry Medical Decision Making Medical Records Screening: Per USPSTF and CDC recommendations, given the prevalence of disease in our region, it is our hospital?s policy to screen for HIV and viral Hepatitis for all patients aged 18 and over and those with ongoing risk factors. Michi Inquiry Pt receiving controlled substance: No Vital Signs: 12/02/24 11:30 12/02/24 11:30 12/02/24 12:00 Temperature 98.5 F Temperature Source Oral Pulse Rate 75 66 Pulse Rate [Right Radial] 75 Respiratory Rate 15 Blood Pressure 123/52 L Blood Pressure [Right Arm] 123/53 L Blood Pressure Mean Blood Pressure Mean [Right Arm] 76 Blood Pressure Source Blood Pressure Source [Right Arm] Automatic Cuff Blood Pressure Position Blood Pressure Position [Right Arm] Supine 02 Sat by Pulse Oximetry 95 95 97 Oxygen Delivery Method Room Air 12/02/24 12:00 12/02/24 12:37 12/02/24 12:39 Temperature Temperature Source Pulse Rate 62 60 Pulse Rate [Right Radial] Respiratory Rate Blood Pressure 104/52 L 96/51 L 103/42 L Blood Pressure [Right Arm] Blood Pressure Mean 69 Blood Pressure Mean [Right Arm] Blood Pressure Source Blood Pressure Source [Right Arm] Blood Pressure Position Blood Pressure Position [Right Arm] 02 Sat by Pulse Oximetry 94 L 95 Oxygen Delivery Method 12/02/24 13:00 12/02/24 13:13 12/02/24 13:30 Temperature Temperature Source Pulse Rate 55 L 53 L 49 L Pulse Rate [Right Radial] Respiratory Rate Blood Pressure 93/43 L 101/75 L 90/44 L Blood Pressure [Right Arm] Blood Pressure Mean Blood Pressure Mean [Right Arm] Blood Pressure Source Blood Pressure Source [Right Arm] Blood Pressure Position Blood Pressure Position [Right Arm] 02 Sat by Pulse Oximetry 95 95 94 L Oxygen Delivery Method 12/02/24 14:00 12/02/24 14:28 12/02/24 14:30 Temperature Temperature Source Pulse Rate 54 L 51 L 52 L Pulse Rate [Right Radial] Respiratory Rate Blood Pressure 91/55 L 106/58 L 109/55 L Blood Pressure [Right Arm] Blood Pressure Mean Blood Pressure Mean [Right Arm] Blood Pressure Source Blood Pressure Source [Right Arm] Blood Pressure Position Blood Pressure Position [Right Arm] 02 Sat by Pulse Oximetry 96 95 97 Oxygen Delivery Method 12/02/24 14:56 Temperature 98.1 F Temperature Source Oral Pulse Rate 50 L Pulse Rate [Right Radial] Respiratory Rate 15 Blood Pressure 110/58 L Blood Pressure [Right Arm] Blood Pressure Mean Blood Pressure Mean [Right Arm] Blood Pressure Source Automatic Cuff Blood Pressure Source [Right Arm] Blood Pressure Position Supine Blood Pressure Position [Right Arm] 02 Sat by Pulse Oximetry Oxygen Delivery Method Room Air Lab Data Lab Results 12/02/24 11:32: WBC 8.7, RBC 3.65 L, Hgb 12.3, Hct 36.7 L, MCV 100.5 H, MCH 33.7 H, MCHC 33.5, RDW 13.4, Plt Count 177, MPV 10.8 H, Neut % (Auto) 63.7, Lymph % (Auto) 25.1, Wilkinson % (Auto) 7.6, Eos % (Auto) 2.9, Baso % (Auto) 0.5, Neut # (Auto) 5.6, Lymph # (Auto) 2.2, Wilkinson # (Auto) 0.7, Eos # (Auto) 0.3, Baso # (Auto) 0.0, Sodium 139, Potassium 4.4, Chloride 104, Carbon Dioxide 23, Anion Gap 16.4 H, BUN 14, Creatinine 0.90, Estimated Creat Clear 75, Estimated GFR 61, Est GFR ( Amer) 73, Glucose 101 H, Lactate 1.2, Calcium 10.7 H, Total Bilirubin 0.9, AST 46 H, ALT 25, Alkaline Phosphatase 122, Troponin I < 0.01, Total Protein 8.3 H, Albumin 4.5, Globulin 3.8 H, Albumin/Globulin Ratio 1.2, Lipase 129, HCV Ab KANWAL w/Rflx PCR Qn Negative, HIV Ag/Ab Combo Qual Negative 12/02/24 12:38: Urine Color Yellow, Urine Appearance Clear, Urine pH 7.0, Ur Specific [place] 1.020, Urine Protein Negative, Urine Glucose (UA) Negative, Urine Ketones Negative, Urine Blood Negative, Urine Nitrate Negative, Urine Bilirubin Negative, Urine Urobilinogen 0.2, Ur Leukocyte Esterase Negative, Urine RBC None, Urine WBC Occasional, Ur Squamous Epith Cells None, Urine Bacteria None 12/02/24 11:32 12/02/24 11:32 Orders (Tests/Meds): ED MEDICATIONS Discontinued Medications Generic Name Dose Route Start Last Admin Trade Name Freq PRN Reason Stop Dose Admin Acetaminophen 1,000 mg 12/02/24 12:17 12/02/24 12:29 Acetaminophen 1,000mg/100ml Vial IV 12/02/24 12:18 1,000 mg ONCE ONE Administration Iopamidol 75 ml 12/02/24 12:30 12/02/24 12:31 Iopamidol-370 (76%);100ml Bottle IV 12/02/24 12:31 75 ml ONCE ONE Administration Morphine Sulfate 4 mg 12/02/24 11:44 12/02/24 11:58 Morphine 4mg/Ml Syringe IV 12/02/24 11:45 4 mg ONCE ONE Administration Ondansetron HCl 4 mg 12/02/24 11:44 12/02/24 11:57 Ondansetron 4mg/2ml Vial IV 12/02/24 11:45 4 mg ONCE ONE Administration Sodium Chloride 10 ml 12/02/24 12:30 12/02/24 12:31 Sodium Chloride 0.9% 10ml Syr (Rad Only) IV 01/01/25 12:29 10 ml NEEDED PRN Administration Maintain IV Site ORDERS Category Date Time Status CT abdomen pelvis w con Stat Cat Scan 12/02/24 11:44 Completed CXR --portable [XR chest portable] Stat Exams 12/02/24 11:52 Completed CBC w/Auto Diff [Complete Blood Count Auto Diff] Stat Lab 12/02/24 11:32 Completed CMP [Comprehensive Metabolic Panel] Stat Lab 12/02/24 11:32 Completed HIV Combo Stat Lab 12/02/24 11:32 Completed Hepatitis C Ab Qual. W/ RFX Stat Lab 12/02/24 11:32 Completed Lactic Acid Stat Lab 12/02/24 11:32 Completed Lipase Stat Lab 12/02/24 11:32 Completed Troponin I Stat Lab 12/02/24 11:32 Completed UA [Urinalysis and Microscopic] Stat Lab 12/02/24 12:38 Completed Medical Decision Narrative: Madina Schmitz is a 79y female male with a past medical history of constipation, anxiety, depression, hyperlipidemia, hypertension, obstructive sleep apnea, cholecystectomy, , who presents to the emergency department granddaughter for complaints of abdominal pain and constipation. Patient and daughter states that she normally has a bowel movement every couple of days and will take laxatives as needed. She states that she has not had a bowel movement in 5 days and they have tried multiple laxatives at home without relief. Patient states that she is still passing gas but not as much is normal. Daughter has not noted any flatulence. Patient is complaining mostly of left-sided abdominal pain that is severe. She feels like her abdomen is distended. She denies any vomiting. She denies any history of bowel obstruction. She denies any chest pain or shortness of breath but states that the pain is on the left side near the ribs. On arrival, Patient's blood pressure is 123/53, heart rate within normal limits, breathing comfortably on room air, afebrile. Maintaining appropriate oxygen saturation on room air. Physical exam, stated above, revealed an uncomfortable appearing female in no respiratory distress. She is alert and answering questions appropriately. She has diffuse abdominal tenderness with guarding but is soft and nonperitonitic. More focal tenderness on the left abdomen. Cardiopulmonary exam is unremarkable. Differential diagnosis includes, but is not limited to: Small bowel obstruction, constipation, appendicitis, acute pancreatitis, urinary tract infection, ileus, among others. The most morbid conditions were considered and workup was based on these. Patient's workup included: CBC with differential, lipase, troponin, CMP, lactic acid, EKG, CT abdomen pelvis with contrast, chest x-ray. Patient was initially treated with 4 mg of IV morphine, 4 mg of IV Zofran and 1 g of IV acetaminophen. Patient's laboratory studies showed no leukocytosis, no anemia, platelets normal at 177, CMP with a mildly elevated anion gap 16.4 but otherwise unremarkable and nonactionable. AST very mildly elevated at 46 but liver enzymes otherwise within normal limits. Initial troponin less than 0.01. Lipase normal at 129. Urinalysis without blood or evidence of infection. Lactate normal at 1.2. Chest x-ray interpreted by me personally. Low lung volumes but no focal consolidation to suggest pneumonia. Likely bibasilar atelectasis. See radiology report for details. CT abdomen pelvis was interpreted by me personally. No evidence of small bowel obstruction. There is cirrhosis and mild splenomegaly. Normal-appearing appendix. There is a large amount of retained stool in the proximal colon. No evidence of diverticulitis. There does appear to be a very small superior endplate fracture at L3. Patient has previous L2 and L4-5 fractures status post kyphoplasty. See radiology report for final details. On reassessment, patient states that she does have some lower back pain but denies any recent falls or trauma or twisting motion. She does have mild tenderness in the mid lumbar spine around the area of L3. Given this, I did discuss the patient's case with the [facility], Dr. Hoyt for spine consultation. He discussed the patient's case with Dr. Ball of neurosurgery spine service who stated that patient's fracture is very minimal and likely osteoporotic changes. No bracing indicated. No spine follow-up needed. Recommended management of her osteoporosis. After discussing further with patient and family, she is already wearing a back brace for her L2 and L5 fractures status post kyphoplasty but has not been wearing it over the past 5 days due to her abdominal pain. Is felt that her symptomatology is best explained by constipation without evidence of bowel obstruction. Will give information for bowel cleanout that includes senna and MiraLAX Will place referral for Dr. Lozano with pain management as that is where her previous kyphoplasties were perfomed. Return precautions were given. All questions were answered. She demonstrated understanding and was in agreement this plan. She was then discharged from the emergency department in stable condition. Critical Care Critical Care Time Critical Care Time: No
[2024-12-02 11:50] LABS: Hematocrit 36.7 % (37.0-47.0); Hemoglobin 12.3 g/dL (12.2-16.2); Immature Granulocytes % 0.2 %; Mean Corpuscular HGB Conc 33.5 g/dL (31.8-35.4); Mean Corpuscular Hemoglobin 33.7 pg (27.0-31.2); Mean Corpuscular Volume 100.5 fl (81-99); Nucleated Red Blood Cells % 0 %; Platelet Count 177 K/mm3 (142-424); Red Blood Count 3.65 M/mm3 (4.20-5.40); Red Cell Distribution Width-SD 49.7 fL; White Blood Count 8.7 K/mm3 (4.8-10.8)
--- NOTE | 2024-12-02 11:52 | XR_ITS ---
FINAL REPORT CLINICAL HISTORY: Upper abdominal pain COMPARISON: 05/01/2022 FINDINGS: A portable view of the chest was obtained. Cardiac and mediastinal silhouettes are within normal limits. Lung volumes are low. There are bibasilar opacities, favor atelectasis, pneumonia not excluded. Pleural effusions cannot be excluded. There is no pneumothorax. IMPRESSION: Low lung volumes with bibasilar opacities, favor atelectasis. Recommend upright PA and lateral chest x-ray. Reviewed, Interpreted and Dictated by Leticia Aguilar MD Transcribed by Loren Power Authenticated and . [facility]
[2024-12-02] MEDS: ONDANSETRON 4MG/2ML VIAL 4 MG IV (11:57)
[2024-12-02] MEDS: MORPHINE 4MG/ML SYRINGE 4 MG IV (11:58)
--- NOTE | 2024-12-02 11:59 | PC.NURSE ---
I rounded on the pt. EB SRNA and I helped reposition her in the bed for comfort. I brought her a warm blanket to lay on her abd to see if heat helped the pain. no new complaints. no other needs voiced. family bedside.call dumont in reach.
[2024-12-02 12:01] LABS: Albumin Level 4.5 g/dl (3.5-5.0); Chloride 104 mmol/L (98-107)
[2024-12-02 12:02] LABS: Potassium 4.4 mmoL/L (3.5-5.1); Sodium 139 mmol/L (136-145)
[2024-12-02 12:04] LABS: Alanine Aminotransferase 25 U/L (12-78); Albumin/Globulin Ratio 1.2 (1.1-1.8); Alkaline Phosphatase 122 U/L (38-126); Anion Gap 16.4 mEq/L (5-15); Aspartate Amino Transferase 46 U/L (14-36); Bilirubin,Total 0.9 mg/dl (0.2-1.3); Blood Urea Nitrogen 14 mg/dl (7-17); Carbon Dioxide 23 mmol/L (22.0-30.0); Creatinine Clearance Estimated 75 mL/min (50-200); Creatinine,Serum 0.90 mg/dl (0.52-1.04); Estimated Glomerular Filt Rate 61 ml/min (>60); GFR (African American) 73 ML/MIN (>60); Globulin 3.8 g/dL (1.3-3.2); Lipase 129 U/L (23-300); Total Protein,Serum 8.3 g/dl (6.3-8.2)
[2024-12-02 12:05] LABS: Calcium 10.7 mg/dl (8.4-10.2); Glucose 101 mg/dl (74-100)
[2024-12-02 12:23] LABS: Troponin I < 0.01 ng/ml (0.00-0.034)
[2024-12-02] MEDS: ACETAMINOPHEN 1,000MG/100ML VIAL 1000 MG IV (12:29)
[2024-12-02] MEDS: SODIUM CHLORIDE 0.9% 10ML SYR (RAD ONLY) 10 ML IV (12:31)
[2024-12-02] MEDS: IOPAMIDOL-370 (76%);100ML BOTTLE 75 ML IV (12:31)
[2024-12-02 12:41] LABS: Microscopic, Urine URINE MICROSCOPIC (MICROSCOPIC)
[2024-12-02 12:51] LABS: Bilirubin,Urine Negative (Negative); Color,Urine YELLOW (Yellow); Glucose,Urine (UA) Negative (Negative); Ketones,Urine Negative (Negative); Leukocyte Esterase,Urine Negative (Negative); PH,Urine 7.0 (5.0-8.5); Protein,Urine Negative (Negative); Urobilinogen,Urine 0.2 EU/dl (0.2)
[2024-12-02 12:54] LABS: Hepatitis C Ab Qual. W/ RFX NEGATIVE (Negative)
[2024-12-02 13:10] LABS: Specific Gravity, Urine 1.020 (1.005-1.030)
[2024-12-02 13:12] LABS: WBC,Urine Occasional #/hpf (0-3)
--- NOTE | 2024-12-02 13:51 | PC.NURSE ---
I updated the family on the plan of care. is going to review her scans and labs and go speak with them.
--- NOTE | 2024-12-02 14:17 | PC.NURSE ---
[place] Called for a spine consult. Images have been power shared
== END 2024-12-02 14:57 | disposition home or self-care (01) ==
PROVIDERS: Emergency Provider Student in an Organized Health Care Education/Training Program; PCP Family Medicine
DX: K59.00 Constipation, unspecified (principal); S32.039A Unspecified fracture of third lumbar vertebra, initial encounter for closed fracture
CPT/HCPCS: 71045; 74177; 80053; 81001; 83605; 83690; 84484; 85025; 86803; 87389; 93005; 96374; 96375; 96376; 99285; J0131; J2270; J2405; Q9967

== ENCOUNTER 2024-12-21 10:20 | Observation (INO) | payer MEDICARE, SELFPAY ==
[2024-12-21 10:25] VITALS: BP 135/55; PULSE 72; RESP 18; TEMP 36.7; O2SAT 97; BMI 36.0
--- NOTE | 2024-12-21 10:25 | PC.NURSE ---
arrived by w/c from ER admissions ([facility] office)
--- NOTE | 2024-12-21 10:40 | CT_ITS ---
FINAL REPORT TECHNIQUE: Axial images through the abdomen and pelvis were performed without contrast. This study was performed with techniques to keep radiation doses as low as reasonably achievable, (ALARA). Individualized dose reduction techniques using automated exposure control or adjustment of mA and/or kV according to the patient's size were employed. CLINICAL HISTORY: Left sided abd pain, left kidney stone COMPARISON: 12/02/2024 FINDINGS: Abdomen: Scarring is noted in the lung bases. There is a nodular peripheral margin of the liver consistent with cirrhosis, similar to the prior study. The gallbladder is absent. The spleen, pancreas, and adrenal glands are unremarkable. Small defects are noted in the left kidney with associated dystrophic calcifications which may be related to prior infarct or infection. Pelvis: The urinary bladder is incompletely distended. The appendix is not visualized. Uterus is present lies eccentric to the right. There is no pelvic mass or inflammation. IMPRESSION: Cirrhosis. Infarcts or infection in the left kidney. No evidence of obstruction. Reviewed, Interpreted and Dictated by Art Gallegos MD Transcribed by Anni Ladd Authenticated and . [facility]
[2024-12-21 10:59] LABS: Hematocrit 34.3 % (37.0-47.0); Hemoglobin 11.5 g/dL (12.2-16.2); Immature Granulocytes % 0.3 %; Mean Corpuscular HGB Conc 33.5 g/dL (31.8-35.4); Mean Corpuscular Hemoglobin 33.6 pg (27.0-31.2); Mean Corpuscular Volume 100.3 fl (81-99); Nucleated Red Blood Cells % 0 %; Platelet Count 186 K/mm3 (142-424); Red Blood Count 3.42 M/mm3 (4.20-5.40); Red Cell Distribution Width-SD 48.1 fL; White Blood Count 7.5 K/mm3 (4.8-10.8)
--- NOTE | 2024-12-21 11:10 | EXP.ACUTE.PN ---
Subjective *Date: 12/21/24 *Time: 11:10 Interval history: Patient presented to the office of [facility] this morning with a 3 week history of increasing left sided abdominal pain. She was previously seen in the ER at [facility] and a CT done then showed constipation, left sided kidney stone and a new L3 compression fracture. Treatment for constipation has not improved her pain. Medical Exam Vital signs and Labs for Last 24 Hours: Vital Signs Temp Pulse Resp BP Pulse Ox O2 Del Method 12/21/24 10: 98.0 F 72 18 135/55 L 97 Room Air Intake and Output 12/20/24 12/21/24 12/21/24 23:59 07:59 15:59 Other: Weight 230 lb Patient Weight 12/21/24 23:59 Weight 230 lb Laboratory Results - last 24 hr 12/21/24 10:49: WBC 7.5, RBC 3.42 L, Hgb 11.5 L, Hct 34.3 L, MCV 100.3 H, MCH 33.6 H, MCHC 33.5, RDW 13.0, Plt Count 186, MPV 10.0, Neut % (Auto) 67.3, Lymph % (Auto) 22.8, [place] % (Auto) 6.1, Eos % (Auto) 2.8, Baso % (Auto) 0.7, Neut # (Auto) 5.1, Lymph # (Auto) 1.7, [place] # (Auto) 0.5, Eos # (Auto) 0.2, Baso # (Auto) 0.1 I & O for Labs for Last 24 Hours: Intake & Output 12/18/24 12/19/24 12/20/24 12/21/24 23:59 23:59 23:59 23:59 Weight 230 lb Comment:: Sitting in a wheelchair, complaining of severe pain Assessment and Plan *Assessment and plan (1) Left sided abdominal pain: Status: Acute Category: Medical Code(s): R10.9 - Unspecified abdominal pain (2) Constipation: Status: Acute Category: Medical Code(s): K59.00 - Constipation, unspecified (3) Kidney stone on left side: Status: Acute Category: Medical Code(s): N20.0 - Calculus of kidney (4) Closed L3 vertebral fracture: Status: Acute Category: Medical Code(s): S32.039A - Unspecified fracture of third lumbar vertebra, initial encounter for closed fracture Plan Admit to [facility] for further evaluation, labs and non contrast CT of Abd/Pelvis ordered. H&P to follow.
[2024-12-21 11:23] LABS: Alanine Aminotransferase 27 U/L (12-78); Albumin Level 3.9 g/dl (3.5-5.0); Albumin/Globulin Ratio 1.1 (1.1-1.8); Alkaline Phosphatase 176 U/L (38-126); Anion Gap 12.9 mEq/L (5-15); Aspartate Amino Transferase 37 U/L (14-36); Bilirubin,Total 0.8 mg/dl (0.2-1.3); Blood Urea Nitrogen 14 mg/dl (7-17); Calcium 10.3 mg/dl (8.4-10.2); Carbon Dioxide 28 mmol/L (22.0-30.0); Chloride 105 mmol/L (98-107); Creatinine Clearance Estimated 78 mL/min (50-200); Creatinine,Serum 0.70 mg/dl (0.52-1.04); Estimated Glomerular Filt Rate 81 ml/min (>60); GFR (African American) 98 ML/MIN (>60); Globulin 3.4 g/dL (1.3-3.2); Glucose 110 mg/dl (74-100); Potassium 3.9 mmoL/L (3.5-5.1); Sodium 142 mmol/L (136-145); Total Protein,Serum 7.3 g/dl (6.3-8.2)
[2024-12-21] MEDS: ONDANSETRON 4MG/2ML VIAL 4 MG IV (11:35)
[2024-12-21] MEDS: KETOROLAC 30MG/ML VIAL 30 MG IV (11:35)
[2024-12-21] MEDS: Dex 5% in 0.45% NaCl 1,000 ML 50 ML IV (12:40)
[2024-12-21 13:36] LABS: Microscopic, Urine URINE MICROSCOPIC (MICROSCOPIC)
[2024-12-21 14:24] LABS: Bilirubin,Urine Negative (Negative); Color,Urine YELLOW (Yellow); Glucose,Urine (UA) Negative (Negative); Ketones,Urine Negative (Negative); Leukocyte Esterase,Urine 3+ (Negative); PH,Urine 7.5 (5.0-8.5); Protein,Urine Negative (Negative); Specific Gravity, Urine 1.015 (1.005-1.030); Urobilinogen,Urine 2.0 EU/dl (0.2)
[2024-12-21 16:00] VITALS: BP 125/66; PULSE 69; RESP 18; TEMP 36.6; O2SAT 95
[2024-12-21 17:01] LABS: Bacteria,Urine 4+ /lpf; RBC,Urine TNTC #/hpf (0-3); Squamous Epithelial Cell,Urine 20-50 #/hpf (0-5); WBC,Urine TNTC #/hpf (0-3)
--- NOTE | 2024-12-21 17:15 | P.HP_ITS ---
History of Present Illness *Admission Date: 12/21/24 *Reason for visit:: abdominal pain *History of present illness: Patient presented to the office of [facility] this morning with a 3 week history of increasing left sided abdominal pain. She was previously seen in the ER at [facility] and a CT done then showed constipation, left sided kidney stone and a new L3 compression fracture. Treatment for constipation has not improved her pain. [facility] Disclaimer: The information contained in this section may have been updated after the patient was seen, as this information can be updated by other users. Medical History JANET on CPAP Hypothyroidism HTN (hypertension), benign HLD (hyperlipidemia) Depression Anxiety Surgical History History of cholecystectomy History of excision of lesion History of H/O arthroscopy of knee Family History Cancer Social History Smoking Status: Never smoker second hand exposure: No alcohol intake: never substance use type: denies use current occupational status: retired Travel in the last 8 weeks?: None household members: spouse housing: house current occupational exposures/hazards: No caffeine: Yes Have you lived/traveled outside [place] in past 30 days?: No Contact w/someone who lives/traveled outside US past 30 days?: No Exposure to someone with infectious disease in past 14 days?: No Do you have a fever (greater than 100.4 F or 38 C)?: No Have you tested positive for COVID-19?: No Exposed to someone with COVID-19 in past 14 days?: No Do you have a sore throat?: No Do you have a cough?: No Do you have any weakness?: No Do you have any diarrhea?: No Are you experiencing any unusual bleeding?: No Do you have any muscle aches/pain?: No Do you have any abdominal pain?: Yes Are you experiencing loss of taste or smell?: No Other Medical History Have you received the Flu Vaccine for this season: Yes Have you received the Pneumonia Vaccine: Yes Review of Systems Constitutional Constitutional: Denies body ache(s), Denies chills, Denies fever(s) and Reports weakness Eyes Eyes: Denies blurry vision and Denies diplopia ENT Ears, Nose, Mouth, and Throat: Denies dizziness, Denies nasal congestion and Denies sore throat *Cardiovascular Cardiovascular: Denies chest pain and Denies dyspnea *Respiratory Respiratory: Denies cough and Denies dyspnea *Gastrointestinal Gastrointestinal: Reports abdominal pain, Reports constipation, Reports nausea and Denies vomiting *Genitourinary Genitourinary: Denies difficulty voiding and Denies dysuria *Musculoskeletal Musculoskeletal: Denies arthralgias and Denies muscle weakness *Neurologic Neurologic: Denies dizziness and Reports weakness Meds Home Medications and Allergies Home Medications ?Medication ?Instructions ?Recorded ?Confirmed ?Type sertraline 100 mg tablet 200 mg PO DAILY 09/29/1704/16 History atorvastatin 10 mg tablet 10 mg PO DAILY 11/15/2104/16 History celecoxib 100 mg capsule (Celebrex) 100 mg PO DAILY 12/21/24 History sennosides 8.6 mg capsule (senna) 8.6 mg PO DAILY #7 c aps 12/02/24 12/21/24 Rx gabapentin 300 mg capsule 300 mg PO BID 12/21/2412/21 History lactulose 10 gram/15 mL oral 15 ml PO DAILYP PRN Const ipation 12/21/24 12/21/24 History solution (Constulose) levothyroxine 200 mcg tablet 200 mcg PO DAILY 12/21/24 12/21/24 History nystatin 100,000 unit/gram topical 1 applic topical NEEDED PRN 12/21/24 12/21/24 History cream Skin Irritation New Prescriptions to Start Prescriptions: Allergies Allergy/AdvReac Type Severity Reaction Status Date / Time cefaclor (From [facility]) Allergy Mild SLEEP Verified 10/31/24 13:21 WALKING penicillin G (PENICILLIN G) Allergy Mild Hives Verified 10/31/24 13:21 Exam Data for Last 24 hours Vital signs and Labs for Last 24 Hours: Temp Pulse Resp BP Pulse Ox O2 Del Method 97.8 F 69 18 125/66 95 Room Air 12/21/24 16:00 12/21/24 16:00 12/21/24 16:00 12/21/24 16:00 12/21/24 16:00 12/21/24 16:00 Laboratory Results - last 24 hr 12/21/24 10:49: WBC 7.5, RBC 3.42 L, Hgb 11.5 L, Hct 34.3 L, MCV 100.3 H, MCH 33.6 H, MCHC 33.5, RDW 13.0, Plt Count 186, MPV 10.0, Neut % (Auto) 67.3, Lymph % (Auto) 22.8, [place] % (Auto) 6.1, Eos % (Auto) 2.8, Baso % (Auto) 0.7, Neut # (Auto) 5.1, Lymph # (Auto) 1.7, [place] # (Auto) 0.5, Eos # (Auto) 0.2, Baso # (Auto) 0.1, Sodium 142, Potassium 3.9, Chloride 105, Carbon Dioxide 28, Anion Gap 12.9, BUN 14, Creatinine 0.70, Estimated Creat Clear 78, Estimated GFR 81, Est GFR ( Amer) 98, Glucose 110 H, Lactate 1.3, Calcium 10.3 H, Total Bi lirubin 0.8, AST 37 H, ALT 27, Alkaline Phosphatase 176 H, Total Protein 7.3, Albumin 3.9, Globulin 3.4 H, Albumin/Globulin Ratio 1.1 12/21/24 13:25: Urine Color Yellow, Urine Appearance Clear, Urine pH 7.5, Ur Specific [place] 1.015, Urine Protein Negative, Urine Glucose (UA) Negative, Urine Ketones Negative, Urine Blood 1+ A, Urine Nitrate Negative, Urine Bilirubin Negative, Urine Urobilinogen 2.0, Ur Leukocyte Esterase 3+ A, Urine RBC Tntc, Urine WBC Tntc, Ur Squamous Epith Cells 20-50, Urine Bacteria 4+, Urine Yeast Occasional I & O for Last 24 hours: Intake & Output 12/19/24 12/20/24 12/21/24 12/22/24 11:59 11:59 11:59 11:59 Output Total 50 / 50 Balance -50 / -50 Weight 230 lb Constitutional Constitutional: moderate distress (Moaning due to pain) *Routine HEENT Exam Head: Present normocephalic and atraumatic Eye: Present EOMI and PERRL ENT: Present mucous membranes moist *Routine Neck Exam Neck: Present supple and full ROM *Routine Respiratory Exam Respiratory: Present CTA bilaterally *Routine Cardiovascular Exam Cardiovascular: Present RRR *Routine Abdominal Exam Abdominal: Present soft, normoactive bowel sounds and tenderness (LMQ and LLQ) *Routine Rectal Exam Rectal:: deferred *Routine Genitalia Exam Genitalia:: deferred *Routine Extremities Exam Extremities: Absent cyanosis, clubbing or edema Routine Back/Spine/Pelvis Exam Back/Spine: Present CVA tenderness (on left) *Routine Skin Exam Skin: Present intact; Absent erythema *Routine Neurological Exam Neurological: Present alert and oriented X3 Assessment and Plan *Assessment and plan (1) Left sided abdominal pain: Status: Acute Category: Medical Code(s): R10.9 - Unspecified abdominal pain (2) Constipation: Status: Acute Category: Medical Code(s): K59.00 - Constipation, unspecified (3) Kidney stone on left side: Status: Acute Category: Medical Code(s): N20.0 - Calculus of kidney (4) Closed L3 vertebral fracture: Status: Acute Category: Medical Code(s): S32.039A - Unspecified fracture of third lumbar vertebra, initial encounter for closed fracture (5) UTI (urinary tract infection): Status: Acute Category: Medical Code(s): N39.0 - Urinary tract infection, site not specified Plan Admit to [facility] for further evaluation, labs and non contrast CT of Abd/Pelvis ordered. Will start on pain medication and antiemetics. Dr. Davison entry - Saw patient, agree with above note. UA shows a likely UTI, CT report pending, will start Rocephin now.
--- NOTE | 2024-12-21 18:26 | PC.NURSE ---
pt alert and oriented, ambulate to the br with assist x1. pt has been npo since 0800 this morning[address] waiting for ct abd/pelvis to be read, still npo while waiting for results. cb within reach. no complaints or needs at this time.
[2024-12-21 19:59] VITALS: BP 126/68; PULSE 71; RESP 18; TEMP 36.7; O2SAT 97
[2024-12-21] MEDS: PANTOPRAZOLE 40MG TABLET 40 MG PO (20:24)
[2024-12-21] MEDS: GABAPENTIN 300MG CAPSULE 300 MG PO (20:24)
[2024-12-22] MEDS: KETOROLAC 30MG/ML VIAL 30 MG IV ×2 (00:57→20:15)
[2024-12-22 04:00] VITALS: BP 112/47; PULSE 74; RESP 16; TEMP 36.7; O2SAT 91; BMI 37.0
[2024-12-22] MEDS: Dex 5% in 0.45% NaCl 1,000 ML 100 ML IV ×2 (05:58→18:36)
[2024-12-22 07:38] VITALS: BP 104/55; PULSE 74; RESP 16; TEMP 36.5; O2SAT 90
--- NOTE | 2024-12-22 08:25 | EXP.ACUTE.PN ---
Subjective *Date: 12/22/24 *Time: 08:53 Interval history: Patient is feeling a little bit better this morning. She is not as nauseated. She is still having left-sided abdominal pain. She was able to tolerate a diet. Medical Exam Vital signs and Labs for Last 24 Hours: Vital Signs Temp Pulse Resp BP Pulse Ox O2 Del Method 12/22/24 07:38 97.7 F 74 16 104/55 L 90 L Room Air 12/22/24 07:00 Room Air 12/22/24 05:00 Room Air 12/22/24 04:00 98.1 F 74 16 112/47 L 91 L Room Air 12/22/24 03:00 Room Air 12/22/24 01:00 Room Air 12/21/24 23:00 Room Air 12/21/24 21:00 Room Air 12/21/24 20:00 Room Air 12/21/24 19:59 98.0 F 71 18 126/68 97 Room Air 12/21/24 18:45 Room Air 12/21/24 17:00 Room Air 12/21/24 16:00 97.8 F 69 18 125/66 95 Room Air 12/21/24 15:00 Room Air 12/21/24 13:00 Room Air 12/21/24 11:00 Room Air 12/21/24 10:25 Room Air 12/21/24 10:25 98.0 F 72 18 135/55 L 97 Room Air Intake and Output 12/21/24 12/22/24 12/22/24 19:59 03:59 11:59 Intake Total 316.667 / 4174.036 0171.333 / 1530.000 50 / 1530.000 Output Total 50 / 50 0 / 50 Balance 266.667 / 9648.729 2531.333 / 1480.000 50 / 1480.000 Intake: Intake, Oral Amount 480 / 480 Intake, Total IV Amount 316.667 / 1050.000 683.333 / 1050.000 50 / 1050.000 Ceftriaxone Sodium 1 gm In 0.9 50 / 50 % Sodium Chloride 50 ml @ 100 mls/hr IV Q24H NAEEM Rx#: [id number] Dex 5% in 0.45% NaCl 1,000 ml @ 316.667 / 1000.000 683.333 / 1000.000 100 mls/hr IV .Q10H NAEEM Rx#: [id number] Output: Output, Urine Amount 50 / 50 0 / 50 Other: Number of Unmeasured Voids 1 1 Number of Bowel Movements 1 Weight 236 lb 2 oz Patient Weight 12/22/24 11:59 Weight 236 lb 2 oz Laboratory Results - last 24 hr 12/21/24 10:49: WBC 7.5, RBC 3.42 L, Hgb 11.5 L, Hct 34.3 L, MCV 100.3 H, MCH 33.6 H, MCHC 33.5, RDW 13.0, Plt Count 186, MPV 10.0, Neut % (Auto) 67.3, Lymph % (Auto) 22.8, [place] % (Auto) 6.1, Eos % (Auto) 2.8, Baso % (Auto) 0.7, Neut # (Auto) 5.1, Lymph # (Auto) 1.7, [place] # (Auto) 0.5, Eos # (Auto) 0.2, Baso # (Auto) 0.1, Sodium 142, Potassium 3.9, Chloride 105, Carbon Dioxide 28, Anion Gap 12.9, BUN 14, Creatinine 0.70, Estimated Creat Clear 78, Estimated GFR 81, Est GFR ( Amer) 98, Glucose 110 H, Lactate 1.3, Calcium 10.3 H, Total Bilirubin 0.8, AST 37 H, ALT 27, Alkaline Phosphatase 176 H, Total Protein 7.3, Albumin 3.9, Globulin 3.4 H, Albumin/Globulin Ratio 1.1 12/21/24 13:25: Urine Color Yellow, Urine Appearance Clear, Urine pH 7.5, Ur Specific [place] 1.015, Urine Protein Negative, Urine Glucose (UA) Negative, Urine Ketones Negative, Urine Blood 1+ A, Urine Nitrate Negative, Urine Bilirubin Negative, Urine Urobilinogen 2.0, Ur Leukocyte Esterase 3+ A, Urine RBC Tntc, Urine WBC Tntc, Ur Squamous Epith Cells 20-50, Urine Bacteria 4+, Urine Yeast Occasional I & O for Labs for Last 24 Hours: Intake & Output 12/19/24 12/20/24 12/21/24 12/22/24 11:59 11:59 11:59 11:59 Intake Total 1530.000 / 1530.000 Output Total 50 / 50 Balance 1480.000 / 1480.000 Weight 230 lb 236 lb 2 oz Constitutional: Present no acute distress Respiratory: Present CTA bilaterally Cardiac: Present Reg Rate and Rhythm GI: Present soft and tenderness (LMQ and LLQ); Absent distention Extremities: Absent edema Skin: Present intact Neuro: Present alert, awake and oriented x 3 Assessment and Plan *Assessment and plan (1) Pyelonephritis: Status: Acute Category: Medical Code(s): N12 - Tubulo-interstitial nephritis, not specified as acute or chronic (2) Left sided abdominal pain: Status: Acute Category: Medical Code(s): R10.9 - Unspecified abdominal pain (3) Constipation: Status: Acute Category: Medical Code(s): K59.00 - Constipation, unspecified (4) Kidney stone on left side: Status: Acute Category: Medical Code(s): N20.0 - Calculus of kidney (5) Closed L3 vertebral fracture: Status: Acute Category: Medical Code(s): S32.039A - Unspecified fracture of third lumbar vertebra, initial encounter for closed fracture (6) UTI (urinary tract infection): Status: Acute Category: Medical Code(s): N39.0 - Urinary tract infection, site not specified Plan Patient is improving. Will continue IV antibiotics and await urine and blood cultures. Dr. Davison entry - Saw patient, agree with above note. CT scan report reviewed, there was no mention of kidney stones. Patient appears to have a left sided stone.
[2024-12-22] MEDS: ATORVASTATIN 10MG TABLET 10 MG PO (08:42)
[2024-12-22] MEDS: SENNA 8.6MG TABLET 8.6 MG PO (08:42)
[2024-12-22] MEDS: GABAPENTIN 300MG CAPSULE 300 MG PO ×2 (08:42→20:16)
[2024-12-22] MEDS: LEVOTHYROXINE 100MCG (0.1MG) TAB 200 MCG PO (08:42)
[2024-12-22] MEDS: SERTRALINE 100MG TABLET 200 MG PO (08:42)
--- NOTE | 2024-12-22 09:46 | SW/DCPLANNER ---
Patient is currently established with [employer] [facility]. Joe Nguyen
--- NOTE | 2024-12-22 11:23 | HMH.PTEV ---
Physical Therapy Evaluation Rehab PT IP Evaluation Start: 12/22/24 09:55 Freq: ONCE Status: Active Protocol: Document 12/22/24 11:06 ANY (Rec: 12/22/24 11:22 ANY [id number]) Subjective/History History History Per H&P: Patient presented to the office of [facility] this morning with a 3 week history of increasing left sided abdominal pain. She was previously seen in the ER at [facility] and a CT done then showed constipation, left sided kidney stone and a new L3 compression fracture. Treatment for constipation has not improved her pain. Subjective Subjective Pt reports she lives with her granddaughter in a single story. Pt has [address] home with [facility]. Pt reports her daughter works during the day. Pt reports she normally uses a RW for Mod IND ambulation. [facility] How much help from another person do you currently need... Turning from your None back to your side while in a flat bed without using bedrails? Moving from lying on None back to sitting on the side of a flat bed without using bedrails? Moving to and from a None bed to a chair ( including a wheelchair)? Standing up from a A little chair using your arms? (e.g., wheelchair, bedside chair) Walking in hospital A little room? Climbing 3-5 steps A little with a railing? Mobility Score 21 Mobility Level [facility] Mobility 6 Walk 10 steps or more Mobility Calculator Rehab PT IP Eval Objective Appearance Patient Behavior Appropriate,Cooperative Patient Orientation Person,Place Difficulty following none instructions Speech Pattern Clear Ambulation Patient Able to Yes Ambulate Ambulation Observation IP General Gait Wide Based Gait Pattern Observation Ambulation Distance 20 (feet) Ambulation Assistive Rolling Walker Device Ambulation Ability Contact Guard/Hand Hold Balance Ability to Arise Able, uses arms to help Sitting Balance Steady, safe Standing Balance Steady, wide stance Dynamic Sitting Good Balance Ability Dynamic Standing Fair Balance Ability Transfers Bed Transfer Ability Moderate x 1 (50% assist) Sit to Stand Bed Minimal x 1 (25% assist) Transfer Ability Rehab PT IP prob,goals,plan Problems Date of Evaluation: 12/22/24 PT IP Problems Bed Mobility,Transfers,Gait,Balance,Self care,Safety Rehab Potential Rehab Potential Good Plan PT Intervention Plan Bed Mobility,Transfers,Gait,Balance,Self care,Safety, Therapeutic Exercise Other Intervention 1-2 times Plan PT Plan Frequency Daily Duration LOS Discharge Goals Bed Transfer Ability Minimal x 1 (25% assist) Sit to Stand Chair Supervision/Stand by Transfer Ability Ambulation Assistive Rolling Walker Device Ambulation Distance 40 (feet) Discharge Plan PT Discharge Plan Initial physical therapy evaluation performed. Patient presents below baseline at this time in functional mobility, transfers, gait, and strength. Pt would benefit from skilled PT while at [facility] to prevent further functional decline and maximize safety with mobility. Pt most appropriate to d/c home when deemed medically necessary d/t current level of mobility. PT recommending home health PT services to address deficits. Eval Complexity Eval Charge Codes 37345 - Moderate Complexity PHYSICIAN CERTIFICATION: I certify the specified therapy services for Madina Schmitz are required, authorized, and reviewed every 30 days.
--- NOTE | 2024-12-22 15:10 | HMH.OTEV ---
OT Evaluation Rehab OT IP Evaluation Start: 12/22/24 10:58 Freq: ONCE Status: Active Protocol: Document 12/22/24 10:30 RMARSHALL (Rec: 12/22/24 15:09 [id number] Rehab OT IP Assessment Subjective History Pt oriented x 3 on arrival. Pt agreeable to engage in therapy evaluation. Pt admitted on 12/21/24 due to abdominal pain. History and physical: Patient presented to the office of [facility] this morning with a 3 week history of increasing left sided abdominal pain. She was previously seen in the ER at [facility] and a CT done then showed constipation, left sided kidney stone and a new L3 compression fracture. Treatment for constipation has not improved her pain. Subjective Pt reports she lives with her granddaughter in a single story. Pt has 5 [address] home with [facility]. Pt reports her daughter works during the day. Normally she is independent with all ADLs She is dependent on granddaughter for all IADLs. Pt reports she normally uses a RW for Mod IND functional transfers. Objective Patient Orientation Person,Place,Birthday Right Upper WFL Extremity Gross ROM Left Upper Extremity WFL Gross ROM Bed Mobility bed mobility-scooting,bed mobility - supine/sit Assist Level Minimal x 2 (25% assist) Transfer Training Sit/Stand Transfer Assist Level Contact Guard/Hand Hold Lower Body Dressing Moderate Assistance Ability Performing Toilet Moderate Assistance Hygiene Ability Overall Commode/ Contact Guard,Minimal Assistance Toilet Transfer Ability Commode/Toilet Sit to/from Ambulatory Transfer Technique Rehab OT IP prob,goals,plan Problems Date of Evaluation: 12/22/24 OT IP Problems Bed Mobility,Transfers,Balance,Self care,Safety Rehab Potential Rehab Potential Good Equipment Needs Assistive Devices Rolling / Wheeled Walker Plan OT intervention Plan Bed Mobility,Transfers,Balance,Self care,Safety, Therapeutic Exercise OT Plan Frequency Daily Duration LOS Discharge Goals Bed Mobility Ability Standby Assistance Sit to Stand Chair Supervision/Stand by,Contact Guard/Hand Hold Transfer Ability Chair Transfer Supervision/Stand by,Contact Guard/Hand Hold Ability Chair Transfer Sit to/from Ambulatory Technique Chair Transfer Rolling Walker Assistive Devices Lower Body Dressing Minimal Assistance Ability Performing Toilet Standby Assistance Hygiene Ability Overall Commode/ Standby Assistance Toilet Transfer Ability Commode/Toilet Sit to/from Ambulatory Transfer Technique Discharge Plan OT Discharge Plan Pt will continue to be seen for OT services while at [facility]. Pt can return home once she is medically stable per physician. Therapist does recommend home health OT evaluation upon returning home for continued skilled therapy. Eval Complexity Eval Charge Codes 80818 - Moderate Complexity PHYSICIAN CERTIFICATION: I certify the specified therapy services for Madina Schmitz are required, authorized, and reviewed every 30 days.
[2024-12-22 15:51] VITALS: BP 128/56; PULSE 69; RESP 16; TEMP 36.8; O2SAT 94
--- NOTE | 2024-12-22 16:46 | PC.NURSE ---
pt resting supine in bed at this time. no complaints of pain this shift. pt ambulates to br with standby assistance. pt/ot evaluated this shift and pt ambulated the halls with them with the use of a rolling walker. fluids infusing per mar. no needs at this time. call light within reach.
[2024-12-22 20:00] VITALS: BP 138/78; PULSE 69; RESP 16; TEMP 36.8; O2SAT 94
[2024-12-22] MEDS: PANTOPRAZOLE 40MG TABLET 40 MG PO (20:16)
[2024-12-23 04:00] VITALS: BP 130/66; PULSE 66; RESP 16; TEMP 36.6; O2SAT 93; BMI 37.0
[2024-12-23 06:00] LABS: Hematocrit 31.8 % (37.0-47.0); Hemoglobin 10.4 g/dL (12.2-16.2); Immature Granulocytes % 0.2 %; Mean Corpuscular HGB Conc 32.7 g/dL (31.8-35.4); Mean Corpuscular Hemoglobin 33.2 pg (27.0-31.2); Mean Corpuscular Volume 101.6 fl (81-99); Nucleated Red Blood Cells % 0 %; Platelet Count 158 K/mm3 (142-424); Red Blood Count 3.13 M/mm3 (4.20-5.40); Red Cell Distribution Width-SD 48.1 fL; White Blood Count 6.5 K/mm3 (4.8-10.8)
[2024-12-23 06:13] LABS: Chloride 105 mmol/L (98-107); Sodium 137 mmol/L (136-145)
[2024-12-23 06:14] LABS: Potassium 4.3 mmoL/L (3.5-5.1)
[2024-12-23] MEDS: LEVOTHYROXINE 100MCG (0.1MG) TAB 200 MCG PO (06:14)
[2024-12-23] MEDS: Dex 5% in 0.45% NaCl 1,000 ML 100 ML IV (06:14)
[2024-12-23 06:16] LABS: Blood Urea Nitrogen 14 mg/dl (7-17); Creatinine Clearance Estimated 80 mL/min (50-200); Creatinine,Serum 0.90 mg/dl (0.52-1.04); Estimated Glomerular Filt Rate 61 ml/min (>60); GFR (African American) 73 ML/MIN (>60)
[2024-12-23 06:17] LABS: Anion Gap 9.3 mEq/L (5-15); Calcium 10.3 mg/dl (8.4-10.2); Carbon Dioxide 27 mmol/L (22.0-30.0); Glucose 110 mg/dl (74-100)
[2024-12-23 08:00] VITALS: BP 112/51; PULSE 74; RESP 18; TEMP 36.4; O2SAT 94
--- NOTE | 2024-12-23 08:14 | P.PN_ITS ---
Subjective *Date: 12/23/24 *Time: 08:54 Interval history: Patient is feeling better today. She has been up in a chair. She is still having left sided abdominal pain. She has been able to eat and has less nausea. Medical Exam Vital signs and Labs for Last 24 Hours: Vital Signs Temp Pulse Resp BP Pulse Ox O2 Del Method 12/23/24 06:23 Room Air 12/23/24 05:00 Room Air 12/23/24 04:00 97.8 F 66 16 130/66 93 L Room Air 12/23/24 03:00 Room Air 12/23/24 01:00 Room Air 12/22/24 23:00 Room Air 12/22/24 21:00 Room Air 12/22/24 20:00 Room Air 12/22/24 20:00 98.3 F 69 16 138/78 94 L Room Air 12/22/24 18:59 Room Air 12/22/24 17:00 Room Air 12/22/24 15:51 98.2 F 69 16 128/56 L 94 L Room Air 12/22/24 15:00 Room Air 12/22/24 13:00 Room Air 12/22/24 11:00 Room Air 12/22/24 09:00 Room Air Intake and Output 12/22/24 12/23/24 12/23/24 19:59 03:59 11:59 Intake Total 1290 / 2530 240 / 2530 1000 / 2530 Output Total 200 / 1000 400 / 1000 400 / 1000 Balance 1090 / 1530 -160 / 1530 600 / 1530 Intake: Intake, Oral Amount 240 / 480 240 / 480 Intake, Total IV Amount 105 / 0 1000 / 2050 Ceftriaxone Sodium 1 gm In 0.9 50 / 50 % Sodium Chloride 50 ml @ 100 mls/hr IV Q24H NAEEM Rx#:[id number] Dex 5% in 0.45% NaCl 1,000 ml @ 1000 / 2000 1000 / 2000 100 mls/hr IV .Q10H NAEEM Rx#: [id number] Output: Output, Urine Amount 200 / 1000 400 / 1000 400 / 1000 Other: Number of Unmeasured Voids 0 0 0 Number of Bowel Movements 1 Weight 235 lb 11.2 oz Patient Weight 12/23/24 11:59 Weight 235 lb 11.2 oz Laboratory Results - last 24 hr 12/23/24 05:21: WBC 6.5, RBC 3.13 L, Hgb 10.4 L, Hct 31.8 L, MCV 101.6 H, MCH 33.2 H, MCHC 32.7, RDW 12.9, Plt Count 158, MPV 10.3, Neut % (Auto) 57.7, Lymph % (Auto) 28.0, [place] % (Auto) 8.4, Eos % (Auto) 5.2, Baso % (Auto) 0.5, Neut # (Auto) 3.8, Lymph # (Auto) 1.8, [place] # (Auto) 0.6, Eos # (Auto) 0.3, Baso # (Auto) 0.0, Sodium 137, Potassium 4.3, Chloride 105, Carbon Dioxide 27, Anion Gap 9.3, BUN 14, Creatinine 0.90 D, Estimated Creat Clear 80, Estimated GFR 61, Est GFR ( Amer) 73 D, Glucose 110 H, Calcium 10.3 H I & O for Labs for Last 24 Hours: Intake & Output 12/20/24 12/21/24 12/22/24 12/23/24 11:59 11:59 11:59 11:59 Intake Total 1910.000 / 9902.070 6514 / 2530 Output Total 50 / 50 1000 / 1000 Balance 1860.000 / 7829.341 2165 / 1530 Weight 230 lb 236 lb 2 oz 235 lb 11.2 oz Microbiology Reports for the Last 24 Hours: Microbiology 12/21/24 13:25 Urine,Clean Catch Urine Culture - Final Multiple organisms, suggests contamination. 12/21/24 11:07 Blood Blood Culture - Preliminary NO GROWTH AFTER 24 HOURS 12/21/24 11:02 Blood Blood Culture - Preliminary NO GROWTH AFTER 24 HOURS Constitutional: Present no acute distress Respiratory: Present CTA bilaterally Cardiac: Present Reg Rate and Rhythm GI: Present soft and tenderness (LMQ and LLQ); Absent distention Extremities: Absent edema Skin: Present intact Neuro: Present alert, awake and oriented x 3 Assessment and Plan *Assessment and plan (1) Pyelonephritis: Status: Acute Category: Medical Code(s): N12 - Tubulo-interstitial nephritis, not specified as acute or chronic (2) UTI (urinary tract infection): Status: Acute Category: Medical Code(s): N39.0 - Urinary tract infection, site not specified (3) Left sided abdominal pain: Status: Acute Category: Medical Code(s): R10.9 - Unspecified abdominal pain (4) Constipation: Status: Acute Category: Medical Code(s): K59.00 - Constipation, unspecified (5) Kidney stone on left side: Status: Acute Category: Medical Code(s): N20.0 - Calculus of kidney (6) Closed L3 vertebral fracture: Status: Acute Category: Medical Code(s): S32.039A - Unspecified fracture of third lumbar vertebra, initial encounter for closed fracture Plan Patient is improving. Will continue IV antibiotics. Urine culture was contaminated. Will discuss further care with Dr. Davison. Dr. Davison entry - Saw patient, agree with above note. She has improved. Sitting up in a chair now, pain is better. Will discontinue IV fluids, plan for discharge later this afternoon with oral antibitoics.
[2024-12-23] MEDS: GABAPENTIN 300MG CAPSULE 300 MG PO (08:18)
[2024-12-23] MEDS: SERTRALINE 100MG TABLET 200 MG PO (08:18)
[2024-12-23] MEDS: ATORVASTATIN 10MG TABLET 10 MG PO (08:18)
[2024-12-23] MEDS: SENNA 8.6MG TABLET 8.6 MG PO (08:18)
--- NOTE | 2024-12-23 09:32 | HMH.PHAAMS2 ---
- Antimicrobial Stewardship Review reviewed - no change Stewardship interventions: reviewed - no change Comments: pt is on day 3 of empiric therapy for a UTI, no cultures resulted yet
[2024-12-23 12:00] VITALS: BP 128/71; PULSE 71; RESP 18; TEMP 36.8; O2SAT 96
[2024-12-23] MEDS: KETOROLAC 15MG/ML VIAL 15 MG IV (12:39)
--- NOTE | 2024-12-23 17:32 | EXP.DC.SUM ---
General Admission date:: 12/21/24 Discharge date: 12/23/24 HPI HPI HPI: Patient presented to the office of [facility] this morning with a 3 week history of increasing left sided abdominal pain. She was previously seen in the ER at [facility] and a CT done then showed constipation, left sided kidney stone and a new L3 compression fracture. Treatment for constipation has not improved her pain. Hospital Course Hospital Course Hospital Course: The patient was admitted and a CT of the abdomen pelvis was ordered. She was started on pain medication and antiemetics. Her UA showed a UTI and she was started on Rocephin. Her CT did show a kidney infection. She was continued on IV antibiotics and her symptoms began improving. By 01/19/2025 she was able to sit up in a chair. She continued with some left-sided abdominal pain but it had improved. She was able to eat and had less nausea. She was stable to be discharged home with cefdinir and Toradol and will follow-up in the [facility] of [facility]. Exam Data for Last 24 hours Vital signs and Labs for Last 24 Hours: Temp Pulse Resp BP Pulse Ox O2 Del Method 98.3 F 71 18 128/71 96 Room Air 12/23/24 12:00 12/23/24 12:00 12/23/24 12:00 12/23/24 12:00 12/23/24 12:00 12/23/24 15:00 Laboratory Results - last 24 hr 12/23/24 05:21: WBC 6.5, RBC 3.13 L, Hgb 10.4 L, Hct 31.8 L, MCV 101.6 H, MCH 33.2 H, MCHC 32.7, RDW 12.9, Plt Count 158, MPV 10.3, Neut % (Auto) 57.7, Lymph % (Auto) 28.0, [place] % (Auto) 8.4, Eos % (Auto) 5.2, Baso % (Auto) 0.5, Neut # (Auto) 3.8, Lymph # (Auto) 1.8, [place] # (Auto) 0.6, Eos # (Auto) 0.3, Baso # (Auto) 0.0, Sodium 137, Potassium 4.3, Chloride 105, Carbon Dioxide 27, Anion Gap 9.3, BUN 14, Creatinine 0.90 D, Estimated Creat Clear 80, Estimated GFR 61, Est GFR ( Amer) 73 D, Glucose 110 H, Calcium 10.3 H I & O for Last 24 hours: Intake & Output 12/21/24 12/22/24 12/23/24 12/24/24 11:59 11:59 11:59 11:59 Intake Total 1910.000 / 7828.777 5372 / 3870 Output Total 50 / 50 1200 / 1200 0 / 0 Balance 1860.000 / 2703.386 7778 / 2670 0 / 0 Weight 230 lb 236 lb 2 oz 235 lb 11.2 oz Microbiology Reports for the Last 24 Hours: Microbiology 12/21/24 11:02 Blood Blood Culture - Preliminary NO GROWTH AFTER 48 HOURS 12/21/24 11:07 Blood Blood Culture - Preliminary NO GROWTH AFTER 48 HOURS 12/21/24 13:25 Urine,Clean Catch Urine Culture - Final Multiple organisms, suggests contamination. Narrative: Constitutional Constitutional: moderate distress (Moaning due to pain) *Routine HEENT Exam Head: Present normocephalic and atraumatic Eye: Present EOMI and PERRL ENT: Present mucous membranes moist *Routine Neck Exam Neck: Present supple and full ROM *Routine Respiratory Exam Respiratory: Present CTA bilaterally *Routine Cardiovascular Exam Cardiovascular: Present RRR *Routine Abdominal Exam Abdominal: Present soft, normoactive bowel sounds and tenderness (LMQ and LLQ) *Routine Rectal Exam Rectal:: deferred *Routine Genitalia Exam Genitalia:: deferred *Routine Extremities Exam Extremities: Absent cyanosis, clubbing or edema Routine Back/Spine/Pelvis Exam Back/Spine: Present CVA tenderness (on left) *Routine Skin Exam Skin: Present intact; Absent erythema *Routine Neurological Exam Neurological: Present alert and oriented X3 Results Data Completed and Pending Labs on day of discharge: Labs from last 24 hours 12/23/24 05:21 WBC 6.5 RBC 3.13 L Hgb 10.4 L Hct 31.8 L MCV 101.6 H MCH 33.2 H MCHC 32.7 RDW 12.9 Plt Count 158 MPV 10.3 Neut % (Auto) 57.7 Lymph % (Auto) 28.0 [place] % (Auto) 8.4 Eos % (Auto) 5.2 Baso % (Auto) 0.5 Neut # (Auto) 3.8 Lymph # (Auto) 1.8 [place] # (Auto) 0.6 Eos # (Auto) 0.3 Baso # (Auto) 0.0 Sodium 137 Potassium 4.3 Chloride 105 Carbon Dioxide 27 Anion Gap 9.3 BUN 14 Creatinine 0.90 D Estimated Creat Clear 80 Estimated GFR 61 Est GFR ( Amer) 73 D Glucose 110 H Calcium 10.3 H Preliminary micro results at discharge 12/21/24 11:02 Blood Culture - Preliminary Blood NO GROWTH AFTER 48 HOURS 12/21/24 11:07 Blood Culture - Preliminary Blood NO GROWTH AFTER 48 HOURS DS: Diagnosis Discharge Diagnosis (1) Pyelonephritis: Status: Acute Code(s): N12 - Tubulo-interstitial nephritis, not specified as acute or chronic (2) UTI (urinary tract infection): Status: Acute Code(s): N39.0 - Urinary tract infection, site not specified (3) Left sided abdominal pain: Status: Acute Code(s): R10.9 - Unspecified abdominal pain (4) Constipation: Status: Acute Code(s): K59.00 - Constipation, unspecified (5) Kidney stone on left side: Status: Acute Code(s): N20.0 - Calculus of kidney (6) Closed L3 vertebral fracture: Status: Acute Code(s): S32.039A - Unspecified fracture of third lumbar vertebra, initial encounter for closed fracture Meds Home Medications and Allergies Home Medications ?Medication ?Instructions ?Recorded ?Confirmed ?Type sertraline 100 mg tablet 200 mg PO DAILY 09/29/17 12/21/24 History atorvastatin 10 mg tablet 10 mg PO DAILY 11/15/21 12/21/24 History celecoxib 100 mg capsule (Celebrex) 100 mg PO DAILY 11/30/23 12/21/24 History sennosides 8.6 mg capsule (senna) 8.6 mg PO DAILY #7 caps 12/02/24 12/21/24 Rx gabapentin 300 mg capsule 300 mg PO BID 12/21/24 12/21/24 History lactulose 10 gram/15 mL oral 15 ml PO DAILYP PRN Constipation 12/21/24 12/21/24 History solution (Constulose) levothyroxine 200 mcg tablet 200 mcg PO DAILY 12/21/24 12/21/24 History nystatin 100,000 unit/gram topical 1 applic topical NEEDED PRN 12/21/24 12/21/24 History cream Skin Irritation cefdinir 300 mg capsule 300 mg PO Q12H #14 caps 12/23/24 Rx ketorolac 10 mg tablet 10 mg PO Q8H PRN pain #6 tabs 12/23/24 Rx New Prescriptions to Start Prescriptions: cefdinir Bossman Davison ketorolac Bossman Davison Allergies Allergy/AdvReac Type Severity Reaction Status Date / Time cefaclor (From [facility]) Allergy Mild SLEEP Verified 10/31/24 13:21 WALKING penicillin G (PENICILLIN G) Allergy Mild Hives Verified 10/31/24 13:21 Discharge Plan Disposition Patient Disposition: Home Health Service Condition: Fair Discharge Order Discharge Orders: Discharge Order (Routine); Ordered 12/23/24 Ordered By: Bossman Davison Follow up Plan Follow up with: Bossman Davison MD [Primary Care Provider, Medical] - 12/30/24 11:00 am Prescriptions/Medication Reconciliation: New cefdinir 300 mg capsule 300 mg PO Q12H Qty: 14 0RF ketorolac 10 mg tablet 10 mg PO Q8H PRN (Reason: pain) Qty: 6 0RF Rx Instructions: maximum total duration of 5 days from all oral, intranasal, or parenteral formulations Continued sertraline 100 mg tablet 200 mg PO DAILY atorvastatin 10 mg tablet 10 mg PO DAILY celecoxib [Celebrex] 100 mg capsule 100 mg PO DAILY senna 8.6 mg capsule 8.6 mg PO DAILY Qty: 7 0RF nystatin 100,000 unit/gram cream 1 applic TOPICAL NEEDED PRN (Reason: Skin Irritation) gabapentin 300 mg capsule 300 mg PO BID Patient Comments: TAKE 1 CAPSULE BY MOUTH TWICE DAILY levothyroxine 200 mcg tablet 200 mcg PO DAILY Patient Comments: TAKE 1 TABLET BY MOUTH ONCE DAILY IN THE MORNING ON AN EMPTY STOMACH lactulose [Constulose] 10 gram/15 mL solution 15 ml PO DAILYP PRN (Reason: Constipation) Patient Comments: TAKE 15ML BY MOUTH NEEDED ONCE DAILY Problem Reconciliation Problems Reviewed?: Yes Patient Discharge Instructions ACTIVITY: Continue current activity DIET: continue same diet Patient Instructions: DI for Abdominal Pain in Adults Print Language: Maori Providers Primary Care Provider: Bossman Davison Admit Provider: Bossman Davison Attending Provider: Bossman Davison
--- NOTE | 2024-12-26 10:06 | SW/DCPLANNER ---
Spoke with patient's granddaughter on the phone. Patient's granddaughter stated that she is doing well. Patient's granddaughter stated that she is aware of her upcoming appointment. Patient's granddaughter stated that she was able to peanut picker her grandmother's medicine. Patient's granddaughter stated that she has no concerns or questions at this time. Joe Nguyen
== END 2024-12-23 16:59 | disposition home health service (06) ==
PROVIDERS: Admitting Provider Family Medicine; PCP Family Medicine; Visit Provider Family Medicine
DX: N39.0 Urinary tract infection, site not specified (principal); N20.0 Calculus of kidney; N12 Tubulo-interstitial nephritis, not specified as acute or chronic; K59.00 Constipation, unspecified; S32.039A Unspecified fracture of third lumbar vertebra, initial encounter for closed fracture; K74.60 Unspecified cirrhosis of liver; F41.9 Anxiety disorder, unspecified; F32.A Depression, unspecified; E78.5 Hyperlipidemia, unspecified; I10 Essential (primary) hypertension; E03.9 Hypothyroidism, unspecified; G47.33 Obstructive sleep apnea (adult) (pediatric); Z88.0 Allergy status to penicillin; Z88.1 Allergy status to other antibiotic agents; Z99.89 Dependence on other enabling machines and devices; Z79.890 Hormone replacement therapy; Z79.899 Other long term (current) drug therapy
CPT/HCPCS: 36415; 74176; 80048; 80053; 81001; 83605; 85025; 87040; 87086; 96361; 96365; 96366; 96372; 96375; 96376; 97110; 97162; 97166; 97530; G0378; J0696; J1650; J1885; J2405

== ENCOUNTER 2025-01-17 12:36 | Outpatient (CLI) | payer MEDICARE, SELFPAY ==
--- OUTSIDE RECORDS SUMMARY | 2024-02-03 09:45 | XMS_ITS ---
[facility] Address [address] [facility] [address] [place] [id number] Care Team Providers Care Industrial Designer Name Role Phone Bossman Davison Primary Care Provider [phone] [place] Unavailable [phone] Allergies Allergen (clinical drug ingredient) Drug/Non Drug [...] a day; Duration: 30 day(s) Active Nystatin 810325 UNIT/GM 1 application Ex ternally Three times a day Active Ketoconazole 2 % 1 application Home Coordinator ally Once a day 01/26/2023 Active Fluconazole 100 MG 1 tablet Orally once daily; Duration: 7 days Active Sertraline HCl 100 MG TAKE 2 TABLETS ONE TIME DAILY; Duration: 90 Active Nystatin 656382 UNIT/GM 1 application Ex ternally Twice a day 01/26/2023 Active Levothyroxine Sodium 150 MCG TAKE 1 TABLET ONE TIME DAILY IN THE MORNING ON AN EMPTY STOMACH; Duration: 90 Active Vital Signs Weight 237.6 lbs 02/03/2024 Blood pressure systolic 130 mm Hg 02/03/20 24 Blood pressure diastolic 74 mm Hg 024 Heart Rate 63 /min 02/03/2024 Height 66 in 02/03/2024 BMI 38.35 kg/m2 02/03/2024 Encounters Encounter Location Date Provider Diagnosis [facility] [facility] [address] [place] [id number] 02/03/2024 N[place] Yeast infection B37. 9 [...] tablet Orally Once a day, prn Nystatin 685171 UNIT/GM 1 application Ex ternally Three times [...] Provider Name:Bossman kim, 01/31/2025 09:45:00 AM, [address] [facility] [address] [facility], [address], [place], [id number], Provider Name:Bossman kim, 05/23/2025 09:45:00 AM, [address] [facility] [address] [facility], [address], [place], [phone], Progress Notes * VANI ACOB:1945 (79 yo F)Acc No.[id number]:02/03/2024 Progress Notes Patient: VANI HANSEN Provider: MIAH Solitario :1945 A ge:78 Y S ex:Female Date:02/03/2024 Address:[address] [place], [place] [address], [id number] Pcp:Bossman Davison Subjective: * Chief Complaints: * [...] at Work- ER 12/11/2006, Chest Pulled Muscle- [facility] ER 08/2015. * Family History: F [...] TABLETS ONE TIME DAILY , Taking Nystatin 030716 UNIT/GM Powder 1 application Externally Twice a day , Taking Ketoconazole 2 % Cream 1 application Externally Once a day , Taking Nystatin 805059 UNIT/GM Cream 1 application Externally Three times [...] 7, Refills 0; C ontinue Nystatin Cream, 044376 UNIT/GM, 1 application, Externally, Three times a [...] * Images: Billing Information: * Visit Code: 96037 Office Visit, Est Pt., Level 3. * Procedure Codes: * Electronic signature of MIAH Golden on 01/17/2025 at 12:39 PM EDT Sign off status: Pending * Provider: MIAH Solitario Date: 04/04/2023 Generated for Adrianna peck/Haseeb/eTransmitting on: 12:39 PM EDT History and Physical Notes * HPI (History [...]
--- OUTSIDE RECORDS SUMMARY | 2024-05-17 06:15 | XMS_ITS ---
Author Organization [facility] Address [address] [facility] [address] [place] [id number] Care Team Providers Care Mechanics Supervisor Name Role Phone Bossman Davison Primary [...] date:05/20/2024 08:07:48 AM Interpretation:Normal Performing Lab: Notes/Report: CLIA: [id number] Wilton Montejo MD, Exceptional Student Education Aide [address] [place] [address] , [address], [place] [address] Test performed by [facility] Vitamin B12 457 038-0552 pg/mL P-Comprehensive Metabolic Pa briseyda (CMP) Reviewed date:05/20/2024 08:07:48 AM Interpretation:Tremaine 10.8, Alk Phos 164, AST 54, A/G Ratio 0.9 Performing Lab: Notes/Report: Test performed by [facility] [address] [place] [address] , [address], [place] [address] Wilton Montejo MD, Exceptional Student Education Aide CLIA: [id number] Sodium 137 135-145 mmol/L Potassium 5.1 3.5-5.3 [...] Interpretation:Normal Performing Lab: Notes/Report: Test performed by [facility] [address] [place] [address] , [place] [address] Wilton Montejo MD, Exceptional Student Education Aide CLIA: [id number] Thyroxine Free (free T4) 1.21 0.86-1.76 ng/dL P-Magnesium Reviewed date:05/20/2024 08:07:48 AM Interpretation:Normal Performing Lab: Notes/Report: Test performed by [facility] [address] [place] [address] , [address], [place] [id number] Wilton Montejo MD, Exceptional Student Education Aide CLIA: [id number] Magnesium 2.1 1.6-2.4 mg/dL P-Phosphorus Reviewed date:05/20/2024 08:07:48 AM Interpretation:Normal Performing Lab: Notes/Report: Test performed by [facility] [address] [place] [address] , [address], [place] [address] Wilton Montejo MD, Exceptional Student Education Aide CLIA: [id number] Phosphorus 3.4 2.5-4.5 mg/dL P-TSH reflex to FT4 Reviewed date:05/20/2024 08:07:48 AM Interpretation:6.94 Performing Lab: Notes/Report: Test performed by [facility] [address] [place] [address] [address] , [place] [address] Wilton Montejo MD, Exceptional Student Education Aide CLIA: [id number] TSH reflex to FT4 6.94 0.43-5.25 mU/L P-Vitamin D 25-Hydroxy Reviewed date:05/20/2024 08:07:48 AM Interpretation:114 Performing Lab: Notes/Report: Test performed by [facility] [address] [place] [address] [place] [address] Wilton Montejo MD, Exceptional Student Education Aide CLIA: [id number] Vitamin D 25-Hydroxy 114.0 30.0-100.0 ng/mL Interpretation of Vitamin D 25 OH: < 20 ng/mL - Deficiency 20 - 29 ng/mL - Insufficiency 30 - 100 ng/mL - Sufficiency > 100 ng/mL - Super-therapeutic- toxicity may occur above this level. Clinical correlation required. REASON FOR VISIT [facility] d/c f/u Medications Medication SIG (Take, Route, Frequency, Duration) Notes Start Date End Date Status Nebulizer - as directed J18.9 and R06.2 05/05/2024 Active Celecoxib 100 MG 1 capsule with food Orally Once a day; Duration: 90 days 05/04/2024 Active Nystatin 613460 UNIT/GM 1 application Externally Three times a [...] AN EMPTY STOMACH; Duration: 90 Active Nystatin 437177 UNIT/GM 1 application Externally Twice a day [...] J18.9 and R06.2 05/05/2024 Active Vital Signs Weight 222.8 lbs 05/17/2024 Blood pressure systolic 134 mm Hg 05/17/19 Blood pressure diastolic 70 mm Hg 025 Heart Rate 92 /min 05/17/2024 Height 66 in 05/17/2024 BMI 35.96 kg/m2 05/17/2024 Encounters Encounter Location Date Provider Diagnosis [facility] [address] [place] [id number] 05/17/2024 Bossman Davison Community acquired pneumonia, unspecified [...] unspecified laterality Clinically resolved Other Discharge summary [facility] available lab/diagnostic imaging results obtained and reviewed. Discharge medication list reconciled. Appropriate counseling provided. Moderate Complexity Next Appt Details Follow Up: 4 Weeks, Reason: Provider Name:Bossman kim, 01/31/2025 09:45:00 AM, [address], [address], [place], [phone], Provider Name:Bossman kim, 05/23/2025 09:45:00 AM, [address], [address], [place], [phone], Progress Notes * VANI ACeDOB:1945 (79 yo F)Acc No.[id number]:05/17/2024 Patient: VANI HANSEN Provider: Isaac Davison M.D. :1945 A ge:78 Y S ex:Female Date:05/17/2024 Address:[address] [place] [address] [id number] Subjective: * Chief Complaints: * 1 . [facility] d/c f/u. * HPI: H PI: Patient is here today for a Transition of Care Visit. Discharge from the following Facility: [facility] , Discharge date: 0 05/04/2024 ,Date [...] at Work- ER 12/11/2006, Chest Pulled Muscle- [facility] ER 08/2015. * Family History: F [...] TABLETS ONE TIME DAILY , Taking Nystatin 832248 UNIT/GM Powder 1 application Externally Twice a day , Taking Ketoconazole 2 % Cream 1 application Externally Once a day , Taking Fluconazole 100 MG Tablet 1 tablet Orally once daily , Taking Furosemide 40 MG Tablet 1 tablet Orally Once a day, prn , Taking Atorvastatin Calcium 10 MG Tablet 1 tablet Orally Once a day , Taking Nystatin 051263 UNIT/GM Cream 1 application Externally Three times [...] AM)?Normal* Value Reference Range V itamin B12 888 471-2353 - pg/mL * Alena Butts 05/20/2024 8:07 [...] T4) 1.21 0.86-1.76 - ng/d L * [facility], IT support 05/20/2024 04:00:39 : This order was created by the Interface. Alena Butts 05/20/2024 8:07:37 AM > see phone encounter * Procedure Codes: G 2211 Complex e/[place], [address] TRANS CARE MGMT 14 DAY DISCH, 1111F DSCHR MED/CURENT MED MERGE, 32903 CBC WITH AUTO DIFF, 38924 PULSE OX, 3075F SYST BP GE 130 - 139MM HG, 3078F DIAST BP < 80 MM HG * Follow Up: 4 Weeks * Images: Billing Information: * Visit Code: 64925 Office Visit, Est Pt., Level 4. * Procedure Codes: G2211 Complex e/[place]. [address] TRANS CARE MGMT 14 DAY DISCH. 1111F DSCHR MED/CURENT MED MERGE. 64360 CBC WITH AUTO DIFF. 43054 PULSE OX. 3075F SYST BP GE 130 - 139MM HG. 3078F DIAST BP < 80 MM HG. * Electronic signature of Martina Davison MD on 01/17/2025 at 12:39 PM EDT Sign off status: Pending * Provider: Isaac Davison M.D. Date: 0 05/17/2024 Generated for Adrianna peck/Haseeb/Robertoitting on: 1 12:39 PM EDT History and Physical Notes * HPI (History of Present Illness) Category Sub-Category Detail Notes Category Not es HPI Patient is here today for a Rojas sition of Care Visit. Discharge from the following Facility: [facility] ,Discharge date: 05/04/2024 ,Date of phone contact [...]
--- OUTSIDE RECORDS SUMMARY | 2024-05-25 06:30 | XMS_ITS ---
Author Organization [facility] Address [address] [facility] [address] [place] [id number] Care Team Providers Care Recreation Superintendent Name Role Phone Saman Bossman Primary Care Provider Allergies Allergen (clinical drug [...] Externally Once a day 01/26/2023 Active Nystatin 618140 UNIT/GM 1 application Externally Twice a day [...] once daily; Duration: 7 days Active Nystatin 987052 UNIT/GM 1 application Externally Three times a day Not-Taking Nebulizer - as directed J18.9 and R06.2 05/05/2024 Active Celecoxib 100 MG 1 capsule with food Orally Once a day; Duration: 90 days 05/04/2024 Active Vital Signs Weight 222 lbs 05/25/2024 Blood pressure systolic 130 mm Hg 05/26/19 25 Blood pressure diastolic 74 mm Hg 025 Heart Rate 84 /min 05/25/2024 Height 66 in 05/25/2024 BMI 35.83 kg/m2 05/25/2024 Encounters Encounter Location Date Provider Diagnosis [facility] [address] [place] [id number] 05/25/2024 Bossman Davison Essential hypertensi on I10 [...] 01/31/2025 09:45:00 AM, [address] [facility], [address], [place], [place], [id number], Provider Name:Bossman kim, 05/23/2025 09:45:00 AM, [address] [facility], [address], [place], [place], [id number], Progress Notes * VANI ACHelderOB:1945 (79 yo F)Acc No.[id number]:05/25/2024 Progress Notes Patient: VANI HANSEN Provider: Isaac Davison M.D. :1945 A ge:78 Y S ex:Female Date:05/25/2024 Address:[address] [place], [place] [address], [id number] Subjective: * Chief Complaints: * 1 . [...] at Work- ER 12/11/2006, Chest Pulled Muscle- [facility] ER 08/2015. * Family History: F [...] TABLETS ONE TIME DAILY , Taking Nystatin 745430 UNIT/GM Powder 1 application Externally Twice a [...] Notes to Pharmacist: Alicia and R06.2, Taking Albuterol Sulfate (2.5 MG/3ML) 0.083% Nebulization Solution 3 mL as needed Inhalation every 6 hrs , Taking Levothyroxine Sodium 175 MCG Tablet 1 tablet in the morning on an empty stomach Orally Once a day , Not-Taking Nystatin 102586 UNIT/GM Cream 1 application Externally Three times [...] * Images: Billing Information: * Visit Code: 95253 Office Visit, Est Pt., Level 3. * Procedure Codes: G2211 Complex e/m visit add on. 3075F SYST BP GE 130 - 139MM HG. 3078F DIAST BP < 80 MM HG. * Electronic signature of Martina Davison MD on 01/17/2025 at 12:38 PM EDT Sign off status: Pending * Provider: Isaac Davison M.D. Date: 0 05/25/2024 Generated for Adrianna peck/Haseeb/eTransmitting on: 1 12:38 PM EDT History and Physical Notes * [...]
--- OUTSIDE RECORDS SUMMARY | 2024-06-14 06:15 | XMS_ITS ---
Author Organization [facility] Address [address] [place] [id number] Care Team Providers Care Concrete Block Maker Name Role Phone Bossman Davison Primary Care Provider REASON FOR VISIT 4 week f/u Encounters Encounter Location Date Provider Diagnosis [facility] [address] [place], [place] [phone] 06/14/2024 Bossman Davison Plan Of Treatment Next Appt Details Provider Name:Bossman kim, 01/31/2025 09:45:00 AM, [address], [address], [place], [place], [id number], Provider Name:Bossman kim, 05/23/2025 09:45:00 AM, [address], [address], [place], [place], [address], Progress Notes * VANI ACeDOB:1945 (79 yo F)Acc No.[id number]:06/14/2024 Progress Notes Patient: VANI HANSEN Provider: Isaac Davison M.D. :1945 A ge:78 Y S ex:Female Date:06/14/2024 Address:[address] [place], [place] [address]ANDERSON MCMANUS [id number] Subjective: * Chief Complaints: * 1 . 4 week f/u. * Medical History: Objective: * Vitals: Assessment: Plan: * Treatment: * Images: Billing Information: * Visit Code: * Procedure Codes: * Electronic signature of Martina Davison MD on 01/17/2025 at 12:39 PM EDT Sign off status: Pending * Provider: Isaac Davison M.D. Date: 0 06/14/2024 Generated for Adrianna peck/Haseeb/Hung on: 1 12:39 PM EDT
--- OUTSIDE RECORDS SUMMARY | 2024-08-01 07:00 | XMS_ITS ---
[facility] Address [address] [facility] [address] [place] [phone] Care Team Providers Care Middle Card Tender Name Role Phone Bossman Davison Primary Care Provider [phone] Allergies Allergen (clinical drug ingredient) Drug/Non Drug [...] day; Duration: 30 day(s) 05/23/2024 Active Nystatin 939445 UNIT/GM APPLY TO THE AFF ECTED AREA(S) [...] once daily; Duration: 7 days Active Nystatin 305704 UNIT/GM 1 application Externally Twice a day [...] Status W/U Status Risk Notes Problem Sciatica (93333915) Lumbago with sciatica, left side (M54.42) Active confirmed Problem Obese class II (7033115406848 ) BMI 35.0-35.9,lexie lt (Z68.35) Active confirmed Vital Signs Weight 219.2 lbs 08/01/2024 Blood pressure systolic 120 mm Hg 08/02/19 25 Blood pressure diastolic 62 mm Hg 025 Heart Rate 76 /min 08/01/2024 Height 66 in 08/01/2024 BMI 35.38 kg/m2 08/01/2024 Encounters Encounter Location Date Provider [facility] [address] [phone] 08/01/2024 Bossman [place] Lumbago with sciatic a, right side M54.41 [...] Riggins judy, 01/31/2025 09:45:00 AM, [address] [facility] [address], [place], [phone], Provider Name:Bossman Riggins judy, 05/23/2025 09:45:00 AM, [address], [place], [phone], Progress Notes * VANI ACHelderOB:1945 (79 yo F)Acc No.[id number]:08/01/2024 Progress Notes Patient: VANI HANSEN Provider: Isaac Davison M.D. :1945 A ge:78 Y S ex:Female Date:08/01/2024 Address:[address] [place], [place] [address]ANDERSON MCMANUSKAISER PERMANENTE MEDICAL CENTERLU-[id number] Subjective: * Chief Complaints: * 1 . Severe lower back pain. * HPI: L ower back: 78 year old female presents with c/o Low Back Pain P t presents today with c/o pain across her lower back. Pts granddaughter is with her today and she sts that since fracturing her hip in April she has been doing PT. Pt was leaning down to metal pickling equipment operator her dog to sit it in the [...] at Work- ER 12/11/2006, Chest Pulled Muscle- [facility] ER 08/2015. * Family History: [...] 1 TABLET EVERY DAY , Taking Nystatin 142352 UNIT/GM Powder 1 application Externally Twice a [...] Orally Once a day , Taking Nystatin 052865 UNIT/GM Cream APPLY TO THE AFFECTED AREA(S) [...] A cquired hypothyroidism - E03.9 ?4. B [place] 35.0-35.9,adult - Z68.35 5 . D epression [...] * Images: Billing Information: * Visit Code: 75336 Office Visit, Est Pt., Level 3. * Procedure Codes: G2211 Complex e/m visit add on. 3074F SYST BP LT 130 MM HG. 3078F DIAST BP < 80 MM HG. * Electronic signature of Martina Davison MD on 01/17/2025 at 12:39 PM EDT Sign off status: Pending * Provider: Isaac Davison M.D. Date: 0 08/01/2024 Generated for Adrianna peck/Haseeb/Hung on: 1 12:39 PM EDT History and [...] doing PT. Pt was leaning down to metal pickling equipment operator her dog to sit it in the [...]
--- OUTSIDE RECORDS SUMMARY | 2024-11-23 06:00 | XMS_ITS ---
Author Organization [facility] Address [address] [facility] [address] [place] [id number] Care Team Providers Care Casket Assembler Metal Name Role Phone Bossman Davison Primary Care Provider Allergies Allergen (clinical drug ingredient) Drug/Non Drug Allergy documented on EMR Reaction Allergy Type Onset Date Status cefaclor Cefaclor Unknown Drug Allergy Active Penicillin Unknown Drug Allergy Active Results Component Value Reference Range Notes P-Comprehensive Metabolic Pa briseyda (CMP) Reviewed date:11/24/2024 11:45:52 AM Interpretation:Tremaine 10.6, Alk Phos 125 Performing Lab: Notes/Report: CLIA: [id number] Wilton Montejo MD, Customs Broker [address] [facility] , [address], [place] [address] Test performed by [facility] Sodium 142 135-145 mmol/L Potassium 4.4 3.5-5.3 [...] Interpretation:0.86 Performing Lab: Notes/Report: Test performed by [facility] [address] [place] [address] , [address], [place] [address] Wilton Montejo MD, Customs Broker CLIA: [id number] Thyroxine Free (free T4) 0.86 0.86-1.76 ng/dL P-TSH Reviewed date:11/24/2024 11:45:52 AM Interpretation:Normal Performing Lab: Notes/Report: Test performed by [facility] [address] , [address], [place] [address] Wilton Montejo MD, Customs Broker CLIA: [id number] TSH 2.02 0.43-5.25 mU/L REASON FOR VISIT [...] Orally Once a day, prn Active Nystatin 693564 UNIT/GM APPLY TO THE AFF ECTED AREA(S) THREE TIMES DAILY; Duration: 30 Active Albuterol Sulfate (2.5 MG/3ML) 0.083% 3 mL as needed Inhalation every 6 hrs 05/05/2024 Active Nebulizer Mask Adult/Tubing - as directed J18.9 and R06.2 05/05/2024 Active Fluconazole 100 MG 1 tablet Orally once daily; Duration: 7 days Active Ketoconazole 2 % 1 application Externally Once a day 01/26/2023 Active Nystatin 151720 UNIT/GM 1 application Externally Twice a day [...] day; Duration: 30 day(s) Active Vital Signs Weight 234.6 lbs 11/23/2024 Blood pressure systolic 136 mm Hg 11/24/19 25 Blood pressure diastolic 72 mm Hg 025 Heart Rate 62 /min 11/23/2024 Height 66 in 11/23/2024 BMI 37.86 kg/m2 11/23/2024 Encounters Encounter Location Date Provider Diagnosis [facility] [address] [place] [id number] 11/23/2024 Bossman Davison Essential hypertensi on I10 [...] 01/31/2025 09:45:00 AM, [address] [facility], [address], [place], [phone], Provider Name:Bossman kim, 05/23/2025 09:45:00 AM, [address], [address], [place], [id number], Progress Notes * VANI AC:1945 (79 yo F)Acc No.[id number]:11/23/2024 Progress Notes Patient: VANI HANSEN Provider: Isaac Davison M.D. :1945 A ge:79 Y S ex:Female Date:11/23/2024 Address:[address] [place] [address], [id number] Subjective: * Chief Complaints: * 1 . [...] ER 12/11/2006, Chest Pulled Muscle- [facility] ER 08/2015. * Family History: F [...] 1 TABLET EVERY DAY , Taking Nystatin 115756 UNIT/GM Powder 1 application Externally Twice a [...] Inhalation every 6 hrs , Taking Nystatin 079093 UNIT/GM Cream APPLY TO THE AFFECTED AREA(S) [...] * Images: Billing Information: * Visit Code: 72765 Office Visit, Est Pt., Level 4. * [...] 11/23/2024 Generated for Adrianna peck/Haseeb/Robertoitting on: 1 12:38 PM EDT History and [...]
--- OUTSIDE RECORDS SUMMARY | 2024-12-07 07:00 | XMS_ITS ---
Author Organization [facility] Address [address] [facility] [address] [place] [id number] Care Team Providers Care Group Fitness Assistant Department Head Name Role Phone [place], Bossman Primary Care Provider [phone] Allergies Allergen (clinical drug ingredient) Drug/Non Drug Allergy documented on EMR Reaction Allergy Type Onset Date Status cefaclor Cefaclor Unknown Drug Allergy Active Penicillin Unknown Drug Allergy Active REASON FOR VISIT [facility] ER Follow Up, Abdominal Pain Medications Medication [...] directed J18.9 and R06.2 05/05/2024 Active Nystatin 301124 UNIT/GM APPLY TO THE AFF ECTED AREA(S) [...] directed J18.9 and R06.2 05/05/2024 Active Nystatin 557545 UNIT/GM 1 application Externally Twice a day [...] EVERY DAY; Duration: 90 Active Vital Signs Weight 234.0 lbs 12/07/2024 Blood pressure systolic 132 mm Hg 12/08/19 25 Blood pressure diastolic 68 mm Hg 025 Heart Rate 77 /min 12/07/2024 Height 66 in 12/07/2024 BMI 37.76 kg/m2 12/07/2024 Encounters Encounter Location Date Provider Diagnosis [facility] [facility] [address] [facility] [address] [place] [id number] 12/07/2024 Bossman Davison Chronic constipation K59.09 Assessments [...] Provider Name:Bossman kim, 01/31/2025 09:45:00 AM, [facility], [address], [place], [phone], Provider Name:Bossman kim, 05/23/2025 09:45:00 AM, [facility] [facility], [address], [place], [id number], Progress Notes * VANI ACOB:1945 (79 yo F)Acc No.[id number]:12/07/2024 Patient: VANI HANSEN Provider: Isaac Davison M.D. :1945 A ge:79 Y S ex:Female Date:12/07/2024 Address:[address] [place], [id number] Subjective: * Chief Complaints: * 1 . [facility] ER Follow Up, Abdominal Pain. * HPI: G astroenterology: 79 year old female presents with c/o Abdominal Pain P t was seen at [facility] ER on 12/02. Pt states she is [...] at Work- ER 12/11/2006, Chest Pulled Muscle- [facility] ER 08/2015. * Family History: [...] 1 TABLET EVERY DAY , Taking Nystatin 905729 UNIT/GM Powder 1 application Externally Twice a [...] Inhalation every 6 hrs , Taking Nystatin 072834 UNIT/GM Cream APPLY TO THE AFFECTED AREA(S) [...] * Images: Billing Information: * Visit Code: 62813 Office Visit, Est Pt., Level 3. * [...] M.D. Date: 0 12/07/2024 Generated for Adrianna peck/Haseeb/Talismitting on: 1 12:38 PM EDT History and Physical Notes * HPI (History of Present Illness) Category Sub-Category Detail Notes Category Not es Gastroenterology Abdominal Pain Pt was seen at [facility] ER on 12/02. Pt states she is [...]
--- OUTSIDE RECORDS SUMMARY | 2024-12-21 05:15 | XMS_ITS ---
Author Organization [facility] Address [address] [facility] [address] [place] [phone] Care Team Providers Care Coremaker Floor Name Role Phone Natalee Davisonian Primary Care Provider [phone] Allergies Allergen (clinical drug ingredient) Drug/Non Drug [...] a day; Duration: 90 days Active Nystatin 146974 UNIT/GM APPLY TO THE AFF ECTED AREA(S) [...] Externally Once a day 01/26/2023 Active Nystatin 553195 UNIT/GM 1 application Externally Twice a day 01/26/2023 Active Potassium Chloride ER 10 MEQ TAKE 1 TABLET EVERY DAY; Duration: 90 Active CPAP Supplies 1 Set Use supplies as directed 05/29/2023 Active Calcium 500 MG 1 tablet with meals Orally Twice a day; Duration: 30 day(s) Active Vital Signs Weight 0 lbs 12/21/2024 Blood pressure systolic 140 mm Hg 12/22/19 25 Blood pressure diastolic 82 mm Hg 025 Heart Rate 102 /min 12/21/2024 Height 66 in 12/21/2024 Encounters Encounter Location Date Provider Diagnosis [facility] [address] [place] [address] [address] [facility] [address] [place] [id number] 12/21/2024 Bossman Davison Left flank pain R10. A2 and Chronic constipation K59.09 Assessments Encounter Date Diagnosis (ICD Code) Assessment Notes Treatment Notes Treatment Clinical Notes Section Notes 12/21/2024 Left flank pain (ICD-10 - R10.A2) 12/21/2024 Chronic constipation (ICD-10 - K59.09) Plan Of Treatment Next Appt Details Follow Up: prn, Reason: Provider Name:Bossman kim, 01/31/2025 09:45:00 AM, 1210 [facility] 36 [facility], [address], [place], [place], [phone], Provider Name:Bossman kim, 05/23/2025 09:45:00 AM, [address] [place] [address] 36 [facility] [address], [place], [place], [id number], Progress Notes * VANI ACOB:1945 (79 yo F)Acc No.[id number]:12/21/2024 Patient: VANI HANSEN Provider: Isaac Davison M.D. :1945 A ge:79 Y S ex:Female Date:12/21/2024 Address:[address] [place] [id number] Subjective: * Chief Complaints: * 1 . [...] at Work- ER 12/11/2006, Chest Pulled Muscle- [facility] ER 08/2015. * Family History: F [...] 1 TABLET EVERY DAY , Taking Nystatin 939011 UNIT/GM Powder 1 application Externally Twice a [...] Miscellaneous as directed , Notes to Pharmacist: Alciia and R06.2, Taking Albuterol Sulfate (2.5 MG/3ML) 0.083% Nebulization Solution 3 mL as needed Inhalation every 6 hrs , Taking Nystatin 764392 UNIT/GM Cream APPLY TO THE AFFECTED AREA(S) [...] M.D. Date: Generated for Adrianna peck/Haseeb/Hung on: 12:38 PM EDT History and Physical Notes [...]
--- OUTSIDE RECORDS SUMMARY | 2024-12-30 07:00 | XMS_ITS ---
Author [facility] Address [address] [facility] [address] [place] [id number] Care Team Providers Care Supervisor [place] Name Role Phone Natalee Davisonian Primary Care Provider [phone] Allergies Allergen (clinical drug ingredient) Drug/Non Drug Allergy documented on EMR Reaction Allergy Type Onset Date Status cefaclor Cefaclor Unknown Drug Allergy Active Penicillin Unknown Drug Allergy Active REASON FOR VISIT [facility] f/u Medications Medication SIG (Take, Route, Frequency, Duration) Notes Start Date End Date Status Nystatin 658274 UNIT/GM APPLY TO THE AFFECTED AREA(S) THREE [...] TABLET EVERY DAY; Duration: 90 Not-Taking Nystatin 970348 UNIT/GM 1 application Externally Twice a day [...] Status W/U Status Risk Notes Problem Anemia (286308124) Anemia, unspecified type (D64.9) Active confirmed Vital Signs Weight 000 lbs 12/30/2024 Blood pressure systolic 134 mm Hg 12/31/19 25 Blood pressure diastolic 82 mm Hg 025 Heart Rate 63 /min 12/30/2024 Height 66 in 12/30/2024 Encounters Encounter Location Date Provider Diagnosis [facility] [address] [facility] [address] [place] [address], [place] [id number] 12/30/2024 Bossman Tyner Midline low back ramana n without sciatica, [...] [address], [address], [place], [phone], Provider Name:Bossman Riggins judy, 05/23/2025 09:45:00 AM, [address], [address], [place], [place], [phone], Progress Notes * VANI ACeDOB:1945 (79 yo F)Acc No.[id number]:12/30/2024 Patient: VANI HANSEN Provider: Isaac Davison M.D. :1945 A ge:79 Y S ex:Female Date:12/30/2024 Address:[address] [place], [place] [id number] Subjective: * Chief Complaints: * 1 . [facility] f/u. * HPI: L ower back: 79 year old female presents with c/o Low Back Pain P t complains of L3 back pain for about 3 days. Pt states that pain gets so bad at times it makes nauseas. Pt has scheduled appt with Dr. Lozano on 01/04. H PI: c/o Here for follow up on: -05/2024 [facility] h ospitalization. Pt admitted for UTI and [...] at Work- ER 12/11/2006, Chest Pulled Muscle- [facility] ER 08/2015. * Family History: [...] TABLETS ONE TIME DAILY , Taking Nystatin 159950 UNIT/GM Powder 1 application Externally Twice a day , Not-Taking Potassium Chloride ER 10 MEQ Tablet Extended Release TAKE 1 TABLET EVERY DAY , Not-Taking Fluconazole 100 MG Tablet 1 tablet Orally once daily , Not-Taking Furosemide 40 MG Tablet 1 tablet Orally Once a day, prn , Not-Taking Nystatin 831482 UNIT/GM Cream APPLY TO THE AFFECTED AREA(S) [...] * Images: Billing Information: * Visit Code: 08812 Office Visit, Est Pt., Level 3. * [...] Isaac Davison M.D. Date: Generated for Adrianna peck/Haseeb/Robertoitting on: 12:38 PM EDT History and Physical [...] HPI Here for follow up on: 12/21-2024 [facility] hospitalization. Pt admitted for UTI and kidney infection. Pt states she is feeling better after completing abx Examination Category Sub-Category Detail Notes Category Not es General Examination Heart: RSR Lungs: clear to auscultatio n General Appearance: sitting in a wheelch air
--- OUTSIDE RECORDS SUMMARY | 2025-01-17 12:38 | XMS_ITS | Clinical Summary ---
Author Organization Healthcare Address [address] [place] [address] Care Team Providers Care Belting And Webbing Inspector Name Role Phone Unavailable Primary Care Provider Unavailabl e Encounters Date Type Department Care Team Description 12/02/2024 Orders Only External Location [address] [place] [id number] Provider, External 12/02/2024 Orders Only External Location [address] [place] [phone] Provider, External from Last 3 Months Social History Tobacco Use Types Packs/Day Years Used Date Smoking Tobacco: Never Assessed Comments Unknown Sex and Gender Information Value Date Recorded Sex Assigned at Not on file Legal Sex Female 7:40 PM EDT Gender Identity Not on file Sexual Orientation Not on file Last Filed Vital Signs Vital Sign Reading Time Taken Comments Blood Pressure 91/55 12/02/2024 2:26 PM EDT MAP 67 Pulse 52 12/02/2024 2:26 PM EDT Temperature - - Respiratory Rate - - Oxygen Saturation 96% 12/02/2024 2:26 PM EDT RA Inhaled Oxygen Concentration - - Weight - - Height - - Body Mass Index - - Plan of Treatment Not on file Procedures Procedure Name Priority Date/Time Associated Diagnosis Comments XR OUTSIDE IMAGES 12/02/2024 12:[address] OUTSIDE IMAGES 12/02/2024 12:22 PM EDT from Last 3 Months Results * XR OUTSIDE IMAGES (12/02/2024 12:26 PM EDT) Anatomical Region Laterality Modality Radiographic Makenna ging 12/02/2024 12:2 6 PM EDT us External Provider IMG XR PROCEDURES Edited Resul t - Final * CT OUTSIDE IMAGES (12/02/2024 12:22 PM EDT) Anatomical Region Laterality Modality Computed Tomogra phy 12/02/2024 12:2 2 PM EDT us External Provider IMG CT PROCEDURES Edited Resul t - Final from Last 3 Months
--- OUTSIDE RECORDS SUMMARY | 2025-01-17 12:38 | XMS_ITS | Encounter Summary ---
Author Organization Healthcare Address [address] [place] [address] Care Team Providers Care Freelance Writer Name Role Phone Unavailable Primary Care Provider Unavailabl e Encounter Details Date Type Department Care Team (Late st Contact Info) Description 12/02/2024 Orders Only External Location [address] [place] [address] Provider, External Social History Tobacco Use Types Packs/Day Years Used Date Smoking Tobacco: Never Assessed Comments Unknown Sex and Gender Information Value Date Recorded Sex Assigned at Not on file Legal Sex Female 7:40 PM EDT Gender Identity Not on file Sexual Orientation Not on file documented as of this encounter Plan of Treatment Not on file documented as of this encounter Procedures Procedure Name Priority Date/Time Associated Diagnosis Comments XR OUTSIDE IMAGES 12/02/2024 12:26 PM EDT documented in this encounter Results * XR OUTSIDE IMAGES (12/02/2024 12:26 PM EDT) Anatomical Region Laterality Modality Radiographic Makenna ging 12/02/2024 12:2 6 PM EDT External Provider IMG XR PROCEDURES Edited Resul t - Final documented in this encounter Visit Diagnoses Not on filedocumented in this encounter
--- OUTSIDE RECORDS SUMMARY | 2025-01-17 12:38 | XMS_ITS | Encounter Summary ---
Author Organization Healthcare Address [address] [place] [address] Care Team Providers Care Fire Hydrant Mechanic Name Role Phone Unavailable Primary Care Provider Unavailabl e Encounter Details Date Type Department Care Team (Late st Contact Info) Description 12/02/2024 Orders Only External Location [address] [place] [address] Provider, External Social History Tobacco Use Types [...] Procedure Name Priority Date/Time Associated Diagnosis Comments CT OUTSIDE IMAGES 12/02/2024 12:22 PM EDT documented in this encounter Results * CT OUTSIDE IMAGES (12/02/2024 12:22 PM EDT) Anatomical Region Laterality Modality Computed Tomogra phy 12/02/2024 12:2 2 PM EDT us External Provider IMG CT PROCEDURES Edited Resul t - Final documented in this encounter Visit Diagnoses Not on filedocumented in this encounter
--- NOTE | 2025-01-17 12:39 | MR_ITS ---
FINAL REPORT CLINICAL HISTORY: COMPRESSION FX L3 VERTEBRA recent kyphoplasty 2-3 months ago COMPARISON: 08/25/2024 FINDINGS: Multiplanar MR imaging of the lumbar spine was performed without contrast. On the sagittal T2-weighted images, there is abnormal decreased signal throughout the lumbar discs. There is mild lumbar scoliosis convex to the left. There are compression deformities of T11, T12, L2, and L5. Mild marrow edema is noted within the T11 and T12 vertebra. Compression deformities of T11 and T12 are new with 40% compression of T11 and 20% of T12. The previously noted marrow edema at L5 vertebra is significantly improved. There are kyphoplasty changes of L2 and L5, new since the previous exam. L1-2: Moderate disc bulge. Moderate bilateral neural foraminal narrowing. L2-3: Moderate to large disc bulge. Moderate facet hypertrophy. Moderate spinal canal compromise. Moderate to high-grade bilateral neural foraminal narrowing. L3-4: Moderate diffuse disc bulge. Bilateral facet hypertrophy. Moderate to high-grade bilateral neural foraminal narrowing. L4-5: Moderate diffuse disc bulge. Endplate hypertrophy. Facet hypertrophy. High-grade bilateral neural foraminal narrowing, [id number]. L5-S1: Endplate hypertrophy eccentric to the left. High-grade left neural foraminal narrowing. IMPRESSION: New compression deformities of T11 and T12. Kyphoplasty changes of L2 and L5. Multilevel neural foraminal narrowing L2-3 through L5-S1, most evident on the left at L4-5 and L5-S1. Reviewed, Interpreted and Dictated by Art Gallegos MD Transcribed by Anni Ladd Authenticated and [facility]
--- OUTSIDE RECORDS SUMMARY | 2025-01-17 12:40 | XMS_ITS | Patient Health Record ---
Author Organization [facility] Address [address] [place] [phone] Care Team Providers Care Ammonium Nitrate Neutralizer Name Role Phone Bossman Davison Primary Care Provider Nila Verde Unavailable [phone] Allergies Allergen (clinical drug ingredient) Drug/Non Drug [...] Interpretation:Normal Performing Lab: Notes/Report: Test performed by [facility] , [address], [place] [address] Wilton Montejo MD, Water Commissioner CLIA: [id number] Vitamin B12 589 550-6916 pg/mL P-Comprehensive Metabolic Pa briseyda (CMP) Reviewed date:05/20/2024 08:07:48 AM Interpretation:Tremaine 10.8, Alk Phos 164, AST 54, A/G Ratio 0.9 Performing Lab: Notes/Report: Test performed by [facility] [address] [place] [address] , [address], [place] [address] Wilton Montejo MD, Water Commissioner CLIA: [id number] Sodium 137 135-145 mmol/L Potassium 5.1 3.5-5.3 [...] Interpretation:Normal Performing Lab: Notes/Report: Test performed by [facility] [address] [place] [address] , [place] [address] Wilton Montejo MD, Water Commissioner CLIA: [id number] Magnesium 2.1 1.6-2.4 mg/dL P-Phosphorus Reviewed date:05/20/2024 08:07:48 AM Interpretation:Normal Performing Lab: Notes/Report: Test performed by [facility] [address] [place] [address] , [address], [place] [address] Wilton Montejo MD, Water Commissioner CLIA: [id number] Phosphorus 3.4 2.5-4.5 mg/dL P-TSH reflex to FT4 Reviewed date:05/20/2024 08:07:48 AM Interpretation:6.94 Performing Lab: Notes/Report: Test performed by [facility] [address] [place] [address] , [place] [address] Wilton Montejo MD, Water Commissioner CLIA: [id number] TSH reflex to FT4 6.94 0.43-5.25 mU/L P-Vitamin D 25-Hydroxy Reviewed date:05/20/2024 08:07:48 AM Interpretation:114 Performing Lab: Notes/Report: Test performed by [facility] [address] [place] [address] [place] [address] Wilton Montejo MD, Water Commissioner CLIA: [id number] Vitamin D 25-Hydroxy 114.0 30.0-100.0 ng/mL Interpretation of Vitamin D 25 OH: < 20 ng/mL - Deficiency 20 - 29 ng/mL - Insufficiency 30 - 100 ng/mL - Sufficiency > 100 ng/mL - Super-therapeutic- toxicity may occur above this level. Clinical correlation required. P-T4 Free (thyroxine) Reviewed date:05/20/2024 08:07:48 AM Interpretation:Normal Performing Lab: Notes/Report: Test performed by [facility] [address] [place] [address] [place] [address] Wilton Montejo MD, Water Commissioner CLIA: [id number] Thyroxine Free (free T4) 1.21 0.86-1.76 ng/dL H-UA Reviewed date:05/02/2024 07:02:08 PM Interpretation: Performing [...] employed in healthcare? No Is patient an [employer] employee? N Is patient currently hospitalized? Yes [...] Detected NotDetected H-Sputum Culture with Gram Sung quick Reviewed date:05/05/2024 09:25:41 AM Interpretation: Performing Lab: [...] 99 74-100 mg/dl CA 9.2 8.4-10.2 mg/dl P-Culture, Urine Reviewed date:02/11/2024 01:25:32 PM Interpretation:Sensitivity not routinely done Performing Lab: Notes/Report: Test performed by [facility] [address] [place] [address] , [address], [place] [address] Wilton Montejo MD, Water Commissioner CLIA: [id number] Specimen Source Urine - Void Culture, Urine See Below See Microbiol ogy Report Streptococcus agalactiae (Strep. group B) 10,000-15,000 CFU/ml Streptococcus agalactiae (Strep. group B) Sensitivity not routinely done. Urinalysis - Inhouse Reviewed date:01/28/2024 04:40:52 PM Interpretation: Performing Lab: Notes/Report: Color/Clarity dark yellow/orange Leuk 1+ Nitrite neg Urobili 1.6 Protein 1+ pH 6.5 Blood neg Sp. Gr. 1.025 Ketone neg Bili neg Gluc neg CBC Venipuncture (in house) Reviewed date:01/28/2024 04:41:00 [...] - 38 platlet 171 100 - 400 P-BNP (Brain Natriuretic Pep tide) Reviewed date:07/14/2024 01:23:37 PM Interpretation:see duplicate order Performing Lab: Notes/Report: see duplicate order P-Comprehensive Metabolic Pa briseyda (CMP) Reviewed date:01/29/2024 08:45:17 AM Interpretation: Performing Lab: Notes/Report: Test performed by [facility] [address] [place] [address] , [address], [place] [address] Wilton Montejo MD, Water Commissioner CLIA: [id number] Sodium 139 135-145 mmol/L Potassium 4.2 3.5-5.3 [...] 0.5 <0.2-1.2 mg/dL A/G Ratio 1.3 1.1-2.5 P-Culture, Urine Reviewed date:02/03/2024 12:24:03 PM Interpretation:Sensitivity not available Performing Lab: Notes/Report: Test performed by [facility] [address] [place] [address] , [address], [place] [address] Wilton Montejo MD, Water Commissioner CLIA: [id number] Specimen Source Urine - Void Culture, Urine See Below See Microbiol ogy Report Corynebacterium striatum group 25,000-50,000 CFU/ml Corynebacterium striatum group Sensitivity not available P-Magnesium Reviewed date:01/29/2024 08:45:17 AM Interpretation: Performing Lab: Notes/Report: Test performed by [facility] [address] [place] [address] , [address], [place] [address] Wilton Montejo MD, Water Commissioner CLIA: [id number] Magnesium 2.0 1.6-2.4 mg/dL B-Type Natriuretic Peptide Reviewed date:01/29/2024 08:45:17 AM Interpretation: Performing Lab: Notes/Report: Test performed by [facility] [address] , [address], [place] [address] Wilton Montejo MD, Water Commissioner CLIA: [id number] B-Type Natriuretic Peptide 42.0 <2.0-100.0 pg/mL X ray : Spine, lumbosacral Reviewed date:08/04/2024 12:30:41 PM Interpretation: Performing Lab: Notes/Report: P-Comprehensive Metabolic Pa briseyda (CMP) Reviewed date:11/24/2024 11:45:52 AM Interpretation:Tremaine 10.6, Alk Phos 125 Performing Lab: Notes/Report: Test performed by [facility] [address] [place] [address] , [address], [place] [address] Wilton Montejo MD, Water Commissioner CLIA: [id number] Sodium 142 135-145 mmol/L Potassium 4.4 3.5-5.3 [...] Interpretation:0.86 Performing Lab: Notes/Report: Test performed by [facility] [address] [place] [address] , [address], [place] [address] Wilton Montejo MD, Water Commissioner CLIA: [id number] Thyroxine Free (free T4) 0.86 0.86-1.76 ng/dL P-TSH Reviewed date:11/24/2024 11:45:52 AM Interpretation:Normal Performing Lab: Notes/Report: Test performed by [facility] [address] , [address], [place] [address] Wilton Montejo MD, Water Commissioner CLIA: [id number] TSH 2.02 0.43-5.25 mU/L H-CBC Reviewed date:12/21/2024 12:02:24 PM Interpretation: Performing Lab: Notes/Report: WBC 7.5 4.8-10.8 K/mm3 RBC 3.42 4.20-5.40 M/mm3 HGB 11.5 12.2-16.2 g/dL HCT 34.3 37.0-47.0 % MCV 100.3 81-99 fl MCH 33.6 27.0-31.2 pg MCHC 33.5 31.8-35.4 g/dL RDW-SD 48.1 RDW 13.0 11.5-17.5 % PLT 186 142-424 K/mm3 MPV 10.0 7.4-10.4 fl NE% 67.3 37.0-80.0 % LY% 22.8 10-50 % MO% 6.1 1.7-9.3 % EO% 2.8 0.1-12.0 % BA% 0.7 0.1-2.0 % NRBC% 0 IG% 0.3 NE# 5.1 1.8-7.8 K/mm3 LY# 1.7 0.7-4.5 K/mm3 MO# 0.5 0.1-1.0 K/mm3 EO# 0.2 0.0-0.4 Kmm3 BA# 0.1 0-0.2 K/mm3 NRBC# 0 IG# 0.02 H-UA Reviewed date:12/22/2024 08:34:35 AM Interpretation: Performing Lab: Notes/Report: Method to collect specimen clean catch UCOL YELLOW Yellow UAPP CLEAR Clear UPH 7.5 5.0-8.5 USG 1.015 1.005-1.030 UPRO Negative Negative UGLU Negative Negative UKET Negative Negative UBLD 1+ Negative UNIT Negative Negative UBIL Negative Negative UURO 2.0 0.2 EU/dl ULEU 3+ Negative UMICU URINE MICROSCOPIC MICROSCOPIC URBC TNTC 0-3 #/hpf UWBC TNTC 0-3 #/hpf USQEPI 20-50 0-5 #/hpf UBACT 4+ NONE /lpf UYEAST Occasional None /lpf H-CMP Reviewed date:12/21/2024 12:02:24 PM Interpretation: Performing Lab: Notes/Report: NA 142 136-145 mmol/L K 3.9 3.5-5.1 mmoL/L CL 105 98-107 mmol/L CO2 28 22.0-30.0 mmol/L GAP 12.9 5-15 mEq/L BUN 14 7-17 mg/dl CREATT 0.70 0.52-1.04 mg/dl CRCLE 78 50-200 mL/min GFRAA 98 >60 ML/MIN EGFR 81 >60 ml/min GLU 110 74-100 mg/dl CA 10.3 8.4-10.2 mg/dl BILIT 0.8 0.2-1.3 mg/dl AST 37 14-36 U/L ALT 27 12-78 U/L TP 7.3 6.3-8.2 g/dl ALB 3.9 3.5-5.0 g/dl GLOB 3.4 1.3-3.2 g/dL AGRATIO 1.1 1.1-1.8 ALP 176 38-126 U/L H-Culture, Blood Reviewed date:12/27/2024 11:10:06 AM Interpretation: Performing Lab: Notes/Report: CUBLD NO GROWTH AFTER 5 DAYS CUBLD NO GROWTH AFTER 5 DAYS H-Urine Culture and Sensitiv ity Reviewed date:12/23/2024 09:37:25 AM Interpretation: Performing Lab: Notes/Report: CUU Multiple organisms, suggests contamination. H-Lactic Acid Reviewed date:12/21/2024 12:02:25 PM Interpretation: Performing Lab: Notes/Report: Comment Repeat 2nd or 3rd lactic acid to reflex if initial or subseq level > 2 LACTIC 1.3 0.7-2.1 mmol/L H-CBC Reviewed date:12/23/2024 09:37:25 AM Interpretation: Performing Lab: Notes/Report: WBC 6.5 4.8-10.8 K/mm3 RBC 3.13 4.20-5.40 M/mm3 HGB 10.4 12.2-16.2 g/dL HCT 31.8 37.0-47.0 % MCV 101.6 81-99 fl MCH 33.2 27.0-31.2 pg MCHC 32.7 31.8-35.4 g/dL RDW-SD 48.1 RDW 12.9 11.5-17.5 % PLT 158 142-424 K/mm3 MPV 10.3 7.4-10.4 fl NE% 57.7 37.0-80.0 % LY% 28.0 10-50 % MO% 8.4 1.7-9.3 % EO% 5.2 0.1-12.0 % BA% 0.5 0.1-2.0 % NRBC% 0 IG% 0.2 NE# 3.8 1.8-7.8 K/mm3 LY# 1.8 0.7-4.5 K/mm3 MO# 0.6 0.1-1.0 K/mm3 EO# 0.3 0.0-0.4 Kmm3 BA# 0.0 0-0.2 K/mm3 NRBC# 0 IG# 0.01 H-BMP Reviewed date:12/23/2024 09:37:25 AM Interpretation: Performing Lab: Notes/Report: NA 137 136-145 mmol/L K 4.3 3.5-5.1 mmoL/L CL 105 98-107 mmol/L CO2 27 22.0-30.0 mmol/L GAP 9.3 5-15 mEq/L BUN 14 7-17 mg/dl CREATT 0.90 0.52-1.04 mg/dl Delta: 0.70 on 12/21/24 CRCLE 80 50-200 mL/min GFRAA 73 >60 ML/MIN Delta: 98 on 12/21/24 EGFR 61 >60 ml/min GLU 110 74-100 mg/dl CA 10.3 8.4-10.2 mg/dl MRI : Spine, Lumbosacral, wi thout contrast Reviewed date:08/26/2024 11:33:37 AM Interpretation: Performing Lab: Notes/Report: Medications Medication SIG (Take, Route, Frequency, Duration) Notes Start Date End Date Status Atorvastatin Calcium 10 MG TAKE 1 TABLET AT BEDTIME; Duration: 90 Active CPAP Supplies 1 Set Use supplies as directed 05/29/2023 Active Sertraline HCl 100 MG TAKE 2 TABLETS ONE TIME DAILY; Duration: 90 Active Celecoxib 100 MG 1 capsule with food Orally twice a day; Duration: 90 days Active Nystatin 607415 UNIT/GM APPLY TO THE AFFECTED AREA(S) THREE TIMES DAILY; Duration: 30 Not-Taking CPAP Mask as directed nightly 10/21/2024 Active Methocarbamol 500 MG 1 tablet Orally every 8 hours As needed Active Gabapentin 300 MG 1 capsule Orally Two times a day; Duration: 30 days 11/23/2024 Active Levothyroxine Sodium 200 MCG 1 tablet in the morning on an empty stomach Orally Once a day; Duration: 90 days 11/24/2024 Active Ketoconazole 2 % 1 application Externally Once a day 01/26/2023 Active Potassium Chloride ER 10 MEQ TAKE 1 TABLET EVERY DAY; Duration: 90 Not-Taking Nebulizer - as directed J18.9 and R06.2 05/05/2024 Active Nystatin 651997 UNIT/GM 1 application Externally Twice a day 01/26/2023 Active Nebulizer Mask Adult/Tubing - as directed J18.9 and R06.2 05/05/2024 Active Fluconazole 100 MG 1 tablet Orally once daily; Duration: 7 days Not-Taking Albuterol Sulfate (2.5 MG/3ML) 0.083% 3 mL as needed Inhalation every 6 hrs 05/05/2024 Active Furosemide 40 MG 1 tablet Orally Once a day, prn Not-Taking Lactulose 10 GM/15ML 15 mL as needed Orally Once a day; Duration: 30 days 12/07/2024 Active Calcium 500 MG 1 tablet with meals Orally Twice a day; Duration: 30 day(s) Active Immunizations Vaccine Route Administration Date Status [...] Status Risk Notes Problem Vitamin D deficiency (07794393) Vitamin D deficiency (E55.9) Active confirmed Problem Essential hypertension (60144099) Essential hypertension (I10) Active confirmed Problem Morbid obesity (872925319) Morbid obesity (E66.01) Active confirmed Problem Hypertriglyceridemia (221510572) Hypertriglyceridemia (E78.1) Active confirmed Problem Vitamin B12 deficiency (041701299) History of non anemic vitamin B12 deficiency (Z86.39) Active confirmed Problem Osteopenia (927694295) Osteopenia (M85.80) Active confirmed Problem Mixed anxiety and depressive disorder (972466874) Depression with anxiety (F41.8) Active confirmed Problem Acute constipation (548185376) Acute constipation (K59.00) Active confirmed Problem Sciatica (23065448) Lumbago with sciatica, right side (M54.41) Active confirmed Problem Pure hypercholesterolemia (137744131) Pure hypercholesterolemia (E78.0) Active confirmed Problem Mixed hyperlipidemia (887470035) Mixed hyperlipidemia (E78.2) Active confirmed Problem Adjustment disorder with depressed mood (93813230) Adjustment disorder with depressed mood (F43.21) Active confirmed Problem Adjustment disorder with mixed anxiety and depressed mood (357014622) Adjustment disorder with mixed anxiety and depressed mood (F43.23) Active confirmed Problem Chronic pain (07094195) Other chronic pain (G89.29) Active confirmed Problem Sciatica (08774778) Lumbago with sciatica, left side (M54.42) Active confirmed Problem Abnormal vaginal bleeding (371564873) DUB (dysfunctional uterine bleeding) (N93.8) Active confirmed Problem Postmenopausal state (05097228) Post-menopausal (Z78.0) Active confirmed Problem Obese class II (554367297934523) BMI 35.0-35.9,adult (Z68.35) Active confirmed Problem Acquired hypothyroidism (986420183) Acquired hypothyroidism (E03.9) Active confirmed Problem Kidney stone (32122393) Kidney stone (N20.0) Active confirmed Problem Arthropathy of lumba r facet joint (387841632) Lumbar facet arthropathy (M46.96) Active confirmed Problem Chronic vaginitis (55653794) Chronic vaginitis (N76.1) Active confirmed Problem Anemia (854420909) Anemia, unspe cified type (D64.9) Active confirmed Problem Sleep apnea (77956347) Sleep apnea, unspecified type (G47.30) Active confirmed Problem History of nutritional deficiency (67981678917866) History of vitamin D deficiency (Z86.39) Active confirmed Problem Ex-tobacco user (finding) (721124071) History of tobacco use (Z87.891) Active confirmed Problem Persistent cough (428160736) Persistent cough (R05) Active confirmed Problem Hypersomnia (00956296) Hypersomnia (G47.10) Active confirmed Problem Mammography abnormal (390879301) Abnormal mammogram of right breast (R92.8) Active confirmed Problem Degenerative disc disease (33799282) DDD (degenerative disc disease), lumbar (M51.36) Active confirmed Problem Chronic rhinitis (32169702) Rhinitis, unspecified type (J31.0) Active confirmed Problem Fibrocystic breast changes (30705110) Fibrocystic breast changes, unspecified laterality (N60.19) Active confirmed Problem Arthritis of knee (744387035) Arthritis of knee (M17.10) Active confirmed Problem Chronic kidney disease stage 2 (disorder) (541003890) CKD (chronic kidney disease) stage 2, GFR 60-89 ml/min (N18.2) Active confirmed Problem Bilirubinemia (31644689) Bilirubinemia (E80.6) Active confirmed Vital Signs Heart Rate 63 /min 12/30/2024 Blood pressure diastolic 82 mm Hg 12/30/2024 Height 66 in 12/30/2024 Blood pressure systolic 134 mm Hg 12/30/2024 Weight 000 lbs 12/30/2024 BMI 37.76 kg/m2 12/07/2024 Encounters Encounter Location Date Provider [facility] [address] [place] [id number] 01/28/2024 Nila Crowdy Yeast infection B37. 9 ; Upper back pain M54.9 ; Lower extremity edema R60.0 ; Rash R21 and Dysuria R30.0 [facility] [address] [place] [id number] 02/02/2024 Nila Crowdy Dysuria R30.0 [facility] [address] [place] [id number] 02/03/2024 Nila Crowdy Yeast infection B37. 9 ; Upper back pain M54.9 ; Lower extremity edema R60.0 ; Rash R21 and Dysuria R30.0 [facility] [address] [place] [id number] 05/17/2024 Bossman Chico Community acquired pneumonia, unspecified laterality J18.9 ; Fatigue, unspecified type R53.83 ; Vitamin D deficiency E55.9 and Vitamin B12 deficiency E53.8 [facility] [address] [place] [id number] 05/25/2024 Bossman [place] Essential hypertensi on I10 and Mixed hyperlipidemia E78.2 [facility] [address] [place] [id number] 08/01/2024 Bossman [place] Lumbago with sciatic a, right side M54.41 ; Lumbago with sciatica, left side M54.42 ; Acquired hypothyroidism E03.9 ; BMI 35.0-35.9,adult Z68.35 ; Depression with anxiety F41.8 and Morbid obesity E66.01 [facility] [place] [facility] [address] [place] [id number] 11/23/2024 Bossman [place] Essential hypertensi on I10 ; Acquired hypothyroidism E03.9 ; Elevated alkaline phosphatase level R74.8 ; Elevated LFTs R79.89 ; Other chronic pain G89.29 and Osteoporosis screening Z13.820 [facility] [address] [place], [place] [id number] 12/07/2024 Bossman [place] Chronic constipation K59.09 [facility] [address] [place] [id number] 12/21/2024 Bsosman [place] Left flank pain R10. A2 and Chronic constipation K59.09 [facility] [address] [place] [id number] 12/30/2024 Bossman [place] Midline low back ramana n without sciatica, unspecified chronicity M54.50 ; Compression fracture of L3 vertebra, initial encounter S32.030A ; Anemia, unspecified type D64.9 and Osteopenia M85.80 [facility] [address] [place], [place] [id number] 01/26/2024 Bossman [place] Tinea cruris B35.6 [facility] [address] [place] [id number] 01/29/2024 Nila Crowdy [facility] [address] [place] [id number] 02/10/2024 Nila Crowdy [facility] [address] [place] [id number] 04/26/2024 Bossman Chico [facility] [address] [place] [id number] 04/27/2024 Bossman [place] Yeast infection B37. 9 [facility] [address] [place] [id number] 05/04/2024 Bossman [place]ico [facility] [address] [place] [id number] 05/04/2024 Bossman Chico [facility] [address] [place] [id number] 05/20/2024 Bossman [place]ico [facility] [address] [place] [id number] 06/13/2024 Bossman [place] [facility] [address] [place] [id number] 08/04/2024 Bossman [place] [facility] [address] [place] [id number] 08/26/2024 Bossman [place] [facility] [address] [place] [id number] 10/21/2024 Bossman [place] [facility] [address] [place] [id number] 11/24/2024 Bossman [place] Assessments Encounter Date Diagnosis (ICD Code) Assessment Notes Treatment Notes Treatment Clinical Notes Section Notes 01/26/2024 Tinea cruris (ICD-10 - B35.6) 01/28/2024 Yeast infection (ICD-10 - B37.9) The nystatin powder and the ketoconazole cream did not help. Will try some fluconazole and nystatin cream. Will keep the area clean and dry. 01/28/2024 Upper back pain (ICD-10 - M54.9) Patient does not want to take muscle relaxants as she is afraid she will get tired and fall. Will start on some steroids for both her neck and upper back muscle pain as well as the rash on her legs. 02/03/2024 Yeast infection (ICD-10 - B37.9) Improving. Will do another week fo fluconazole. 04/27/2024 Yeast infection (ICD-10 - B37.9) 05/17/2024 Fatigue, unspecified type (ICD-10 - R53.83) 05/17/2024 Community acquired pneumonia, unspecified laterality (ICD-10 - J18.9) Clinically resolved 05/25/2024 Essential hypertension (ICD-10 - I10) Off of medication at this time 05/25/2024 Mixed hyperlipidemia (ICD-10 - E78.2) 08/01/2024 Lumbago with sciatica, right side (ICD-10 - M54.41) 08/01/2024 Lumbago with sciatica, left side (ICD-10 - M54.42) 11/23/2024 Essential hypertension (ICD-10 - I10) 12/07/2024 Chronic constipation (ICD-10 - K59.09) 12/21/2024 Chronic constipation (ICD-10 - K59.09) 12/21/2024 Left flank pain (ICD-10 - R10.A2) 11/23/2024 Acquired hypothyroidism (ICD-10 - E03.9) 12/30/2024 Compression fracture of L3 vertebra, initial encounter (ICD-10 - S32.030A) Patient has an appt. with Dr. Lozano next week to discuss treatment 12/30/2024 Midline low back pain without sciatica, unspecified chronicity (ICD-10 - M54.50) 12/30/2024 Anemia, unspecified type (ICD-10 - D64.9) Plan to recheck labs at f/u visit in 1 month 11/23/2024 Elevated alkaline phosphatase level (ICD-10 - R74.8) 08/01/2024 Acquired hypothyroidism (ICD-10 - E03.9) 05/17/2024 Vitamin D deficiency (ICD-10 - E55.9) 02/03/2024 Lower extremity edema (ICD-10 - R60.0) Can stop the lasix and only use prn. 02/03/2024 Upper back pain (ICD-10 - M54.9) Resolved. 02/02/2024 Dysuria (ICD-10 - R30.0) 01/28/2024 Lower extremity edema (ICD-10 - R60.0) Has lasix at home and will take a 40mg every other day and f/u in 1 week. Will get labs today. 01/28/2024 Rash (ICD-10 - R21) Will stop the diet pills as this could be causing her rash and swelling. Will f/u in 1 week. 02/03/2024 Rash (ICD-10 - R21) Resolved. 05/17/2024 Vitamin B12 deficiency (ICD-10 - E53.8) 08/01/2024 BMI 35.0-35.9,adult (ICD-10 - Z68.35) 11/23/2024 Elevated LFTs (ICD-10 - R79.89) 12/30/2024 Osteopenia (ICD-10 - M85.80) 11/23/2024 Other chronic pain (ICD-10 - G89.29) 08/01/2024 Depression with anxiety (ICD-10 - F41.8) 02/03/2024 Dysuria (ICD-10 - R30.0) Awaiting urine culture results. 01/28/2024 Dysuria (ICD-10 - R30.0) 08/01/2024 Morbid obesity (ICD-10 - E66.01) 11/23/2024 Osteoporosis screening (ICD-10 - Z13.820) 05/17/2024 Other Discharge summary with available lab/diagnostic imaging results obtained and reviewed. Discharge medication list reconciled. Appropriate counseling provided. Moderate Complexity Plan Of Treatment Pending Test Test Name Order Date DEXA Hip and Spine 11/23/2024 Next Appt Details Provider Name:Bossman Maggie kim, 01/31/2025 09:45:00 AM, [facility] [address] [facility], [address], [place], [place], [id number], Provider Name:Bossman kim, 05/23/2025 09:45:00 AM, [address] [facility] [address] [facility], [address], [place], [place], [id number], Insurance Providers Payer Name Payer Address Payer Phone Subscriber Number Group Number Insured Name Patient Relationship to Insured Coverage Start Date Coverage End Date [employer] (MEDICAR E) [address] [address] [place] [phone] [id number] [id number] AC Self - patient is the [...] Hospitalization History Reason Date(Month/Year) Chest Pulled Muscle- H ER 08/2015 Fell at Work- ER 12/11/2006 [facility]
== END 2025-01-17 23:59 | disposition home or self-care (01) ==
LOC: RAD 12:36
PROVIDERS: PCP Family Medicine; Visit Provider Anesthesiology
DX: S22.080A Wedge compression fracture of T11-T12 vertebra, initial encounter for closed fracture (principal); M99.73 Connective tissue and disc stenosis of intervertebral foramina of lumbar region; S32.030A Wedge compression fracture of third lumbar vertebra, initial encounter for closed fracture; Z98.890 Other specified postprocedural states
CPT/HCPCS: 72148

== ENCOUNTER 2025-01-25 09:28 | Outpatient (CLI) | payer MEDICARE, SELFPAY ==
--- OUTSIDE RECORDS SUMMARY | 2024-02-03 08:45 | XMS_ITS ---
[facility] [address] [facility] [address] [place] [id number] Care Team Providers Care Cutting Supervisor Name Role Phone Bossman Davison Primary Care Provider [phone] Nila [place] Unavailable [phone] Allergies Allergen (clinical drug ingredient) Drug/Non Drug Allergy documented on EMR Reaction Allergy Type Onset Date Status cefaclor Cefaclor Unknown Drug Allergy Active Penicillin Unknown Drug Allergy Active REASON FOR VISIT 1 week follow up Medications Medication SIG (Take, Route, Frequency, Duration) Notes Start Date End Date Status Furosemide 40 MG 1 tablet Orally Once a day, prn Active Potassium Chloride ER 10 MEQ TAKE 1 TABLET EVERY DAY; Duration: 90 Active Calcium 500 MG 1 tablet with meals Orally Twice a day; Duration: 30 day(s) Active CPAP Supplies 1 Set Use supplies as directed 05/28 Active CeleBREX 200 MG 1 capsule with food Orally Once a day; Duration: 30 day(s) Active Nystatin 800008 UNIT/GM 1 application Ex ternally Three times a day Active Ketoconazole 2 % 1 application Scoring Machine Operator ally Once a day 01/26/2023 Active Fluconazole 100 MG 1 tablet Orally once daily; Duration: 7 days Active Sertraline HCl 100 MG TAKE 2 TABLETS ONE TIME DAILY; Duration: 90 Active Nystatin 941803 UNIT/GM 1 application Ex ternally Twice a day 01/26/2023 Active Levothyroxine Sodium 150 MCG TAKE 1 TABLET ONE TIME DAILY IN THE MORNING ON AN EMPTY STOMACH; Duration: 90 Active Vital Signs Blood pressure systolic 130 mm Hg 02/03/20 24 Blood pressure diastolic 74 mm Hg 024 Heart Rate 63 /min 02/03/2024 Height 66 in 02/03/2024 Weight 237.6 lbs 02/03/2024 BMI 38.35 kg/m2 02/03/2024 Encounters Encounter Location Date Provider Diagnosis [facility] [address] [facility] [address] [facility] [address] [place] [id number] 02/03/2024 Nila Verde Yeast infection B37. 9 ; Upper back pain M54.9 ; Lower extremity edema R60.0 ; Rash R21 and Dysuria R30.0 Assessments Encounter Date Diagnosis (ICD Code) Assessment Notes Treatment Notes Treatment Clinical Notes Section Notes 02/03/2024 Yeast infection (ICD-10 - B37.9) Improving. Will do another week fo fluconazole. 02/03/2024 Upper back pain (ICD-10 - M54.9) Resolved. 02/03/2024 Lower extremity edema (ICD-10 - R60.0) Can stop the lasix and only use prn. 02/03/2024 Rash (ICD-10 - R21) Resolved. 02/03/2024 Dysuria (ICD-10 - R30.0) Awaiting urine culture results. Plan Of Treatment Medication Medication Name Sig Start Date Stop Date Notes Furosemide 40 MG 1 tablet Orally Once a day, prn Nystatin 933259 UNIT/GM 1 application Ex ternally Three times a day Fluconazole 100 MG 1 tablet Orally once daily; Duration: 7 days Treatment Notes Assessment Notes Yeast infection Improving. Will do a nother week fo fluconazole. Upper back pain Resolved. Lower extremity edema Can stop the lasix and only use prn. Rash Resolved. Dysuria Awaiting urine cultu re results. Next Appt Details Follow Up: via phone to repo rt test results, Reason: Provider Name:Bossman kim, 01/31/2025 09:45:00 AM, [address] [facility], [address], [place], [id number], Provider Name:Bossman kim, 05/23/2025 09:45:00 AM, [address] [facility], [address], [place], [id number], Progress Notes * VANI ACOB:1945 (79 yo F)Acc No.[id number]:02/03/2024 Progress Notes Patient: VANI HANSEN Provider: MIAH Solitario :1945 A ge:78 Y S ex:Female Date:02/03/2024 Address:[address] [place], [place] [address], [id number] Pcp:Bossman Davison Subjective: * Chief Complaints: * 1 . 1 week follow up. * HPI: U rology: The patient is here for a 1 week follow up on Dysuria. Pt states she is doing better. Pt states she has finished the antibiotics. Denies : frequent urination. D enies : burning sensation.?Denies : hematuria. D enies : fever. H PI: Back pain is much better since finishing the steroids. Her yeast infection went away but has come back since she stopped the fluconazole. * ROS: D ERMATOLOGY: no R kassy. n o H moustapha. G ASTROENTEROLOGY: no N ausea. n o V omiting. n o D iarrhea.? U ROLOGY: no D ifficulty urinating. n o B lood in urine. * Medical History: H ypertension with Microalbuminuria (07/2007), Esophageal Reflux, Restless Leg Syndrome, Anxiety, Menopausal, Sinusitis, Vitamin D Deficiency, Vitamin B12 Deficiency, Degenerative Disc Disease, L3-L4 disc herniation, Hypertriglyceridemia, Colon Polyps, 35 Year Smoking History, quit at age 52, Sleep Apnea, Compression fracture, T6, see CT scan 2022. * Surgical History: C -Section , Cholecystectomy , Neck Lymphnode Removal , RT Knee Meniscotomy 09/19/2005, D & C , LT Knee Meniscotomy 03/19/2007, Tubal Ligation , LT Eye Cataract Surgery 03/04/2011. * Hospitalization/Major Diagno stic Procedure: [facility] , Fell at Work- ER 12/11/2006, Chest Pulled Muscle- [facility] ER 08/2015. * Family History: F ather: . M other: . P aternal Grand Father: . P aternal Grand Mother: . M aternal Grand Father: . M aternal Grand Mother: .?2 brother(s) , 4 sister(s) . 1 son(s) . . * Social History: C URRENT TOBACCO USE S moking Status: Patient does NOT smoke. C affeine: yes, frequency:. Exercise: yes. Home smoke detector use: yes. Marital Status: . Past smoking status: no, 35 pack year history. Alcohol: no. * Medications: T aking CeleBREX 200 MG Capsule 1 capsule with food Orally Once a day , Taking Calcium 500 MG Tablet 1 tablet with meals Orally Twice a day , Taking CPAP Supplies 1 Set Use supplies as directed , Taking Potassium Chloride ER 10 MEQ Tablet Extended Release TAKE 1 TABLET EVERY DAY , Taking Levothyroxine Sodium 150 MCG Tablet TAKE 1 TABLET ONE TIME DAILY IN THE MORNING ON AN EMPTY STOMACH , Taking Sertraline HCl 100 MG Tablet TAKE 2 TABLETS ONE TIME DAILY , Taking Nystatin 392957 UNIT/GM Powder 1 application Externally Twice a day , Taking Ketoconazole 2 % Cream 1 application Externally Once a day , Taking Nystatin 227301 UNIT/GM Cream 1 application Externally Three times a day , Taking Furosemide 40 MG Tablet 1 tablet Orally Once a day , Discontinued Medrol 4 MG Tablet Therapy Pack as directed orally daily , Discontinued Fluconazole 100 MG Tablet 1 tablet Orally once daily , Medication List reviewed and reconciled with the patient * Allergies: P enicillin, Cefaclor. Objective: * Vitals: W t:237.6, Temp:97.8, BP:130/74, HR:63, Nurse:CHAITANYA, Ht: 66, BMI:38.35. * Examination: G eneral Examination: General Appearance: N AD. C hest: n ormal shape and expansion. H eart: R SR. L ungs: c lear to auscultation. A bdomen: bowel sounds present, soft and nontender, no organomegaly or masses, no guarding or rigidity. S kin: there is an erythematous foul smelling rash under both breasts and in the bilateral groin areas, it has improved since last visit, rash on the legs has resolved. P eripheral pulses: n ormal (2+) bilaterally. E xtremities: no leg edema. Assessment: * Assessment: 1. U pper back pain - M54.9 (Primary) 2 . Y east infection - B37.9 ? 3 . L ower extremity edema - R60.0 4 . R kassy - R21 5 . D ysuria - R30.0 Plan: * Treatment: 2. Y east infection Refill Fluconazole Tablet, 100 MG, 1 tablet, Orally, once daily, 7 days, 7, Refills 0; C ontinue Nystatin Cream, 359680 UNIT/GM, 1 application, Externally, Three times a day. Notes: Improving. Will do another week fo fluconazole. 3. L ower extremity edema Continue Furosemide Tablet, 40 MG, 1 tablet, Orally, Once a day, prn. Notes: Can stop the lasix and only use prn. 4. R kassy Notes: Resolved. 5. D ysuria Notes: Awaiting urine culture results. * Follow Up: v ia phone to report test results * Images: Billing Information: * Visit Code: 21204 Office Visit, Est Pt., Level 3. * Procedure Codes: * Electronic signature of MIAH Golden on 01/25/2025 at 09:31 AM EST Sign off status: Pending * Provider: MIAH Solitario Date: 04/04/2023 Generated for Adrianna peck/Haseeb/eTransmitting on: 03/27/2024 09:31 AM EST History and Physical Notes * HPI (History of Present Illness) Category Sub-Category Detail Notes Category Not es Urology frequent urination burning sensation hematuria fever Examination Category Sub-Category Detail Notes Category Not es General Examination Heart: RSR Lungs: clear to auscultatio n Abdomen: bowel sounds present , soft and nontender, no organomegaly or masses, no guarding or rigidity Extremities: no leg edema General Appearance: NAD Skin: there is an erythema tous foul smelling rash under both breasts and in the bilateral groin areas, it has improved since last visit, rash on the legs has resolved Peripheral pulses: normal (2+) bilatera lly Chest: normal shape and exp ansion
--- OUTSIDE RECORDS SUMMARY | 2024-05-17 05:15 | XMS_ITS ---
Author Organization [facility] Address [address] [place] [id number] Care Team Providers Care Pilot Control Operator Name Role Phone Bossman Davison Primary Care Provider [phone] Allergies Allergen (clinical drug ingredient) Drug/Non Drug Allergy documented on EMR Reaction Allergy Type Onset Date Status cefaclor Cefaclor Unknown Drug Allergy Active Penicillin Unknown Drug Allergy Active Results Component Value Reference Range Notes CBC Venipuncture (in house) Reviewed date:05/19/2024 10:08:21 AM Interpretation: Performing Lab: Notes/Report: wbc 10.5 3.5 - 10 lymph 20.9% 15 - 50 mid 6.4% 2 - 15 gran 72.7% 35 - 80 rbc 3.80 3.5 - 5.5 hgb 12.5 11.5 - 16.5 hct 37.1 35 - 55 mcv 97.8 75 - 100 mch 33.1 25 - 35 mchc 33.8 31 - 38 platlet 456 100 - 400 P-Vitamin B12 Reviewed date:05/20/2024 08:07:48 AM Interpretation:Normal Performing Lab: Notes/Report: Test performed by [facility] [address] [place] [address] , [address], [place] [address] Wilton Montejo MD, Serging Machine Operator CLIA: [id number] Vitamin B12 494 781-6115 pg/mL P-Comprehensive Metabolic Pa briseyda (CMP) Reviewed date:05/20/2024 08:07:48 AM Interpretation:Tremaine 10.8, Alk Phos 164, AST 54, A/G Ratio 0.9 Performing Lab: Notes/Report: Test performed by [facility] [address] [place] [address] , [address], [place] [address] Wilton Montejo MD, Serging Machine Operator CLIA: [id number] Sodium 137 135-145 mmol/L Potassium 5.1 3.5-5.3 mmol/L Chloride 100 97-108 mmol/L CO2 25 22-32 mmol/L Glucose 75 65-99 mg/dL BUN 15 8-23 mg/dL Creatinine 0.98 0.50-1.00 mg/dL Calcium 10.8 8.6-10.4 mg/dL eGFR by Creatinine 60 >59 mL/min/1.73m2 Protein 7.8 6.0-8.3 g/dL Albumin 3.7 3.5-5.3 g/dL Alkaline Phosphatase 164 35-121 IU/L ALT (SGPT) 39 <5-47 IU/L AST (SGOT) 54 <5-40 IU/L Bilirubin, Total 0.5 <0.2-1.2 mg/dL A/G Ratio 0.9 1.1-2.5 P-T4 Free (thyroxine) Reviewed date:05/20/2024 08:07:48 AM Interpretation:Normal Performing Lab: Notes/Report: Test performed by [facility] [address] [place] [address] , [place] [address] Wilton Montejo MD, Serging Machine Operator CLIA: [id number] Thyroxine Free (free T4) 1.21 0.86-1.76 ng/dL P-Magnesium Reviewed date:05/20/2024 08:07:48 AM Interpretation:Normal Performing Lab: Notes/Report: Test performed by [facility] [address] [place] [address] , [address], [place] [id number] Wilton Montejo MD, Serging Machine Operator CLIA: [id number] Magnesium 2.1 1.6-2.4 mg/dL P-Phosphorus Reviewed date:05/20/2024 08:07:48 AM Interpretation:Normal Performing Lab: Notes/Report: Test performed by [facility] [address] [place] [address] , [address], [place] [address] Wilton Montejo MD, Serging Machine Operator CLIA: [id number] Phosphorus 3.4 2.5-4.5 mg/dL P-TSH reflex to FT4 Reviewed date:05/20/2024 08:07:48 AM Interpretation:6.94 Performing Lab: Notes/Report: Test performed by [facility] [address] [place] [address] [address] , [place] [address] Wilton Montejo MD, Serging Machine Operator CLIA: [id number] TSH reflex to FT4 6.94 0.43-5.25 mU/L P-Vitamin D 25-Hydroxy Reviewed date:05/20/2024 08:07:48 AM Interpretation:114 Performing Lab: Notes/Report: Test performed by [facility] [address] [place] [address] [place] [address] Wilton Montejo MD, Serging Machine Operator CLIA: [id number] Vitamin D 25-Hydroxy 114.0 30.0-100.0 ng/mL Interpretation of Vitamin D 25 OH: < 20 ng/mL - Deficiency 20 - 29 ng/mL - Insufficiency 30 - 100 ng/mL - Sufficiency > 100 ng/mL - Super-therapeutic- toxicity may occur above this level. Clinical correlation required. REASON FOR VISIT [facility] d/c f/u Medications Medication SIG (Take, Route, Frequency, Duration) Notes Start Date End Date Status Nebulizer - as directed J18.9 and R06.2 05/05/2024 Active Celecoxib 100 MG 1 capsule with food Orally Once a day; Duration: 90 days 05/04/2024 Active Nystatin 481058 UNIT/GM 1 application Externally Three times a day Active Atorvastatin Calcium 10 MG 1 tablet Orally Once a day; Duration: 90 days 04/26/2024 Active Furosemide 40 MG 1 tablet Orally Once a day, prn Active Fluconazole 100 MG 1 tablet Orally once daily; Duration: 7 days Active Ketoconazole 2 % 1 application Externally Once a day 01/26/2023 Active Levothyroxine Sodium 150 MCG TAKE 1 TABLET ONE TIME DAILY IN THE MORNING ON AN EMPTY STOMACH; Duration: 90 Active Nystatin 854085 UNIT/GM 1 application Externally Twice a day 01/26/2023 Active Sertraline HCl 100 MG TAKE 2 TABLETS ONE TIME DAILY; Duration: 90 Active Calcium 500 MG 1 tablet with meals Orally Twice a day; Duration: 30 day(s) Active CPAP Supplies 1 Set Use supplies as directed 05/29/2023 Active Albuterol Sulfate (2.5 MG/3ML) 0.083% 3 mL as needed Inhalation every 6 hrs 05/05/2024 Active Potassium Chloride ER 10 MEQ TAKE 1 TABLET EVERY DAY; Duration: 90 Active Nebulizer Mask Adult/Tubing - as directed J18.9 and R06.2 05/05/2024 Active Vital Signs Blood pressure systolic 134 mm Hg 05/17/19 25 Blood pressure diastolic 70 mm Hg 025 Heart Rate 92 /min 05/17/2024 Height 66 in 05/17/2024 Weight 222.8 lbs 05/17/2024 BMI 35.96 kg/m2 05/17/2024 Encounters Encounter Location Date Provider Diagnosis [facility] [address] [place] [phone] 05/17/2024 Bossman Davison Community acquired pneumonia, unspecified laterality J18.9 ; Fatigue, unspecified type R53.83 ; Vitamin D deficiency E55.9 and Vitamin B12 deficiency E53.8 Assessments Encounter Date Diagnosis (ICD Code) Assessment Notes Treatment Notes Treatment Clinical Notes Section Notes 05/17/2024 Community acquired pneumonia, unspecified laterality (ICD-10 - J18.9) Clinically resolved 05/17/2024 Fatigue, unspecified type (ICD-10 - R53.83) 05/17/2024 Vitamin D deficiency (ICD-10 - E55.9) 05/17/2024 Vitamin B12 deficiency (ICD-10 - E53.8) 05/17/2024 Other Discharge summary with available lab/diagnostic imaging results obtained and reviewed. Discharge medication list reconciled. Appropriate counseling provided. Moderate Complexity Plan Of Treatment Treatment Notes Assessment Notes Community acquired pneumonia , unspecified laterality Clinically resolved Other Discharge summary [facility] available lab/diagnostic imaging results obtained and reviewed. Discharge medication list reconciled. Appropriate counseling provided. Moderate Complexity Next Appt Details Follow Up: 4 Weeks, Reason: Provider Name:Bossman kim, 01/31/2025 09:45:00 AM, [address], [address], [place], [id number], Provider Name:Bossman kim, 05/23/2025 09:45:00 AM, [address], [address], [place], [phone], Progress Notes * VNAI ACeDOB:1945 (79 yo F)Acc No.[id number]:05/17/2024 Patient: VANI HANSEN Provider: Isaac Davison M.D. :1945 A ge:78 Y S ex:Female Date:05/17/2024 Address:[address] [place] [address] [id number] Subjective: * Chief Complaints: * 1 . [facility] d/c f/u. * HPI: H PI: Patient is here today for a Transition of Care Visit. Discharge from the following Facility: [facility] , Discharge date: 0 05/04/2024 ,Date of phone contact following discharge: 05/05/2024. Pt admitted for pneumonia, pt states she is feeling better but still feels really weak . * ROS: D ERMATOLOGY: no R kassy. n o H moustapha. G ASTROENTEROLOGY: no N ausea. n o V omiting. U ROLOGY: no D ifficulty urinating. n [...] at Work- ER 12/11/2006, Chest Pulled Muscle- [facility] ER 08/2015. * Family History: F ather: [...] history. Alcohol: no. * Medications: T aking Calcium 500 MG Tablet 1 tablet with [...] TABLETS ONE TIME DAILY , Taking Nystatin 033406 UNIT/GM Powder 1 application Externally Twice a day , Taking Ketoconazole 2 % Cream 1 application Externally Once a day , Taking Fluconazole 100 MG Tablet 1 tablet Orally once daily , Taking Furosemide 40 MG Tablet 1 tablet Orally Once a day, prn , Taking Atorvastatin Calcium 10 MG Tablet 1 tablet Orally Once a day , Taking Nystatin 903920 UNIT/GM Cream 1 application Externally Three times a day , Taking Celecoxib 100 MG Capsule 1 capsule with food Orally Once a day , Taking Nebulizer - Miscellaneous as directed , Notes to Pharmacist: Alicia and R06.2, Taking Nebulizer Mask Adult/Tubing - Miscellaneous as directed , Notes to Pharmacist: Alicia and Wong6.2, Taking Albuterol Sulfate (2.5 MG/3ML) 0.083% Nebulization Solution 3 mL as needed Inhalation every 6 hrs , Medication List reviewed and reconciled with the patient * Allergies: P enicillin, Cefaclor. Objective: * Vitals: W t:222.8, Temp:97.8, BP:134/70, HR:92, O2 Sat:91% on RA, Nurse:adrienne, Ht: 66, BMI:35.96. * Examination: G eneral Examination: General Appearance: N AD, ambulates while holding on to another person's arm. H eart: R SR. L ungs: c lear to auscultation. E xtremities:?no leg edema. Assessment: * Assessment: 1. C ommunity acquired pneumonia, unspecified laterality - J18.9 (Primary) 2 .?Fatigue, unspecified type - R53.83 3 . V itamin D deficiency - E55.9 ? 4 . V itamin B12 deficiency - E53.8 Plan: * Treatment: Value Reference Range w bc 10.5 3.5 - 10 * l ymph 20.9% 15 - 50 * m id 6.4% 2 - 15 * g ran 72.7% 35 - 80 * r bc 3.80 3.5 - 5.5 * h gb 12.5 11.5 - 16.5 * h ct 37.1 35 - 55 * m cv 97.8 75 - 100 * m ch 33.1 25 - 35 * m chc 33.8 31 - 38 * p latlet 456 100 - 400 * Jovanna Leger 05/17/2024 11:50:2 4 AM > Notes: Clinically resolved??2.?Fatigue, unspecified type?LAB: P-Comprehensive Metabolic Panel (CMP) (Collection Date & Time - 05/17/2024 10:20 AM)?Tremaine 10.8, Alk Phos 164, AST 54, A/G Ratio 0.9* Value Reference Range A /G Ratio 0.9 L 1.1-2.5 - * A lbumin 3.7 3.5-5.3 - g/dL * A lkaline Phosphatase 164 H 35-121 - IU/L * A LT (SGPT) 39 <5-47 - IU/L * A ST (SGOT) 54 H <5-40 - IU/L * B ilirubin, Total 0.5 <0.2-1.2 - mg/dL * B UN 15 8-23 - mg/dL * C alcium 10.8 H 8.6-10.4 - mg/dL * C hloride 100 97-108 - mmol/L * C O2 25 22-32 - mmol/L * C reatinine 0.98 0.50-1.00 - mg/dL * G lucose 75 65-99 - mg/dL * P otassium 5.1 3.5-5.3 - mmol/L * S odium 137 135-145 - mmol/L * P rotein 7.8 6.0-8.3 - g/dL * e GFR by Creatinine 60 >59 - mL/min/1.73m2 * Alena Butts 05/20/2024 8:07 :37 AM > see phone encounter ?LAB: P-Magnesium (Collection Date & Time - 05/17/2024 10:20 AM)?Normal* Value Reference Range M agnesium 2.1 1.6-2.4 - mg/dL * Alena Butts 05/20/2024 8:07 :37 AM > see phone encounter ?LAB: P-Phosphorus (Collection Date & Time - 05/17/2024 10:20 AM)?Normal* Value Reference Range P hosphorus 3.4 2.5-4.5 - mg/dL * Alena Butts 05/20/2024 8:07 :37 AM > see phone encounter ?LAB: P-TSH reflex to FT4 (Collection Date & Time - 05/17/2024 10:20 AM)? 6.94* Value Reference Range T SH reflex to FT4 6.94 H 0.43-5.25 - mU/L * Alena Butts 05/20/2024 8:07 :37 AM > see phone encounter 3.?Vitamin D deficiency?LAB: P-Vitamin D 25-Hydroxy (Collection Date & Time - 05/17/2024 10:20 AM)? 114* Value Reference Range V itamin D 25-Hydroxy 114.0 H 30.0-100.0 - ng/mL * Alena Butts 05/20/2024 8:07 :37 AM > see phone encounter 4.?Vitamin B12 deficiency?LAB: P-Vitamin B12 (Collection Date & Time - 05/17/2024 10:20 AM)?Normal* Value Reference Range V itamin B12 823 977-1339 - pg/mL * Alena Butts 05/20/2024 8:07 :37 AM > see phone encounter 5.?Others? Notes: Discharge summary with available lab/diagnostic imaging results obtained and reviewed. Discharge medication list reconciled. Appropriate counseling provided. Moderate Complexity?? * Labs: * L ab: P-T4 Free (thyroxine) (Collection Date & Time - 05/17/2024 10:20 AM) N ormal Value Reference Range T hyroxine Free (free T4) 1.21 0.86-1.76 - ng/d L * [facility], IT support 05/20/2024 04:00:39 : This order was created by the Interface. Alena Butts 05/20/2024 8:07:37 AM > see phone encounter * Procedure Codes: G 2211 Complex e/[place], [address] TRANS CARE MGMT 14 DAY DISCH, 1111F DSCHR MED/CURENT MED MERGE, 22533 CBC WITH AUTO DIFF, 39246 PULSE OX, 3075F SYST BP GE 130 - 139MM HG, 3078F DIAST BP < 80 MM HG * Follow Up: 4 Weeks * Images: Billing Information: * Visit Code: 55480 Office Visit, Est Pt., Level 4. * Procedure Codes: G2211 Complex e/[place]. [address] TRANS CARE MGMT 14 DAY DISCH. 1111F DSCHR MED/CURENT MED MERGE. 02977 CBC WITH AUTO DIFF. 51285 PULSE OX. 3075F SYST BP GE 130 - 139MM HG. 3078F DIAST BP < 80 MM HG. * Electronic signature of Martina Davison MD on 01/25/2025 at 09:31 AM EST Sign off status: Pending * Provider: Isaac Davison M.D. Date: 0 05/17/2024 Generated for Adrianna peck/Haseeb/Robertoitting on: 1 03/27/2024 09:31 AM EST History and Physical Notes * HPI (History of Present Illness) Category Sub-Category Detail Notes Category Not es HPI Patient is here today for a [facility] sition of Care Visit. Discharge from the following Facility: [facility] ,Discharge date: 05/04/2024 ,Date of phone contact following discharge: 05/05/2024. Pt admitted for pneumonia, pt states she is feeling better but still feels really weak Examination Category Sub-Category Detail Notes Category Not es General Examination Heart: RSR Lungs: clear to auscultatio n Extremities: no leg edema General Appearance: NAD, ambulates while holding on to another person's arm
--- OUTSIDE RECORDS SUMMARY | 2024-05-25 05:30 | XMS_ITS ---
Author Organization [facility] Address [address] [facility] [address] [place] [id number] Care Team Providers Care Plastics Repairer Name Role Phone Saman Bossman Primary Care Provider [phone] Allergies Allergen (clinical drug ingredient) Drug/Non Drug Allergy documented on EMR Reaction Allergy Type Onset Date Status cefaclor Cefaclor Unknown Drug Allergy Active Penicillin Unknown Drug Allergy Active REASON FOR VISIT 6 months Medications Medication SIG (Take, Route, Frequency, Duration) Notes Start Date End Date Status Sertraline HCl 100 MG TAKE 2 TABLETS ONE TIME DAILY; Duration: 90 Active Potassium Chloride ER 10 MEQ TAKE 1 TABLET EVERY DAY; Duration: 90 Active Ketoconazole 2 % 1 application Externally Once a day 01/26/2023 Active Nystatin 426566 UNIT/GM 1 application Externally Twice a day 01/26/2023 Active CPAP Supplies 1 Set Use supplies as directed 05/29/2023 Active Atorvastatin Calcium 10 MG 1 tablet Orally Once a day; Duration: 90 days 04/26/2024 Active Albuterol Sulfate (2.5 MG/3ML) 0.083% 3 mL as needed Inhalation every 6 hrs 05/05/2024 Active Nebulizer Mask Adult/Tubing - as directed J18.9 and R06.2 05/05/2024 Active Levothyroxine Sodium 175 MCG 1 tablet in the morning on an empty stomach Orally Once a day; Duration: 30 day(s) 05/23/2024 Active Calcium 500 MG 1 tablet with meals Orally Twice a day; Duration: 30 day(s) Active Furosemide 40 MG 1 tablet Orally Once a day, prn Active Fluconazole 100 MG 1 tablet Orally once daily; Duration: 7 days Active Nystatin 713553 UNIT/GM 1 application Externally Three times a day Not-Taking Nebulizer - as directed J18.9 and R06.2 05/05/2024 Active Celecoxib 100 MG 1 capsule with food Orally Once a day; Duration: 90 days 05/04/2024 Active Vital Signs Blood pressure systolic 130 mm Hg 05/26/19 25 Blood pressure diastolic 74 mm Hg 025 Heart Rate 84 /min 05/25/2024 Height 66 in 05/25/2024 Weight 222 lbs 05/25/2024 BMI 35.83 kg/m2 05/25/2024 Encounters Encounter Location Date Provider Diagnosis [facility] [address] [place] [id number] 05/25/2024 Bossman Davison Essential hypertensi on I10 and Mixed hyperlipidemia E78.2 Assessments Encounter Date Diagnosis (ICD Code) Assessment Notes Treatment Notes Treatment Clinical Notes Section Notes 05/25/2024 Essential hypertension (ICD-10 - I10) Off of medication at this time 05/25/2024 Mixed hyperlipidemia (ICD-10 - E78.2) Plan Of Treatment Medication Medication Name Sig Start Date Stop Date Notes Atorvastatin Calcium 10 MG 1 tablet Oral ly Once a day; Duration: 90 days 04/26/2024 Treatment Notes Assessment Notes Essential hypertension Off of medication at this time Next Appt Details Follow Up: 6 Months, Reason: Provider Name:Bossman kim, 01/31/2025 09:45:00 AM, [address] [facility], [address], [place], [place], [id number], Provider Name:Bossman kim, 05/23/2025 09:45:00 AM, [address] [facility], [address], [place], [place], [phone], Progress Notes * VANI ACHelderOB:1945 (79 yo F)Acc No.[id number]:05/25/2024 Progress Notes Patient: VANI HANSEN Provider: Isaac Davison M.D. :1945 A ge:78 Y S ex:Female Date:05/25/2024 Address:[address] [place], [place] [address], [id number] Subjective: * Chief Complaints: * 1 . 6 months. * HPI: C ardiology: 78 year old female presents with c/o Blood Pressure Elevated?Pt here for 6 mo f/u on hypertension, states she is doing well and does not have any concerns.? c/o Hyperlipidemia P t is fasting today. E ndocrinology: c/o Hypothyroidism P t here to f/u. * ROS: D ERMATOLOGY: no R kassy. [...] 03/04/2011. * Hospitalization/Major Diagno stic Procedure: Chirag Mcleanon , Fell at Work- ER 12/11/2006, Chest Pulled Muscle- [facility] ER 08/2015. * Family History: F [...] TAKE 1 TABLET EVERY DAY , Taking Sertraline HCl 100 MG Tablet TAKE 2 TABLETS ONE TIME DAILY , Taking Nystatin 453936 UNIT/GM Powder 1 application Externally Twice a day , Taking Ketoconazole 2 % Cream 1 application Externally Once a day , Taking Fluconazole 100 MG Tablet 1 tablet Orally once daily , Taking Furosemide 40 MG Tablet 1 tablet Orally Once a day, prn , Taking Atorvastatin Calcium 10 MG Tablet 1 tablet Orally Once a day , Taking Celecoxib 100 MG Capsule 1 capsule with food Orally Once a day , Taking Nebulizer - Miscellaneous as directed , Notes to Pharmacist: Terry.Gina and R06.2, Taking Nebulizer Mask Adult/Tubing - Miscellaneous as directed , Notes to Pharmacist: Alicai and R06.2, Taking Albuterol Sulfate (2.5 MG/3ML) 0.083% Nebulization Solution 3 mL as needed Inhalation every 6 hrs , Taking Levothyroxine Sodium 175 MCG Tablet 1 tablet in the morning on an empty stomach Orally Once a day , Not-Taking Nystatin 206499 UNIT/GM Cream 1 application Externally Three times a day , Medication List reviewed and reconciled with the patient * Allergies: P enicillin, Cefaclor. Objective: * Vitals: W t:222, Temp:97.8, BP:130/74, HR:84, O2 Sat:95% on RA, Nurse:adrienne, Ht: 66, BMI:35.83. * Examination: G eneral Examination: General Appearance: N AD. H eart: R SR. L ungs:?clear to auscultation. E xtremities: n o leg edema. Assessment: * Assessment: 1. E ssential hypertension - I10 (Primary) 2 . M ixed hyperlipidemia - E78.2 Plan: * Treatment: 2. M ixed hyperlipidemia Refill Atorvastatin Calcium Tablet, 10 MG, 1 tablet, Orally, Once a day, 90 days, 90 Tablet, Refills 1. * Procedure Codes: G 2211 Complex e/m visit add on, 3075F SYST BP GE 130 - 139MM HG, 3078F DIAST BP < 80 MM HG * Follow Up: 6 Months * Images: Billing Information: * Visit Code: 51483 Office Visit, Est Pt., Level 3. * Procedure Codes: G2211 Complex e/m visit add on. 3075F SYST BP GE 130 - 139MM HG. 3078F DIAST BP < 80 MM HG. * Electronic signature of Martina Davison MD on 01/25/2025 at 09:31 AM EST Sign off status: Pending * Provider: Isaac Davison M.D. Date: 0 05/25/2024 Generated for Adrianna peck/Haseeb/eTransmitting on: 03/27/2024 09:31 AM EST History and Physical Notes * HPI (History of Present Illness) Category Sub-Category Detail Notes Category Not es Endocrinology Hypothyroidism Pt here to f/u Cardiology Blood Pressure Elevated Pt here for 6 mo f/u on hypertension, states she is doing well and does not have any concerns Hyperlipidemia Pt is fasting today Examination Category Sub-Category Detail Notes Category Not es General Examination Heart: RSR Lungs: clear to auscultatio n Extremities: no leg edema General Appearance: NAD
--- OUTSIDE RECORDS SUMMARY | 2024-06-14 05:15 | XMS_ITS ---
Author Organization [facility] Address [address] [place] [id number] Care Team Providers Care Management Aide Name Role Phone Bossman Davison Primary Care Provider REASON FOR VISIT 4 week f/u Encounters Encounter Location Date Provider Diagnosis [facility] [address] [place], [place] [phone] 06/14/2024 Bossman Davison Plan Of Treatment Next Appt Details Provider Name:Bossman kim, 01/31/2025 09:45:00 AM, [address], [address], [place], [place], [id number], Provider Name:Bossman kim, 05/23/2025 09:45:00 AM, [address], [address], [place], [place], [phone], Progress Notes * VANI ACeDOB:1945 (79 yo F)Acc No.[id number]:06/14/2024 Progress Notes Patient: VANI HANSEN Provider: Isaac Davison M.D. :1945 A ge:78 Y S ex:Female Date:06/14/2024 Address:[address] [place], [place] [address] [id number] Subjective: * Chief Complaints: * 1 . 4 week f/u. * Medical History: Objective: * Vitals: Assessment: Plan: * Treatment: * Images: Billing Information: * Visit Code: * Procedure Codes: * Electronic signature of Martina Davison MD on 01/25/2025 at 09:31 AM EST Sign off status: Pending * Provider: Isaac Davison M.D. Date: 0 06/14/2024 Generated for Adrianna peck/Haseeb/Hung on: 1 03/27/2024 09:31 AM EST
--- OUTSIDE RECORDS SUMMARY | 2024-08-01 06:00 | XMS_ITS ---
Author Organization [facility] Address [address] [facility] [address] [place] [id number] Care Team Providers Care Laborer Cutting Tool Name Role Phone Saman Bossman Primary Care Provider [phone] Allergies Allergen (clinical drug ingredient) Drug/Non Drug Allergy documented on EMR Reaction Allergy Type Onset Date Status cefaclor Cefaclor Unknown Drug Allergy Active Penicillin Unknown Drug Allergy Active Results Component Value Reference Range Notes X ray : Spine, lumbosacral Reviewed date:08/04/2024 12:30:41 PM Interpretation: Performing Lab: Notes/Report: REASON FOR VISIT severe lower back pain Medications Medication SIG (Take, Route, Frequency, Duration) Notes Start Date End Date Status Gabapentin 300 MG 1 capsule Orally Two times a day; Duration: 30 days 08/01/2024 Active Atorvastatin Calcium 10 MG TAKE 1 TABLET AT BEDTIME; Duration: 90 Active Levothyroxine Sodium 175 MCG 1 tablet in the morning on an empty stomach Orally Once a day; Duration: 30 day(s) 05/23/2024 Active Nystatin 933234 UNIT/GM APPLY TO THE AFF ECTED AREA(S) THREE TIMES DAILY; Duration: 30 Active Sertraline HCl 100 MG TAKE 2 TABLETS ONE TIME DAILY; Duration: 90 Active Furosemide 40 MG 1 tablet Orally Once a day, prn Active Albuterol Sulfate (2.5 MG/3ML) 0.083% 3 mL as needed Inhalation every 6 hrs 05/05/2024 Active Nebulizer - as directed J18.9 and R06.2 05/05/2024 Active Nebulizer Mask Adult/Tubing - as directed J18.9 and R06.2 05/05/2024 Active Celecoxib 100 MG 1 capsule with food Orally Once a day; Duration: 90 days 05/04/2024 Active Fluconazole 100 MG 1 tablet Orally once daily; Duration: 7 days Active Nystatin 060898 UNIT/GM 1 application Externally Twice a day 01/26/2023 Active Ketoconazole 2 % 1 application Externally Once a day 01/26/2023 Active CPAP Supplies 1 Set Use supplies as directed 05/29/2023 Active Potassium Chloride ER 10 MEQ TAKE 1 TABLET EVERY DAY; Duration: 90 Active Calcium 500 MG 1 tablet with meals Orally Twice a day; Duration: 30 day(s) Active Problems Problem Type SNOMED Code ICD Code Onset Dates Problem Status W/U Status Risk Notes Problem Sciatica (85706374) Lumbago with sciatica, left side (M54.42) Active confirmed Problem Obese class II (2295081452639 ) BMI 35.0-35.9,lexie lt (Z68.35) Active confirmed Vital Signs Blood pressure systolic 120 mm Hg 08/02/19 25 Blood pressure diastolic 62 mm Hg 025 Heart Rate 76 /min 08/01/2024 Height 66 in 08/01/2024 Weight 219.2 lbs 08/01/2024 BMI 35.38 kg/m2 08/01/2024 Encounters Encounter Location Date Provider Diagnosis [facility] [place] [facility] [facility] [address] [phone] 08/01/2024 Bossman [place] Lumbago with sciatic a, right side M54.41 ; Lumbago with sciatica, left side M54.42 ; Acquired hypothyroidism E03.9 ; BMI 35.0-35.9,adult Z68.35 ; Depression with anxiety F41.8 and Morbid obesity E66.01 Assessments Encounter Date Diagnosis (ICD Code) Assessment Notes Treatment Notes Treatment Clinical Notes Section Notes 08/01/2024 Lumbago with sciatica, right side (ICD-10 - M54.41) 08/01/2024 Lumbago with sciatica, left side (ICD-10 - M54.42) 08/01/2024 Acquired hypothyroidism (ICD-10 - E03.9) 08/01/2024 BMI 35.0-35.9,adult (ICD-10 - Z68.35) 08/01/2024 Depression with anxiety (ICD-10 - F41.8) 08/01/2024 Morbid obesity (ICD-10 - E66.01) Plan Of Treatment Medication Medication Name Sig Start Date Stop Date Notes Gabapentin 300 MG 1 capsule Orally Two times a day; Duration: 30 days 08/01/2024 Next Appt Details Follow Up: via phone to repo rt test results, Reason: Provider Name:Bossman Riggins judy, 01/31/2025 09:45:00 AM, [address] [facility] [address], [place], [phone], Provider Name:Bossman Riggins judy, 05/23/2025 09:45:00 AM, [address], [address], [place], [phone], Progress Notes * VANI ACHelderOB:1945 (79 yo F)Acc No.[id number]:08/01/2024 Progress Notes Patient: VANI HANSEN Provider: Isaac Davison M.D. :1945 A ge:78 Y S ex:Female Date:08/01/2024 Address:[address] [place], [place] [address]ANDERSON [facility]CM[facility]GLEND[facility]OSPITALAI-[id number] Subjective: * Chief Complaints: * 1 . Severe lower back pain. * HPI: L ower back: 78 year old female presents with c/o Low Back Pain P t presents today with c/o pain across her lower back. Pts granddaughter is with her today and she sts that since fracturing her hip in April she has been doing PT. Pt was leaning down to clam picker her dog to sit it in the chair beside her and when she leaned down she felt a pop and this happened about a month ago. Pts granddaughter sts that she has been crying in pain. Pt sts that she has a hard time getting up and down from a seated position and is needing something done. * ROS: D ERMATOLOGY: no R kassy. [...] at Work- ER 12/11/2006, Chest Pulled Muscle- [facility] ER 08/2015. * Family History: F [...] TAKE 1 TABLET EVERY DAY , Taking Nystatin 749080 UNIT/GM Powder 1 application Externally Twice a day , Taking Ketoconazole 2 % Cream 1 application Externally Once a day , Taking Fluconazole 100 MG Tablet 1 tablet Orally once daily , Taking Furosemide 40 MG Tablet 1 tablet Orally Once a day, prn , Taking Celecoxib 100 MG Capsule 1 capsule with food Orally Once a day , Taking Nebulizer - Miscellaneous as directed , Notes to Pharmacist: Terry.Gina and R06.2, Taking Nebulizer Mask Adult/Tubing - Miscellaneous as directed , Notes to Pharmacist: Terry.Gina and R06.2, Taking Albuterol Sulfate (2.5 MG/3ML) 0.083% Nebulization Solution 3 mL as needed Inhalation every 6 hrs , Taking Sertraline HCl 100 MG Tablet TAKE 2 TABLETS ONE TIME DAILY , Taking Levothyroxine Sodium 175 MCG Tablet 1 tablet in the morning on an empty stomach Orally Once a day , Taking Nystatin 688828 UNIT/GM Cream APPLY TO THE AFFECTED AREA(S) THREE TIMES DAILY , Taking Atorvastatin Calcium 10 MG Tablet TAKE 1 TABLET AT BEDTIME , Medication List reviewed and reconciled with the patient * Allergies: P enicillin, Cefaclor. Objective: * Vitals: W t: 219.2, Temp: 97.9, BP: 120/62, HR: 76, Nurse: RAJIV, Ht: 66, BMI:35.38. * Examination: G eneral Examination: General Appearance: N AD , uncomfortable due to pain. ? L ower back: Straight leg raising test: p ositive at 45 degrees on left.?Motor system: d ecreased hamstring strength on left. G ait: s tands and moves slowly due to pain. Assessment: * Assessment: 1. L umbago with sciatica, right side - M54.41 (Primary) 2 . L umbago with sciatica, left side - M54.42 3 . A cquired hypothyroidism - E03.9 ?4. B [place] 35.0-35.9,adult - Z68.35 5 . D epression with anxiety - F41.8 6. M orbid obesity - E66.01 Plan: * Treatment: 2.?Lumbago with sciatica, left side? Start Gabapentin Capsule, 300 MG, 1 capsule, Orally, Two times a day, 30 days, 60 Capsule, Refills 0.?Imaging: X ray : Spine, lumbosacral (Performed Date - 08/01/2024)* Alena Butts 08/04/2024 12: 30:33 PM > see phone encounter * Procedure Codes: G 2211 Complex e/m visit add on, 3074F SYST BP LT 130 MM HG, 3078F DIAST BP < 80 MM HG * Follow Up: v ia phone to report test results * Images: Billing Information: * Visit Code: 33826 Office Visit, Est Pt., Level 3. * Procedure Codes: G2211 Complex e/m visit add on. 3074F SYST BP LT 130 MM HG. 3078F DIAST BP < 80 MM HG. * Electronic signature of Martina Davison MD on 01/25/2025 at 09:32 AM EST Sign off status: Pending * Provider: Isaac Davison M.D. Date: 0 08/01/2024 Generated for Adrianna peck/Haseeb/Hung on: 1 03/27/2024 09:32 AM EST History and Physical Notes * HPI (History of Present Illness) Category Sub-Category Detail Notes Category Not es Lower back Low Back Pain Pt presents toda y with c/o pain across her lower back. Pts granddaughter is with her today and she sts that since fracturing her hip in April she has been doing PT. Pt was leaning down to clam picker her dog to sit it in the chair beside her and when she leaned down she felt a pop and this happened about a month ago. Pts granddaughter sts that she has been crying in pain. Pt sts that she has a hard time getting up and down from a seated position and is needing something done Examination Category Sub-Category Detail Notes Category Not es General Examination General Appearance: NAD , un comfortable due to pain Lower back Straight leg raising test: positive at 45 degrees on left Motor system: decreased hamstring strength on left Gait: stands and moves slo wly due to pain
--- OUTSIDE RECORDS SUMMARY | 2024-11-23 05:00 | XMS_ITS ---
Author Organization [facility] Address [address] [place] [id number] Care Team Providers Care Catalogue And Special Products Manager Name Role Phone Bossman Davison Primary Care Provider Allergies Allergen (clinical drug ingredient) Drug/Non Drug Allergy documented on EMR Reaction Allergy Type Onset Date Status cefaclor Cefaclor Unknown Drug Allergy Active Penicillin Unknown Drug Allergy Active Results Component Value Reference Range Notes P-Comprehensive Metabolic Pa briseyda (CMP) Reviewed date:11/24/2024 11:45:52 AM Interpretation:Tremaine 10.6, Alk Phos 125 Performing Lab: Notes/Report: Test performed by [facility] [address] [place] [address] , [address], [place] [address] Wilton Montejo MD, Event Sales Manager CLIA: [id number] Sodium 142 135-145 mmol/L Potassium 4.4 3.5-5.3 mmol/L Chloride 106 97-108 mmol/L CO2 25 20-32 mmol/L Glucose 87 65-99 mg/dL BUN 16 8-23 mg/dL Creatinine 0.89 0.50-1.00 mg/dL Calcium 10.6 8.6-10.4 mg/dL eGFR by Creatinine 67 >59 mL/min/1.73m2 Protein 7.4 6.0-8.3 g/dL Albumin 4.1 3.5-5.3 g/dL Alkaline Phosphatase 125 35-121 IU/L ALT (SGPT) 20 <5-47 IU/L AST (SGOT) 32 <5-40 IU/L Bilirubin, Total 0.8 <0.2-1.2 mg/dL A/G Ratio 1.2 1.1-2.5 P-T4 Free (thyroxine) Reviewed date:11/24/2024 11:45:52 AM Interpretation:0.86 Performing Lab: Notes/Report: Test performed by [facility] [address] [place] [address] , [address], [place] [address] Wilton Montejo MD, Event Sales Manager CLIA: [id number] Thyroxine Free (free T4) 0.86 0.86-1.76 ng/dL P-TSH Reviewed date:11/24/2024 11:45:52 AM Interpretation:Normal Performing Lab: Notes/Report: Test performed by [facility] [address] , [address], [place] [address] Wilton Montejo MD, Event Sales Manager CLIA: [id number] TSH 2.02 0.43-5.25 mU/L REASON FOR VISIT 6 month f/u Medications Medication SIG (Take, Route, Frequency, Duration) Notes Start Date End Date Status Sertraline HCl 100 MG TAKE 2 TABLETS ONE TIME DAILY; Duration: 90 Active Atorvastatin Calcium 10 MG TAKE 1 TABLET AT BEDTIME; Duration: 90 Active CPAP Mask as directed nightly 10/21/2024 Active Levothyroxine Sodium 175 MCG 1 tablet in the morning on an empty stomach Orally Once a day; Duration: 90 days Active Celecoxib 100 MG 1 capsule with food Orally Once a day; Duration: 90 days Active Nebulizer - as directed J18.9 and R06.2 05/05/2024 Active Furosemide 40 MG 1 tablet Orally Once a day, prn Active Nystatin 896711 UNIT/GM APPLY TO THE AFF ECTED AREA(S) THREE TIMES DAILY; Duration: 30 Active Albuterol Sulfate (2.5 MG/3ML) 0.083% 3 mL as needed Inhalation every 6 hrs 05/05/2024 Active Nebulizer Mask Adult/Tubing - as directed J18.9 and R06.2 05/05/2024 Active Fluconazole 100 MG 1 tablet Orally once daily; Duration: 7 days Active Ketoconazole 2 % 1 application Externally Once a day 01/26/2023 Active Nystatin 949938 UNIT/GM 1 application Externally Twice a day 01/26/2023 Active Potassium Chloride ER 10 MEQ TAKE 1 TABLET EVERY DAY; Duration: 90 Active CPAP Supplies 1 Set Use supplies as directed 05/29/2023 Active Gabapentin 300 MG 1 capsule Orally Two times a day; Duration: 30 days 11/23/2024 Active Calcium 500 MG 1 tablet with meals Orally Twice a day; Duration: 30 day(s) Active Vital Signs Blood pressure systolic 136 mm Hg 11/24/19 25 Blood pressure diastolic 72 mm Hg 025 Heart Rate 62 /min 11/23/2024 Height 66 in 11/23/2024 Weight 234.6 lbs 11/23/2024 BMI 37.86 kg/m2 11/23/2024 Encounters Encounter Location Date Provider Diagnosis [facility] [address] [place] [id number] 11/23/2024 Bossman Davison Essential hypertensi on I10 ; Acquired hypothyroidism E03.9 ; Elevated alkaline phosphatase level R74.8 ; Elevated LFTs R79.89 ; Other chronic pain G89.29 and Osteoporosis screening Z13.820 Assessments Encounter Date Diagnosis (ICD Code) Assessment Notes Treatment Notes Treatment Clinical Notes Section Notes 11/23/2024 Essential hypertension (ICD-10 - I10) 11/23/2024 Acquired hypothyroidism (ICD-10 - E03.9) 11/23/2024 Elevated alkaline phosphatase level (ICD-10 - R74.8) 11/23/2024 Elevated LFTs (ICD-10 - R79.89) 11/23/2024 Other chronic pain (ICD-10 - G89.29) 11/23/2024 Osteoporosis screening (ICD-10 - Z13.820) Plan Of Treatment Medication Medication Name Sig Start Date Stop Date Notes Gabapentin 300 MG 1 capsule Orally Two times a day; Duration: 30 days 11/23/2024 Next Appt Details Follow Up: 6 Months, Reason: Provider Name:Bossman kim, 01/31/2025 09:45:00 AM, [address] [facility], [address], [place], [id number], Provider Name:Bossman kim, 05/23/2025 09:45:00 AM, [address] [facility], [address], [place], [phone], Progress Notes * VANI AC:1945 (79 yo F)Acc No.[id number]:11/23/2024 Progress Notes Patient: VANI HANSEN Provider: Isaac Davison M.D. :1945 A ge:79 Y S ex:Female Date:11/23/2024 Address:[address] [place] [address], [id number] Subjective: * Chief Complaints: * 1 . 6 month f/u. * HPI: C ardiology: 79 year old female presents with c/o BloodPressure at Home P t is here for 6 month check up on h ypertension. Pt states she is doing well and does not have any concerns at this time. c/o Hyperlipidemia P t is fasting today. * ROS: D ERMATOLOGY: no R kassy. [...] 03/04/2011. * Hospitalization/Major Diagno stic Procedure: K idney Infecton , Fell at Work- ER 12/11/2006, Chest Pulled Muscle- [facility] ER 08/2015. * Family History: F ather: . M other: . P aternal Grand Father: . P aternal Grand Mother: . M aternal Grand Father: . M aternal Grand Mother: .?2 brother(s) , 4 sister(s) . 1 son(s) . . * Social History: C URRENT TOBACCO USE: No S moking Status: Patient does NOT smoke. [...] 1 TABLET EVERY DAY , Taking Nystatin 470258 UNIT/GM Powder 1 application Externally Twice a day , Taking Ketoconazole 2 % Cream 1 application Externally Once a day , Taking Fluconazole 100 MG Tablet 1 tablet Orally once daily , Taking Furosemide 40 MG Tablet 1 tablet Orally Once a day, prn , Taking Nebulizer - Miscellaneous as directed , Notes to Pharmacist: Terry.Gina and R06.2, Taking Nebulizer Mask Adult/Tubing - Miscellaneous as directed , Notes to Pharmacist: Alicia and R06.2, Taking Albuterol Sulfate (2.5 MG/3ML) 0.083% Nebulization Solution 3 mL as needed Inhalation every 6 hrs , Taking Nystatin 802866 UNIT/GM Cream APPLY TO THE AFFECTED AREA(S) THREE TIMES DAILY , Taking Atorvastatin Calcium 10 MG Tablet TAKE 1 TABLET AT BEDTIME , Taking Gabapentin 300 MG Capsule 1 capsule Orally Two times a day , Taking Celecoxib 100 MG Capsule 1 capsule with food Orally Once a day , Taking Levothyroxine Sodium 175 MCG Tablet 1 tablet in the morning on an empty stomach Orally Once a day , Taking CPAP Mask as directed as directed nightly , Taking Sertraline HCl 100 MG Tablet TAKE 2 TABLETS ONE TIME DAILY , Medication List reviewed and reconciled with the patient * Allergies: P enicillin, Cefaclor. Objective: * Vitals: W t: 234.6, Temp: 97.8, BP: 136/72, HR: 62, Nurse: BONNIE, Ht: 66, BMI:37.86. * Examination: G eneral Examination: General Appearance: N AD, using a walker to assist with ambulation. H eart: R SR. L ungs: c lear to auscultation. E xtremities: n o leg edema. Assessment: * Assessment: 1. E ssential hypertension - I10 (Primary) 2 . A cquired hypothyroidism - E03.9 3 . E levated alkaline phosphatase level - R74.8 4 . E levated LFTs - R79.89 5 . O ther chronic pain - G89.29 6 . O steoporosis screening - Z13.820 Plan: * Treatment: Value Reference Range T hyroxine Free (free T4) 0.86 0.86-1.76 - ng/d L * Alena Butts 11/24/2024 11:4 5:44 AM EDT > See phone encounter ?LAB: P-TSH (Collection Date & Time - 11/23/2024 10:00 AM)?Normal* Value Reference Range T SH 2.02 0.43-5.25 - mU/L * Alena Butts 11/24/2024 11:4 5:44 AM EDT > See phone encounter 2.?Elevated alkaline phosphatase level?LAB: P-Comprehensive Metabolic Panel (CMP) (Collection Date & Time - 11/23/2024 10:00 AM)?Tremaine 10.6, Alk Phos 125* Value Reference Range A /G Ratio 1.2 1.1-2.5 - * A lbumin 4.1 3.5-5.3 - g/dL * A lkaline Phosphatase 125 H 35-121 - IU/L * A LT (SGPT) 20 <5-47 - IU/L * A ST (SGOT) 32 <5-40 - IU/L * B ilirubin, Total 0.8 <0.2-1.2 - mg/dL * B UN 16 8-23 - mg/dL * C alcium 10.6 H 8.6-10.4 - mg/dL * C hloride 106 97-108 - mmol/L * C O2 25 20-32 - mmol/L * C reatinine 0.89 0.50-1.00 - mg/dL * G lucose 87 65-99 - mg/dL * P otassium 4.4 3.5-5.3 - mmol/L * S odium 142 135-145 - mmol/L * P rotein 7.4 6.0-8.3 - g/dL * e GFR by Creatinine 67 >59 - mL/min/1.73m2 * Alena Butts 11/24/2024 11:4 5:44 AM EDT > See phone encounter 3.?Elevated LFTs?LAB: P-Comprehensive Metabolic Panel (CMP) (Collection Date & Time - 11/23/2024 10:00 AM)?Tremaine 10.6, Alk Phos 125* Value Reference Range A /G Ratio 1.2 1.1-2.5 - * A lbumin 4.1 3.5-5.3 - g/dL * A lkaline Phosphatase 125 H 35-121 - IU/L * A LT (SGPT) 20 <5-47 - IU/L * A ST (SGOT) 32 <5-40 - IU/L * B ilirubin, Total 0.8 <0.2-1.2 - mg/dL * B UN 16 8-23 - mg/dL * C alcium 10.6 H 8.6-10.4 - mg/dL * C hloride 106 97-108 - mmol/L * C O2 25 20-32 - mmol/L * C reatinine 0.89 0.50-1.00 - mg/dL * G lucose 87 65-99 - mg/dL * P otassium 4.4 3.5-5.3 - mmol/L * S odium 142 135-145 - mmol/L * P rotein 7.4 6.0-8.3 - g/dL * e GFR by Creatinine 67 >59 - mL/min/1.73m2 * Alena Butts 11/24/2024 11:4 5:44 AM EDT > See phone encounter 4.?Other chronic pain? Refill Gabapentin Capsule, 300 MG, 1 capsule, Orally, Two times a day, 30 days, 60 Capsule, Refills2.?? * Procedure Codes: G 2211 Complex e/m visit add on, 1036F TOBACCO NON-USER, G8950 PREHTN/HTN BP DOC INDCD F/U DOC, G8752 MOST RECENT SYSTOLIC BP < 140MM HG, G8754 MOST RECENT DIASTOLIC BP < 90MM HG * Follow Up: 6 Months * Images: Billing Information: * Visit Code: 07807 Office Visit, Est Pt., Level 4. * Procedure Codes: G2211 Complex e/m visit add on. 1036F TOBACCO NON-USER. G8950 PREHTN/HTN BP DOC INDCD F/U DOC. G8752 MOST RECENT SYSTOLIC BP < 140MM HG. G8754 MOST RECENT DIASTOLIC BP < 90MM HG. * Electronic signature of Martina Davison MD on 01/25/2025 at 09:31 AM EST Sign off status: Pending * Provider: Isaac Davison M.D. Date: 0 11/23/2024 Generated for Adrianna peck/Haseeb/Robertoitting on: 1 03/27/2024 09:31 AM EST History and Physical Notes * HPI (History of Present Illness) Category Sub-Category Detail Notes Category Not es Cardiology BloodPressure at Home Pt is here for 6 month check up on hypertension. Pt states she is doing well and does not have any concerns at this time Hyperlipidemia Pt is fasting today Examination Category Sub-Category Detail Notes Category Not es General Examination Heart: RSR Lungs: clear to auscultatio n Extremities: no leg edema General Appearance: NAD, using a walker to assist with ambulation
--- OUTSIDE RECORDS SUMMARY | 2024-12-07 06:00 | XMS_ITS ---
Author Organization [facility] Address [address] [facility] [address] [place] [id number] Care Team Providers Care Retail Greeting Card Merchandiser Name Role Phone [place], Bossman Primary Care Provider Allergies Allergen (clinical drug ingredient) Drug/Non Drug Allergy documented on EMR Reaction Allergy Type Onset Date Status cefaclor Cefaclor Unknown Drug Allergy Active Penicillin Unknown Drug Allergy Active REASON FOR VISIT [facility] ER Follow Up, Abdominal Pain Medications Medication SIG (Take, Route, Frequency, Duration) Notes Start Date End Date Status Lactulose 10 GM/15ML 15 mL as needed Orally Once a day; Duration: 30 days 12/07/2024 Active Sertraline HCl 100 MG TAKE 2 TABLETS ONE TIME DAILY; Duration: 90 Active CPAP Mask as directed nightly 10/21/2024 Active Levothyroxine Sodium 200 MCG 1 tablet in the morning on an empty stomach Orally Once a day; Duration: 90 days 11/24/2024 Active Gabapentin 300 MG 1 capsule Orally Two times a day; Duration: 30 days 11/23/2024 Active Nebulizer Mask Adult/Tubing - as directed J18.9 and R06.2 05/05/2024 Active Nystatin 816925 UNIT/GM APPLY TO THE AFF ECTED AREA(S) THREE TIMES DAILY; Duration: 30 Active Albuterol Sulfate (2.5 MG/3ML) 0.083% 3 mL as needed Inhalation every 6 hrs 05/05/2024 Active Celecoxib 100 MG 1 capsule with food Orally Once a day; Duration: 90 days Active Atorvastatin Calcium 10 MG TAKE 1 TABLET AT BEDTIME; Duration: 90 Active Furosemide 40 MG 1 tablet Orally Once a day, prn Active Nebulizer - as directed J18.9 and R06.2 05/05/2024 Active Nystatin 454396 UNIT/GM 1 application Externally Twice a day 01/26/2023 Active Fluconazole 100 MG 1 tablet Orally once daily; Duration: 7 days Active Ketoconazole 2 % 1 application Externally Once a day 01/26/2023 Active CPAP Supplies 1 Set Use supplies as directed 05/29/2023 Active Calcium 500 MG 1 tablet with meals Orally Twice a day; Duration: 30 day(s) Active Potassium Chloride ER 10 MEQ TAKE 1 TABLET EVERY DAY; Duration: 90 Active Vital Signs Blood pressure systolic 132 mm Hg 12/08/19 25 Blood pressure diastolic 68 mm Hg 025 Heart Rate 77 /min 12/07/2024 Height 66 in 12/07/2024 Weight 234.0 lbs 12/07/2024 BMI 37.76 kg/m2 12/07/2024 Encounters Encounter Location Date Provider Diagnosis [facility] [address] [facility] [address] [place] [id number] 12/07/2024 Bossman Davison Chronic constipation K59.09 Assessments Encounter Date Diagnosis (ICD Code) Assessment Notes Treatment Notes Treatment Clinical Notes Section Notes 12/07/2024 Chronic constipation (ICD-10 - K59.09) Plan Of Treatment Medication Medication Name Sig Start Date Stop Date Notes Lactulose 10 GM/15ML 15 mL as needed Ora lly Once a day; Duration: 30 days 12/07/2024 Next Appt Details Follow Up: 2 Weeks, Reason: Provider Name:Bossman kim, 01/31/2025 09:45:00 AM, [address] [facility] [address] [facility], [address], [place], [id number], Provider Name:Bossman kim, 05/23/2025 09:45:00 AM, [address] [facility] [address] [facility], [address], [place], [phone], Progress Notes * VANI ACOB:1945 (79 yo F)Acc No.[id number]:12/07/2024 Patient: VANI HANSEN Provider: Isaac Davison M.D. :1945 A ge:79 Y S ex:Female Date:12/07/2024 Address:[address] [place], [id number] Subjective: * Chief Complaints: * 1 . [facility] ER Follow Up, Abdominal Pain. * HPI: G astroenterology: 79 year old female presents with c/o Abdominal Pain P t was seen at [facility] ER on 12/02. Pt states she is not feeling any better. Pt states she had 2 bowel movements but has not had any since. Pt states her pain is about 8- 9. Pt states she was unable to get Senna ER prescribed due to insurance denying it due to her be allergic to ingredients in it. * Medical History: H ypertension with Microalbuminuria [...] 03/04/2011. * Hospitalization/Major Diagno stic Procedure: Chirag lakeshaelisa Yesenia , Fell at Work- ER 12/11/2006, Chest Pulled Muscle- [facility] ER 08/2015. * Family History: F [...] 1 TABLET EVERY DAY , Taking Nystatin 946724 UNIT/GM Powder 1 application Externally Twice a day , Taking Ketoconazole 2 % Cream 1 application Externally Once a day , Taking Fluconazole 100 MG Tablet 1 tablet Orally once daily , Taking Furosemide 40 MG Tablet 1 tablet Orally Once a day, prn , Taking Nebulizer - Miscellaneous as directed , Notes to Pharmacist: [email or web address].Gina and R06.2, Taking Nebulizer Mask Adult/Tubing - Miscellaneous as directed , Notes to Pharmacist: Alicia and R06.2, Taking Albuterol Sulfate (2.5 MG/3ML) 0.083% Nebulization Solution 3 mL as needed Inhalation every 6 hrs , Taking Nystatin 915217 UNIT/GM Cream APPLY TO THE AFFECTED AREA(S) THREE TIMES DAILY , Taking Atorvastatin Calcium 10 MG Tablet TAKE 1 TABLET AT BEDTIME , Taking Celecoxib 100 MG Capsule 1 capsule with food Orally Once a day , Taking CPAP Mask as directed as directed nightly , Taking Sertraline HCl 100 MG Tablet TAKE 2 TABLETS ONE TIME DAILY , Taking Gabapentin 300 MG Capsule 1 capsule Orally Two times a day , Taking Levothyroxine Sodium 200 MCG Tablet 1 tablet in the morning on an empty stomach Orally Once a day , Medication List reviewed and reconciled with the patient * Allergies: P enicillin, Cefaclor. Objective: * Vitals: W t: 234.0, Temp: 97.8, BP: 132/68, HR: 77, Nurse: BONNIE, Ht: 66, BMI:37.76. * Examination: G eneral Examination: General Appearance: N AD, using a walker to assist with ambulation. H eart: R SR. L ungs: c lear to auscultation. A bdomen: b owel sounds present, soft, some left sided tenderness to palpation. E xtremities: n o leg edema. Assessment: * Assessment: 1. C hronic constipation - K59.09 (Primary) Plan: * Treatment: * Procedure Codes: G 2211 Complex e/m visit add on, 1036F TOBACCO NON-USER, G8783 BP SCR PRFRM RCMDD DEFIND SCR INTVL, 3075F SYST BP GE 130 - 139MM HG, 3078F DIAST BP < 80 MM HG * Follow Up: 2 Weeks * Images: Billing Information: * Visit Code: 34065 Office Visit, Est Pt., Level 3. * Procedure Codes: G2211 Complex e/m visit add on. 1036F TOBACCO NON-USER. G8783 BP SCR PRFRM RCMDD DEFIND SCR INTVL. 3075F SYST BP GE 130 - 139MM HG. 3078F DIAST BP < 80 MM HG. * Electronic signature of Martina Davison MD on 01/25/2025 at 09:31 AM EST Sign off status: Pending * Provider: Isaac Davison M.D. Date: 0 12/07/2024 Generated for Adrianna peck/Haseeb/Robertoitting on: 1 03/27/2024 09:31 AM EST History and Physical Notes * HPI (History of Present Illness) Category Sub-Category Detail Notes Category Not es Gastroenterology Abdominal Pain Pt was seen at [facility] ER on 12/02. Pt states she is not feeling any better. Pt states she had 2 bowel movements but has not had any since. Pt states her pain is about 8-9. Pt states she was unable to get Senna ER prescribed due to insurance denying it due to her be allergic to ingredients in it Examination Category Sub-Category Detail Notes Category Not es General Examination Heart: RSR Lungs: clear to auscultatio n Abdomen: bowel sounds present , soft, some left sided tenderness to palpation Extremities: no leg edema General Appearance: NAD, using a walker to assist with ambulation
--- OUTSIDE RECORDS SUMMARY | 2024-12-21 04:15 | XMS_ITS ---
Author Organization [facility] Address [address] [facility] [address] [place] [id number] Care Team Providers Care Floriculturist Name Role Phone Natalee Davisonian Primary Care Provider Allergies Allergen (clinical drug ingredient) Drug/Non Drug Allergy documented on EMR Reaction Allergy Type Onset Date Status cefaclor Cefaclor Unknown Drug Allergy Active Penicillin Unknown Drug Allergy Active REASON FOR VISIT 2 weeks Medications Medication SIG (Take, Route, Frequency, Duration) Notes Start Date End Date Status Atorvastatin Calcium 10 MG TAKE 1 TABLET AT BEDTIME; Duration: 90 Active Lactulose 10 GM/15ML 15 mL as needed Orally Once a day; Duration: 30 days 12/07/2024 Active Levothyroxine Sodium 200 MCG 1 tablet in the morning on an empty stomach Orally Once a day; Duration: 90 days 11/24/2024 Active Gabapentin 300 MG 1 capsule Orally Two times a day; Duration: 30 days 11/23/2024 Active Sertraline HCl 100 MG TAKE 2 TABLETS ONE TIME DAILY; Duration: 90 Active CPAP Mask as directed nightly 10/21/2024 Active Celecoxib 100 MG 1 capsule with food Orally Once a day; Duration: 90 days Active Nystatin 932177 UNIT/GM APPLY TO THE AFF ECTED AREA(S) THREE TIMES DAILY; Duration: 30 Active Albuterol Sulfate (2.5 MG/3ML) 0.083% 3 mL as needed Inhalation every 6 hrs 05/05/2024 Active Nebulizer Mask Adult/Tubing - as directed J18.9 and R06.2 05/05/2024 Active Nebulizer - as directed J18.9 and R06.2 05/05/2024 Active Furosemide 40 MG 1 tablet Orally Once a day, prn Active Fluconazole 100 MG 1 tablet Orally once daily; Duration: 7 days Active Ketoconazole 2 % 1 application Externally Once a day 01/26/2023 Active Nystatin 041646 UNIT/GM 1 application Externally Twice a day 01/26/2023 Active Potassium Chloride ER 10 MEQ TAKE 1 TABLET EVERY DAY; Duration: 90 Active CPAP Supplies 1 Set Use supplies as directed 05/29/2023 Active Calcium 500 MG 1 tablet with meals Orally Twice a day; Duration: 30 day(s) Active Vital Signs Blood pressure systolic 140 mm Hg 12/22/19 25 Blood pressure diastolic 82 mm Hg 025 Heart Rate 102 /min 12/21/2024 Height 66 in 12/21/2024 Weight 0 lbs 12/21/2024 Encounters Encounter Location Date Provider Diagnosis [facility] [address] [place], [place] [address] [address] [facility] [address] [place], [place] [id number] 12/21/2024 Bossman Davison Left flank pain R10. A2 and Chronic constipation K59.09 Assessments Encounter Date Diagnosis (ICD Code) Assessment Notes Treatment Notes Treatment Clinical Notes Section Notes 12/21/2024 Left flank pain (ICD-10 - R10.A2) 12/21/2024 Chronic constipation (ICD-10 - K59.09) Plan Of Treatment Next Appt Details Follow Up: prn, Reason: Provider Name:Bossman kim, 01/31/2025 09:45:00 AM, 12[address] [facility] 36 [facility], [address], [place], [place], [id number], Provider Name:Bossman kim, 05/23/2025 09:45:00 AM, [address] [place] [address] 36 [facility] [address], [place], [place], [id number], Progress Notes * VANI ACOB:1945 (79 yo F)Acc No.[id number]:12/21/2024 Patient: VANI HANSEN Provider: Isaac Davison M.D. :1945 A ge:79 Y S ex:Female Date:12/21/2024 Address:[address] [place] [address] [id number] Subjective: * Chief Complaints: * 1 . 2 weeks. * HPI: G astroenterology: 79 year old female presents with c/o Abdominal Pain P t states she is not doing any better. Pt states she has severe pain on her left lower side. Pt's granddaughter states she is having some bowel movments but its not a lot. Pt's granddaughter states when she lays down to try and get comfortable you can tell she is very bloated. Pt's granddaughter states it looks like a ball . * Medical History: H ypertension with Microalbuminuria [...] at Work- ER 12/11/2006, Chest Pulled Muscle- [facility] ER 08/2015. * Family History: [...] 1 TABLET EVERY DAY , Taking Nystatin 201066 UNIT/GM Powder 1 application Externally Twice a [...] Inhalation every 6 hrs , Taking Nystatin 756725 UNIT/GM Cream APPLY TO THE AFFECTED AREA(S) THREE TIMES DAILY , Taking Celecoxib 100 MG Capsule 1 [...] stomach Orally Once a day , Taking Lactulose 10 GM/15ML Solution 15 mL as needed Orally Once a day , Taking Atorvastatin Calcium 10 MG Tablet TAKE 1 TABLET AT BEDTIME , Medication List reviewed and reconciled with the patient * Allergies: P enicillin, Cefaclor. Objective: * Vitals: W t: 0, Temp: 97.8, BP: 140/82, HR: 102, Nurse: BONNIE, Ht: 66. * Examination: G eneral Examination: General Appearance: s itting in a wheelchair, complaining of intense left lateral abdominal pain. Assessment: * Assessment: 1. L eft flank pain - R10.A2 (Primary) 2 . C hronic constipation - K59.09? Plan: * Treatment: * Follow Up: p rn * Images: Billing Information: * Visit Code: * Procedure Codes: * Electronic signature of Martina Davison MD on 01/25/2025 at 09:30 AM EST Sign off status: Pending * Provider: Isaac Davison M.D. Date: Generated for Adrianna peck/Haseeb/Hung on: 03/27/2024 09:30 AM EST History and Physical Notes * HPI (History of Present Illness) Category Sub-Category Detail Notes Category Not es Gastroenterology Abdominal Pain Pt states she i s not doing any better. Pt states she has severe pain on her left lower side. Pt's granddaughter states she is having some bowel movments but its not a lot. Pt's granddaughter states when she lays down to try and get comfortable you can tell she is very bloated. Pt's granddaughter states it looks like a ball Examination Category Sub-Category Detail Notes Category Not es General Examination General Appearance: sitting in a wheelchair, complaining of intense left lateral abdominal pain
--- OUTSIDE RECORDS SUMMARY | 2024-12-30 06:00 | XMS_ITS ---
[facility] Address [address] [facility] [address] [place] [id number] Care Team Providers Care Fish Butcher Name Role Phone Natalee Davisonian Primary Care Provider [phone] Allergies Allergen (clinical drug ingredient) Drug/Non Drug Allergy documented on EMR Reaction Allergy Type Onset Date Status cefaclor Cefaclor Unknown Drug Allergy Active Penicillin Unknown Drug Allergy Active REASON FOR VISIT [facility] f/u Medications Medication SIG (Take, Route, Frequency, Duration) Notes Start Date End Date Status Nystatin 720177 UNIT/GM APPLY TO THE AFFECTED AREA(S) THREE TIMES DAILY; Duration: 30 Not-Taking Ketoconazole 2 % 1 application Externally Once a day 01/26/2023 Active Furosemide 40 MG 1 tablet Orally Once a day, prn Not-Taking CPAP Supplies 1 Set Use supplies as directed 05/29/2023 Active Calcium 500 MG 1 tablet with meals Orally Twice a day; Duration: 30 day(s) Active Potassium Chloride ER 10 MEQ TAKE 1 TABLET EVERY DAY; Duration: 90 Not-Taking Nystatin 013237 UNIT/GM 1 application Externally Twice a day 01/26/2023 Active Fluconazole 100 MG 1 tablet Orally once daily; Duration: 7 days Not-Taking Atorvastatin Calcium 10 MG TAKE 1 TABLET AT BEDTIME; Duration: 90 Active Sertraline HCl 100 MG TAKE 2 TABLETS ONE TIME DAILY; Duration: 90 Active Celecoxib 100 MG 1 capsule with food Orally twice a day; Duration: 90 days Active CPAP Mask as directed nightly 10/21/2024 Active Gabapentin 300 MG 1 capsule Orally Two times a day; Duration: 30 days 11/23/2024 Active Levothyroxine Sodium 200 MCG 1 tablet in the morning on an empty stomach Orally Once a day; Duration: 90 days 11/24/2024 Active Lactulose 10 GM/15ML 15 mL as needed Orally Once a day; Duration: 30 days 12/07/2024 Active Methocarbamol 500 MG 1 tablet Orally every 8 hours As needed Active Nebulizer - as directed J18.9 and R06.2 05/05/2024 Active Nebulizer Mask Adult/Tubing - as directed J18.9 and R06.2 05/05/2024 Active Albuterol Sulfate (2.5 MG/3ML) 0.083% 3 mL as needed Inhalation every 6 hrs 05/05/2024 Active Problems Problem Type SNOMED Code ICD Code Onset Dates Problem Status W/U Status Risk Notes Problem Anemia (684704573) Anemia, unspecified type (D64.9) Active confirmed Vital Signs Blood pressure systolic 134 mm Hg 12/31/19 25 Blood pressure diastolic 82 mm Hg 025 Heart Rate 63 /min 12/30/2024 Height 66 in 12/30/2024 Weight 000 lbs 12/30/2024 Encounters Encounter Location Date Provider Diagnosis [facility] [address] [facility] [address] [place] [address], [place] [id number] 12/30/2024 Bossman Davison Midline low back ramana n without sciatica, unspecified chronicity M54.50 ; Compression fracture of L3 vertebra, initial encounter S32.030A ; Anemia, unspecified type D64.9 and Osteopenia M85.80 Assessments Encounter Date Diagnosis (ICD Code) Assessment Notes Treatment Notes Treatment Clinical Notes Section Notes 12/30/2024 Midline low back pain without sciatica, unspecified chronicity (ICD-10 - M54.50) 12/30/2024 Compression fracture of L3 vertebra, initial encounter (ICD-10 - S32.030A) Patient has an appt. with Dr. Lozano next week to discuss treatment 12/30/2024 Anemia, unspecified type (ICD-10 - D64.9) Plan to recheck labs at f/u visit in 1 month 12/30/2024 Osteopenia (ICD-10 - M85.80) Plan Of Treatment Medication Medication Name Sig Start Date Stop Date Notes Methocarbamol 500 MG 1 tablet Orally every 8 hours Treatment Notes Assessment Notes Compression fracture of L3 v ertebra, initial encounter Patient has an appt. with Dr. Lozano next week to discuss treatment Anemia, unspecified type Plan to recheck labs at f/u visit in 1 month Next Appt Details Follow Up: 4 Weeks, Reason: Provider Name:Bossman Riggins judy, 01/31/2025 09:45:00 AM, [address], [address], [place], [phone], Provider Name:Bossman Riggins judy, 05/23/2025 09:45:00 AM, [address], [address], [place], [place], [phone], Progress Notes * VANI ACeDOB:1945 (79 yo F)Acc No.[id number]:12/30/2024 Patient: VANI HANSEN Provider: Isaac Davison M.D. :1945 A ge:79 Y S ex:Female Date:12/30/2024 Address:[address] [place], [place] [id number] Subjective: * Chief Complaints: * 1 . [facility] f/u. * HPI: L ower back: 79 year old female presents with c/o Low Back Pain P t complains of L3 back pain for about 3 days. Pt states that pain gets so bad at times it makes nauseas. Pt has scheduled appt with Dr. Lozano on 01/04. H PI: c/o Here for follow up on: -05/2024 [facility] h ospitalization. Pt admitted for UTI and kidney infection. Pt states she is feeling better after completing abx . * Medical History: H ypertension with [...] 03/04/2011. * Hospitalization/Major Diagno stic Procedure: Chirag Patterson , Fell at Work- ER 12/11/2006, Chest [...] history. Alcohol: no. * Medications: T aking Methocarbamol 500 MG Tablet 1 tablet Orally every 8 hours , Taking Calcium 500 MG Tablet 1 tablet with meals Orally Twice a day , Taking CPAP Supplies 1 Set Use supplies as directed , Taking Ketoconazole 2 % Cream 1 application Externally Once a day , Taking Nebulizer - Miscellaneous as directed , Notes to Pharmacist: J18.9 and R06.2, Taking Nebulizer Mask Adult/Tubing - Miscellaneous as directed , Notes to Pharmacist: J18.9 and R06.2, Taking Albuterol Sulfate (2.5 MG/3ML) 0.083% Nebulization Solution 3 mL as needed Inhalation every 6 hrs , Taking Celecoxib 100 MG Capsule 1 capsule with food Orally twice a day , Taking CPAP Mask as directed as directed nightly , Taking Gabapentin 300 MG Capsule 1 capsule Orally Two times a day , Taking Levothyroxine Sodium 200 MCG Tablet 1 tablet in the morning on an empty stomach Orally Once a day , Taking Lactulose 10 GM/15ML Solution 15 mL as needed Orally Once a day , Taking Atorvastatin Calcium 10 MG Tablet TAKE 1 TABLET AT BEDTIME , Taking Sertraline HCl 100 MG Tablet TAKE 2 TABLETS ONE TIME DAILY , Taking Nystatin 018609 UNIT/GM Powder 1 application Externally Twice a day , Not-Taking Potassium Chloride ER 10 MEQ Tablet Extended Release TAKE 1 TABLET EVERY DAY , Not-Taking Fluconazole 100 MG Tablet 1 tablet Orally once daily , Not-Taking Furosemide 40 MG Tablet 1 tablet Orally Once a day, prn , Not-Taking Nystatin 193504 UNIT/GM Cream APPLY TO THE AFFECTED AREA(S) THREE TIMES DAILY , Medication List reviewed and reconciled with the patient * Allergies: P enicillin, Cefaclor. Objective: * Vitals: W t: 000, Temp: 98.1, BP: 134/82, HR: 63, Nurse: kk, Ht: 66. * Examination: G eneral Examination: General Appearance: s itting in a wheelchair. H eart:?RSR. L ungs: c lear to auscultation. Assessment: * Assessment: 1. M idline low back pain without sciatica, unspecified chronicity - M54.50 (Primary) ? 2 . C ompression fracture of L3 vertebra, initial encounter - S32.030A 3 . A nemia, unspecified type - D64.9 4 . O steopenia - M85.80 ? Plan: * Treatment: 2. C ompression fracture of L3 vertebra, initial encounter Notes: Patient has an appt. with Dr. Lozano next week to discuss treatment 3. A nemia, unspecified type Notes: Plan to recheck labs at f/u visit in 1 month * Procedure Codes: G 2211 Complex e/m visit add on, 1036F TOBACCO NON-USER, 3075F SYST BP GE 130 - 139MM HG, 3079F DIAST BP 80-89 MM HG, G8399 PT W/DXA DOCUMENT OR ORDER * Preventive Medicine: Screening / Special Tests: B one mineral Density , osteopenia left hip. * Follow Up: 4 Weeks * Images: Billing Information: * Visit Code: 89738 Office Visit, Est Pt., Level 3. * Procedure Codes: G2211 Complex e/m visit add on. 1036F TOBACCO NON-USER. 3075F SYST BP GE 130 - 139MM HG. 3079F DIAST BP 80-89 MM HG. G8399 PT W/DXA DOCUMENT OR ORDER. * Electronic signature of Martina Davison MD on 01/25/2025 at 09:30 AM EST Sign off status: Pending * Provider: Isaac Davison M.D. Date: Generated for Adrianna peck/Haseeb/Talismitting on: 03/27/2024 09:30 AM EST History and Physical Notes * HPI (History of Present Illness) Category Sub-Category Detail Notes Category Not es Lower back Low Back Pain Pt complains of L3 back pain for about 3 days. Pt states that pain gets so bad at times it makes nauseas. Pt has scheduled appt with Dr. Lozano on 01/04 HPI Here for follow up on: 12/21-2024 [facility] hospitalization. Pt admitted for UTI and kidney infection. Pt states she is feeling better after completing abx Examination Category Sub-Category Detail Notes Category Not es General Examination Heart: RSR Lungs: clear to auscultatio n General Appearance: sitting in a wheelch air
--- NOTE | 2025-01-25 09:31 | XR_ITS ---
FINAL REPORT TECHNIQUE: Bone densitometry calculations of the lumbar spine and left hip were obtained. CLINICAL HISTORY: SCREENING unable to do spine due to cement prior 2023 COMPARISON: 04/24/2023 FINDINGS: Lumbar spine not evaluated. Using one third, the bone mineral density of the right forearm is 0.580 g/cm2, corresponding to T-score of -1.9 and a Z score of 0.9. This is within the range of osteopenia. Not previously evaluated. Using the left hip, the bone mineral density of the femoral neck is 0.577 g/cm2, corresponding to a T-score of -2.4 and a Z-score of -0.3. This is within the range of osteopenia. Previously was 0.568 with a T-score of -2.5. FRAX 10 year fracture risk is 7.9% for a hip fracture and 27% for a major osteoporotic fracture. NOTE: T-score: Standard deviation compared with peak bone mass of young adult mean. *Following the recommendations of the International Society of Bone densitometry, classification of hip BMD is based on the lower of two T-scores; total hip or femoral neck. IMPRESSION: 1. Bone mineral density of the right forearm within the range of osteopenia. 2. Bone mineral density of the left femoral neck within the range of osteopenia. Reviewed, Interpreted and Dictated by Leticia Aguilar MD Transcribed by Anni Ladd Authenticated and [facility]
--- OUTSIDE RECORDS SUMMARY | 2025-01-25 09:31 | XMS_ITS | Encounter Summary ---
Author Organization Healthcare Address [address] [place] [address] Care Team Providers Care Staff Writer Name Role Phone Unavailable Primary Care Provider Unavailabl e Encounter Details Date Type Department Care Team (Late st Contact Info) Description 12/02/2024 Orders Only External Location [address] [place] [address] Provider, External Social History Tobacco Use Types [...]
--- OUTSIDE RECORDS SUMMARY | 2025-01-25 09:31 | XMS_ITS | Encounter Summary ---
Author Organization Healthcare Address [address] [place] [address] Care Team Providers Care Sulfur Chloride Operator Name Role Phone Unavailable Primary Care Provider Unavailabl e Encounter Details Date Type Department Care Team (Late st Contact Info) Description 12/02/2024 Orders Only External Location [address] [place] [address] Provider, External Social History Tobacco Use Types [...]
--- OUTSIDE RECORDS SUMMARY | 2025-01-25 09:31 | XMS_ITS | Clinical Summary ---
Author Organization Healthcare Address [address] [place] [address] Care Team Providers Care Tank Pumper Panelboard Name Role Phone Unavailable Primary Care Provider Unavailabl e Encounters Date Type Department Care Team Description 12/02/2024 Orders Only External Location [address] [place] [id number] Provider, External 12/02/2024 Orders Only External Location [address] [place] [address] Provider, External from Last 3 Months Social [...]
--- OUTSIDE RECORDS SUMMARY | 2025-01-25 09:32 | XMS_ITS | Continuity of Care Document ---
Author Organization [facility] Office New Address [address] [place] [address] Assessment Encounter Date Assessment Date Assessment LastModified by Organization Details LastModified Time 01/04/2025 01/04/2025 This patient had previous kyphoplasty of L2 and L5. She did have complete resolution of her pain after this kyphoplasty. She was in the hospital for a kidney infection and CT scan subsequently showed a new L3 compression fracture. We will order an MRI to determine acuteness of this compression fracture. They have consulted with that said that she had a superior endplate fracture. They only offered conservative treatment. Patient does have tenderness over the L3 vertebral body. She does have acute pain. She is not wearing her back brace today. We did recommend that she wear her back brace. We will prescribe her hydrocodone 7.5 mg 3 times a day to help with her pain symptoms. She is to continue with her methocarbamol given to her by Dr. Davison. We will also seek approval for L3 kyphoplasty after confirming with MRI. abux Not available 01/04/2025 11:58:00 Plan of Treatment Reminders Order Date Submit Date Provider Last Modified By Organization Details Last Modified Time Details Appointments Follow Up 2024 10:10A M Italo Lozano MD Not available Not available Not available Lab None recorded. Referral None recorded. Procedures None recorded. Surgeries kyphoplas ty, lumbar (SURG) 2024 025 Not available 01/13/2025 13:30:01 Imaging MRI, lumbar spine, w/o contrast 2024 025 [email or web address] [facility] (X-Ray), [address], [place], [address], 01/05/2025 09:44:34 Medication Orders hydrocodo ne 7.5 mg-acetam inophen 325 mg tablet 2024 025 [facility], [address], [place], [address], 01/04/2025 12:00:09 Patient TargetsNo targets recorded. Patient InstructionsNo instructions recorded. Reason for Referral None Reported. Problems Name Problem SNOMED Code Status Onset Date Resolution Date Notes Provider Name and Address Organization Details Recorded Time Compression fracture of L2 0216643766664 4108 Active 2024 Italo Lozano MD [address], [address], [place] [facility] 15:54:56 Compression fracture of lumbar spine 758364765 Active 2024 Italo Lozano MD [address], [address], [place] [facility] 15:54:58 Pain of knee region 0476022545 Active 2024 Italo Lozano MD [address], [address], [place] [facility] 15:54:59 Bilateral trochanteri c bursitis 7743464475018 9109 Active 2024 MIAH CAMPOS [address], [address], [place] [facility] 11:29:17 Lumbar radiculopat hy 578118604 Active 2024 MIAH CAMPOS [address], [address], [place] [facility] 11:29:45 Problem Notes None recorded. Procedures Surgical History Date Name Laterality Status Provider Name and Address Organization Details Recorded Time 09/09/19 Kyphoplasty completed Italo Lozano MD [address], [address], [place] [facility] 09/08/2024 15:51:27 section completed BRIANNA COOPER [place] [facility] 08/29/2024 14:10:43 Cholecystectomy completed BRIANNA COOPER [place] [facility] 08/29/2024 14:10:49 procedure on lymph node completed BRIANNA COOPER [place] [facility] 08/29/2024 14:11:06 right meniscectomy completed CHE COOPER [place] [facility] 08/29/2024 14:11:19 dilation and curettage completed BRIANNA COOPER [place] [facility] 08/29/2024 14:11:32 left meniscectomy completed BRIANNA COOPER [place] [facility] 08/29/2024 14:11:42 ligation of fallopian tube completed BRIANNA COOPER [place] [facility] 08/29/2024 14:11:51 extraction of cataract completed BRIANNA COOPER [place] [facility] 08/29/2024 14:11:58 Imaging Results None recorded. Procedure Notes None recorded. Medical Equipment None Reported. Allergies Allergen ID Allergen Name Allergen Category Reaction Reaction Severity Criticality Documentation Date Start Date Code Code System Note Provider Name and Address Organization Details Recorded Time 7284 Product containin g penicilli n (product) medicatio n Not available Not available Not available 08/29/2024 59132 8001 SNOMED BRIANNA COOPER null, [place] - [facility] 14:16:27 7285 cefaclor medicatio n Not available Not available Not available 08/29/2024 2176 RxNorm BRIANNA COOPER null, [place] - [facility] 14:16:34 Medications Name Sig Start Date Stop Date Status Note LastModified by Organization Details LastModified Time losartan 50 mg tablet 08/29 completed Not Available Not Available Not Available celecoxib 200 mg capsule TAKE 1 CAPSULE BY MOUTH TWICE DAILY active Not Available Not Available No t Available fluconazole 100 mg tablet TAKE 1 TABLET BY MOUTH ONCE DAILY FOR 7 DAYS 08/29 completed Not Available Not Available Not Available methocarbam ol 500 mg tablet TAKE 1 TABLET BY MOUTH EVERY 8 HOURS NEEDED active Not Available Not Available No t Available levothyroxi ne 175 mcg tablet TAKE 1 TABLET BY MOUTH IN THE MORNING ON AN EMPTY STOMACH active Not Available Not Available No t Available promethazin e-DM 6.25 mg-15 mg/5 mL oral syrup TAKE 5 ML BY MOUTH EVERY 6 HOURS NEEDED FOR COUGH active Not Available Not Available No t Available albuterol sulfate 2.5 mg/3 mL (0.083 %) solution for nebulizatio n USE 1 VIAL IN NEBULIZER EVERY 6 HOURS NEEDED active Not Available Not Available No t Available atorvastati n 10 mg tablet TAKE 1 TABLET BY MOUTH ONCE DAILY active Not Available Not Available No t Available fluconazole 150 mg tablet TAKE 1 TABLET BY MOUTH ONCE DAILY 08/29 completed Not Available Not Available Not Available hydrocodone 5 mg-acetamin ophen 325 mg tablet TAKE ONE TABLET BY MOUTH EVERY 6 HOURS NEEDED FOR post op pain MAY CAUSE DROWSINES S 08/29 completed Not Available Not Available Not Available fluconazole 200 mg tablet TAKE 1 TABLET BY MOUTH A ONE TIME DOSE 08/29 completed Not Available Not Available Not Available sertraline 100 mg tablet 08/29 completed Not Available Not Available Not Available sulfamethox azole 800 mg-trimetho prim 160 mg tablet TAKE 1 TABLET BY MOUTH TWICE DAILY 08/29 completed Not Available Not Available Not Available ketorolac 10 mg tablet TAKE 1 TABLET BY MOUTH EVERY 8 HOURS NEEDED FOR PAIN MAX DURATION OF 5 DAYS FROM ALL ORAL, INTRANASA L OR PARENTERA L FORMS active Not Available Not Available No t Available hydrocodone 7.5 mg-acetamin ophen 325 mg tablet TAKE 1 TABLET BY MOUTH THREE TIMES DAILY active Not Available Not Available No t Available nystatin 100,000 unit/gram topical cream APPLY CREAM TOPICALLY THREE TIMES DAILY active Not Available Not Available No t Available levothyroxi ne 150 mcg tablet 08/29 completed Not Available Not Available Not Available triamcinolo ne acetonide 0.025 % topical ointment APPLY LIBERALLY TO SKIN TWICE DAILY 08/29 completed Not Available Not Available Not Available gabapentin 300 mg capsule TAKE 1 CAPSULE BY MOUTH TWICE DAILY active Not Available Not Available No t Available levothyroxi ne 200 mcg tablet TAKE 1 TABLET BY MOUTH ONCE DAILY IN THE MORNING ON AN EMPTY STOMACH active Not Available Not Available No t Available furosemide 20 mg tablet TAKE 1 TABLET BY MOUTH ONCE DAILY active Not Available Not Available No t Available nystatin 100,000 unit/gram topical powder APPLY POWDER TOPICALLY TWICE DAILY 08/29 completed Not Available Not Available Not Available methylpredn isolone 4 mg tablets in a dose pack TAKE BY MOUTH DIRECTED ON INSIDE OF PACKAGE 08/29 completed Not Available Not Available Not Available ketoconazol e 2 % topical cream APPLY CREAM TOPICALLY ONCE DAILY active Not Available Not Available No t Available cefdinir 300 mg capsule TAKE 1 CAPSULE BY MOUTH EVERY 12 HOURS active Not Available Not Available No t Available azithromyci n 500 mg tablet TAKE 1 TABLET BY MOUTH ONCE DAILY FOR 3 DAYS 08/29 completed Not Available Not Available Not Available nitrofurant oin monohydrate /macrocryst als 100 mg capsule TAKE 1 CAPSULE BY MOUTH EVERY 12 HOURS WITH FOOD FOR 5 DAYS 08/29 completed Not Available Not Available Not Available Constulose 10 gram/15 mL oral solution TAKE 15ML BY MOUTH NEEDED ONCE DAILY active Not Available Not Available No t Available Vitals Date Recorded Body height Body mass index (BMI) Body weight Heart rate Oxygen saturation Oxygen saturation in Arterial blood by Pulse oximetry Pain severity - 0-10 verbal numeric rating [Score] - Reported Systolic And Diastolic Provider Name and Address Organization Details Last Updated DateTime 5 165.1 cm 36.4 kg/m2 71218.7 3 g 78 /min 96 % 96 % 10 122/62 mm[Hg] BRIANNA COOPER [place] [facility] 5 09:15:49 Social History Question Answer Notes LastModified by Organizat ion Details LastModified Time Tobacco Smoking Status Former Smoker Quit 22 yrs ago BRIANNA COOPER null, [place] - [facility] 08/29/2024 14:10:33 In The 14 Days Before Symptom Onset, Have You Had Close Contact With A Laboratory-confirm ed COVID-19 While That Case Was Ill? No [email or web address] Information n ot available 08/29/2024 In The 14 Days Before Symptom Onset, Have You Had Close Contact With A Person Who Is Under Investigation For COVID-19 While That Person Was Ill? No [email or web address] Information not available 08/29/2024 Have You Been To An Area Known To Be High Risk For COVID-19? No [email or web address] Information not available 08/29/2024 How Much Tobacco Do You Smoke? 1 PPD [email or web address] Information not available 08/29/2024 Sex: Unknown Functional Status Question Answer Note LastModified by Organizat ion Details LastModified Time Do you use any illicit or recreational drugs? No Information not available 08/29/2024 Do you or have you ever used any other forms of tobacco or nicotine? No [email or web address] Information not available 08/29/2024 What is your level of alcohol consumption? None [email or web address] Information not available 08/29/2024 Mental Status None recorded. Family History Nothing Reported. Medical History Condition Response Coronary Artery Disease N Gout N Hernia N Head Trauma/Injury N Thyroid Problems Y Depression Y COPD N Anemia N Heart Attack ([place]) N Ulcers N Diabetes N Anxiety Disorder Y Bleeding Disorder N Arthritis Y Tuberculosis N AIDS/HIV N Acid Reflux (GERD) Y Cancer N Stroke N Asthma N Substance Abuse N Back Injury N High Cholesterol N Hepatitis N Liver Disease N Heart Disease N Headaches N Fibromyalgia N Hypertension Y Osteoporosis N Kidney Disease N Gynecological HistoryNo gynecological history recorded. Obstetrics History GPAL:G 0 P 0 0 0 0 Past Encounters Encounter ID Performer Location Encounter Start Date Encounter Closed Date Diagnosis/Indication Diagnosis SNOMED-CT Code Diagnosis ICD10 Code Diagnosis IMO Codes Diagnosis Note [id number] Italo Lozano MD [place] [facility] [address] [place] [address] 01/04/2025 09:12:51 01/04/2025 10:33:38 Pain of knee region 6277693212 G89.29 M25.561 M25.562 04065172 Bilateral trochanteric bursitis 8941374869 8045575 M70.61 M70.62 11012567 Lumbar radiculopathy 128 484982 M54.16 71506 Compressio n fracture of L2 0947817871 3748760 S32.020A 9412250251 Fracture o f third lumbar vertebra 513517312 S32.030A 9380667124 Degenerati on of lumbar intervertebral disc 66997544 M51.360 [id number] Health Concerns Section Related Observation LastModified by Organization Detai ls LastModified Time None Recorded Concern Status LastModified by Organization Details LastModified Time None Recorded Payers Encounter Date Sequence Insurance Name Policy Number Policy Higgins Covered Member ID Higgins Member ID Guarantor Name 01/04/2025 1 [employer] (MEDICARE REPLACEMENT/A DVANTAGE - PPO) Madina Schmitz [id number] Madina Schmitz Notes Date Note Type Note Provider Name and Address Organization Details Recorded Time 01/04/2025 text/html Back PainReporte d by PatientHPIFor location, patient reportspain radiating to the legsbut reportslumbar. For quality, patient reportssharp,dull,achi ng,throbbing, andconstant. For severity, patient reportspain level 12/30. For associated symptoms, patient reportsweak limbs,numbness of the legs/feet,tingling, andgait instabilitybut reportsno fever,no incontinence,no shortness of breath,no unintentional weight loss,no chills,no night sweats,no bowel/bladder symptoms, andno recent increase in stress. For duration, patient reportschronic. For onset/timing, patient reportsrecurrent episode. For context, patient reportstrauma. For aggravating factors, patient reportsmovement/positi oning,twisting,flexing back,extending back,worse at night,lifting,housewor k,walking,standing,sit ting, andweather. For previous injury, patient reportsprevious surgery/procedure date: ___. For prior imaging, patient reportsmri. For alleviating factors, (nothing helps). Italo Lozano MD [address], [address], [facility] 01/04/2025 12:00:09 OBGyn Episode No OBEpisode recorded.
--- OUTSIDE RECORDS SUMMARY | 2025-01-25 09:32 | XMS_ITS | Data Portability ---
Author Organization [place] [facility] Address [address] [place] [address] Assessment Encounter Date Assessment Date Assessment LastModified by Organization Details LastModified Time 08/31/2024 08/31/2024 Had 2 recent falls over the last 6 months. She fell in April at that time she did have a hip fracture and most likely sustained a compression fracture of the L2 vertebral body. She also had a fall last month where she had another injury to her low back and most likely sustained an L5 compression fracture. She does have a recent MRI on August 25, 2024 which was compared to the CT of her lumbar spine on May 02, 2024. These do show 2 compression fractures one of the L2 vertebral body with 25 to 50% loss of height with bone marrow edema and new superior endplate fracture of L5 with 25% loss of vertebral height with retropulsion at that level. These are both acute compression fractures.Pain score is a 10 out of 10. She has difficulty getting out of bed. She has pain with any type of movement.Her pain is increasing and she cannot do activities of daily living. She is not able to get out of bed. We are going to order her a back brace. Based on recent imaging both L2 and L5 compression fractures are acute.Will seek approval for kyphoplasty to the L2 vertebrae and the L5 vertebrae. abux Not available 08/31/2024 16:27:31 09/08/2024 09/08/2024 This patient had kyphoplasty of the L2 and L5 vertebral bodies. She did well postoperatively. This was done under monitored anesthesia care with sedation by Ale Tran CRNA.Patient was discharged home neurologically intact with good relief of pain symptoms. We will follow-up with her in 1 week we will evaluate efficacy of this kyphoplasty. She is having some bilateral knee pain. Will address her knee pain at this time. abux Not available 09/08/2024 15:53:31 09/14/2024 09/14/2024 This is a 79-year-old female who presents today for follow-up. Patient underwent kyphoplasty to the L2 and L5 vertebral bodies on 09/08/2024, patient endorses 90% pain relief that is still ongoing following this procedure. She states that her back pain has completely resolved. She is rating her pain a 0 out of 10 in her back and 8 out of 10 in her bilateral hips. She describes tenderness to the bilateral hips localized on the lateral aspect, the symptoms are debilitating and do interfere with patient's ability to sleep. She would like to discuss therapeutic options to address this. Patient is requesting that we send in a prescription for a sit down walker her, she does have a walker but does have difficulty ambulating does requires taking breaks. Without the seat, she is having difficulties completing ADLs. Last, she is requesting that we take over her gabapentin prescription. She is prescribed 300 mg twice daily from outside provider. [facility] #[id number] was reviewed and is appropriate. Plan: 1. Kyphosis, post kyphoplasty The patient has seen improvement in back painpost-kyphopla styy, which suggests a successful outcome. We will continue surveillance to ensure ongoing recovery. 2. Hip pain Hip pain appears consistent with B/L greater trochanteric bursitis. We will proceed with scheduling a corticosteroid injection into the affected hip bursa to reduce inflammation and pain, pending insurance confirmation.Joanna ent does have tenderness to palpation to the bilateral greater trochanters on physical exam today. She does continue with the symptoms despite conservative measures including a 12-week continued physician guided home stretching exercise program, oral medications, topical medications, heat/ice application and massage. Patient is not prescribed chronic anticoagulation. The risk and the benefits of the procedure discussed in length with patient today and she is wishing to move forward. 3. Low back nerve compression Given the MRI findings of nerve compression at L4-S2, Gabapentin 300 mg is prescribed to manage nerve-related symptoms. Counseling on medication safety was provided to mitigate any addiction concerns. 4. Instability Last, I am sending in a prescription for a 4 wheeled walker with seat and brakes for this patient. Of note she does have significant difficulty ambulating, she does require a walker for assistance. Unfortunately her walker does not have a chair. Patient does require taking breaks in between activities, this does make it difficult for her to complete ADLs. She has not been going out of her house due to these limitations. I do feel she would benefit from a walker with a seat. This would allow her to be more functional. We will see patient back in office for her injection, patient was instructed to contact us if she has any further questions or concerns. Dr. Lozano has reviewed this chart and agrees with this plan of care. This note was dictated with voice recognition software and may contain errors or omission this visit reflects the ongoing, longitudinal relationship and complexity of managing the patient's chronic pain condition, including continuous coordination of care, treatment planning, and monitoring over time as part of a comprehensive pain management strategy. Not available 09/14/2024 11:29:05 01/04/2025 01/04/2025 This patient had previous kyphoplasty of L2 and L5. She did have complete resolution of her pain after this kyphoplasty. She was in the hospital for a kidney infection and CT scan subsequently showed a new L3 compression fracture. We will order an MRI to determine acuteness of this compression fracture. They have consulted with [facility] that said that she had a superior [...] Lab None recorded. Referral None recorded. Procedures greater trochante fany bursa injection (PROC) - B/L 2024 025 [id number] Not available 09/15/2024 12:06:08 percutane ous kyphoplas ty, 1 vertebral body, including imaging guidance; lumbar (PROC) 2024 025 Not available 09/06/2024 11:00:00 percutane ous kyphoplas ty, one vertebral body, including imaging guidance; each additiona l thoracic or lumbar vertebral body (PROC) 2024 025 Not available 09/06/2024 11:00:47 Surgeries kyphoplas ty, lumbar (SURG) 2024 025 Not available 01/13/2025 13:30:01 Imaging MRI, lumbar spine, w/o contrast 2024 025 [email or web address] [facility] (X-Ray), [address] [facility] [address] [place], [address], 01/05/2025 09:44:34 Medication Orders hydrocodo ne 7.5 mg-acetam inophen 325 mg tablet 2024 025 [facility], [address], 01/04/2025 12:00:09 gabapenti n 300 mg capsule 2024 025 [facility], [address], [address], 09/14/2024 17:23:35 Patient TargetsNo targets recorded. Patient Instructions Encounter Date Encounter Id Patient Instructions Last Modified By Organization Details Last Modified Time 08/31/2024 [id number] back pain: care instructions abux Not available 08/31/2024 16:30:01 learning about relief for back pain abux Not available 08/31/2024 16:30:01 09/14/2024 [id number] Please note: Parts of this encounter note have been generated by AI based on audio conversation. Patient consent was required prior to utilizing this technology. Content review was required prior to finalizing the note. Not available 09/14/2024 11:04:48 Reason for Referral None Reported. Results Created Date Observation Date Name Description Value Unit Range Abnormal Flag Note LastModifiedBy Organization Detail LastModifiedTime 09/01/19 MRI, lumba r spine , w/o contr ast No observ ation record ed. [email or web address] Not Available 2024 10:16:35 Result Notes None recorded. Problems Name Problem SNOMED Code Status Onset Date Resolution Date Notes Provider Name and Address Organization Details Recorded Time Compression fracture of L2 3862745206213 4108 Active 2024 Italo Lozano MD [address] ,[address], [address], [place] [facility] 15:54:56 Compression fracture of lumbar spine 133545121 Active 2024 Italo Lozano MD [address] ,[address], [address], [place] [facility] 15:54:58 Pain of knee region 4629008105 Active 2024 Italo Lozano MD [address] [facility],[address], [address], [place] [facility] 15:54:59 Bilateral trochanteri c bursitis 5248744263818 9109 Active 2024 MIAH CAMPOS [address] ,[address], [address], [place] [facility] 11:29:17 Lumbar radiculopat hy 607778432 Active 2024 MIAH CAMPOS [address] ,[address], [address], [place] [facility] 11:29:45 Problem Notes None recorded. Procedures Surgical History Date Name Laterality Status Provider Name and Address Organization Details Recorded Time 09/09/19 Kyphoplasty completed Italo Lozano MD [address] [facility],[address], [address], [place] [facility] 09/08/2024 [...] Not available Not available Not available 08/29/2024 [id number] 8001 SNOMED BRIANNA torres, [facility] - [facility] 14:16:27 7285 cefaclor medicatio n Not available Not available Not available 08/29/2024 2176 RxNorm BRIANNA torres, [place] - [facility] 14:16:34 Medications Name [...] t Available Vitals Date Recorded Body height Respiratory rate Body mass index (BMI) Body weight Heart rate Oxygen saturation Oxygen saturation in Arterial blood by Pulse oximetry Pain severity - 0-10 verbal numeric rating [Score] - Reported Systolic And Diastolic Provider Name and Address Organization Details Last Updated DateTime 5 165.1 cm 18 /min 36.4 kg/m2 03988.7 3 g 78 /min 96 % 96 % 10 120/62 mm[Hg] Cheryl Chan [place] [facility] 5 09:38:14 Date Recorded Body height Body mass index (BMI) Body weight Heart rate Oxygen saturation Oxygen saturation in Arterial blood by Pulse oximetry Pain severity - 0-10 verbal numeric rating [Score] - Reported Systolic And Diastolic Provider Name and Address Organization Details Last Updated DateTime 5 165.1 cm 36.4 kg/m2 13639.7 3 g 78 /min 96 % 96 % 10 120/62 mm[Hg] BRIANNA COOPER [place] [facility] 5 12:25:04 Date Recorded Body height Heart rate Oxygen saturation Oxygen saturation in Arterial blood by Pulse oximetry Heart rate Respiratory rate Body mass index (BMI) Body weight Pain severity - 0-10 verbal numeric rating [Score] - Reported Systolic And Diastolic Provider Name and Address Organization Details Last Updated DateTime 5 165.1 cm 78 /min 96 % 96 % 78 /min 18 /min 36.4 kg/m2 06447.7 3 g 8 120/62 mm[Hg] Tara Mckinney [place] [facility] 5 10:39:50 Date Recorded Body height Body mass index (BMI) Body weight Heart rate Oxygen saturation Oxygen saturation in Arterial blood by Pulse oximetry Pain severity - 0-10 verbal numeric rating [Score] - Reported Systolic And Diastolic Provider Name and Address Organization Details Last Updated DateTime 5 165.1 cm 36.4 kg/m2 44706.7 3 g 78 /min 96 % 96 % 10 122/62 mm[Hg] BRIANNA TORRES - [facility] 5 09:15:49 Social History Question Answer Notes LastModified by [employer] Details LastModified Time Tobacco Smoking Status Former Smoker Quit 22 yrs ago BRIAN Tam - [facility] 08/29/2024 14:10:33 In The 14 Days Before Symptom Onset, Have You Had Close Contact With A Laboratory-confirm ed COVID-19 While That Case Was Ill? No [email or web address] Information n ot available 08/29/2024 In The 14 Days Before Symptom Onset, Have You Had Close Contact With A Person Who Is Under Investigation For COVID-19 While That Person Was Ill? No Information not available 08/29/2024 Have You Been To An Area Known To Be High Risk For COVID-19? No [email or web address] Information not available 08/29/2024 How Much Tobacco Do You Smoke? 1 PPD [email or web address] Information not available 08/29/2024 Sex: Unknown Functional Status Question Answer Note LastModified by [employer] Details LastModified Time Do you use any illicit or recreational drugs? No [email or web address] Information not available 08/29/2024 Do you or have you ever used any other forms of tobacco or nicotine? No [email or web address] Information not available 08/29/2024 What is your level of alcohol consumption? None [email or web address] Information not available 08/29/2024 Mental Status None recorded. Family History Nothing Reported. Medical History Condition Response Coronary Artery Disease N Gout N Head Trauma/Injury N Depression Y COPD N Anxiety Disorder Y Arthritis Y Acid Reflux (GERD) Y Cancer N Stroke N Headaches N Fibromyalgia N Kidney Disease N Ulcers N Bleeding Disorder N Tuberculosis N AIDS/HIV N Asthma N Substance Abuse N Hepatitis N Hernia N Back Injury N High Cholesterol N Liver Disease N Thyroid Problems Y Anemia N Heart Attack ([place]) N Diabetes N Heart Disease N Hypertension Y Osteoporosis N Gynecological HistoryNo gynecological history recorded. Obstetrics History GPAL:G 0 P 0 0 0 0 Past Encounters Encounter ID Performer Location Encounter Start Date Encounter Closed Date Diagnosis/Indication Diagnosis SNOMED-CT Code Diagnosis ICD10 Code Diagnosis IMO Codes Diagnosis Note [id number] Italo Lozano MD [address] [place] [address] 08/31/2024 09:24:39 08/31/2024 10:11:44 Compression fracture of L2 9356913263 6506213 S32.020A 2472338953 Compressio n fracture of lumbar spine 461724247 S32.050A [id number] Italo Lozano MD [address] [place] [address] 09/08/2024 12:22:40 09/08/2024 15:54:16 Compression fracture of L2 9289165357 2777310 S32.020A 2431275371 Compressio n fracture of lumbar spine 027708097 S32.050A 7284580128 Pain of knee region 1003 400505 M25.561 M25.562 G89.29 [id number] MIAH CAMPOS [address] [place] [address] 09/14/2024 10:33:44 09/14/2024 11:55:42 Pain of knee region 0445061196 G89.29 M25.561 M25.562 [id number] Compressio n fracture of L2 7194889225 8500986 S32.020A 4765980802 Compressio n fracture of lumbar spine 080551130 S32.050A 3710396798 Bilateral trochanteric bursitis 3242549123 9519454 M70.61 M70.62 02662303 Lumbar radiculopathy 128 804630 M54.16 [id number] Italo Lozano MD [address] [place] [address] 01/04/2025 09:12:51 01/04/2025 10:33:38 Pain of knee region 8185891868 G89.29 M25.561 M25.562 48077878 Bilateral trochanteric bursitis 2963470299 8539076 M70.61 M70.62 74914805 Lumbar radiculopathy 128 811791 M54.16 36904 Compressio n fracture of L2 5961277502 0746622 S32.020A 8484379067 Fracture o f third lumbar vertebra 520841626 S32.030A 4786289888 Degenerati on of lumbar intervertebral disc 76844187 M51.360 2369999393 Health Concerns Section Related Observation LastModified by Organization Detai ls LastModified Time None Recorded Concern Status LastModified by Organization Details LastModified Time None Recorded Advance Directives Directive None Recorded Payers Insurance Date Sequence Insurance Name Policy Number Policy Higgins Covered Member ID Higgins Member ID Guarantor Name 01/15/2025 1 [employer] (MEDICARE REPLACEMENT/A DVANTAGE - PPO) Madina Schmitz [id number] Madina Ainsley Notes Date Note Type Note Provider Name and Address Organization Details Recorded Time 08/31/2024 text/html Back PainReporte d by PatientHPIFor location, patient reportspain radiating to the legsbut reportslumbar. For quality, patient reportssharp,dull,achi ng,throbbing, andconstant. For severity, patient reportspain level 10/10. For associated symptoms, patient reportsweak limbs,numbness of [...] (nothing helps). Italo Lozano MD [address], [address], [place] [facility] 08/31/2024 16:30:26 09/08/2024 text/html Back PainReporte d by PatientHPIFor location, patient reportspain radiating to the legsbut reportslumbar. For quality, patient reportssharp,dull,achi ng,throbbing, andconstant. For severity, patient reportspain level 10/10. For associated symptoms, patient reportsweak limbs,numbness of [...] (nothing helps). Italo Lozano MD [address], [address], [place] [facility] 09/08/2024 15:55:31 09/14/2024 text/html The patient is a 79-year-old female presenting with a primary concern of hip pain and follow-up for kyphoplasty. She reports almost complete resolution of back pain post-kyphoplasty but continues to suffer from significant hip pain, characterized as tender to touch and extending down the front of her leg. This pain appears to be neurologic in nature possibly due to sciatic nerve involvement, amplified following pain relief achieved through kyphoplasty. Sensory disturbances such as tingling from the knee downward are reported, particularly upon waking. MRI results align with the symptomatic description, highlighting compression in lumbar nerve roots L4 through S2. While cautious of addiction risks due to familial patterns, the patient expresses interest in symptomatic relief through planned intervention strategies including medication management with Gabapentin and possible hip injections, contingent upon insurance approval. MIAH CAMPOS [address] [address], [place], [address], [place] [facility] 09/15/2024 08:18:00 01/04/2025 text/html Back PainReporte d by PatientHPIFor location, patient reportspain radiating to the legsbut reportslumbar. For quality, patient reportssharp,dull,achi ng,throbbing, andconstant. For severity, patient reportspain level 10. For associated symptoms, patient reportsweak limbs,numbness of [...] (nothing helps). Italo Lozano MD [address], [address], [place] [facility] 01/04/2025 12:00:09 OBGyn Episode No OBEpisode recorded.
--- OUTSIDE RECORDS SUMMARY | 2025-01-25 09:33 | XMS_ITS | Patient Health Record ---
Author Organization [facility] Address [address] [place] [id number] Care Team Providers Care Cut Off Saw Operator Name Role Phone Bossman Davison Primary Care Provider [phone] TimoteoNila mclean Unavailable [phone] Allergies Allergen (clinical drug ingredient) Drug/Non Drug Allergy documented on EMR Reaction Allergy Type Onset Date Status cefaclor Cefaclor Unknown Drug Allergy Active Penicillin Unknown Drug Allergy Active Results Component Value Reference Range Notes B-Type Natriuretic Peptide Reviewed date:01/29/2024 08:45:17 AM Interpretation: Performing Lab: Notes/Report: Test performed by [facility] [address] [place], [place] [address] [address] , [address], [place] [address] Wilton Montejo MD, Guitar Maker Hand CLIA: [id number] B-Type Natriuretic Peptide 42.0 <2.0-100.0 pg/mL P-Comprehensive Metabolic Pa briseyda (CMP) Reviewed date:11/24/2024 11:45:52 AM Interpretation:Tremaine 10.6, Alk Phos 125 Performing Lab: Notes/Report: Test performed by [facility] [address] [place], [place] [address] , [place] [address] Wilton Montejo MD, Guitar Maker Hand CLIA: [id number] Sodium 142 135-145 mmol/L Potassium 4.4 3.5-5.3 [...] Interpretation:0.86 Performing Lab: Notes/Report: Test performed by [facility] [address] , [place] [address] Wilton Montejo MD, Guitar Maker Hand CLIA: [id number] Thyroxine Free (free T4) 0.86 0.86-1.76 ng/dL P-TSH Reviewed date:11/24/2024 11:45:52 AM Interpretation:Normal Performing Lab: Notes/Report: Test performed by [facility] [address] , [address], [place] [address] Wilton Montejo MD, Guitar Maker Hand CLIA: [id number] TSH 2.02 0.43-5.25 mU/L P-Magnesium Reviewed date:01/29/2024 08:45:17 AM Interpretation: Performing Lab: Notes/Report: Test performed by [facility] [address] , [place] [address] Wilton Montejo MD, Guitar Maker Hand CLIA: [id number] Magnesium 2.0 1.6-2.4 mg/dL P-Culture, Urine Reviewed date:02/03/2024 12:24:03 PM Interpretation:Sensitivity not available Performing Lab: Notes/Report: Test performed by [facility] [address] , [address], [place] [address] Wilton Montejo MD, Guitar Maker Hand CLIA: [id number] Specimen Source Urine - Void Culture, Urine See Below See Microbiol ogy Report Corynebacterium striatum group 25,000-50,000 CFU/ml Corynebacterium striatum group Sensitivity not available P-Comprehensive Metabolic Pa briseyda (CMP) Reviewed date:01/29/2024 08:45:17 AM Interpretation: Performing Lab: Notes/Report: Test performed by [facility], [address] , [address], [place] [address] Wilton Montejo MD, Guitar Maker Hand CLIA: [id number] Sodium 139 135-145 mmol/L Potassium 4.2 3.5-5.3 [...] 1.025 Ketone neg Bili neg Gluc neg H-BMP Reviewed date:05/03/2024 09:00:21 AM Interpretation: Performing Lab: Notes/Report: NA 133 136-145 mmol/L K 3.9 3.5-5.1 mmoL/L CL 106 98-107 mmol/L CO2 22 22.0-30.0 mmol/L GAP 8.9 5-15 mEq/L BUN 16 7-17 mg/dl CREATT 0.70 0.52-1.04 mg/dl CRCLE 84 50-200 mL/min GFRAA 98 >60 ML/MIN EGFR 81 >60 ml/min GLU 99 74-100 mg/dl CA 9.2 8.4-10.2 mg/dl H-CBC Reviewed date:05/03/2024 11:22:49 AM Interpretation: Performing [...] 0.1 0.0-0.4 K/mm3 BA# 0.0 0-0.2 K/mm3 H-Sputum Culture with Gram Sung quick Reviewed date:05/05/2024 09:25:41 AM Interpretation: Performing Lab: Notes/Report: GS Gram Stain: GS Moderate Gram Positi ve Cocci In Pairs CUSPU YEAST ISOLATED AND W ILL BE HELD FOR 5 DAYS. CONTACT LAB IF CUSPU FURHTER ID NEEDED. H-UA Reviewed date:05/02/2024 07:02:08 PM Interpretation: Performing [...] employed in healthcare? No Is patient an [facility] employee? N Is patient currently hospitalized? [...] Not Detected NotDetected FLUBPCR Not Detected NotDetected P-Culture, Urine Reviewed date:02/11/2024 01:25:32 PM Interpretation:Sensitivity not routinely done Performing Lab: Notes/Report: Test performed by [facility], [facility] [address] [place] [address] , [address], [place] [address] Wilton Montejo MD, Guitar Maker Hand CLIA: [id number] Specimen Source Urine - Void Culture, Urine See Below See Microbiol ogy Report Streptococcus agalactiae (Strep. group B) 10,000-15,000 CFU/ml Streptococcus agalactiae (Strep. group B) Sensitivity not routinely done. P-Vitamin D 25-Hydroxy Reviewed date:05/20/2024 08:07:48 AM Interpretation:114 Performing Lab: Notes/Report: Test performed by [facility] [address] [place] [address] , [address], [place] [address] Wilton Montejo MD, Guitar Maker Hand CLIA: [id number] Vitamin D 25-Hydroxy 114.0 30.0-100.0 ng/mL Interpretation of Vitamin D 25 OH: < 20 ng/mL - Deficiency 20 - 29 ng/mL - Insufficiency 30 - 100 ng/mL - Sufficiency > 100 ng/mL - Super-therapeutic- toxicity may occur above this level. Clinical correlation required. P-TSH reflex to FT4 Reviewed date:05/20/2024 08:07:48 AM Interpretation:6.94 Performing Lab: Notes/Report: Test performed by [facility] [address] [place] [address] , [place] [address] Wilton Montejo MD, Guitar Maker Hand CLIA: [id number] TSH reflex to FT4 6.94 0.43-5.25 mU/L P-Phosphorus Reviewed date:05/20/2024 08:07:48 AM Interpretation:Normal Performing Lab: Notes/Report: Test performed by [facility] [address] [place] [address] , [address], [place] [address] Wilton Montejo MD, Guitar Maker Hand CLIA: [id number] Phosphorus 3.4 2.5-4.5 mg/dL P-Magnesium Reviewed date:05/20/2024 08:07:48 AM Interpretation:Normal Performing Lab: Notes/Report: Test performed by [facility] [address] [place] [address] , [address], [place] [id number] Wilton Montejo MD, Guitar Maker Hand CLIA: [id number] Magnesium 2.1 1.6-2.4 mg/dL P-T4 Free (thyroxine) Reviewed date:05/20/2024 08:07:48 AM Interpretation:Normal Performing Lab: Notes/Report: Test performed by [facility] [address] [place] [address] , [address], [place] [address] Wilton Montejo MD, Guitar Maker Hand CLIA: [id number] Thyroxine Free (free T4) 1.21 0.86-1.76 ng/dL P-Comprehensive Metabolic Pa briseyda (CMP) Reviewed date:05/20/2024 08:07:48 AM Interpretation:Tremaine 10.8, Alk Phos 164, AST 54, A/G Ratio 0.9 Performing Lab: Notes/Report: Test performed by [facility] [address] [place] [address] , [address], [place] [address] Wilton Montejo MD, Guitar Maker Hand CLIA: [id number] Sodium 137 135-145 mmol/L Potassium 5.1 3.5-5.3 [...] Interpretation:Normal Performing Lab: Notes/Report: Test performed by [facility] [address] [place] [address] , [address], [place] [address] Wilton Montejo MD, Guitar Maker Hand CLIA: [id number] Vitamin B12 710 296-6026 pg/mL CBC Venipuncture (in house) Reviewed date:05/19/2024 [...] - 38 platlet 456 100 - 400 X ray : Spine, lumbosacral Reviewed date:08/04/2024 12:30:41 PM Interpretation: Performing Lab: Notes/Report: MRI : Spine, Lumbosacral, wi thout contrast Reviewed date:08/26/2024 11:33:37 AM Interpretation: Performing Lab: Notes/Report: H-Urine Culture and Sensitiv ity Reviewed date:12/23/2024 09:37:25 AM Interpretation: Performing Lab: Notes/Report: CUU Multiple organisms, suggests contamination. H-CBC Reviewed date:12/23/2024 09:37:25 AM Interpretation: Performing [...] 110 74-100 mg/dl CA 10.3 8.4-10.2 mg/dl H-Culture, Blood Reviewed date:12/27/2024 11:10:06 AM Interpretation: Performing Lab: Notes/Report: CUBLD NO GROWTH AFTER 5 DAYS CUBLD NO GROWTH AFTER 5 DAYS H-CBC Reviewed date:12/21/2024 12:02:24 PM Interpretation: Performing [...] 0.1 0-0.2 K/mm3 NRBC# 0 IG# 0.02 H-CMP Reviewed date:12/21/2024 12:02:24 PM Interpretation: Performing [...] AGRATIO 1.1 1.1-1.8 ALP 176 38-126 U/L H-Lactic Acid Reviewed date:12/21/2024 12:02:25 PM Interpretation: Performing Lab: Notes/Report: Comment Repeat 2nd or 3rd lactic acid to reflex if initial or subseq level > 2 LACTIC 1.3 0.7-2.1 mmol/L H-UA Reviewed date:12/22/2024 08:34:35 AM Interpretation: Performing [...] 4+ NONE /lpf UYEAST Occasional None /lpf Medications Medication SIG (Take, Route, Frequency, Duration) Notes Start Date End Date Status Sertraline HCl 100 MG 2 tablets Orally Once a day; Duration: 90 days Active Atorvastatin Calcium 10 MG TAKE 1 TABLET AT BEDTIME; Duration: 90 Active CPAP Supplies 1 Set Use supplies as directed 05/29/2023 Active Celecoxib 100 MG 1 capsule with food Orally twice a day; Duration: 90 days Active Nystatin 369759 UNIT/GM APPLY TO THE AFFECTED AREA(S) THREE [...] directed J18.9 and R06.2 05/05/2024 Active Nystatin 894466 UNIT/GM 1 application Externally Twice a day [...] Status Risk Notes Problem Vitamin D deficiency (12042162) Vitamin D deficiency (E55.9) Active confirmed Problem Essential hypertension (75827214) Essential hypertension (I10) Active confirmed Problem Morbid obesity (378072129) Morbid obesity (E66.01) Active confirmed Problem Hypertriglyceridemia (955135195) Hypertriglyceridemia (E78.1) Active confirmed Problem Vitamin B12 deficiency (072796769) History of non anemic vitamin B12 deficiency (Z86.39) Active confirmed Problem Osteopenia (784126835) Osteopenia (M85.80) Active confirmed Problem Mixed anxiety and depressive disorder (262045103) Depression with anxiety (F41.8) Active confirmed Problem Acute constipation (506004558) Acute constipation (K59.00) Active confirmed Problem Sciatica (46195831) Lumbago with sciatica, right side (M54.41) Active confirmed Problem Pure hypercholesterolemia (045525385) Pure hypercholesterolemia (E78.0) Active confirmed Problem Mixed hyperlipidemia (088143448) Mixed hyperlipidemia (E78.2) Active confirmed Problem Adjustment disorder with depressed mood (89510804) Adjustment disorder with depressed mood (F43.21) Active confirmed Problem Adjustment disorder with mixed anxiety and depressed mood (809445674) Adjustment disorder with mixed anxiety and depressed mood (F43.23) Active confirmed Problem Chronic pain (29329142) Other chronic pain (G89.29) Active confirmed Problem Sciatica (59032195) Lumbago with sciatica, left side (M54.42) Active confirmed Problem Abnormal vaginal bleeding (480973750) DUB (dysfunctional uterine bleeding) (N93.8) Active confirmed Problem Postmenopausal state (47530276) Post-menopausal (Z78.0) Active confirmed Problem Obese class II (797939346279022) BMI 35.0-35.9,adult (Z68.35) Active confirmed Problem Acquired hypothyroidism (443988018) Acquired hypothyroidism (E03.9) Active confirmed Problem Kidney stone (85955082) Kidney stone (N20.0) Active confirmed Problem Arthropathy of lumba r facet joint (482520883) Lumbar facet arthropathy (M46.96) Active confirmed Problem Chronic vaginitis (72294969) Chronic vaginitis (N76.1) Active confirmed Problem Anemia (070319738) Anemia, unspe cified type (D64.9) Active confirmed Problem Sleep apnea (20454457) Sleep apnea, unspecified type (G47.30) Active confirmed Problem History of nutritional deficiency (17554399666178) History of vitamin D deficiency (Z86.39) Active confirmed Problem Ex-tobacco user (finding) (774730594) History of tobacco use (Z87.891) Active confirmed Problem Persistent cough (399476085) Persistent cough (R05) Active confirmed Problem Hypersomnia (41173621) Hypersomnia (G47.10) Active confirmed Problem Mammography abnormal (885962495) Abnormal mammogram of right breast (R92.8) Active confirmed Problem Degenerative disc disease (63927368) DDD (degenerative disc disease), lumbar (M51.36) Active confirmed Problem Chronic rhinitis (96025967) Rhinitis, unspecified type (J31.0) Active confirmed Problem Fibrocystic breast changes (95894933) Fibrocystic breast changes, unspecified laterality (N60.19) Active confirmed Problem Arthritis of knee (610620481) Arthritis of knee (M17.10) Active confirmed Problem Chronic kidney disease stage 2 (disorder) (714526830) CKD (chronic kidney disease) stage 2, GFR 60-89 ml/min (N18.2) Active confirmed Problem Bilirubinemia (88960558) Bilirubinemia (E80.6) Active confirmed Vital Signs Heart Rate 63 /min 12/30/2024 Blood pressure diastolic 82 mm Hg 12/30/2024 Height 66 in 12/30/2024 Blood pressure systolic 134 mm Hg 12/30/2024 Weight 000 lbs 12/30/2024 BMI 37.76 kg/m2 12/07/2024 Encounters Encounter Location Date Provider Diagnosis [facility] [address] [place] [id number] 01/28/2024 Nila Crowdy Yeast infection B37. 9 ; Upper back pain M54.9 ; Lower extremity edema R60.0 ; Rash R21 and Dysuria R30.0 [facility] [address] [place] [id number] 02/02/2024 Nila Crowdy Dysuria R30.0 [facility] [address] [place] [id number] 02/03/2024 Nila Crowdy Yeast infection B37. 9 ; Upper back pain M54.9 ; Lower extremity edema R60.0 ; Rash R21 and Dysuria R30.0 [facility] [address] [place] [id number] 05/17/2024 Bossman [place] Community acquired pneumonia, unspecified laterality J18.9 ; Fatigue, unspecified type R53.83 ; Vitamin D deficiency E55.9 and Vitamin B12 deficiency E53.8 [facility] [address] [place] [id number] 05/25/2024 Bossman [place] Essential hypertensi on I10 and Mixed hyperlipidemia E78.2 [facility] [address] [place] [id number] 08/01/2024 Bossman [place] Lumbago with sciatic a, right side M54.41 ; Lumbago with sciatica, left side M54.42 ; Acquired hypothyroidism E03.9 ; BMI 35.0-35.9,adult Z68.35 ; Depression with anxiety F41.8 and Morbid obesity E66.01 [facility] [address] [place] [id number] 11/23/2024 Bossman [place] Essential hypertensi on I10 ; Acquired hypothyroidism E03.9 ; Elevated alkaline phosphatase level R74.8 ; Elevated LFTs R79.89 ; Other chronic pain G89.29 and Osteoporosis screening Z13.820 [facility] [address] [place], [place] [id number] 12/07/2024 Bossman [place] Chronic constipation K59.09 [facility] [address] [place], [place] [id number] 12/21/2024 Bossman [place] Left flank pain R10. A2 and Chronic constipation K59.09 [facility] [address] [place], [place] [id number] 12/30/2024 Bossman [place] Midline low back ramana n without sciatica, unspecified chronicity M54.50 ; Compression fracture of L3 vertebra, initial encounter S32.030A ; Anemia, unspecified type D64.9 and Osteopenia M85.80 [facility] [address] [place], [place] [id number] 01/26/2024 Bossman [place] Tinea cruris B35.6 [facility] [address] [place], [place] [id number] 01/29/2024 Nila Crowdy [facility] [address] [place], [place] [id number] 02/10/2024 Nila Crowdy [facility] [address] [place], [place] [id number] 04/26/2024 Bossman [place] [facility] [address] [place], [place] [id number] 04/27/2024 Bossman [place] Yeast infection B37. 9 [facility] [address] [place], [place] [id number] 05/04/2024 Bossman [place] [facility] [address] [place] [id number] 05/04/2024 Bossman [place] [facility] [address] [place], [place] [id number] 05/20/2024 Bossman [place] [facility] [address] [place], [place] [id number] 06/13/2024 Bossman [place] [facility] [address] [place], [place] [id number] 08/04/2024 Bossman [place] [facility] [address] [place], [place] [id number] 08/26/2024 Bossman [place] [facility] [address] [place], [place] [id number] 10/21/2024 Bossman [place] [facility] [address] [place], [place] [id number] 11/24/2024 Bossman [place] Assessments Encounter Date Diagnosis (ICD Code) Assessment Notes Treatment Notes Treatment Clinical Notes Section Notes 12/07/2024 Chronic constipation (ICD-10 - K59.09) 11/23/2024 Acquired hypothyroidism (ICD-10 - E03.9) 12/21/2024 Chronic constipation (ICD-10 - K59.09) 12/21/2024 Left flank pain (ICD-10 - R10.A2) 08/01/2024 Lumbago with sciatica, right side (ICD-10 - M54.41) 08/01/2024 Lumbago with sciatica, left side (ICD-10 - M54.42) 11/23/2024 Essential hypertension (ICD-10 - I10) 12/30/2024 Compression fracture of L3 vertebra, initial encounter (ICD-10 - S32.030A) Patient has an appt. with Dr. Lozano next week to discuss treatment 12/30/2024 Midline low back pain without sciatica, unspecified chronicity (ICD-10 - M54.50) 01/26/2024 Tinea cruris (ICD-10 - B35.6) 01/28/2024 [...] time 05/25/2024 Mixed hyperlipidemia (ICD-10 - E78.2) 05/17/2024 Vitamin D deficiency (ICD-10 - E55.9) 02/03/2024 Lower extremity edema (ICD-10 - R60.0) Can stop the lasix and only use prn. 02/03/2024 Upper back pain (ICD-10 - M54.9) Resolved. 02/02/2024 Dysuria (ICD-10 - R30.0) 01/28/2024 Lower extremity edema (ICD-10 - R60.0) Has lasix at home and will take a 40mg every other day and f/u in 1 week. Will get labs today. 12/30/2024 Anemia, unspecified type (ICD-10 - D64.9) Plan to recheck labs at f/u visit in 1 month 11/23/2024 Elevated alkaline phosphatase level (ICD-10 - R74.8) 08/01/2024 Acquired hypothyroidism (ICD-10 - E03.9) 08/01/2024 BMI 35.0-35.9,adult (ICD-10 - Z68.35) 11/23/2024 Elevated LFTs (ICD-10 - R79.89) 12/30/2024 Osteopenia (ICD-10 - M85.80) 01/28/2024 Rash (ICD-10 - R21) Will stop the diet pills as this could be causing her rash and swelling. Will f/u in 1 week. 02/03/2024 Rash (ICD-10 - R21) Resolved. 05/17/2024 Vitamin B12 deficiency (ICD-10 - E53.8) 02/03/2024 Dysuria (ICD-10 - R30.0) Awaiting urine culture results. 01/28/2024 Dysuria (ICD-10 - R30.0) 11/23/2024 Other chronic pain (ICD-10 - G89.29) 08/01/2024 Depression with anxiety (ICD-10 - F41.8) 11/23/2024 Osteoporosis screening (ICD-10 - Z13.820) 08/01/2024 Morbid obesity (ICD-10 - E66.01) 05/17/2024 Other Discharge summary with available lab/diagnostic imaging results obtained and reviewed. Discharge medication list reconciled. Appropriate counseling provided. Moderate Complexity Plan Of Treatment Pending Test Test Name Order Date DEXA Hip and Spine 11/23/2024 Next Appt Details Provider Name:Bossman Maggie kim, 01/31/2025 09:45:00 AM, [address] [facility] [address] [facility], [address], [place], [place], [id number], Provider Name:Bossman kim, 05/23/2025 09:45:00 AM, [address] [facility] [address] [facility], [address], [place], [place], [id number], Insurance Providers Payer Name Payer Address Payer Phone Subscriber Number Group Number Insured Name Patient Relationship to Insured Coverage Start Date Coverage End Date [employer] (MEDICAR E) [address] [address] [place] [phone] [id number] [id number] Self - patient is the [...]
== END 2025-01-25 23:59 | disposition home or self-care (01) ==
LOC: RAD 09:29
PROVIDERS: PCP Family Medicine; Visit Provider Family Medicine
DX: M85.831 Other specified disorders of bone density and structure, right forearm (principal); M85.852 Other specified disorders of bone density and structure, left thigh; Z13.820 Encounter for screening for osteoporosis; Z78.0 Asymptomatic menopausal state
CPT/HCPCS: 77080